=== PATIENT | female | born 1940 | race Caucasian/White ===

== ENCOUNTER 2018-01-31 13:05 | Inpatient (IN) | payer OTHER ==
[2018-01-31] MEDS ORDERED: ONDANSETRON 4 MG/2 ML VIAL ONE ×2 (13:27→17:15)
[2018-01-31 13:48] LABS: Protime INR 0.95
[2018-01-31 13:54] LABS: ALT/SGPT 15 U/L (12-78); AST/SGOT 16 U/L (15-37); Albumin 3.6 g/dL (3.4-5.0); Alkaline Phosphatase 116 U/L (45-117); BUN Blood Urea Nitrogen 40 mg/dL (7-18); Bicarbonate 28 mmol/L (21-32); Bilirubin Direct < 0.1 mg/dL (0-0.2); Bilirubin Total 0.3 mg/dL (0.2-1.0); Glucose Level 176 mg/dL (74-106); Lipase 101 U/L (73-393); Magnesium 2.7 mg/dL (1.8-2.4); NT PRO-BNP 206 pg/mL (<450); Sodium Level 141 mmol/L (136-145)
--- NOTE | 2018-01-31 14:13 | RAD REPORT ---
EXAM DESCRIPTION: CT - Head Brain Wo Cont - 01/31/2018 1:38 pm CLINICAL HISTORY: Dizziness, weakness, nausea and vomiting, history of CVA COMPARISON: None. TECHNIQUE: Axial 5 mm thick images of the head were obtained without IV contrast. All CT scans are performed using dose optimization technique as appropriate and may include automated exposure control or mA/KV adjustment according to patient size. FINDINGS: No intracranial hemorrhage, mass, edema or shift of mid-line structures. No acute cortical based infarction is identifiable. No cortical edema or sulcal effacement. Patient has a large area o f encephalomalacia involving the right parietal lobe with extension into the white matter of the righ t frontal lobe. No abnormal extra-axial fluid collections. Ventricles are in proportion to volume los s. Patient has an underlying moderate atrophy and chronic ischemic change. Physiologic and arterial c alcifications are present. Mastoid air cells are clear. Mucosal thickening and fluid are present in the left side of the sphenoi d sinus. Paranasal sinuses are otherwise clear. No acute bony findings. IMPRESSION: No hemorrhage, mass or acute cortical based infarction. Patient has baseline moderate atrophy and chronic ischemic change with a moderately large area of enc ephalomalacia from prior CVA involving the right parietal lobe and the right frontal lobe white matte r.
[2018-01-31] MEDS ORDERED: ENALAPRILAT 1.25 MG/ML VIAL IV ONE (14:31)
[2018-01-31 14:35] LABS: Absolute Lymphocytes (CBC) 2.2 K/uL (0.7-4.9); Absolute Monocytes 0.4 K/uL (0.1-1.3); Absolute Neutrophil 4.3 K/uL (1.8-8.0); Basophils % 0.7 % (0-1.3); Hematocrit 31.7 % (36.0-45.0); Lymphocytes % 31.2 % (15.3-44.8); MCH 30.5 pg (27.0-35.0); MCV 94.6 fL (80-100); MPV 8.9 fL (7.6-11.3); Monocytes % 5.3 % (3.3-12.3); RBC Red Blood Cell Count 3.35 M/uL (3.86-4.86)
--- NOTE | 2018-01-31 14:37 | RAD REPORT ---
EXAM DESCRIPTION: RAD - Chest Single View - 01/31/2018 2:30 pm CLINICAL HISTORY: Chest pain COMPARISON: December 2013 TECHNIQUE: AP portable chest image was obtained 1410 hours . FINDINGS: No peripheral mass or consolidation. No acute failure or volume overload finding. Interstitial markings are prominent but similar to the prior study. No acute interstitial process see n. Trachea is midline. Heart and vasculature are normal. No measurable pleural effusion and no pneumo thorax. No gross bony abnormality seen. No acute aortic findings suspected. IMPRESSION: Chronic interstitial lung disease similar to 2014. No acute findings seen.
[2018-01-31] MEDS ORDERED: CEFTRIAXONE/SWI 1gm 1 GM/10 ML SYR ONE (14:51)
--- NOTE | 2018-01-31 14:56 | RAD REPORT ---
EXAM DESCRIPTION: CT - Stone Protocol - 01/31/2018 2:44 pm CLINICAL HISTORY: Abdominal pain, nausea, history of UTI COMPARISON: CT study February 2009 TECHNIQUE: Axial 5 mm thick images were obtained without oral or IV contrast. The [id number] span s the entirety of the system including uppermost abdomen and lung bases. All CT scans are performed using dose optimization technique as appropriate and may include automated exposure control or mA/KV adjustment according to patient size. FINDINGS: No hydronephrosis present. No nonobstructing calculi of either kidney. Phleboliths and vas cular calcifications are present. There is a faint less than 1 millimeter calcific density in the dis papito right ureter. No bladder calculus. No suspicious renal masses. Isodense masses and pyelonephritis are not excluded on a stone protocol CT scan. No bladder wall thickening or bladder wall edema seen. Uterus is absent. Calcifications are present at the vaginal cuff. Ovaries are absent or atrophic. No adnexal mass. Imaged portions of the liver, spleen and pancreas show no suspicious findings on non-contrast imaging . Gallbladder is absent. No biliary tree dilatation. No significant adrenal finding. No acute bowel findings seen. Moderate stool volume present in the colon. Sigmoid diverticulosis is p resent without diverticulitis. No hernia, mass or bulky lymphadenopathy noted. No free air, free fluid or inflammatory stranding. So ft tissue attenuation subcutaneous fatty tissues right periumbilical region probably related to medic ation injection. Disc and bone degenerative changes are present. No acute or destructive bone process. IMPRESSION: The patient appears to have a less than 1 millimeter size stone in the distal right uret er near the UVJ. There is no hydronephrosis. Isodense masses and pyelonephritis are not excluded on stone protocol technique. No urinary bladder wall thickening or edema. Sigmoid diverticulosis without diverticulitis. No acute GI process.
[2018-01-31] MEDS ORDERED: HYDRALAZINE HCL 20 MG/ML VIAL ONE ×2 (16:17→17:15)
--- NOTE | 2018-01-31 17:23 | RAD REPORT ---
EXAM DESCRIPTION: MRI - Brain Wo Cont - 01/31/2018 5:02 pm CLINICAL HISTORY: Transient alteration of awareness. Drowsiness COMPARISON: Head Brain Wo Cont dated 01/31/2018; Chest Single View dated 01/31/2018 TECHNIQUE: Multi-sequence, multiplanar MR imaging of the brain was performed without contrast. FINDINGS: No intracranial hemorrhage, hydrocephalus or extra-axial fluid collections. Moderate brain atrophy. Significant encephalomalacia is seen involving the right temporoparietal region compatible with remote infarct. No edema or shift of midline structures. No findings to suspect brain mass. DWI is negative for acute CVA. Midline structures are normally formed. Mastoid air cells and paranasal sinuses are clear. IMPRESSION: Negative for acute CVA or other acute intracranial abnormality. Evidence of remote CVA right temporoparietal region.
--- NOTE | 2018-01-31 17:36 | ER ---
Nurse's Notes [facility] Name: Mariposa Palacios Age: 78 yrs Sex: Female : 1940 Arrival Date: 01/31/2018 Time: 13:10 Bed 2 Private MD: Diagnosis: Urinary tract infection, site not specified;Essential (primary) hypertension;Dehydration Presentation: 01/31 13:11 Presenting complaint: EMS states: nausea, vomiting, dizziness since 1 am, last episode iw of vomiting 20 minutes ago, pt c/o mild abd discomfort, daughter reported pt currently has UTI, not started on abx yet, had UA done on Sunday, also has been out of BP medication for 3-4 days due to recall of valsartan. Transition of care: patient was not received from another setting of care. Onset of symptoms was January 31, 2018. Risk Assessment: Do you want to hurt yourself or someone else? Patient reports no desire to harm self or others. Initial Sepsis Screen: Does the patient meet any 2 criteria? No. Patient's initial sepsis screen is negative. Does the patient have a suspected source of infection? No. Patient's initial sepsis screen is negative. Care prior to arrival: Glucose check: 163. 13:11 Method Of Arrival: EMS: [facility] iw 13:11 Acuity: DOMINIQUE 3 iw Historical: - Allergies: 13:18 Benadryl; iw 13:18 injectable dye; iw 13:18 Phenergan; iw - Home Meds: 15:02 acai blackman extract 500 mg Oral cap [Active]; albuterol sulfate 0.63 mg/3 mL Inhl nebu iw [Active]; allopurinol 100 mg Oral tab 1 tab 3 times per day [Active]; amlodipine 5 mg tab 1 tab once daily [Active]; Calcarb 600 With Vitamin D 600 mg(1,500mg) -200 unit Oral tab [Active]; Diovan 40 mg Oral tab once daily [Active]; docusate sodium 100 mg Oral cap 1 cap 2 times per day [Active]; Folgard 2,000-800-0.32 unit-mcg-mg Oral tab [Active]; Lasix 40 mg oral tab once daily [Active]; garlic 1,000 mg oral cap daily [Active]; latanoprost 0.005 % ophthalmic drop 1 drop once daily [Active]; Lopid 600 mg Oral tab 1 tab 2 times per day [Active]; magnesium oxide 250 mg Oral tab daily [Active]; gabapentin 300 mg Oral cap twice a day [Active]; Norvasc 5 mg oral tab once daily [Active]; Plavix 75 mg Oral tab once daily [Active]; Vesicare 10 mg oral tab once daily [Active]; Zetia 10 mg Oral tab 1 tab once daily [Active]; Zoloft 100 mg Oral tab 1 tab once daily [Active]; Novolog 100 unit/mL Sub-Q soln 26 units am, 20 units pm [Active]; - PMHx: 13:18 Diabetes - IDDM; kidney disease; CVA; iw - PSHx: 13:18 left arm; left shoulder; iw - Immunization history:: Adult Immunizations up to date. - Ebola Screening: : Patient negative for fever greater than or equal to 101.5 degrees Fahrenheit, and additional compatible Ebola Virus Disease symptoms Patient denies exposure to infectious person Patient denies travel to an Ebola-affected area in the 21 days before illness onset No symptoms or risks identified at this time. - Social history:: Smoking status: Patient/guardian denies using tobacco. Screenin:06 Abuse screen: Denies threats or abuse. Denies injuries from another. Nutritional iw screening: No deficits noted. Tuberculosis screening: No symptoms or risk factors identified. Fall Risk IV access (20 points). Assessment: 13:40 General: Appears uncomfortable, Behavior is calm, cooperative. Pain: Complains of pain iw in abdomen. Neuro: Level of Consciousness is awake, alert, obeys commands, Oriented to person, place, time, situation, Moves all extremities. Neuro: Reports dizziness, Denies numbness. Cardiovascular: Patient's skin is warm and dry. Respiratory: Respiratory effort is even, unlabored, Respiratory pattern is regular. GI: Abdomen is round non-distended, obese, Bowel sounds present X 4 quads. Reports nausea, vomiting. Derm: Skin is pink, warm \\T\\ dry. normal. Musculoskeletal: Range of motion: limited in left shoulder and left elbow. 14:17 Reassessment: pt c/o nausea, and diffuse abd pain described as bloating, daughter at iw bedside, warm blanket given. 14:54 Reassessment: Patient appears in no apparent distress at this time. pt returned from iw CT. pt states that she may needs some anxiety medication before having MRI. 16:38 Reassessment: Pt currently at MRI. aa5 17:06 Reassessment: Pt back from MRI. aa5 17:07 Reassessment: Patient is alert, oriented x 3, equal unlabored respirations, skin aa5 warm/dry/pink. Patient denies pain at this time. Pt c/o nausea and reports dizziness is unchanged, PARTS SALES ADVISOR was notified. . 17:50 Reassessment: Patient is alert, oriented x 3, equal unlabored respirations, skin aa5 warm/dry/pink. Pt c/o abd pain, rates pain 7/10 on a pain scale. . 18:25 Reassessment: Patient is alert, oriented x 3, equal unlabored respirations, skin aa5 warm/dry/pink. 18:40 Reassessment: Pt was taken to vehicle via wheelchair for d/c home, pt c/o increased aa5 nausea and dizziness before getting into the car. Pt states "I don't think I can go home like this, I need to stay in the hospital". Asked pt if she wanted to speak to PARTS SALES ADVISOR about her complaints and she stated yes. Pt was taken back to ER Room 2 via wheelchair. Pt currently sitting in wheelchair awaiting to speak to PARTS SALES ADVISOR, pt notified of wait time . 19:00 Reassessment: RECD REPORT FROM LACEY STILES. 78YO WF P/W DIZZINESS AND NAUSEA/VOMITING. PT bp WAS D/C PREVIOUSLY AND DECLINED DISCHARGE AFTER EXITING FACILITY. NOW WAITING FOR PROVIDER RE-EVAL. 19:00 Reassessment: Report given to GO Mckeon. aa5 19:10 Reassessment: PROVIDER AT B/S FOR PT RE-EVAL. bp 20:10 Reassessment: PT NOW TO BE ADMITTED, ADMIT IN PROCESS. bp 21:27 Reassessment: PT AND FAMILY NOW OBJECTING TO OBS STATUS. PROVIDER AT B/S. bp 22:20 Reassessment: PT HAMZAH WITH PCT. bp Vital Signs: 13:16 BP 233 / 85; Pulse 67; Resp 16; Temp 98.6; Pulse Ox 97% on R/A; Weight 90.72 kg; Height iw 5 ft. 5 in. (165.10 cm); Pain 7/10; 14:16 BP 185 / 72; Pulse 62; Resp 16; Pulse Ox 97% on R/A; iw 15:12 BP 188 / 81; Pulse 64; Resp 16; Pulse Ox 96% on R/A; iw 15:25 BP 184 / 77; Pulse 62; Resp 16; Pulse Ox 99% on R/A; mt 16:33 BP 166 / 78; Pulse 60; Resp 16 S; Pulse Ox 99% on R/A; iw 17:07 BP 172 / 70; Pulse 64; Resp 14 S; Pulse Ox 98% on R/A; Pain 0/10; aa5 17:35 BP 153 / 68; Pulse 71; Resp 18 S; Pulse Ox 99% on R/A; aa5 18:00 BP 154 / 70; Pulse 70; Resp 16 S; Pulse Ox 97% on R/A; aa5 20:00 BP 148 / 65; Pulse 70; Resp 14; Pulse Ox 98% ; bp 21:00 BP 165 / 71; Pulse 73; Resp 16; Pulse Ox 97% ; bp 13:16 Body Mass Index 33.28 (90.72 kg, 165.10 cm) iw ED Course: 13:10 Patient arrived in ED. iw 13:14 Hiram Huitron PA is PHCP. jr8 13:14 Ronnie Aaron MD is Attending Physician. jr8 13:15 Inserted saline lock: 22 gauge in right forearm, using aseptic technique. Blood mt collected. 13:16 Triage completed. iw 13:16 Malinda Arreguin, RN is Primary Nurse. iw 13:32 EKG done, by biomass plant technician. reviewed by Hiram ELLISON. at1 13:36 CT completed. Patient tolerated procedure well. Patient moved to CT. Patient moved back mw3 from CT. 13:38 CT Head Brain wo Cont In Process Unspecified. EDMS 14:06 Patient has correct armband on for positive identification. Placed in gown. Bed in low iw position. 14:28 X-ray completed. Portable x-ray completed in exam room. Patient tolerated procedure jb2 well. 14:[address] vr 14:30 XRAY Chest (1 view) In Process Unspecified. EDMS 14:43 CT completed. Patient tolerated procedure well. Patient moved back from CT. vm2 14:44 CT Stone Protocol In Process Unspecified. EDMS 15:58 PHCP role handed off by Hiram Huitron PA kav 15:58 Bethanie Shook FNP is PHCP. kav 16:53 Patient moved to MRI via stretcher. em2 17:01 MRI - Brain Wo Cont In Process Unspecified. EDMS 17:10 MRI completed. Patient tolerated well. Patient moved back from MRI. em2 17:34 Renzo Gautam MD is Referral Physician. kav 18:25 IV discontinued, intact, bleeding controlled, No redness/swelling at site. Pressure aa5 dressing applied. 19:00 Arm band placed on. bp 19:06 No provider procedures requiring assistance completed. bp 20:04 Arcelia Escobar MD is Hospitalizing Provider. kav 20:09 Inserted saline lock: 22 gauge in right antecubital area, using aseptic technique. bp 22:08 Patient admitted, IV remains in place. fc Administered Medications: 13:32 Drug: Zofran 4 mg Route: IVP; Site: right forearm; iw 16:32 Follow up: Response: No adverse reaction iw 14:32 Drug: Enalaprilat 1.25 mg Route: IV; Rate: calculated rate; Site: right forearm; iw 19:11 Follow up: IV Status: Completed infusion bp 15:11 Drug: Rocephin 1 grams {Note: given over 3 minutes.} Route: IV; Rate: calculated rate; iw Site: right forearm; 19:11 Follow up: IV Status: Completed infusion bp 16:25 Not Given (change dose): hydrALAZINE 10 mg IV at bolus once kav 16:25 Drug: hydrALAZINE 5 mg Route: IV; Rate: bolus; Site: right forearm; iw 19:11 Follow up: IV Status: Completed infusion bp 17:19 Drug: hydrALAZINE 5 mg Route: IV; Rate: calculated rate; Site: right forearm; aa5 19:10 Follow up: IV Status: Completed infusion bp 17:19 Drug: Zofran 4 mg Route: IVP; Site: right forearm; aa5 17:25 Follow up: Response: No adverse reaction aa5 17:50 Drug: morphine 2 mg Route: IVP; Site: right forearm; aa5 18:00 Follow up: Response: No adverse reaction; Pain is decreased aa5 19:24 CANCELLED (Inappropriate at this time): Phenergan 25 mg IM once bp Outcome: 17:35 Discharge ordered by MD. kav 18:25 Discharged to home via wheelchair, with daughter aa5 18:25 Condition: stable 18:25 Discharge instructions given to patient, family, Instructed on discharge instructions, follow up and referral plans. medication usage, Demonstrated understanding of instructions, follow-up care, medications, Prescriptions given X 4. 20:05 Decision to Hospitalize by Provider. kav 22:06 Admitted to Tele accompanied by tech, family with patient, via stretcher, room 426, with chart, Report called to GO Chinchilla 22:21 Patient left the ED. bp Signatures: Dispatcher [employer] EDMS Bethanie Shook, SPECIAL TECHNICAL OPERATIONS OFFICER SPECIAL TECHNICAL OPERATIONS OFFICER kaPasha Burroughs jb2 Yadira Guerra RN RN Malinda Arreguin RN RN Lacey Ng RN RN aa5 Jaylin Lopez Josh, PA PA jr8 Justin Soriano em2 Radha blandon, logistics solution manager EKG [facility] Jaylin Perera 2 Rossana Abernathy mt, Brian, RN RN Ellie Knapp mw3 Corrections: (The following items were deleted from the chart) 14:21 13:16 BP 233 / 85; Pulse 67bpm; Resp 16bpm; Pulse Ox 97% RA; iw iw
--- NOTE | 2018-01-31 17:36 | EDPHYS ---
Physician Documentation [facility] Name: Mariposa Palaciso Age: 78 yrs Sex: Female : 1940 Arrival Date: 01/31/2018 Time: 13:10 Bed 2 Private MD: ED Physician Ronnie Aaron HPI: 01/31 14:41 This 78 yrs old Female presents to ER via EMS with complaints of jr8 Nausea/Vomiting, Dizziness. 14:41 Onset: The symptoms/episode began/occurred acutely, this morning. Possible causes: jr8 unknown. Associated signs and symptoms: Pertinent positives: abdominal pain. Severity of symptoms: At their worst the symptoms were moderate in the emergency department the symptoms are unchanged. The patient has not experienced similar symptoms in the past. The patient has not recently seen a physician. Patient stated that she started to have dizziness this morning. [place] off balance and was falling to left. Stated that she started to vomit. Now has abdominal discomfort. Noted to have elevated BP. Patient stated that she has been out of her medication . Historical: - Allergies: 13:18 Benadryl; iw 13:18 injectable dye; iw 13:18 Phenergan; iw - Home Meds: 15:02 acai blackman extract 500 mg Oral cap [Active]; albuterol sulfate 0.63 mg/3 mL [facility] iw [Active]; allopurinol 100 mg Oral tab 1 tab 3 times per day [Active]; amlodipine 5 mg tab 1 tab once daily [Active]; Calcarb 600 With Vitamin D 600 mg(1,500mg) -200 unit Oral tab [Active]; Diovan 40 mg Oral tab once daily [Active]; docusate sodium 100 mg Oral cap 1 cap 2 times per day [Active]; Folgard 2,000-800-0.32 unit-mcg-mg Oral tab [Active]; Lasix 40 mg oral tab once daily [Active]; garlic 1,000 mg oral cap daily [Active]; latanoprost 0.005 % ophthalmic drop 1 drop once daily [Active]; Lopid 600 mg Oral tab 1 tab 2 times per day [Active]; magnesium oxide 250 mg Oral tab daily [Active]; gabapentin 300 mg Oral cap twice a day [Active]; Norvasc 5 mg oral tab once daily [Active]; Plavix 75 mg Oral tab once daily [Active]; Vesicare 10 mg oral tab once daily [Active]; Zetia 10 mg Oral tab 1 tab once daily [Active]; Zoloft 100 mg Oral tab 1 tab once daily [Active]; Novolog 100 unit/mL Sub-Q soln 26 units am, 20 units pm [Active]; - PMHx: 13:18 Diabetes - IDDM; kidney disease; CVA; iw - PSHx: 13:18 left arm; left shoulder; iw - Immunization history:: Adult Immunizations up to date. - Ebola Screening: : Patient negative for fever greater than or equal to 101.5 degrees Fahrenheit, and additional compatible Ebola Virus Disease symptoms Patient denies exposure to infectious person Patient denies travel to an Ebola-affected area in the 21 days before illness onset No symptoms or risks identified at this time. - Social history:: Smoking status: Patient/guardian denies using tobacco. ROS: 14:41 Eyes: Negative for injury, pain, redness, and discharge, ENT: Negative for injury, jr8 pain, and discharge, Neck: Negative for injury, pain, and swelling, Cardiovascular: Negative for chest pain, palpitations, and edema, Respiratory: Negative for shortness of breath, cough, wheezing, and pleuritic chest pain, Back: Negative for injury and pain, MS/Extremity: Negative for injury and deformity, Skin: Negative for injury, rash, and discoloration. 14:41 Abdomen/GI: Positive for abdominal pain, nausea and vomiting, Negative for diarrhea, abdominal cramps, abdominal distension, anorexia, dysphagia, hematemesis, black/tarry stool, rectal pain, rectal bleeding, bowel incontinence, flatulence. 14:41 Neuro: Positive for dizziness, gait disturbance, Negative for altered mental status, headache, hearing loss, loss of consciousness, numbness, seizure activity, speech changes, syncope, near syncope, tingling, tinnitus, tremor, visual changes, weakness. Exam: 14:41 Eyes: Pupils equal round and reactive to light, extra-ocular motions intact. Lids and jr8 lashes normal. Conjunctiva and sclera are non-icteric and not injected. Cornea within normal limits. Periorbital areas with no swelling, redness, or edema. ENT: Nares patent. No nasal discharge, no septal abnormalities noted. Tympanic membranes are normal and external auditory canals are clear. Oropharynx with no redness, swelling, or masses, exudates, or evidence of obstruction, uvula midline. Mucous membranes moist. Neck: Trachea midline, no thyromegaly or masses palpated, and no cervical lymphadenopathy. Supple, full range of motion without nuchal rigidity, or vertebral point tenderness. No Meningismus. Cardiovascular: Regular rate and rhythm with a normal S1 and S2. No gallops, murmurs, or rubs. Normal PMI, no JVD. No pulse deficits. Respiratory: Lungs have equal breath sounds bilaterally, clear to auscultation and percussion. No rales, rhonchi or wheezes noted. No increased work of breathing, no retractions or nasal flaring. Abdomen/GI: Soft, mild LUQ abdominal tenderness with palpation, with normal bowel sounds. No distension or tympany. No guarding or rebound. No evidence of tenderness throughout. Back: No spinal tenderness. No costovertebral tenderness. Full range of motion. Skin: Warm, dry with normal turgor. Normal color with no rashes, no lesions, and no evidence of cellulitis. MS/ Extremity: Pulses equal, no cyanosis. Neurovascular intact. Full, normal range of motion. Neuro: Awake and alert, GCS 15, oriented to person, place, time, and situation. Cranial nerves II-XII grossly intact. Motor strength 5/5 in all extremities. Sensory grossly intact. Cerebellar exam normal. Normal gait. Vital Signs: 13:16 BP 233 / 85; Pulse 67; Resp 16; Temp 98.6; Pulse Ox 97% on R/A; Weight 90.72 kg; Height iw 5 ft. 5 in. (165.10 cm); Pain 7/10; 14:16 BP 185 / 72; Pulse 62; Resp 16; Pulse Ox 97% on R/A; iw 15:12 BP 188 / 81; Pulse 64; Resp 16; Pulse Ox 96% on R/A; iw 15:25 BP 184 / 77; Pulse 62; Resp 16; Pulse Ox 99% on R/A; mt 16:33 BP 166 / 78; Pulse 60; Resp 16 S; Pulse Ox 99% on R/A; iw 17:07 BP 172 / 70; Pulse 64; Resp 14 S; Pulse Ox 98% on R/A; Pain 0/10; aa5 17:35 BP 153 / 68; Pulse 71; Resp 18 S; Pulse Ox 99% on R/A; aa5 18:00 BP 154 / 70; Pulse 70; Resp 16 S; Pulse Ox 97% on R/A; aa5 20:00 BP 148 / 65; Pulse 70; Resp 14; Pulse Ox 98% ; bp 21:00 BP 165 / 71; Pulse 73; Resp 16; Pulse Ox 97% ; bp 13:16 Body Mass Index 33.28 (90.72 kg, 165.10 cm) iw MDM: 13:14 Patient medically screened. [facility] 17:33 Data reviewed: vital signs, nurses notes, lab test result(s), radiologic studies, CT kav scan, MRI. 19:06 Physician consultation: Romulo Gutierrez MD was called at 19:07, was contacted at 19:07, ka regarding admission, patient's condition, outpatient follow-up. 19:27 Physician consultation: Long Alonzo MD was called at 19:27, was contacted at 19:27, ka regarding patient's condition. 19:45 Physician consultation: Arcelia Escobar MD was called at 19:46, was contacted at 19:46, ka regarding admission, patient's condition, and will see patient in ED. 19:45 ED course: Patient is discharged to go home but refuses to leave because she is kav "...nauseated". Explained all results to patient and her family and advised that Dr. Araiza/Hospitalist would come and assess the patient.. 01/31 13:21 Order name: Basic Metabolic Panel; Complete Time: 14:08 01/31 13:21 Order name: CBC with Diff; Complete Time: 15:04 01/31 13:21 Order name: LFT's; Complete Time: 14:08 01/31 13:21 Order name: Magnesium; Complete Time: 14:08 01/31 13:21 Order name: NT PRO-BNP; Complete Time: 14:08 01/31 13:21 Order name: PT-INR; Complete Time: 13:52 01/31 13:21 Order name: Troponin (emerg Dept Use Only); Complete Time: 13:52 01/31 13:21 Order name: XRAY Chest (1 view); Complete Time: 14:38 01/31 13:21 Order name: CT Head Brain wo Cont; Complete Time: 14:22 01/31 13:21 Order name: Lipase; Complete Time: 14:08 01/31 14:24 Order name: MRI - Brain Wo Cont; Complete Time: 17:26 01/31 14:24 Order name: CT Stone Protocol; Complete Time: 15:04 01/31 13:21 Order name: EKG; Complete Time: 13:21 01/31 13:21 Order name: Cardiac monitoring; Complete Time: 13:34 01/31 13:21 Order name: EKG - Nurse/Tech; Complete Time: 13:34 01/31 13:21 Order name: IV Saline Lock; Complete Time: 13:23 01/31 13:21 Order name: Labs collected and sent; Complete Time: 13:23 01/31 13:21 Order name: O2 Per Protocol; Complete Time: 13:23 01/31 13:21 Order name: O2 Sat Monitoring; Complete Time: 13: Administered Medications: 13:32 Drug: Zofran 4 mg Route: IVP; Site: right forearm; iw 16:32 Follow up: Response: No adverse reaction iw 14:32 Drug: Enalaprilat 1.25 mg Route: IV; Rate: calculated rate; Site: right forearm; iw 19:11 Follow up: IV Status: Completed infusion bp 15:11 Drug: Rocephin 1 grams {Note: given over 3 minutes.} Route: IV; Rate: calculated rate; iw Site: right forearm; 19:11 Follow up: IV Status: Completed infusion bp 16:25 Not Given (change dose): hydrALAZINE 10 mg IV at bolus once kav 16:25 Drug: hydrALAZINE 5 mg Route: IV; Rate: bolus; Site: right forearm; iw 19:11 Follow up: IV Status: Completed infusion bp 17:19 Drug: hydrALAZINE 5 mg Route: IV; Rate: calculated rate; Site: right forearm; aa5 19:10 Follow up: IV Status: Completed infusion bp 17:19 Drug: Zofran 4 mg Route: IVP; Site: right forearm; aa5 17:25 Follow up: Response: No adverse reaction aa5 17:50 Drug: morphine 2 mg Route: IVP; Site: right forearm; aa5 18:00 Follow up: Response: No adverse reaction; Pain is decreased aa5 19:24 CANCELLED (Inappropriate at this time): Phenergan 25 mg IM once bp Disposition: 01/31/18 20:05 Hospitalization ordered by Arcelia Escobar for Observation. Preliminary diagnosis are Urinary tract infection, site not specified, Essential (primary) hypertension, Dehydration. - Bed requested for Telemetry/MedSurg (observation). - Status is Observation. bp - Condition is Fair. - Problem is new. - Symptoms have improved. UTI on Admission? Yes - Notes: f/u with neurology in 2-3 days for DX: Dizziness f/u with sales supervisor iin 2-3 days for DX: Dizziness Addendum: 02/11/2018 07:23 Co-signature as Attending Physician, Ronnie Aaron MD I agree with the assessment and k dr plan of care. Signatures: Dispatcher [employer] EDMS Patricia Heard RN RN kl Rittger, Kevin, MD MD [facility] Bethanie Shook, COVERED BUTTON MAKER COVERED BUTTON MAKER Malinda Mcguire RN RN Lacey Ng RN RN aa5 Hiram Huitron PA PA jr8 Mike Rodriguez RN RN bp Corrections: (The following items were deleted from the chart) 01/31 15:30 13:21 Urine Dipstick-Ancillary ordered. jr8 iw 18:17 17:35 01/31/2018 17:35 Discharged to Home. Impression: Dizziness and giddiness; kav Essential (primary) hypertension. Condition is Stable. Forms are Medication Reconciliation Form, Thank You Letter, Antibiotic Education, Prescription Opioid Use. Follow up: Private Physician; When: 1 - 2 days; Reason: Recheck today's complaints, Continuance of care, Re-evaluation by your physician. Follow up: Renzo Gautam; When: 2 - 3 days; Reason: Recheck today's complaints, Continuance of care, Re-evaluation by your physician. Problem is new. Symptoms have improved. kav 19:24 19:16 Phenergan 25 mg IM once ordered. bp bp 20:03 18:17 01/31/2018 17:35 Discharged to Home. Impression: Dizziness and giddiness; kav Essential (primary) hypertension; Urinary tract infection, site not specified. Condition is Stable. Discharge Instructions: Dizziness, Hypertension, How to Take Your Blood Pressure, [id number]-Hmbn. Prescriptions for losartan 50 mg Oral tablet - take 1 tablet by ORAL route once daily; 30 tablet. and Forms are Medication Reconciliation Form, Thank You Letter. Follow up: Private Physician; When: 1 - 2 days; Reason: Recheck today's complaints, Continuance of care, Re-evaluation by your physician. Follow up: Renzo Gautam; When: 2 - 3 days; Reason: Recheck today's complaints, Continuance of care, Re-evaluation by your physician. Problem is new. Symptoms have improved. [facility] 20:58 20:05 Hospitalization Ordered by Arcelia Escobar MD for Observation. Preliminary kl diagnosis is Urinary tract infection, site not specified; Essential (primary) hypertension; Dehydration. Bed requested for Telemetry/MedSurg (observation). Status is Observation. Condition is Fair. Problem is new. Symptoms have improved. UTI on Admission? Yes. [facility] 22:21 20:58 01/31/2018 20:05 Hospitalization Ordered by Arcelia Escobar MD for Observation. bp Preliminary diagnosis is Urinary tract infection, site not specified; Essential (primary) hypertension; Dehydration. Bed requested for Telemetry/MedSurg (observation). Status is Observation. Condition is Fair. Problem is new. Symptoms have improved. UTI on Admission? Yes. kl
[2018-01-31] MEDS ORDERED: MORPHINE 4 MG/ML SYR ONE (17:54)
--- NOTE | 2018-01-31 19:05 | EKG ---
Test Date: 2018-01-31 Test Time: 13:27:07 Pricer: BENITA MEASUREMENT RESULTS: Intervals: Rate: 63 MA: 186 QRSD: 114 QT: 464 QTc: 474 [place]: P: 17 MA: 186 QRS: -30 T: 66 INTERPRETIVE STATEMENTS: Normal sinus rhythm Left axis deviation Abnormal ECG Compared to ECG 05/12/2012 20:01:07 Left-axis deviation now present Sinus bradycardia no longer present Electronically Signed On 01-31-18 19:04:43 CDT by Kanu Box
[2018-01-31] MEDS ORDERED: PROMETHAZINE 25 MG/ML VIAL ONE (19:21)
[2018-01-31] MEDS: INSULIN -REGULAR HUMAN 50 UNIT/0.5 ML ML SQ SCH (22:42)
[2018-01-31] MEDS ORDERED: ACETAMINOPHEN 500 MG TAB PO PRN (22:42)
[2018-01-31 23:10] VITALS: BMI 31.5
[2018-01-31] MEDS: ONDANSETRON 4 MG/2 ML VIAL IV PRN (23:37)
[2018-02-01] MEDS ORDERED: PIPER/TAZO/NS 2.25gm 2.25 GM/50 ML BAG ONE ×2 (00:53→05:08)
[2018-02-01] MEDS ORDERED: NA CHLORIDE 0.9% 500 ML ONE (00:59)
[2018-02-01 05:14] LABS: Absolute Lymphocytes (CBC) 2.6 K/uL (0.7-4.9); Absolute Monocytes 0.4 K/uL (0.1-1.3); Basophils % 0.5 % (0-1.3); Eosinophils % 1.2 % (0-4.4); Hematocrit 29.7 % (36.0-45.0); Lymphocytes % 31.9 % (15.3-44.8); MCH 30.8 pg (27.0-35.0); MCV 95.2 fL (80-100); MPV 8.7 fL (7.6-11.3); Monocytes % 5.2 % (3.3-12.3); RBC Red Blood Cell Count 3.12 M/uL (3.86-4.86)
[2018-02-01] MEDS: PIPER/TAZO/NS 2.25gm 2.25 GM/50 ML BAG IV SCH ×3 (06:00→12:00)
[2018-02-01] MEDS ORDERED: NA CHLORIDE 0.9% 250 ML IV PRN (07:30)
[2018-02-01] MEDS: INSULIN -REGULAR HUMAN 50 UNIT/0.5 ML ML SQ SCH ×4 (07:30→21:00)
[2018-02-01] MEDS ORDERED: TRAMADOL HCL 50 MG TAB PO PRN (07:50)
[2018-02-01] MEDS ORDERED: HYDROCODONE/APAP 7.5/325 MG TAB PO PRN (07:50)
[2018-02-01] MEDS ORDERED: LATANOPROST OP SCH (08:00)
--- NOTE | 2018-02-01 09:18 | P.HP ---
Certification for Inpatient Patient admitted to: Inpatient With expected LOS: >2 Midnights Practitioner: I am a practitioner with admitting privileges, knowledge of patient current condition, hospital course, and medical plan of care. Services: Services provided to patient in accordance with Admission requirements found in Title 42 Section 412.3 of the Code of Federal Regulations Patient History Date of Service: 01/31/18 Reason for admission: UTI History of Present Illness: Ms Palacios is a 78 years old woman with history of CKD, DM II, HTN, CVA, recrurrent UTI episodes, who this morning started with dizziness associated with diffuse abdominal pain, nausea and vomiting. She denied fever or chills. The patient was diagnosed with UTI a couple of days ago, but since her PCP was not available, she never got antibiotics started. At my encounter the patient was still dizzy, and symptomatic for nausea. Lab work shows normal WBC, she is afebrile. The patient was severely hypertensive at arrival, 233/85, after been treated with Hydralazyne and Vasotec, her SBP drop to 150's. CT head and MRI brain report no acute abnormalities. CT abd/pelvis remarkable for a 1mm non- obstructive stone at UVJ. Allergies iodine Allergy (Severe, Verified 01/31/18 22:48) resp arrest promethazine HCl [From Phenergan] Allergy (Mild, Verified 01/31/18 22:48) Rash codeine [Codeine] Adverse Reaction (Mild, Verified 01/31/18 22:48) vomitting diphenhydramine HCl [From Benadryl] Adverse Reaction (Mild, Verified 01/31/18 22 :48) anxiety metformin HCl [From Glucophage] Adverse Reaction (Mild, Verified 01/31/18 22:48) vomitting injectable dye Allergy (Uncoded 01/31/18 22:48) Unknown Home medications list reviewed: Yes Home Medications: Gabapentin [Neurontin] 300 mg PO BID 05/12/12 Acai Reese Extract [Acai] 1,000 mg PO DAILY 05/13/12 Calcium Carbonate/Vitamin D3 [[place] 500-Vit D3 600 Caplet] 1 each PO DAILY 11/17 Allopurinol 1 tab PO DAILY 01/31/18 Amlodipine Besylate [Norvasc] 1 tab PO SEECOM 01/31/18 Cefdinir [Cefdinir*] 1 cap PO BID 01/31/18 Clopidogrel Bisulfate [Plavix] 1 tab PO DAILY 01/31/18 Cranberry Fruit Extract [Ellura] 1 tab PO DAILY 01/31/18 Ezetimibe 1 tab PO DAILY 01/31/18 Furosemide 1 tab PO DAILY 01/31/18 Gemfibrozil 1 tab PO BID 01/31/18 Insulin Aspart Protam & Aspart [Novolog Mix 70-30 Vial] 20 units PO DAILY AT SUPPER 01/31/18 Insulin Aspart Protam & Aspart [Novolog Mix 70-30 Vial] 26 units SQ BREAKFAST Latanoprost/Pf [Latanoprost 0.005% Eye Drop] 1 gtts OP SEECOM 01/31/18 Magnesium Oxide [Magnesium] 1 tab PO DAILY 01/31/18 Sertraline [Zoloft*] 1 tab PO BEDTIME 01/31/18 Solifenacin Succinate [Vesicare] 1 tab PO DAILY 01/31/18 Valsartan 1 tab PO DAILY 01/31/18 Vit D3/Folic Acid/B2/B6/B12 [Folgard Tablet] 1 tab PO DAILY 01/31/18 - Past Medical/Surgical History Has patient received pneumonia vaccine in the past: Yes Diabetic: Yes -: DM-IDDM -: HTN -: CVA -: Diabetic Neuropathy -: Diabetic Retinopathy -: Hysterectomy -: Marian - Family History Father -: Heart disease, Diabetes Mother -: Heart disease, Hypertension, Diabetes - Social History Smoking Status: Never smoker Alcohol use: No CD- Drugs: No Caffeine use: Yes Place of Residence: Home Review of Systems 10-point ROS is otherwise unremarkable Physical Examination - Vital Signs Temperature: 97.1 F Blood Pressure: 95/47 Pulse: 78 Respirations: 18 Pulse Ox (%): 97 - Physical Exam General: Alert, Mild distress (due to abdominal pain and nausea) HEENT: Atraumatic, PERRLA, Mucous membr. moist/pink, EOMI, Sclerae nonicteric Neck: Supple, 2+ carotid pulse no bruit, No LAD, Without JVD or thyroid abnormality Respiratory: Clear to auscultation bilaterally, Normal air movement Cardiovascular: Regular rate/rhythm, Normal S1 S2 Gastrointestinal: Normal bowel sounds, Tenderness (diffuse tenderness to palpation) Musculoskeletal: No tenderness Integumentary: No rashes Neurological: Normal speech, Normal strength at 5/5 x4 extr, Normal tone, Normal affect Lymphatics: No axilla or inguinal lymphadenopathy - Studies Laboratory Data (last 24 hrs) 01/31/18 13:15: PT 11.2, INR 0.95 01/31/18 13:15: WBC 7.1, Hgb 10.2 L, Hct 31.7 L, Plt Count 312 01/31/18 13:15: Sodium 141, Potassium 4.0, BUN 40 H, Creatinine 1.50 H, Glucose 176 H, Magnesium 2.7 H, Total Bilirubin 0.3, AST 16, ALT 15, Alkaline Phosphatase 116, Lipase 101 Assessment and Plan - Problems (Diagnosis) (1) Diabetes mellitus Current Visit: Yes Status: Acute Qualifiers: Diabetes mellitus type: type 2 Diabetes mellitus termite control technician insulin use: with termite control technician use Diabetes mellitus complication status: with unspecified complications Qualified Code(s): E11.8 - Type 2 diabetes mellitus with unspecified complications; Z79.4 - terminal carman (current) use of insulin (2) CKD (chronic kidney disease) Current Visit: Yes Status: Acute Qualifiers: Chronic kidney disease stage: stage 2 (mild) Qualified Code(s): N18.2 - Chronic kidney disease, stage 2 (mild) (3) UTI (urinary tract infection) Current Visit: No Status: Acute Qualifiers: Urinary tract infection type: acute cystitis Hematuria presence: without hematuria Qualified Code(s): N30.00 - Acute cystitis without hematuria (4) Hypertensive urgency Current Visit: Yes Status: Acute - Plan The patient will be admitted to the hospital due to symptomatic UTI and hypertensive urgency. Will order Zosyn IV to cover previous organism found in the most recent urine culture report. Antibiotic treatment needs to be narrowed according current urine culture results. BP at this point is better controlled, will resume her home medication as soon is verified. - Advance Directives Does patient have a Living Will: Yes Does patient have a Durable POA for Healthcare: Yes - Code Status/Comfort Care Code Status Assessed: Yes Code Status: Full Code
[2018-02-01 09:19] LABS: Potassium 4.4 mmol/L (3.5-5.1)
[2018-02-01] MEDS: NA CHLORIDE 0.9% 1,000 ML IV SCH ×2 (09:44→18:00)
[2018-02-01] MEDS: ENOXAPARIN 30 MG/0.3 ML SQ SCH (09:53)
[2018-02-01] MEDS: ONDANSETRON 4 MG/2 ML VIAL IV PRN (09:53)
--- NOTE | 2018-02-01 09:55 | P.PN ---
Subjective Date of Service: 02/01/18 Primary Care Provider: Dr. Mcclellan Chief Complaint: UTI Subjective: Other (Patient feeling slightly better still with some nausea. Dizziness is still noted.) Physical Examination - Vital Signs Temperature: 97.1 F Blood Pressure: 95/47 Pulse: 78 Respirations: 18 Pulse Ox (%): 97 - Physical Exam General: Alert, In no apparent distress, Oriented x3, Cooperative HEENT: Atraumatic, Other (Dry mucous membranes) Neck: Supple Respiratory: Clear to auscultation bilaterally, Normal air movement Cardiovascular: Normal pulses, Regular rate/rhythm Gastrointestinal: Normal bowel sounds, Soft and benign, Non-distended, No masses , No rebound, No guarding, Tenderness (Minimal pain to the epigastric region) Musculoskeletal: No erythema, No tenderness, No warmth Integumentary: No erythema, No warmth, No cyanosis Neurological: Normal speech, Normal strength at 5/5 x4 extr, Normal tone, Normal affect - Studies Laboratory Data (last 24 hrs) 01/31/18 13:15: PT 11.2, INR 0.95 01/31/18 13:15: WBC 7.1, Hgb 10.2 L, Hct 31.7 L, Plt Count 312 01/31/18 13:15: Sodium 141, Potassium 4.0, BUN 40 H, Creatinine 1.50 H, Glucose 176 H, Magnesium 2.7 H, Total Bilirubin 0.3, AST 16, ALT 15, Alkaline Phosphatase 116, Lipase 101 Medications List Reviewed: Yes Assessment & Plan - Problems (Diagnosis) (1) Nausea and vomiting Current Visit: Yes Status: Acute Plan: Will provide medication for nausea. Likely from UTI. Will monitor closely. Patient appears dehydrated. Will start IV fluids. Qualifiers: Vomiting type: unspecified Vomiting Intractability: unspecified Qualified Code(s): R11.2 - Nausea with vomiting, unspecified (2) Dehydration Current Visit: Yes Status: Acute Plan: Will start IV fluids. Will treat UTI. Await urine and blood cultures. Will obtain pro calcitonin and lactic acid. Will hold her blood pressure medication at this time. Nephrology consulted to address acute on chronic renal disease. (3) Hypertension Current Visit: Yes Status: Chronic Plan: Blood pressure is low at this time. Will provide IV fluids. Bolus will be provided then maintenance. If her blood pressure elevates then may need to her restart her medication. Will check echocardiogram. Qualifiers: Hypertension type: essential hypertension Qualified Code(s): I10 - Essential (primary) hypertension (4) Neuropathy, diabetic Current Visit: Yes Status: Chronic Plan: Will restart her home medication. Qualifiers: Diabetes mellitus type: type 2 Diabetes mellitus complication detail: diabetic polyneuropathy Qualified Code(s): E11.42 - Type 2 diabetes mellitus with diabetic polyneuropathy (5) CKD (chronic kidney disease) Current Visit: Yes Status: Acute Plan: Acute on chronic renal disease likely from dehydration and UTI. Will continue with IV fluids. Nephrology consulted to further evaluate. Will check renal ultrasound Qualifiers: Chronic kidney disease stage: stage 3 (moderate) Qualified Code(s): N18.3 - Chronic kidney disease, stage 3 (moderate) (6) Diabetes mellitus Current Visit: Yes Status: Chronic Plan: Will check A1c. Will provide sliding scale. Qualifiers: Diabetes mellitus type: type 2 Diabetes mellitus snf insulin use: with technician terminal and repeater use Diabetes mellitus complication status: with other specified complication Qualified Code(s): E11.69 - Type 2 diabetes mellitus with other specified complication; Z79.4 - manager intermediate (current) use of insulin (7) Anemia Current Visit: No Status: Chronic Plan: Likely of chronic renal disease. Will monitor closely. Qualifiers: Anemia type: due to chronic kidney disease Chronic kidney disease stage: stage 3 (moderate) Qualified Code(s): N18.3 - Chronic kidney disease, stage 3 (moderate); D63.1 - Anemia in chronic kidney disease (8) UTI (urinary tract infection) Current Visit: No Status: Acute Plan: Patient with UTI. No hydronephrosis noted. CT scan shows less than 1 mm distal right ureter stone near UVJ. No obstruction noted. Will monitor closely. Await urine and blood culture results. Patient on IV antibiotic therapy. Continue IV fluids. Qualifiers: Urinary tract infection type: acute cystitis Hematuria presence: without hematuria Qualified Code(s): N30.00 - Acute cystitis without hematuria (9) Sepsis Current Visit: Yes Status: Suspected Plan: Will check pro calcitonin and lactic acid. Blood pressure slightly decreased today. Likely from dehydration and UTI. Will continue IV fluids. Continue IV antibiotic therapy. Await urine and blood culture results. (10) History of CVA (cerebrovascular accident) Current Visit: Yes Status: Chronic Plan: Continue with her medication. (11) GERD (gastroesophageal reflux disease) Current Visit: Yes Status: Suspected Plan: Will provide PPI. Qualifiers: Esophagitis presence: esophagitis presence not specified Qualified Code(s) : K21.9 - Gastro-esophageal reflux disease without esophagitis (12) Dizziness Current Visit: Yes Status: Acute Plan: Likely from low blood pressure. Will continue to hold blood pressure medication. Will monitor closely. Will provide medication. Continue as above. Discharge Plan: Home Plan to discharge in: 48 Hours Time Spent Managing Pts Care (In Minutes): 55
[2018-02-01 10:01] LABS: Urine Appearance CLOUDY; Urine Bilirubin NEGATIVE (NEG); Urine Blood NEGATIVE (NEG); Urine Color YELLOW; Urine Glucose NEGATIVE (NEG); Urine Protein TRACE (NEG); Urine Specific Gravity 1.015 (1.005-1.030); Urine Urobilinogen 0.2 mg/dL (0.2-1.0)
[2018-02-01 10:03] LABS: Urine Microscopic Reflex ORDER UMIC
[2018-02-01 10:17] LABS: Urine Bacteria <20 /HPF (<20); Urine Culture Reflex Order REFLEXED; Urine RBC <5 /HPF (NONE SEEN)
[2018-02-01] MEDS: EZETIMIBE 10 MG TAB PO SCH (10:58)
[2018-02-01] MEDS: CLOPIDOGREL 75 MG TABLET PO SCH (11:00)
[2018-02-01] MEDS: GABAPENTIN 300 MG CAP PO SCH ×2 (11:00→22:09)
[2018-02-01] MEDS: CRANBERRY FRUIT EXTRACT 200 MG CAP PO SCH (11:01)
[2018-02-01] MEDS: FOLBIC 1 TAB PO SCH (11:01)
--- NOTE | 2018-02-01 12:41 | RAD REPORT ---
EXAM DESCRIPTION: US - Renal Ultrasound-Complete - 02/01/2018 12:30 pm CLINICAL HISTORY: UTI, Acute on chronic renal disease, Pos. stone COMPARISON: RP EXAM COMPLETE dated 08/13/2013; Stone Protocol dated 01/31/2018 FINDINGS: Both kidneys are normal in size, shape and echotexture. Mild cortical thinning is noted. The right kidney measures 10.4 x 5.3 x 4.6 cm. No hydronephrosis, focal mass or perinephric fluid. The left kidney measures 8.6 x 5.1 x 4.5 cm. No hydronephrosis, focal mass or perinephric fluid. The urinary bladder is incompletely distended without gross abnormality seen. IMPRESSION: Unremarkable renal sonogram.
--- NOTE | 2018-02-01 14:31 | ECHO ---
HEIGHT: 5 ft 9 in WEIGHT: 213 lb 7 oz DATE OF STUDY: 02/01/[address]: Alen Ghotra DO 2-DIMENSIONAL: YES M.MODE: YES DOPPLER: YES COLOR FLOW: YES TDS: PORTABLE: DEFINITY: BUBBLE STUDY: DIAGNOSIS: HYPERTENSION, CHRONIC RENAL DISEASE CARDIAC HISTORY: CATHERIZATION: NO SURGERY: NO PROSTHETIC VALVE: NO PACEMAKER: NO MEASUREMENTS (cm) DIASTOLIC (NORMALS) SYSTOLIC (NORMALS) IVSd 1.5 (0.6-1.2) LA Diam 3.2 (1.9-4.0) LVEF 59% LVIDd 3.4 (3.5-5.7) LVIDs 2.3 (2.0-3.5) %FS 30% LVPWd 1.4 (0.6-1.2) Ao Diam 2.9 (2.0-3.7) 2 DIMENSIONAL ASSESSMENT: RIGHT ATRIUM: NORMAL LEFT ATRIUM: NORMAL RIGHT VENTRICLE: NORMAL LEFT VENTRICLE: NORMAL TRICUSPID VALVE: NORMAL MITRAL VALVE: NORMAL PULMONIC VALVE: NORMAL AORTIC VALVE: NORMAL PERICARDIAL EFFUSION: NONE AORTIC ROOT: NORMAL LEFT VENTRICULAR WALL MOTION: NORMAL DOPPLER/COLOR FLOW: IMPAIRED LEFT VENTRICULAR RELAXATION. MILD MITRAL REGURGITATION AND TRICUSPID REGURGITATION. NORMAL RIGHT VENTRICULAR SYSTOLIC PRESSURE. COMMENTS: NORMAL TWO DIMENSIONAL ECHOCARDIOGRAM. IMPAIRED LEFT VENTRICULAR RELAXATION. . MILD MITRAL REGURGITATION AND TRICUSPID REGURGITATION. TECHNOLOGIST: ROSSI LOCKE
[2018-02-01] MEDS: CEFTRIAXONE/SWI 1gm 1 GM/10 ML SYR IV SCH (15:59)
[2018-02-01] MEDS: SOLIFENACIN SUCCIN 5 MG TAB PO SCH (16:00)
[2018-02-01] MEDS: ALLOPURINOL 300 MG TAB PO SCH (16:00)
[2018-02-01] MEDS: GEMFIBROZIL 600 MG TAB PO SCH ×2 (16:01→22:09)
--- NOTE | 2018-02-01 19:59 | P.CNS ---
Date of Consult: 02/01/18 Reason for Consult: ANURAG/ CKD Requesting Physician: Alen Ghotra Primary Care Provider: Dr. Mcclellan Chief Complaint: UTI History of Present Illness: Ms Palacios is a 78 years old woman with history of CKD, DM II, HTN, CVA, recrurrent UTI episodes, who this morning started with dizziness associated with diffuse abdominal pain, nausea and vomiting. She denied fever or chills. The patient was diagnosed with UTI a couple of days ago, but since her PCP was not available, she never got antibiotics started. At my encounter the patient was still dizzy, and symptomatic for nausea. Lab work shows normal WBC, she is afebrile. The patient was severely hypertensive at arrival, 233/85, after been treated with Hydralazyne and Vasotec, her SBP drop to 150's. CT head and MRI brain report no acute abnormalities. CT abd/pelvis remarkable for a 1mm non- obstructive stone at UVJ. 14:41 This 78 yrs old Female presents to ER via EMS with complaints of jr8 Nausea/Vomiting, Dizziness. 14:41 Onset: The symptoms/episode began/occurred acutely, this morning. Possible causes: jr8 unknown. Associated signs and symptoms: Pertinent positives: abdominal pain. Severity of symptoms: At their worst the symptoms were moderate in the emergency department the symptoms are unchanged. The patient has not experienced similar symptoms in the past. The patient has not recently seen a physician. Patient stated that she started to have dizziness this morning. [place] off balance and was falling to left. Stated that she started to vomit. Now has abdominal discomfort. Noted to have elevated BP. Patient stated that she has been out of her medication . Allergies iodine Allergy (Severe, Verified 01/31/18 22:48) resp arrest promethazine HCl [From Phenergan] Allergy (Mild, Verified 01/31/18 22:48) Rash codeine [Codeine] Adverse Reaction (Mild, Verified 01/31/18 22:48) vomitting diphenhydramine HCl [From Benadryl] Adverse Reaction (Mild, Verified 01/31/18 22 :48) anxiety metformin HCl [From Glucophage] Adverse Reaction (Mild, Verified 01/31/18 22:48) vomitting injectable dye Allergy (Uncoded 01/31/18 22:48) Unknown Home medications list reviewed: Yes Home Medications: Gabapentin [Neurontin] 300 mg PO BID 05/12/12 Acai Reese Extract [Acai] 1,000 mg PO DAILY 05/13/12 Calcium Carbonate/Vitamin D3 [[place] 500-Vit D3 600 Caplet] 1 each PO DAILY 11/17 Allopurinol 1 tab PO DAILY 01/31/18 Amlodipine Besylate [Norvasc] 1 tab PO SEECOM 01/31/18 Cefdinir [Cefdinir*] 1 cap PO BID 01/31/18 Clopidogrel Bisulfate [Plavix] 1 tab PO DAILY 01/31/18 Cranberry Fruit Extract [Ellura] 1 tab PO DAILY 01/31/18 Ezetimibe 1 tab PO DAILY 01/31/18 Furosemide 1 tab PO DAILY 01/31/18 Gemfibrozil 1 tab PO BID 01/31/18 Insulin Aspart Protam & Aspart [Novolog Mix 70-30 Vial] 20 units PO DAILY AT SUPPER 01/31/18 Insulin Aspart Protam & Aspart [Novolog Mix 70-30 Vial] 26 units SQ BREAKFAST Latanoprost/Pf [Latanoprost 0.005% Eye Drop] 1 gtts OP SEECOM 01/31/18 Magnesium Oxide [Magnesium] 1 tab PO DAILY 01/31/18 Sertraline [Zoloft*] 1 tab PO BEDTIME 01/31/18 Solifenacin Succinate [Vesicare] 1 tab PO DAILY 01/31/18 Valsartan 1 tab PO DAILY 01/31/18 Vit D3/Folic Acid/B2/B6/B12 [Folgard Tablet] 1 tab PO DAILY 01/31/18 - Past Medical/Surgical History Diabetic: Yes -: DM-IDDM -: HTN -: CVA -: Diabetic Neuropathy -: Diabetic Retinopathy -: Hysterectomy -: Marian - Family History Father Medical History: Heart disease, Diabetes Mother Medical History: Heart disease, Hypertension, Diabetes - Social History Smoking Status: Never smoker Alcohol use: No CD- Drugs: No Caffeine use: Yes Place of Residence: Home Review of Systems 10-point ROS is otherwise unremarkable General: Weakness, Malaise Gastrointestinal: Nausea Neurological: Weakness Physical Examination Temp Pulse Resp BP Pulse Ox 97.6 F 57 16 129/62 96 02/01/18 16:00 02/01/18 16:00 02/01/18 16:00 02/01/18 16:00 02/01/18 16:00 General: Oriented x3, Cooperative HEENT: Atraumatic Neck: Supple, JVD not distended Respiratory: Clear to auscultation bilaterally, Normal air movement Cardiovascular: No edema, Regular rate/rhythm, No rubs Gastrointestinal: Soft and benign, Non-distended, Tenderness Musculoskeletal: No clubbing, No contractures, No warmth Integumentary: No rashes, No cyanosis Neurological: Normal speech Hgb 9.6 Blood work reviewed in the chart. Imagings Data: Reason for Exam: UTI, Acute on chronic renal disease, Pos. stone Report Status: Signed EXAM DESCRIPTION: US - Renal Ultrasound-Complete - 02/01/2018 12:30 pm CLINICAL HISTORY: UTI, Acute on chronic renal disease, Pos. stone COMPARISON: RP EXAM COMPLETE dated 08/13/2013; Stone Protocol dated 01/31/2018 FINDINGS: Both kidneys are normal in size, shape and echotexture. Mild cortical thinning is noted. The right kidney measures 10.4 x 5.3 x 4.6 cm. No hydronephrosis, focal mass or perinephric fluid. The left kidney measures 8.6 x 5.1 x 4.5 cm. No hydronephrosis, focal mass or perinephric fluid. The urinary bladder is incompletely distended without gross abnormality seen. IMPRESSION: Unremarkable renal sonogram. Conclusions/Impression: A/ ANURAG in the setting of hypotension/ hypovolemia suspicious for ATN. CKD III. HTN with CKD. Diastolic CHF, chronic. DM II with neuropathy and nephropathy. Anemia in chronic illness. Gout, controlled. P/ Continue current POC and Medications. Change IVF 1/2NS. No NSAIDs. ADA diet. Titrate insulin as needed. Consider PT. AM labs. Daily weight. Thank you kindly for the consultation.
[2018-02-01] MEDS: SERTRALINE HCL 100 MG TAB PO SCH (22:09)
[2018-02-01] MEDS: NACHLORIDE 0.45% 1,000 ML IV SCH (22:10)
[2018-02-02 05:33] LABS: Absolute Lymphocytes (CBC) 2.4 K/uL (0.7-4.9); Absolute Monocytes 0.4 K/uL (0.1-1.3); Absolute Neutrophil 2.4 K/uL (1.8-8.0); Basophils % 0.7 % (0-1.3); Eosinophils % 5.1 % (0-4.4); Hematocrit 27.3 % (36.0-45.0); Lymphocytes % 42.9 % (15.3-44.8); MCH 31.2 pg (27.0-35.0); MCV 96.5 fL (80-100); MPV 8.6 fL (7.6-11.3); RBC Red Blood Cell Count 2.83 M/uL (3.86-4.86)
[2018-02-02 05:50] LABS: Magnesium 2.6 mg/dL (1.8-2.4); Phosphorus 3.7 mg/dL (2.5-4.9); Potassium 4.6 mmol/L (3.5-5.1); Uric Acid 3.6 mg/dL (2.6-6.0)
[2018-02-02] MEDS: NACHLORIDE 0.45% 1,000 ML IV SCH ×3 (06:00→20:46)
[2018-02-02] MEDS: PANTOPRAZOLE 40MG TABLET PO SCH (06:38)
[2018-02-02] MEDS: INSULIN -REGULAR HUMAN 50 UNIT/0.5 ML ML SQ SCH ×4 (07:30→20:44)
[2018-02-02] MEDS: CEFTRIAXONE/SWI 1gm 1 GM/10 ML SYR IV SCH (09:34)
[2018-02-02] MEDS: SOLIFENACIN SUCCIN 5 MG TAB PO SCH (09:34)
[2018-02-02] MEDS: ENOXAPARIN 30 MG/0.3 ML SQ SCH (09:34)
[2018-02-02] MEDS: CLOPIDOGREL 75 MG TABLET PO SCH (09:35)
[2018-02-02] MEDS: GEMFIBROZIL 600 MG TAB PO SCH ×2 (09:35→20:45)
[2018-02-02] MEDS: EZETIMIBE 10 MG TAB PO SCH (09:35)
[2018-02-02] MEDS: FOLBIC 1 TAB PO SCH (09:35)
[2018-02-02] MEDS: ALLOPURINOL 300 MG TAB PO SCH (09:35)
[2018-02-02] MEDS: CRANBERRY FRUIT EXTRACT 200 MG CAP PO SCH (09:35)
[2018-02-02] MEDS: GABAPENTIN 300 MG CAP PO SCH ×2 (09:35→20:45)
--- NOTE | 2018-02-02 11:13 | P.PN ---
Subjective Date of Service: 02/02/18 Primary Care Provider: Dr. Mcclellan Chief Complaint: UTI Subjective: Improving (Patient improving. Better strength today.) Physical Examination - Vital Signs Temperature: 97.4 F Blood Pressure: 140/65 Pulse: 62 Respirations: 18 Pulse Ox (%): 94 - Physical Exam General: Alert, In no apparent distress, Oriented x3, Cooperative HEENT: Atraumatic Neck: Supple Respiratory: Clear to auscultation bilaterally, Normal air movement Cardiovascular: Normal pulses, Regular rate/rhythm Gastrointestinal: Normal bowel sounds, Soft and benign, Non-distended Musculoskeletal: No erythema, No tenderness, No warmth Integumentary: No tenderness/swelling, No erythema, No warmth, No cyanosis Neurological: Normal speech, Normal strength at 5/5 x4 extr, Normal tone - Studies Medications List Reviewed: Yes Assessment & Plan - Problems (Diagnosis) (1) Nausea and vomiting Current Visit: Yes Status: Acute Plan: This appears resolved. Likely from UTI. Will continue with IV fluid hydration. Renal function improved. Case discussed with nephrology. Anticipate discharge likely within the next day. Qualifiers: Vomiting type: unspecified Vomiting Intractability: unspecified Qualified Code(s): R11.2 - Nausea with vomiting, unspecified (2) Dehydration Current Visit: Yes Status: Acute Plan: Continue with IV fluids. Patient with UTI. Urine culture done 01/29 showed Klebsiella and E coli. This was done as an outpatient. Repeat urine culture pending. IV antibiotic therapy adjusted. Await final results. Anticipate discharge tomorrow. (3) Hypertension Current Visit: Yes Status: Chronic Plan: Blood pressures improved. Will continue monitor closely. Continue IV fluids. If blood pressure remains elevated may need to restart medication. Case discussed at length with nephrology. Will discontinue valsartan due to recall. May need to restart Norvasc. Qualifiers: Hypertension type: essential hypertension Qualified Code(s): I10 - Essential (primary) hypertension (4) Neuropathy, diabetic Current Visit: Yes Status: Chronic Plan: Will continue with her medication. Continue with physical therapy. Qualifiers: Diabetes mellitus type: type 2 Diabetes mellitus complication detail: diabetic polyneuropathy Qualified Code(s): E11.42 - Type 2 diabetes mellitus with diabetic polyneuropathy (5) CKD (chronic kidney disease) Current Visit: Yes Status: Acute Plan: Acute on chronic renal disease likely from dehydration and UTI. Overall improved. Will continue with IV fluids. Case discussed with nephrology. Nephrology agrees with current plan. Qualifiers: Chronic kidney disease stage: stage 3 (moderate) Qualified Code(s): N18.3 - Chronic kidney disease, stage 3 (moderate) (6) Diabetes mellitus Current Visit: Yes Status: Chronic Plan: A1c 6.4. Will continue sliding scale. Qualifiers: Diabetes mellitus type: type 2 Diabetes mellitus superintendent container terminal insulin use: with usp use Diabetes mellitus complication status: with other specified complication Qualified Code(s): E11.69 - Type 2 diabetes mellitus with other specified complication; Z79.4 - superintendent terminal (current) use of insulin (7) Anemia Current Visit: No Status: Chronic Plan: Likely of chronic renal disease. Will monitor closely. Will check iron and B12 studies. Slightly decreased from yesterday. Will recheck H&H later. Qualifiers: Anemia type: due to chronic kidney disease Chronic kidney disease stage: stage 3 (moderate) Qualified Code(s): N18.3 - Chronic kidney disease, stage 3 (moderate); D63.1 - Anemia in chronic kidney disease (8) UTI (urinary tract infection) Current Visit: No Status: Acute Plan: Culture done 01/29/2018 showed Klebsiella and E coli. IV antibiotics adjusted to this culture. Repeat culture pending. Anticipate discharge likely tomorrow. Qualifiers: Urinary tract infection type: acute cystitis Hematuria presence: without hematuria Qualified Code(s): N30.00 - Acute cystitis without hematuria (9) Sepsis Current Visit: Yes Status: Suspected Plan: Pro calcitonin and lactic acid normal. Doubt sepsis. Noted UTI. Continue as above. (10) History of CVA (cerebrovascular accident) Current Visit: Yes Status: Chronic Plan: Continue with her medication. (11) GERD (gastroesophageal reflux disease) Current Visit: Yes Status: Suspected Plan: Will continue with PPI Qualifiers: Esophagitis presence: esophagitis presence not specified Qualified Code(s) : K21.9 - Gastro-esophageal reflux disease without esophagitis (12) Dizziness Current Visit: Yes Status: Acute Plan: Likely from low blood pressure. Continue with above plan of care. Discharge Plan: Home Plan to discharge in: 24 Hours Time Spent Managing Pts Care (In Minutes): 55
[2018-02-02 11:26] VITALS: O2SAT 94
[2018-02-02 12:30] LABS: Hematocrit 28.3 % (36.0-45.0)
[2018-02-02 13:05] LABS: Ferritin 35.6 ng/mL (8-388)
[2018-02-02 17:49] LABS: Urine Appearance CLEAR; Urine Bilirubin NEGATIVE (NEG); Urine Blood NEGATIVE (NEG); Urine Color YELLOW; Urine Glucose NEGATIVE (NEG); Urine Protein NEGATIVE (NEG); Urine Specific Gravity 1.015 (1.005-1.030); Urine Urobilinogen 0.2 mg/dL (0.2-1.0); Urine pH 5.5 (5.0-7.0)
[2018-02-02 18:34] LABS: Urine Bacteria <20 /HPF (<20); Urine RBC <5 /HPF (NONE SEEN)
[2018-02-02 18:35] LABS: Urine Culture Reflex Order NOT NEEDED
[2018-02-02] MEDS: ONDANSETRON 4 MG/2 ML VIAL IV PRN (18:43)
[2018-02-02] MEDS: SERTRALINE HCL 100 MG TAB PO SCH (20:45)
[2018-02-03 05:15] LABS: Absolute Lymphocytes (CBC) 2.5 K/uL (0.7-4.9); Absolute Monocytes 0.4 K/uL (0.1-1.3); Absolute Neutrophil 2.9 K/uL (1.8-8.0); Basophils % 0.9 % (0-1.3); Eosinophils % 4.2 % (0-4.4); Hematocrit 28.2 % (36.0-45.0); Lymphocytes % 40.1 % (15.3-44.8); MCH 31.3 pg (27.0-35.0); MCV 96.3 fL (80-100); MPV 8.6 fL (7.6-11.3); Monocytes % 7.2 % (3.3-12.3); RBC Red Blood Cell Count 2.93 M/uL (3.86-4.86)
[2018-02-03] MEDS: PANTOPRAZOLE 40MG TABLET PO SCH (05:39)
[2018-02-03 05:43] LABS: Magnesium 2.4 mg/dL (1.8-2.4); Potassium 4.3 mmol/L (3.5-5.1)
[2018-02-03] MEDS: INSULIN -REGULAR HUMAN 50 UNIT/0.5 ML ML SQ SCH ×2 (07:30→11:30)
[2018-02-03] MEDS: FOLBIC 1 TAB PO SCH (09:06)
[2018-02-03] MEDS: GABAPENTIN 300 MG CAP PO SCH (09:06)
[2018-02-03] MEDS: CLOPIDOGREL 75 MG TABLET PO SCH (09:06)
[2018-02-03] MEDS: EZETIMIBE 10 MG TAB PO SCH (09:06)
[2018-02-03] MEDS: CRANBERRY FRUIT EXTRACT 200 MG CAP PO SCH (09:06)
[2018-02-03] MEDS: GEMFIBROZIL 600 MG TAB PO SCH (09:06)
[2018-02-03] MEDS: SOLIFENACIN SUCCIN 5 MG TAB PO SCH (09:06)
[2018-02-03] MEDS: ALLOPURINOL 300 MG TAB PO SCH (09:06)
[2018-02-03] MEDS: CEFTRIAXONE/SWI 1gm 1 GM/10 ML SYR IV SCH (09:07)
[2018-02-03] MEDS: ENOXAPARIN 30 MG/0.3 ML SQ SCH (09:07)
--- NOTE | 2018-02-03 11:20 | P.DS ---
Admission Date: 02/02/18 Discharge Date: 02/03/18 Primary Care Provider: Dr. Mcclellan Disposition: ROUTINE DISCHARGE Discharge Condition: GOOD Reason for Admission: UTI Consultations: Nephrology-Dr. Dumont Procedures: MRI brain: IMPRESSION: Negative for acute CVA or other acute intracranial abnormality. Evidence of remote CVA right temporoparietal region CT abdomen: FINDINGS: No hydronephrosis present. No nonobstructing calculi of either kidney. Phleboliths and vascular calcifications are present. There is a faint less than 1 millimeter calcific density in the distal right ureter. No bladder calculus. No suspicious renal masses. Isodense masses and pyelonephritis are not excluded on a stone protocol CT scan. No bladder wall thickening or bladder wall edema seen. Uterus is absent. Calcifications are present at the vaginal cuff. Ovaries are absent or atrophic. No adnexal mass. Imaged portions of the liver, spleen and pancreas show no suspicious findings on non-contrast imaging. Gallbladder is absent. No biliary tree dilatation. No significant adrenal finding. No acute bowel findings seen. Moderate stool volume present in the colon. Sigmoid diverticulosis is present without diverticulitis. No hernia, mass or bulky lymphadenopathy noted. No free air, free fluid or inflammatory stranding. Soft tissue attenuation subcutaneous fatty tissues right periumbilical region probably related to medication injection. Disc and bone degenerative changes are present. No acute or destructive bone process. IMPRESSION: The patient appears to have a less than 1 millimeter size stone in the distal right ureter near the UVJ. There is no hydronephrosis. Isodense masses and pyelonephritis are not excluded on stone protocol technique. No urinary bladder wall thickening or edema. Sigmoid diverticulosis without diverticulitis. No acute GI process. Renal ultrasound: Unremarkable. No obstruction noted. No hydronephrosis noted. Echocardiogram: Ejection fraction 59%. LEFT VENTRICULAR WALL MOTION: NORMAL DOPPLER/COLOR FLOW: IMPAIRED LEFT VENTRICULAR RELAXATION. MILD MITRAL REGURGITATION AND TRICUSPID REGURGITATION. NORMAL RIGHT VENTRICULAR SYSTOLIC PRESSURE. COMMENTS: NORMAL TWO DIMENSIONAL ECHOCARDIOGRAM. IMPAIRED LEFT VENTRICULAR RELAXATION. . MILD MITRAL REGURGITATION AND TRICUSPID REGURGITATION - Problems (1) Nausea and vomiting Current Visit: Yes Status: Acute Qualifiers: Vomiting type: unspecified Vomiting Intractability: unspecified Qualified Code(s): R11.2 - Nausea with vomiting, unspecified (2) Dehydration Current Visit: Yes Status: Acute (3) Hypertension Current Visit: Yes Status: Chronic Qualifiers: Hypertension type: essential hypertension Qualified Code(s): I10 - Essential (primary) hypertension (4) Neuropathy, diabetic Current Visit: Yes Status: Chronic Qualifiers: Diabetes mellitus type: type 2 Diabetes mellitus complication detail: diabetic polyneuropathy Qualified Code(s): E11.42 - Type 2 diabetes mellitus with diabetic polyneuropathy (5) CKD (chronic kidney disease) Current Visit: Yes Status: Acute Qualifiers: Chronic kidney disease stage: stage 3 (moderate) Qualified Code(s): N18.3 - Chronic kidney disease, stage 3 (moderate) (6) Diabetes mellitus Current Visit: Yes Status: Chronic Qualifiers: Diabetes mellitus type: type 2 Diabetes mellitus longwall foreman insulin use: with longwall foreman use Diabetes mellitus complication status: with other specified complication Qualified Code(s): E11.69 - Type 2 diabetes mellitus with other specified complication; 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 (7) Anemia Current Visit: No Status: Chronic Qualifiers: Anemia type: due to chronic kidney disease Chronic kidney disease stage: stage 3 (moderate) Qualified Code(s): N18.3 - Chronic kidney disease, stage 3 (moderate); D63.1 - Anemia in chronic kidney disease (8) UTI (urinary tract infection) Current Visit: No Status: Acute Qualifiers: Urinary tract infection type: acute cystitis Hematuria presence: without hematuria Qualified Code(s): N30.00 - Acute cystitis without hematuria (9) Sepsis Current Visit: Yes Status: Suspected Qualifiers: Sepsis type: Escherichia coli Qualified Code(s): A41.51 - Sepsis due to Escherichia coli [E. coli] (10) History of CVA (cerebrovascular accident) Current Visit: Yes Status: Chronic (11) GERD (gastroesophageal reflux disease) Current Visit: Yes Status: Suspected Qualifiers: Esophagitis presence: esophagitis presence not specified Qualified Code(s) : K21.9 - Gastro-esophageal reflux disease without esophagitis (12) Dizziness Current Visit: Yes Status: Acute (13) Nephrolithiasis Current Visit: Yes Status: Acute (14) Depression Current Visit: Yes Status: Chronic Qualifiers: Depression Type: unspecified Qualified Code(s): F32.9 - Major depressive disorder, single episode, unspecified (15) Hyperlipidemia Current Visit: Yes Status: Chronic Qualifiers: Hyperlipidemia type: unspecified Qualified Code(s): E78.5 - Hyperlipidemia , unspecified (16) Urinary incontinence Current Visit: Yes Status: Chronic Qualifiers: Urinary Incontinence type: unspecified incontinence Qualified Code(s): R32 - Unspecified urinary incontinence Brief History of Present Illness: A 78-year-old female presented emergency room with multiple symptoms including dizziness, nausea and vomiting and lower abdominal pain. Patient had been seen by [facility] as an outpatient. Urine culture was positive for E coli and Klebsiella. She had not been started on medication. Patient presented with elevated blood pressure then and low blood pressure. She was found to have acute on chronic renal failure. Patient admitted for further evaluation. Sepsis was likely. Hospital Course: During the course of her stay patient found to have UTI with sepsis. Noted symptoms of nausea vomiting and dizziness were noted. Patient had MRI which showed no acute abnormality to the brain. CT scan revealed less than 1 mm size stone in the distal right ureter near the UVJ. No hydronephrosis or obstruction was noted. Patient with complicated recurrent UTI with noted stone, nonobstructing. Patient also has a history urinary continence on medication. During the course of her stay and nephrology was consulted due to acute on chronic renal failure. Her condition improved. Urine culture done 01/29/2018 was positive for E coli and Klebsiella. Repeat culture after initiation of antibiotic showed no bacteria. At discharge she will continue with Ceftin 250 mg once daily for 7 days. Recommendation to recheck urine culture after that time to monitor resolution. Renal function has improved. Recommendation to recheck lab-BMP in 1 week to monitor her progress. Recommendation for the patient follow up with nephrology as an outpatient to further monitor. Patient will continue with her medication VESIcare daily. Patient presented with acute on chronic renal failure. This has improved. At discharge creatinine 1.5 with a GFR 33. Patient seen and evaluated by nephrology. At discharge she will follow up with nephrology in 1 week. Recommendation to recheck lab-BMP in 1 week to monitor resolution. Patient has a history of hypertension. Medications were held due to her acute on chronic renal failure and initial hypotension. At discharge valsartan will be discontinued. Make patient may continue with Norvasc 5 mg daily. Recommendation is to maintain blood pressures less 150/80. Further adjustment can be done by her PCP or nephrology. Patient has diabetes. Hemoglobin A1c 6.4. Patient will continue with her insulin therapy-insulin 70/30 20 units subcu in the morning and 26 units subcu at bedtime. Recommendation is to maintain blood sugars less 140 fasting and less than 200 after meals. Further adjustment can be done by her PCP. Patient has CAD with history of CVA. Patient may continue with Plavix 75 mg daily. Patient has hyperlipidemia. She will continue with Zetia 10 mg daily and Lopid 600 mg 1 pill twice daily. Patient has diabetic neuropathy. She will continue with Neurontin 300 mg 1 pill twice daily. Patient has GERD. She will continue with Protonix 40 mg 1 pill once daily. Patient has depression. She will continue with Zoloft 100 mg 1 pill once daily. Patient has anemia of chronic disease. This remained stable. Recommendation to recheck lab-CBC in 1 month to monitor her progress. Patient will continue with home health and physical therapy at discharge. Vital Signs/Physical Exam: Temp Pulse Resp BP Pulse Ox 96.8 F 53 12 135/57 L 94 02/03/18 08:00 02/03/18 08:00 02/03/18 08:00 02/03/18 08:00 02/03/18 08:00 General: Alert, In no apparent distress, Oriented x3, Cooperative HEENT: Atraumatic Neck: Supple Respiratory: Clear to auscultation bilaterally, Normal air movement Cardiovascular: Normal pulses, Regular rate/rhythm Gastrointestinal: Normal bowel sounds, Soft and benign, Non-distended, No masses , No rebound, No guarding Musculoskeletal: No erythema, No tenderness, No warmth Integumentary: No tenderness/swelling, No erythema, No warmth, No cyanosis Neurological: Normal speech, Normal strength at 5/5 x4 extr, Normal tone, Normal affect Laboratory Data at Discharge: WBC 6.2 K/uL (4.3-10.9) 02/03/18 04:40 Hgb 9.2 g/dL (12.0-15.0) L 02/03/18 04:40 Hct 28.2 % (36.0-45.0) L 02/03/18 04:40 Plt Count 224 K/uL (152-406) 02/03/18 04:40 PT 11.2 SECONDS (9.5-12.5) 01/31/18 13:15 INR 0.95 01/31/18 13:15 Sodium 140 mmol/L (136-145) 02/03/18 04:40 Potassium 4.3 mmol/L (3.5-5.1) 02/03/18 04:40 BUN 36 mg/dL (7-18) H 02/03/18 04:40 Creatinine 1.50 mg/dL (0.55-1.3) H 02/03/18 04:40 Glucose 138 mg/dL (74-106) H 02/03/18 04:40 Uric Acid 3.6 mg/dL (2.6-6.0) 02/02/18 04:51 Phosphorus 3.7 mg/dL (2.5-4.9) 02/02/18 04:51 Magnesium 2.4 mg/dL (1.8-2.4) 02/03/18 04:40 Total Bilirubin 0.3 mg/dL (0.2-1.0) 01/31/18 13:15 AST 16 U/L (15-37) 01/31/18 13:15 ALT 15 U/L (12-78) 01/31/18 13:15 Alkaline Phosphatase 116 U/L (45-117) 01/31/18 13:15 Lipase 101 U/L (73-393) 01/31/18 13:15 Home Medications: Gabapentin [Neurontin] 300 mg PO BID 05/12/12 Acai Reese Extract [Acai] 1,000 mg PO DAILY 05/13/12 Calcium Carbonate/Vitamin D3 [[place] 500-Vit D3 600 Caplet] 1 each PO DAILY 11/17 Allopurinol 1 tab PO DAILY 01/31/18 Amlodipine Besylate [Norvasc] 1 tab PO SEECOM 01/31/18 Clopidogrel Bisulfate [Plavix] 1 tab PO DAILY 01/31/18 Cranberry Fruit Extract [Ellura] 1 tab PO DAILY 01/31/18 Ezetimibe 1 tab PO DAILY 01/31/18 Gemfibrozil 1 tab PO BID 01/31/18 Insulin Aspart Protam & Aspart [Novolog Mix 70-30 Vial] 20 units PO DAILY AT SUPPER 01/31/18 Insulin Aspart Protam & Aspart [Novolog Mix 70-30 Vial] 26 units SQ BREAKFAST Latanoprost/Pf [Latanoprost 0.005% Eye Drop] 1 gtts OP SEECOM 01/31/18 Magnesium Oxide [Magnesium] 1 tab PO DAILY 01/31/18 Sertraline [Zoloft*] 1 tab PO BEDTIME 01/31/18 Solifenacin Succinate [Vesicare] 1 tab PO DAILY 01/31/18 Vit D3/Folic Acid/B2/B6/B12 [Folgard Tablet] 1 tab PO DAILY 01/31/18 Cefuroxime [Ceftin] 250 mg PO DAILY #7 tab 02/03/18 Ondansetron HCl [Zofran] 4 mg PO TID PRN #15 tablet 02/03/18 New Medications: Cefuroxime [Ceftin] 250 mg PO DAILY #7 tab Ondansetron HCl [Zofran] 4 mg PO TID PRN #15 tablet PRN Reason: Nausea / Vomiting Patient Discharge Instructions: 1. Patient will need to follow up with her PCP in 1 week to follow up this hospitalization. 2. Patient presented with complicated recurrent UTI with sepsis. MRI which showed no acute abnormality to the brain. CT scan revealed less than 1 mm size stone in the distal right ureter near the UVJ. No hydronephrosis or obstruction was noted. Patient also presented with acute on chronic renal failure. Nephrology was consulted. Patient was treated with IV antibiotic therapy. Repeat urine culture after initiation of antibiotics showed no bacteria. She slowly improved. Urine culture done 01/29/2018 was positive for E coli and Klebsiella. At discharge she will continue with Ceftin 250 mg once daily for 7 days. Recommendation to recheck urine culture after that time to monitor resolution. UTI prevention will need to be enforced. Recommendation to recheck lab-BMP in 1 week to monitor her progress. Recommendation for the patient follow up with nephrology as an outpatient to further monitor. 3. Patient presented with acute on chronic renal failure. This has improved. At discharge creatinine 1.5 with a GFR 33. Patient seen and evaluated by nephrology. At discharge she will follow up with nephrology in 1 week. Recommendation to recheck lab-BMP in 1 week to monitor resolution. 4. Patient has a history of hypertension. Medications were held due to her acute on chronic renal failure and initial hypotension. At discharge valsartan will be discontinued. Patient may continue with Norvasc 5 mg daily. Recommendation is to maintain blood pressures less 150/80. Further adjustment can be done by her PCP or nephrology. 5. Patient has diabetes. Hemoglobin A1c 6.4. Patient will continue with insulin 70/30 20 units in the morning and 26 units at bedtime. Recommendation is to maintain blood sugars less 140 fasting and less than 200 after meals. Further adjustment can be done by her PCP. 6. Patient has CAD with history of CVA. Patient may continue with Plavix 75 mg daily. 7. Patient has hyperlipidemia. She will continue with Zetia 10 mg daily and Lopid 600 mg 1 pill twice daily. 8. Patient has diabetic neuropathy. She will continue with Neurontin 300 mg 1 pill twice daily. 9. Patient has GERD. She will continue with Protonix 40 mg 1 pill once daily. 10. Patient has depression. She will continue with Zoloft 100 mg 1 pill once daily. 11. Patient has anemia of chronic disease. This remained stable. Recommendation to recheck lab-CBC in 1 month to monitor her progress. 12. Patient will continue with home health and physical therapy at this discharge Diet: Renal Activity: Fall precautions Time spent managing pt's care (in minutes): 55
[2018-02-03] MEDS: NACHLORIDE 0.45% 1,000 ML IV SCH (11:57)
[2018-02-03 15:17] VITALS: BP 134/64; TEMP 97.2
== END 2018-02-03 14:18 | disposition home health service (06) | DRG 690 ==
LOC: ER 13:05 → ERHOLD 20:07 → 4TH 21:14 → OBSVTOIN 02-02 14:09
PROVIDERS: ADMIT Internal Medicine; ATTEND Family Medicine
DX: N30.00 Acute cystitis without hematuria (principal); N17.9 Acute kidney failure, unspecified; N20.1 Calculus of ureter; I13.0 Hypertensive heart and chronic kidney disease with heart failure and stage 1 through stage 4 chronic kidney disease, or unspecified chronic kidney disease; I50.32 Chronic diastolic (congestive) heart failure; R11.2 Nausea with vomiting, unspecified; E86.0 Dehydration; E11.22 Type 2 diabetes mellitus with diabetic chronic kidney disease; I12.9 Hypertensive chronic kidney disease with stage 1 through stage 4 chronic kidney disease, or unspecified chronic kidney disease; N18.3 Chronic kidney disease, stage 3 (moderate); E11.42 Type 2 diabetes mellitus with diabetic polyneuropathy; D63.1 Anemia in chronic kidney disease; K21.9 Gastro-esophageal reflux disease without esophagitis; R42 Dizziness and giddiness; E11.21 Type 2 diabetes mellitus with diabetic nephropathy; M10.9 Gout, unspecified; F32.9 Major depressive disorder, single episode, unspecified; B96.20 Unspecified Escherichia coli [E. coli] as the cause of diseases classified elsewhere; B96.1 Klebsiella pneumoniae [K. pneumoniae] as the cause of diseases classified elsewhere; E78.5 Hyperlipidemia, unspecified; R32 Unspecified urinary incontinence; Z79.4 Long term (current) use of insulin; Z88.5 Allergy status to narcotic agent; Z88.8 Allergy status to other drugs, medicaments and biological substances; Z91.041 Radiographic dye allergy status; Z79.02 Long term (current) use of antithrombotics/antiplatelets; Z86.73 Personal history of transient ischemic attack (TIA), and cerebral infarction without residual deficits
CPT/HCPCS: 36415; 70450; 70551; 71045; 74176; 76377; 76770; 80048; 80076; 81001; 81003; 81015; 82570; 82607; 82728; 82962; 83036; 83540; 83605; 83690; 83735; 83880; 84100; 84145; 84300; 84466; 84484; 84550; 85014; 85018; 85025; 85610; 87086; 87088; 93005; 93306; 96365; 96366; 96367; 96375; 97163; 99285; G0378; J0360; J0696; J1650; J2405; J2543; J2550; J7030

== ENCOUNTER 2018-03-29 18:12 | Observation (INO) | payer OTHER ==
[2018-03-29] MEDS ORDERED: PHENAZOPYRIDINE 100MG TAB PO ONE (19:18)
[2018-03-29] MEDS ORDERED: NA CHLORIDE 0.9% 0 ML ONE (19:18)
[2018-03-29 19:22] LABS: Urine Bacteria LOADED /HPF (<20); Urine Culture Reflex Order REFLEXED; Urine RBC <5 /HPF (NONE SEEN)
[2018-03-29 19:59] LABS: Albumin 3.5 g/dL (3.4-5.0); Bilirubin Direct 0.1 mg/dL (0-0.2); Bilirubin Total 0.3 mg/dL (0.2-1.0); Potassium 4.6 mmol/L (3.5-5.1); Protein, Total 7.7 g/dL (6.4-8.2)
[2018-03-29] MEDS ORDERED: GABAPENTIN 300 MG CAP ONE (20:03)
[2018-03-29 20:12] LABS: Absolute Monocytes 0.4 K/uL (0.1-1.3); Absolute Neutrophil 4.1 K/uL (1.8-8.0); Basophils % 0.5 % (0-1.3); Eosinophils % 2.6 % (0-4.4); Hematocrit 32.3 % (36.0-45.0); Lymphocytes % 30.5 % (15.3-44.8); MCH 30.5 pg (27.0-35.0); MCV 93.4 fL (80-100); MPV 8.9 fL (7.6-11.3); Monocytes % 5.3 % (3.3-12.3); RBC Red Blood Cell Count 3.46 M/uL (3.86-4.86)
--- NOTE | 2018-03-29 20:58 | ER ---
Nurse's Notes [facility] Name: Mariposa Palacios Age: 78 yrs Sex: Female : 1940 Arrival Date: 03/29/2018 Time: 18:15 Bed 24 Private MD: Kolton Mcclellan Atiq Diagnosis: Urinary tract infection, site not specified;Weakness-General Presentation: 03/29 18:26 Presenting complaint: Patient states: Dysuria and urinary frequency for the past 2 aj1 days. Denies fever. Denies N/V/D. Transition of care: patient was not received from another setting of care. Onset of symptoms was March 27, 2018. Risk Assessment: Do you want to hurt yourself or someone else? Patient reports no desire to harm self or others. Initial Sepsis Screen: Does the patient meet any 2 criteria? No. Patient's initial sepsis screen is negative. Does the patient have a suspected source of infection? Yes: Dysuria/Frequency/Urgency/UTI. Care prior to arrival: None. 18:26 Method Of Arrival: Wheelchair aj1 18:26 Acuity: DOMINIQUE 3 aj1 Triage Assessment: 18:30 General: Appears in no apparent distress. comfortable, Behavior is calm, cooperative, aj1 appropriate for age. Pain: Complains of pain in back Pain currently is 6 out of 10 on a pain scale. Neuro: Level of Consciousness is awake, alert, obeys commands. Cardiovascular: Patient's skin is warm and dry. Respiratory: Airway is patent Respiratory effort is even, unlabored, Respiratory pattern is regular, symmetrical. Historical: - Allergies: 18:30 Benadryl; aj1 18:30 injectable dye; aj1 18:30 Phenergan; aj1 - Home Meds: 18:30 acai blackman extract 500 mg Oral cap [Active]; albuterol sulfate 0.63 mg/3 mL Inhl nebu aj1 [Active]; allopurinol 100 mg Oral tab 1 tab 3 times per day [Active]; amlodipine 5 mg tab 1 tab once daily [Active]; Calcarb 600 With Vitamin D 600 mg(1,500mg) -200 unit Oral tab [Active]; Diovan 40 mg Oral tab once daily [Active]; docusate sodium 100 mg Oral cap 1 cap 2 times per day [Active]; Folgard 2,000-800-0.32 unit-mcg-mg Oral tab [Active]; gabapentin 300 mg Oral cap twice a day [Active]; garlic 1,000 mg Oral cap daily [Active]; Lasix 40 mg Oral tab once daily [Active]; latanoprost 0.005 % ophthalmic drop 1 drop once daily [Active]; Lopid 600 mg Oral tab 1 tab 2 times per day [Active]; magnesium oxide 250 mg Oral tab daily [Active]; Norvasc 5 mg Oral tab once daily [Active]; Novolog 100 unit/mL Sub-Q soln 26 units am, 20 units pm [Active]; Plavix 75 mg Oral tab once daily [Active]; Vesicare 10 mg Oral tab once daily [Active]; Zetia 10 mg Oral tab 1 tab once daily [Active]; Zoloft 100 mg Oral tab 1 tab once daily [Active]; - PMHx: 18:30 CVA; Diabetes - IDDM; kidney disease; aj1 - Immunization history:: Flu vaccine is not up to date. - Social history:: Smoking status: Patient/guardian denies using tobacco. - Ebola Screening: : Patient denies travel to an Ebola-affected area in the 21 days before illness onset. Screenin:18 Abuse screen: Denies threats or abuse. Denies injuries from another. Nutritional kr2 screening: No deficits noted. Tuberculosis screening: No symptoms or risk factors identified. Fall Risk Gait- Normal/Bed Rest/Wheelchair (0 pts). Assessment: 19:00 General: Appears in no apparent distress. comfortable, well groomed, well developed, kr2 Behavior is calm, cooperative, appropriate for age. Pain: Complains of pain in pelvis Pain currently is 4 out of 10 on a pain scale. Quality of pain is described as burning, Is continuous, Aggravated by bladder filling, urinating. Neuro: Level of Consciousness is awake, alert, obeys commands, Oriented to person, place, time, situation. Cardiovascular: Patient's skin is warm and dry. Respiratory: Airway is patent Respiratory effort is even, unlabored, Respiratory pattern is regular, symmetrical. : Urine is cloudy, foul smelling odor. : Reports burning with urination, incontinence, urinary frequency. EENT: Oral mucosa is moist. Derm: Skin is intact, is thin, with poor turgor Skin is pink, warm \T\ dry. 20:09 Reassessment: Patient appears in no apparent distress at this time. Patient and/or kr2 family updated on plan of care and expected duration. Pain level reassessed. Patient is alert, oriented x 3, equal unlabored respirations, skin warm/dry/pink. Patient states she did not have her neurontin today and is started to experience pain in her legs. Wally notified, orders received to give neurontin, see MAR. 21:36 Reassessment: Patient appears in no apparent distress at this time. Patient and/or kr2 family updated on plan of care and expected duration. Pain level reassessed. Patient is alert, oriented x 3, equal unlabored respirations, skin warm/dry/pink. 22:54 Reassessment: Patient appears in no apparent distress at this time. Patient and/or kr2 family updated on plan of care and expected duration. Pain level reassessed. Patient is alert, oriented x 3, equal unlabored respirations, skin warm/dry/pink. Vital Signs: 18:30 BP 158 / 87; Pulse 67; Resp 18; Temp 97.4(TE); Pulse Ox 98% on R/A; Weight 97.52 kg aj1 (R); Height 5 ft. 9 in. (175.26 cm) (R); Pain 6/10; 18:35 BP 194 / 81 RA (auto/reg); Pulse 65; Resp 20; Pulse Ox 99% on R/A; Pain 7/10; jp3 20:10 BP 188 / 63; Pulse 62; Resp 17; Pulse Ox 100% ; kr2 21:36 BP 179 / 66; Pulse 65; Resp 17; Pulse Ox 100% ; kr2 23:00 BP 166 / 70; Pulse 66; Resp 17; Pulse Ox 99% on R/A; kr2 18:30 Body Mass Index 31.75 (97.52 kg, 175.26 cm) aj1 ED Course: 18:15 Patient arrived in ED. sb2 18:15 Kolton Mcclellan MD is Private Physician. sb2 18:28 Triage completed. aj1 18:30 Arm band placed on Patient placed in an exam room. aj1 18:32 Ab Reyes PA is PHCP. cp 18:32 Maximiliano Banuelos MD is Attending Physician. cp 18:40 Warm blanket given. Pillow given. jp3 18:42 Bed in low position. Call light in reach. Side rails up X 1. Side rails up X2. Pulse ox jp3 on. NIBP on. 18:44 Kezia Giles, RN is Primary Nurse. kr2 19:00 Straight cath inserted, using sterile technique, 15 fr Returned cloudy urine. Patient kr2 tolerated well. 19:20 Initial lab(s) drawn, by me, sent to lab. First set of blood cultures drawn via jp3 22-gauge IV in Right A/C. Inserted saline lock: 22 gauge in right antecubital area, using aseptic technique. Blood collected. 19:40 Second set of blood cultures drawn via 21-gauge butterfly needle from Left A/C. jp3 19:46 Blood Culture Sent. jp3 19:46 LFT's Sent. jp3 19:46 Blood Culture Adult (2) Sent. jp3 19:46 Procalcitonin Sent. jp3 19:46 Lactate Sent. jp3 19:46 BMP Sent. jp3 19:46 CBC with Diff Sent. jp3 19:46 Urine Culture Sent. jp3 19:47 Urine Dipstick--Ancillary (enter results) Sent. jp3 20:57 Arcelia Escobar MD is Hospitalizing Provider. cp 22:54 No provider procedures requiring assistance completed. Patient admitted, IV remains in kr2 place. Administered Medications: 19:20 Drug: Pyridium 200 mg Route: PO; kr2 20:47 Follow up: Response: No adverse reaction kr2 19:47 Drug: NS 0.9% 500 ml Route: IV; Rate: bolus; Site: right forearm; kr2 22:00 Follow up: Response: No adverse reaction; IV Status: Completed infusion kr2 20:08 Drug: Neurontin 300 mg Route: PO; kr2 20:49 Follow up: Response: No adverse reaction kr2 21:03 Drug: Rocephin - (cefTRIAXone) 1 grams Route: IVPB; Infused Over: 30 mins; Site: right kr2 antecubital; 22:00 Follow up: Response: No adverse reaction; IV Status: Completed infusion kr2 21:05 Drug: hydrALAZINE 5 mg Route: IV; Rate: calculated rate; Site: right antecubital; kr2 21:15 Follow up: Response: No adverse reaction; IV Status: Completed infusion kr2 Outcome: 20:57 Decision to Hospitalize by Provider. cp 22:54 Admitted to Med/surg accompanied by tech, via stretcher, room 212, with chart, Report kr2 called to Valeria 22:54 Condition: stable 22:54 Instructed on follow up and referral plans. Demonstrated understanding of instructions. 23:14 Patient left the ED. kr2 Signatures: Soraya Simmons RN RN aj1 Ab Reyes PA PA cp Reaves, Karey, RN RN kr2 Ruchi Arguello sb2 Ezra Clinton jp3 Corrections: (The following items were deleted from the chart) 23:14 23:13 Response: No adverse reaction; IV Status: Completed infusion kr2 kr2 23:19 23:18 BP 166 / 70; Pulse 66bpm; Resp 17bpm; Pulse Ox 99% RA; kr2 kr2
--- NOTE | 2018-03-29 20:58 | EDPHYS ---
Physician Documentation [facility] Name: Mariposa Palacios Age: 78 yrs Sex: Female : 1940 Arrival Date: 03/29/2018 Time: 18:15 Bed 24 Private MD: Kolton Mcclellan Atiq ED Physician Maximiliano Banuelos HPI: 03/29 18:55 This 78 yrs old Female presents to ER via Wheelchair with complaints of cp Urinary Problem. 18:55 The patient presents with urinary symptoms, dysuria, frequency. Onset: The cp symptoms/episode began/occurred 2 day(s) ago. 18:55 Associated signs and symptoms: Pertinent positives: general weakness, Pertinent cp negatives: fever, vaginal bleeding, vaginal discharge. Severity of symptoms: in the emergency department the symptoms are unchanged, despite home interventions. Historical: - Allergies: 18:30 Benadryl; aj1 18:30 injectable dye; aj1 18:30 Phenergan; aj1 - Home Meds: 18:30 acai blackman extract 500 mg Oral cap [Active]; albuterol sulfate 0.63 mg/3 mL Inhl nebu aj1 [Active]; allopurinol 100 mg Oral tab 1 tab 3 times per day [Active]; amlodipine 5 mg tab 1 tab once daily [Active]; Calcarb 600 With Vitamin D 600 mg(1,500mg) -200 unit Oral tab [Active]; Diovan 40 mg Oral tab once daily [Active]; docusate sodium 100 mg Oral cap 1 cap 2 times per day [Active]; Folgard 2,000-800-0.32 unit-mcg-mg Oral tab [Active]; gabapentin 300 mg Oral cap twice a day [Active]; garlic 1,000 mg Oral cap daily [Active]; Lasix 40 mg Oral tab once daily [Active]; latanoprost 0.005 % ophthalmic drop 1 drop once daily [Active]; Lopid 600 mg Oral tab 1 tab 2 times per day [Active]; magnesium oxide 250 mg Oral tab daily [Active]; Norvasc 5 mg Oral tab once daily [Active]; Novolog 100 unit/mL Sub-Q soln 26 units am, 20 units pm [Active]; Plavix 75 mg Oral tab once daily [Active]; Vesicare 10 mg Oral tab once daily [Active]; Zetia 10 mg Oral tab 1 tab once daily [Active]; Zoloft 100 mg Oral tab 1 tab once daily [Active]; - PMHx: 18:30 CVA; Diabetes - IDDM; kidney disease; aj1 - Immunization history:: Flu vaccine is not up to date. - Social history:: Smoking status: Patient/guardian denies using tobacco. - Ebola Screening: : Patient denies travel to an Ebola-affected area in the 21 days before illness onset. ROS: 19:00 Constitutional: Negative for body aches, chills, fever, poor PO intake. cp 19:00 Eyes: Negative for injury, pain, redness, and discharge. cp 19:00 ENT: Negative for drainage from ear(s), ear pain, sore throat, difficulty swallowing, difficulty handling secretions. 19:00 Cardiovascular: Negative for chest pain, edema, palpitations. 19:00 Respiratory: Negative for cough, shortness of breath, wheezing. 19:00 Abdomen/GI: Negative for abdominal pain, nausea, vomiting, and diarrhea, constipation, black/tarry stool, rectal bleeding. 19:00 Back: Positive for pain at rest, of the low back. 19:00 : Positive for urinary symptoms, Negative for vaginal bleeding, vaginal discharge. 19:00 Skin: Negative for cellulitis, rash. 19:00 Neuro: Positive for general weakness, Negative for altered mental status, headache, syncope, near syncope. 19:00 All other systems are negative. Exam: 19:10 Constitutional: The patient appears in no acute distress, alert, awake, cp non-diaphoretic, non-toxic, well developed, well nourished. 19:10 Head/Face: Normocephalic, atraumatic. cp 19:10 Eyes: Periorbital structures: appear normal, Pupils: equal, round, and reactive to light and accomodation, Extraocular movements: intact throughout, Conjunctiva: normal, no exudate, no injection, Sclera: no appreciated abnormality, Lids and lashes: appear normal, bilaterally. 19:10 ENT: External ear(s): are unremarkable, Ear canal(s): are normal, clear, TM's: bulging, is not appreciated, bilaterally, dullness, bilaterally, erythema, is not appreciated, bilaterally, Nose: is normal, Mouth: Lips: moist, Oral mucosa: pink and intact, moist, Posterior pharynx: is normal, airway is patent, no erythema, no exudate, Voice: is normal. 19:10 Neck: ROM/movement: is normal, is supple, without pain, no range of motions limitations, no meningismus, no nuchal rigidity. 19:10 Chest/axilla: Inspection: normal, Palpation: is normal, no crepitus, no tenderness. 19:10 Cardiovascular: Rate: normal, Rhythm: regular, Edema: is not appreciated. 19:10 Respiratory: the patient does not display signs of respiratory distress, Respirations: normal, no use of accessory muscles, no retractions, no splinting, no tachypnea, labored breathing, is not present, Breath sounds: are clear throughout, no decreased breath sounds, no stridor, no wheezing. 19:10 Abdomen/GI: Inspection: abdomen appears normal, Bowel sounds: active, all quadrants, Palpation: soft, in all quadrants, nontender, in all quadrants. 19:10 Back: pain, that is mild, of the low back, ROM is normal. 19:10 Skin: cellulitis, is not appreciated, no rash present. 19:10 Neuro: Orientation: to person, place \T\ time. Mentation: lucid, able to follow commands, Cerebellar function: is grossly normal, Motor: moves all fours, general weakness w/o focal deficits, Sensation: no obvious gross deficits. Vital Signs: 18:30 BP 158 / 87; Pulse 67; Resp 18; Temp 97.4(TE); Pulse Ox 98% on R/A; Weight 97.[address] [facility] (R); Height 5 ft. 9 in. (175.26 cm) (R); Pain 6/10; 18:35 BP 194 / 81 RA (auto/reg); Pulse 65; Resp 20; Pulse Ox 99% on R/A; Pain 7/10; jp3 20:10 BP 188 / 63; Pulse 62; Resp 17; Pulse Ox 100% ; kr2 21:36 BP 179 / 66; Pulse 65; Resp 17; Pulse Ox 100% ; kr2 23:00 BP 166 / 70; Pulse 66; Resp 17; Pulse Ox 99% on R/A; kr2 18:30 Body Mass Index 31.75 (97.52 kg, 175.[address] cm) [facility] MDM: 18:32 Patient medically screened. 20:56 Data reviewed: vital signs, nurses notes, lab test result(s). 03/29 18:52 Order name: Urine Microscopic Only; Complete Time: 20:26 03/29 20:26 Interpretation: Normal except: UWBC >50; UBACT LOADED. 03/29 19:08 Order name: CBC with Diff; Complete Time: 20:26 03/29 20:26 Interpretation: Normal except: RBC 3.46; HGB 10.5; HCT 32.3; RDW 15.3. 03/29 19:08 Order name: BMP; Complete Time: 20:26 03/29 20:27 Interpretation: Normal except: CL 109; GLUC 109; BUN 44; CRE 1.50; GFR 33. 03/29 19:08 Order name: Lactate; Complete Time: 20:26 03/29 19:08 Order name: Procalcitonin; Complete Time: 20:26 03/29 19:08 Order name: Blood Culture Adult (2) 03/29 19:08 Order name: LFT's; Complete Time: 20:26 03/29 19:09 Order name: Blood Culture [facility] 03/29 19:23 Order name: Urine Dipstick--Ancillary (enter results) [facility] 03/29 19:24 Order name: Urine Culture [facility] 03/29 18:52 Order name: Cath; Complete Time: 19:10 03/29 18:52 Order name: Urine Dipstick-Ancillary (obtain specimen); Complete Time: 19:10 cp Administered Medications: 19:20 Drug: Pyridium 200 mg Route: PO; kr2 20:47 Follow up: Response: No adverse reaction kr2 19:47 Drug: NS 0.9% 500 ml Route: IV; Rate: bolus; Site: right forearm; kr2 22:00 Follow up: Response: No adverse reaction; IV Status: Completed infusion kr2 20:08 Drug: Neurontin 300 mg Route: PO; kr2 20:49 Follow up: Response: No adverse reaction kr2 21:03 Drug: Rocephin - (cefTRIAXone) 1 grams Route: IVPB; Infused Over: 30 mins; Site: right kr2 antecubital; 22:00 Follow up: Response: No adverse reaction; IV Status: Completed infusion kr2 21:05 Drug: hydrALAZINE 5 mg Route: IV; Rate: calculated rate; Site: right antecubital; kr2 21:15 Follow up: Response: No adverse reaction; IV Status: Completed infusion kr2 Disposition: 03/29/18 20:57 Hospitalization ordered by Arcelia Escobar for Observation. Preliminary diagnosis are Urinary tract infection, site not specified, Weakness - General. - Bed requested for Telemetry/MedSurg (observation). - Status is Observation. kr2 - Condition is Stable. - Problem is new. - Symptoms are unchanged. UTI on Admission? Yes Addendum: 04/01/2018 18:01 Co-signature as Attending Physician, Maximiliano Banuelos MD. g s Signatures: Dispatcher [employer] EDSoraya Worley RN RN Patricia Slater RN RN kl Page, Corey, PA PA cp Starr, Gregory, MD MD gs Reaves, Karey, RN RN kr2 Corrections: (The following items were deleted from the chart) 03/29 22:34 20:57 Hospitalization Ordered by Arcelia Escobar MD for Observation. Preliminary kl diagnosis is Urinary tract infection, site not specified; Weakness - General. Bed requested for Telemetry/MedSurg (observation). Status is Observation. Condition is Stable. Problem is new. Symptoms are unchanged. UTI on Admission? Yes. cp 23:14 22:34 03/29/2018 20:57 Hospitalization Ordered by Arcelia Escobar MD for Observation. kr2 Preliminary diagnosis is Urinary tract infection, site not specified; Weakness - General. Bed requested for Telemetry/MedSurg (observation). Status is Observation. Condition is Stable. Problem is new. Symptoms are unchanged. UTI on Admission? Yes. kl
[2018-03-29 21:01] LABS: Urine Blood TRACE (NEG); Urine Glucose NEGATIVE (NEG); Urine Protein TRACE (NEG); Urine pH 6.5 (5.0-7.0)
[2018-03-29] MEDS ORDERED: CEFTRIAXONE/SWI 1gm 1 GM/10 ML SYR ONE (21:01)
[2018-03-29] MEDS ORDERED: HYDRALAZINE HCL 20 MG/ML VIAL ONE (21:01)
[2018-03-29] MEDS ORDERED: ACETAMINOPHEN 500 MG TAB PO PRN (22:17)
[2018-03-29] MEDS ORDERED: ONDANSETRON 4 MG/2 ML VIAL IV PRN (22:17)
--- NOTE | 2018-03-29 22:35 | P.HP ---
Certification for Inpatient Patient admitted to: Observation With expected LOS: <2 Midnights Practitioner: I am a practitioner with admitting privileges, knowledge of patient current condition, hospital course, and medical plan of care. Services: Services provided to patient in accordance with Admission requirements found in Title 42 Section 412.3 of the Code of Federal Regulations Patient History Date of Service: 03/29/18 Reason for admission: UTI History of Present Illness: Ms Palacios is a 78-year-old woman with history of IDDM, CVA, hypertension, recurrent UTI episode, who came to ER complaining of progressive weakness since 2 days ago. She also has had painful urination and increasing frequency. She denied any fever or chills. No abdominal pain, nausea, vomiting or diarrhea reported. Laboratory work remarkable for normal WBC count, UA abnormal consistent with UTI. My encounter, the patient was in no distress, however she was very lethargic. Allergies iodine Allergy (Severe, Verified 01/31/18 22:48) resp arrest promethazine HCl [From Phenergan] Allergy (Mild, Verified 01/31/18 22:48) Rash codeine [Codeine] Adverse Reaction (Mild, Verified 01/31/18 22:48) vomitting diphenhydramine HCl [From Benadryl] Adverse Reaction (Mild, Verified 01/31/18 22 :48) anxiety metformin HCl [From Glucophage] Adverse Reaction (Mild, Verified 01/31/18 22:48) vomitting injectable dye Allergy (Uncoded 01/31/18 22:48) Unknown Home medications list reviewed: Yes Home Medications: Gabapentin [Neurontin] 300 mg PO BID 05/12/12 Acai Reese Extract [Acai] 1,000 mg PO DAILY 05/13/12 Calcium Carbonate/Vitamin D3 [Os-Amador 500-Vit D3 600 Caplet] 1 each PO DAILY 11/17 Allopurinol 1 tab PO DAILY 01/31/18 Amlodipine Besylate [Norvasc] 1 tab PO SEECOM 01/31/18 Clopidogrel Bisulfate [Plavix] 1 tab PO DAILY 01/31/18 Cranberry Fruit Extract [Ellura] 1 tab PO DAILY 01/31/18 Ezetimibe 1 tab PO DAILY 01/31/18 Gemfibrozil 1 tab PO BID 01/31/18 Insulin Aspart Protam & Aspart [Novolog Mix 70-30 Vial] 20 units PO DAILY AT SUPPER 01/31/18 Insulin Aspart Protam & Aspart [Novolog Mix 70-30 Vial] 26 units SQ BREAKFAST Latanoprost/Pf [Latanoprost 0.005% Eye Drop] 1 gtts OP SEECOM 01/31/18 Magnesium Oxide [Magnesium] 1 tab PO DAILY 01/31/18 Sertraline [Zoloft*] 1 tab PO BEDTIME 01/31/18 Solifenacin Succinate [Vesicare] 1 tab PO DAILY 01/31/18 Vit D3/Folic Acid/B2/B6/B12 [Folgard Tablet] 1 tab PO DAILY 01/31/18 Cefuroxime [Ceftin] 250 mg PO DAILY #7 tab 02/03/18 Ondansetron HCl [Zofran] 4 mg PO TID PRN #15 tablet 02/03/18 - Past Medical/Surgical History Diabetic: Yes -: DM-IDDM -: HTN -: CVA -: Diabetic Neuropathy -: Diabetic Retinopathy -: Hysterectomy -: Marian - Family History Father -: Heart disease, Diabetes Mother -: Heart disease, Hypertension, Diabetes - Social History Alcohol use: No CD- Drugs: No Caffeine use: Yes Place of Residence: Home Review of Systems 10-point ROS is otherwise unremarkable Physical Examination - Physical Exam General: Alert, In no apparent distress HEENT: Atraumatic, PERRLA, Mucous membr. moist/pink, EOMI, Sclerae nonicteric Neck: Supple, 2+ carotid pulse no bruit, No LAD, Without JVD or thyroid abnormality Respiratory: Clear to auscultation bilaterally, Normal air movement Cardiovascular: Normal S1 S2, No gallops Gastrointestinal: Normal bowel sounds, No tenderness Musculoskeletal: No tenderness Integumentary: No rashes Neurological: Normal speech, Normal tone, Sensation intact, Normal affect Lymphatics: No axilla or inguinal lymphadenopathy - Studies Laboratory Data (last 24 hrs) 03/29/18 19:20: Sodium 142, Potassium 4.6, BUN 44 H, Creatinine 1.50 H, Glucose 109 H, Total Bilirubin 0.3, AST 17, ALT 15, Alkaline Phosphatase 100 03/29/18 19:20: WBC 6.6, Hgb 10.5 L, Hct 32.3 L, Plt Count 312 Assessment and Plan - Problems (Diagnosis) (1) CKD (chronic kidney disease) Onset Date: 02/05/18 Current Visit: No Status: Acute Qualifiers: Chronic kidney disease stage: stage 3 (moderate) (2) UTI (urinary tract infection) Onset Date: 02/05/18 Current Visit: No Status: Acute Qualifiers: Urinary tract infection type: acute cystitis Hematuria presence: without hematuria Qualified Code(s): N30.00 - Acute cystitis without hematuria (3) Diabetes mellitus Onset Date: 02/05/18 Current Visit: No Status: Chronic Qualifiers: Diabetes mellitus type: type 2 Diabetes mellitus 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 Will start empiric antibiotic treatment, IV fluids, consult PT or evaluation recommendation. - Advance Directives Does patient have a Living Will: Yes Does patient have a Durable POA for Healthcare: Yes - Code Status/Comfort Care Code Status Assessed: Yes Code Status: Full Code
[2018-03-29] MEDS: NA CHLORIDE 0.9% 1,000 ML IV SCH (23:31)
[2018-03-30 01:08] VITALS: BMI 31.7
[2018-03-30] MEDS: AMLODIPINE 5 MG TAB PO SCH ×2 (01:12→09:31)
[2018-03-30] MEDS: NA CHLORIDE 0.9% 1,000 ML IV SCH ×3 (04:32→21:20)
[2018-03-30 06:24] LABS: Magnesium 2.5 mg/dL (1.8-2.4); Potassium 4.5 mmol/L (3.5-5.1)
[2018-03-30] MEDS: INSULIN -REGULAR HUMAN 50 UNIT/0.5 ML ML SQ SCH ×4 (07:30→21:00)
[2018-03-30] MEDS ORDERED: CEFTRIAXONE 1 GM/NS 50 ML 1 GM/50 ML BAG IV SCH (09:00)
[2018-03-30] MEDS: CEFTRIAXONE/SWI 1gm 1 GM/10 ML SYR IV SCH (09:31)
[2018-03-30] MEDS ORDERED: LATANOPROST OP SCH (11:15)
--- NOTE | 2018-03-30 11:16 | P.PN ---
Subjective Date of Service: 03/30/18 Chief Complaint: UTI Patient admitted with a possible UTI still has frequency dysuria has a history of recurrent UTI last time was in January denies any fever or chills Review of Systems Unremarkable Physical Examination - Vital Signs Temperature: 97.8 F Blood Pressure: 183/80 Pulse: 72 Respirations: 18 Pulse Ox (%): 94 - Physical Exam General: Alert, Oriented x3 Neck: Supple Respiratory: Clear to auscultation bilaterally Cardiovascular: Normal S1 S2 Gastrointestinal: Normal bowel sounds, Soft and benign - Studies Laboratory Data (last 24 hrs) 03/29/18 19:20: Sodium 142, Potassium 4.6, BUN 44 H, Creatinine 1.50 H, Glucose 109 H, Total Bilirubin 0.3, AST 17, ALT 15, Alkaline Phosphatase 100 03/29/18 19:20: WBC 6.6, Hgb 10.5 L, Hct 32.3 L, Plt Count 312 Assessment & Plan - Problems (Diagnosis) (1) UTI (urinary tract infection) Current Visit: Yes Status: Acute Plan: Patient is 69 years of age admitted with frequency dysuria possible UTI urinalysis is positive blood pressure elevated continue with fluids and antibiotics awaiting cultures 3+ gram-negative rods Qualifiers: Urinary tract infection type: acute cystitis
[2018-03-30] MEDS ORDERED: HUMALOG MIX 75/25 100 UNITS/ML SQ SCH (17:00)
[2018-03-30] MEDS: TRAMADOL HCL 50 MG TAB PO PRN (17:29)
[2018-03-30] MEDS ORDERED: DOCUSATE NA 100 MG CAP PO SCH (21:00)
[2018-03-30] MEDS ORDERED: SERTRALINE HCL 100 MG TAB PO SCH (21:00)
[2018-03-30] MEDS: GEMFIBROZIL 600 MG TAB PO SCH (21:21)
[2018-03-30] MEDS: GABAPENTIN 300 MG CAP PO SCH (21:22)
[2018-03-30 21:37] VITALS: O2SAT 97
[2018-03-31] MEDS: TRAMADOL HCL 50 MG TAB PO PRN (04:54)
[2018-03-31] MEDS: INSULIN -REGULAR HUMAN 50 UNIT/0.5 ML ML SQ SCH ×2 (07:30→11:30)
[2018-03-31] MEDS: HUMALOG MIX 75/25 100 UNITS/ML SQ SCH ×2 (08:00)
[2018-03-31] MEDS: AMLODIPINE 5 MG TAB PO SCH (08:51)
[2018-03-31] MEDS: GABAPENTIN 300 MG CAP PO SCH (08:51)
[2018-03-31] MEDS: CEFTRIAXONE/SWI 1gm 1 GM/10 ML SYR IV SCH (08:51)
[2018-03-31] MEDS: GEMFIBROZIL 600 MG TAB PO SCH (08:51)
[2018-03-31] MEDS ORDERED: EZETIMIBE 10 MG TAB PO SCH (09:00)
[2018-03-31] MEDS ORDERED: CLOPIDOGREL 75 MG TABLET PO SCH (09:00)
[2018-03-31] MEDS ORDERED: LOSARTAN POTASSIUM 50 MG TABLET PO SCH (09:00)
[2018-03-31] MEDS ORDERED: SOLIFENACIN SUCCIN 5 MG TAB PO SCH (09:00)
[2018-03-31] MEDS ORDERED: ALLOPURINOL 300 MG TAB PO SCH (09:00)
[2018-03-31] MEDS ORDERED: SOLIFENACIN SUCCINATE PO SCH (09:00)
--- NOTE | 2018-03-31 10:36 | P.DS ---
Admission Date: 03/29/18 Discharge Date: 03/31/18 Disposition: ROUTINE DISCHARGE Discharge Condition: FAIR Reason for Admission: UTI - Problems (1) UTI (urinary tract infection) Current Visit: Yes Status: Acute Qualifiers: Urinary tract infection type: acute cystitis Hematuria presence: without hematuria Qualified Code(s): N30.00 - Acute cystitis without hematuria Brief History of Present Illness: Patient is 78 years of age admitted with symptoms of urinary tract infection Hospital Course: E coli isolated that was pansensitive patient would discharge home on Cipro history of recurrent urinary tract infections At the time of discharge patient alert oriented responsive cooperative new complaints physical exam was normal no abdominal tenderness vital signs stable Vital Signs/Physical Exam: Temp Pulse Resp BP Pulse Ox 97.3 F 69 18 163/69 H 98 03/31/18 04:00 03/31/18 08:51 03/31/18 04:00 03/31/18 08:51 03/31/18 04:00 Laboratory Data at Discharge: WBC 6.6 K/uL (4.3-10.9) 03/29/18 19:20 Hgb 10.5 g/dL (12.0-15.0) L 03/29/18 19:20 Hct 32.3 % (36.0-45.0) L 03/29/18 19:20 Plt Count 312 K/uL (152-406) 03/29/18 19:20 Sodium 142 mmol/L (136-145) 03/30/18 05:38 Potassium 4.5 mmol/L (3.5-5.1) 03/30/18 05:38 BUN 40 mg/dL (7-18) H 03/30/18 05:38 Creatinine 1.30 mg/dL (0.55-1.3) 03/30/18 05:38 Glucose 121 mg/dL (74-106) H 03/30/18 05:38 Magnesium 2.5 mg/dL (1.8-2.4) H 03/30/18 05:38 Total Bilirubin 0.3 mg/dL (0.2-1.0) 03/29/18 19:20 AST 17 U/L (15-37) 03/29/18 19:20 ALT 15 U/L (12-78) 03/29/18 19:20 Alkaline Phosphatase 100 U/L (45-117) 03/29/18 19:20 Home Medications: Gabapentin [Neurontin] 300 mg PO BID 05/12/12 Acai Reese Extract [Acai] 500 mg PO DAILY 05/13/12 Calcium Carbonate/Vitamin D3 [Os-Amador 500-Vit D3 600 Caplet] 1 each PO DAILY 11/17 Allopurinol 1 tab PO DAILY 01/31/18 Amlodipine Besylate [Norvasc] 1 tab PO BEDTIME 01/31/18 Clopidogrel Bisulfate [Plavix] 1 tab PO DAILY 01/31/18 Cranberry Fruit Extract [Ellura] 1 tab PO DAILY 01/31/18 Gemfibrozil 1 tab PO BID 01/31/18 Insulin Aspart Protam & Aspart [Novolog Mix 70-30 Vial] 20 units PO DAILY AT SUPPER 01/31/18 Insulin Aspart Protam & Aspart [Novolog Mix 70-30 Vial] 26 units SQ BREAKFAST Latanoprost/Pf [Latanoprost 0.005% Eye Drop] 1 gtts OP SEECOM 01/31/18 Magnesium Oxide [Magnesium] 1 tab PO DAILY 01/31/18 Sertraline [Zoloft*] 1 tab PO BEDTIME 01/31/18 Solifenacin Succinate [Vesicare] 1 tab PO DAILY 01/31/18 Ondansetron HCl [Zofran] 4 mg PO TID PRN #15 tablet 02/03/18 Docusate [Colace Cap*] 1 cap PO BEDTIME 03/30/18 Ezetimibe [Zetia*] 1 tab PO DAILY 03/30/18 Furosemide [Lasix] 1 tab PO DAILY 03/30/18 Garlic 1 tab PO DAILY 03/30/18 Losartan Potassium 1 tab PO DAILY 03/30/18 Vit D3/Folic Acid/B2/B6/B12 [Folgard Tablet] 1 tab PO DAILY 03/30/18 Ciprofloxacin HCl [Cipro 250 MG Tablet*] 250 mg PO BID #14 tab 03/31/18 New Medications: Ciprofloxacin HCl [Cipro 250 MG Tablet*] 250 mg PO BID #14 tab Diet: Regular Activity: Ad isiah
[2018-03-31 10:37] VITALS: BP 183/80; TEMP 97.8
== END 2018-03-31 14:32 | disposition home health service (06) ==
LOC: ER 18:12 → ERHOLD 21:04 → 2ND 22:46
PROVIDERS: ADMIT Internal Medicine; ATTEND Internal Medicine
DX: N30.00 Acute cystitis without hematuria (principal); B96.20 Unspecified Escherichia coli [E. coli] as the cause of diseases classified elsewhere; E11.22 Type 2 diabetes mellitus with diabetic chronic kidney disease; I13.10 Hypertensive heart and chronic kidney disease without heart failure, with stage 1 through stage 4 chronic kidney disease, or unspecified chronic kidney disease; N18.3 Chronic kidney disease, stage 3 (moderate); Z79.4 Long term (current) use of insulin; E11.40 Type 2 diabetes mellitus with diabetic neuropathy, unspecified; E11.319 Type 2 diabetes mellitus with unspecified diabetic retinopathy without macular edema; Z88.6 Allergy status to analgesic agent; Z91.041 Radiographic dye allergy status; Z91.09 Other allergy status, other than to drugs and biological substances; Z88.8 Allergy status to other drugs, medicaments and biological substances; Z86.73 Personal history of transient ischemic attack (TIA), and cerebral infarction without residual deficits
CPT/HCPCS: 36415; 51702; 80048 ×2; 80076; 82962 ×6; 83605; 83735; 84145; 85025; 87040 ×2; 87077; 87086; 87088; 87186; 96361; 96365; 96375; 97163; 99285; G0378 ×2; J0360; J0696 ×3; J7030 ×4; 81003; 81015

== ENCOUNTER 2018-06-09 15:33 | Emergency (ER) | payer OTHER ==
[2018-06-09 16:51] LABS: Urine Bacteria NONE SEEN /HPF (<20); Urine RBC NONE SEEN /HPF (NONE SEEN)
[2018-06-09 16:52] LABS: Urine Amorphous Sediment 1+ /HPF (NONE SEEN); Urine Culture Reflex Order NOT NEEDED
[2018-06-09 17:09] LABS: Absolute Monocytes 0.3 K/uL (0.1-1.3); Absolute Neutrophil 3.9 K/uL (1.8-8.0); Basophils % 0.7 % (0-1.3); Eosinophils % 1.5 % (0-4.4); Hematocrit 34.5 % (36.0-45.0); Lymphocytes % 31.7 % (15.3-44.8); MCH 30.7 pg (27.0-35.0); MCV 92.2 fL (80-100); MPV 8.7 fL (7.6-11.3); Monocytes % 5.2 % (3.3-12.3); RBC Red Blood Cell Count 3.74 M/uL (3.86-4.86)
[2018-06-09 17:11] LABS: ALT/SGPT 19 U/L (12-78); AST/SGOT 13 U/L (15-37); Albumin 3.6 g/dL (3.4-5.0); Alkaline Phosphatase 110 U/L (45-117); BUN Blood Urea Nitrogen 50 mg/dL (7-18); Bicarbonate 27 mmol/L (21-32); Bilirubin Direct 0.1 mg/dL (0-0.2); Bilirubin Total 0.3 mg/dL (0.2-1.0); Glucose Level 240 mg/dL (74-106); Potassium 4.2 mmol/L (3.5-5.1); Protein, Total 8.1 g/dL (6.4-8.2); Sodium Level 138 mmol/L (136-145); Troponin (Emerg Dept Use Only) < 0.02 ng/mL (0.0-0.045)
--- NOTE | 2018-06-09 17:53 | ER ---
Nurse's Notes [facility] Name: Mariposa Palacios Age: 78 yrs Sex: Female : 1940 Arrival Date: 06/09/2018 Time: 15:34 Bed 15 Private MD: Kolton Mcclellan Atiq Diagnosis: Weakness Presentation: 06/09 15:44 Presenting complaint: Patient states: I think I have another UTI, I am having burning la1 with urination, weakness in my whole body and fatigue. Transition of care: patient was not received from another setting of care. Onset of symptoms was June 09, 2018. Risk Assessment: Do you want to hurt yourself or someone else? Patient reports no desire to harm self or others. Initial Sepsis Screen: Does the patient meet any 2 criteria? No. Patient's initial sepsis screen is negative. Does the patient have a suspected source of infection? No. Patient's initial sepsis screen is negative. Care prior to arrival: None. 15:44 Method Of Arrival: Wheelchair la1 15:44 Acuity: DOMINIQUE 3 la1 Historical: - Allergies: 15:44 Benadryl; la1 15:44 injectable dye; la1 15:44 Phenergan; la1 15:57 metformin; rb1 - Home Meds: 15:57 acai blackman extract 500 mg Oral cap [Active]; albuterol sulfate 0.63 mg/3 mL Inhl nebu rb1 [Active]; allopurinol 100 mg Oral tab 1 tab 3 times per day [Active]; amlodipine 5 mg tab 1 tab once daily [Active]; Calcarb 600 With Vitamin D 600 mg(1,500mg) -200 unit Oral tab [Active]; Diovan 40 mg Oral tab once daily [Active]; docusate sodium 100 mg Oral cap 1 cap 2 times per day [Active]; Folgard 2,000-800-0.32 unit-mcg-mg Oral tab [Active]; gabapentin 300 mg Oral cap twice a day [Active]; garlic 1,000 mg Oral cap daily [Active]; Lasix 40 mg Oral tab once daily [Active]; latanoprost 0.005 % ophthalmic drop 1 drop once daily [Active]; Lopid 600 mg Oral tab 1 tab 2 times per day [Active]; magnesium oxide 250 mg Oral tab daily [Active]; Norvasc 5 mg Oral tab once daily [Active]; Novolog 100 unit/mL Sub-Q soln 26 units am, 20 units pm [Active]; Plavix 75 mg Oral tab once daily [Active]; Vesicare 10 mg Oral tab once daily [Active]; Zetia 10 mg Oral tab 1 tab once daily [Active]; Zoloft 100 mg Oral tab 1 tab once daily [Active]; - PMHx: 15:44 CVA; kidney disease; Diabetes - IDDM; la1 - PSHx: 15:57 None; rb1 - Immunization history:: Adult Immunizations up to date. - Social history:: Smoking status: Patient/guardian denies using tobacco. - Ebola Screening: : No symptoms or risks identified at this time. Screenin:57 Abuse screen: Denies threats or abuse. Nutritional screening: No deficits noted. rb1 Tuberculosis screening: No symptoms or risk factors identified. Fall Risk No fall in past 12 months (0 pts). Secondary diagnosis (15 points) weakness on the left side.. IV access (20 points). Ambulatory Aid- Crutches/Cane/Walker (15 pts). Gait- Impaired (20 pts.). Mental Status- Oriented to own ability (0 pts). Total Jiménez Fall Scale indicates High Risk Score (45 or more points). Fall prevention measures have been instituted. Side Rails Up X 2 Placed Close to Nursing Station 1:1 Attendant Assigned Frequent Obs/Assessments Occuring Family Present and informed to notify staff if the need to leave the bedside As available patient and family educated on Fall Prevention Program and Strategies. Assessment: 15:57 General: Appears in no apparent distress. comfortable, Behavior is calm, cooperative. rb1 Pain: Complains of pain in back Pain currently is 5 out of 10 on a pain scale. Neuro: Level of Consciousness is awake, alert, obeys commands, Oriented to person, place, time, situation. Cardiovascular: Capillary refill < 3 seconds is brisk in bilateral fingers. Respiratory: Airway is patent Respiratory effort is even, unlabored, Respiratory pattern is regular, symmetrical. GI: Reports nausea. : Reports burning with urination. Derm: Skin is pink, warm \T\ dry. Musculoskeletal: Reports weakness in left arm and left leg. 16:50 Reassessment: Patient appears in no apparent distress at this time. No changes from rb1 previously documented assessment. 17:50 Reassessment: Patient appears in no apparent distress at this time. Patient and/or rb1 family updated on plan of care and expected duration. Pain level reassessed. Patient is alert, oriented x 3, equal unlabored respirations, skin warm/dry/pink. Pt. is crying and upset, she is worried about her insurance and the changes that they have made. Pt. daughter at bedside. 18:25 Reassessment: Assisted pt. on the bedpan. Urine output 175 ml. rb1 Vital Signs: 15:47 BP 161 / 76; Pulse 67; Resp 16; Temp 97.5(TE); Pulse Ox 98% on R/A; Weight 102.06 kg; la1 16:47 BP 174 / 61; Pulse 56; Resp 18; Pulse Ox 100% on R/A; rb1 17:30 BP 124 / 105; Pulse 59; Resp 19; Pulse Ox 99% on R/A; rb1 18:30 BP 152 / 69; Pulse 61; Resp 18; Pulse Ox 100% on R/A; rb1 ED Course: 15:34 Patient arrived in ED. sb2 15:35 Kolton Mcclellan MD is Private Physician. sb2 15:45 Triage completed. la1 15:45 Arm band placed on left wrist. la1 15:49 Efren Giron PA is PHCP. jmm 15:49 Ab Jaeger MD is Attending Physician. [facility] 15:52 PHCP role handed off by Efren Giron PA kb 15:52 Julia Joseph FNP-C is PHCP. kb 15:57 Patient has correct armband on for positive identification. Bed in low position. Call rb1 light in reach. Side rails up X 1. Pulse ox on. NIBP on. 16:15 Straight cath inserted, using sterile technique, 15 Fr Returned clear yellow urine. dh3 Patient tolerated well. 200mL. 16:31 Initial lab(s) drawn, by md, sent to lab. First set of blood cultures drawn by md. 3 Inserted saline lock: 20 gauge in left antecubital area, using aseptic technique. Blood collected. 16:47 Yu Currie, RN is Primary Nurse. [facility] 16:51 Second set of blood cultures drawn by md, by venipuncture 23G to right forearm. 3 17:53 Kolton Mcclellan MD is Referral Physician. kb 19:05 No provider procedures requiring assistance completed. rb1 19:05 IV discontinued, intact, bleeding controlled, No redness/swelling at site. Pressure rb1 dressing applied. Administered Medications: 18:07 Drug: DiFLUcan 100 mg Route: PO; rb1 18:35 Follow up: Response: No adverse reaction rb1 Outcome: 17:53 Discharge ordered by MD. kb 19:05 Patient left the ED. rb1 19:05 Discharged to home via wheelchair, with family. rb1 19:05 Condition: stable 19:05 Discharge instructions given to patient, Instructed on discharge instructions, follow up and referral plans. Demonstrated understanding of instructions, follow-up care, Prescriptions given X none Signatures: Julia Joseph, LABOR RELATIONS MANAGER-C LABOR RELATIONS MANAGER-Ckb Efren Giron PA PA jmm Attema, Lee RN RN la1 Yu Currie RN RN rb1 Syeda Gomez dh3 Ruchi Arguello 2
--- NOTE | 2018-06-09 17:53 | EDPHYS ---
Physician Documentation [facility] Name: Mairposa Palacios Age: 78 yrs Sex: Female : 1940 Arrival Date: 06/09/2018 Time: 15:34 Bed 15 Private MD: Kolton Mcclellan Atiq ED Physician Ab Jaeger HPI: 06/09 16:08 This 78 yrs old Female presents to ER via Wheelchair with complaints of kb Urinary Problem. 16:08 The patient presents with urinary symptoms, dysuria. Onset: The symptoms/episode kb began/occurred 4 day(s) ago. Modifying factors: The symptoms are alleviated by nothing, the symptoms are aggravated by urinating. Associated signs and symptoms: Pertinent positives: dysuria, Pertinent negatives: constipation, cramping, diarrhea, dyspareunia, fever, hematuria, nausea, urinary frequency, vaginal bleeding, vaginal discharge, vomiting. Severity of symptoms: At their worst the symptoms were moderate, in the emergency department the symptoms are unchanged. The patient has experienced similar episodes in the past, a few times. The patient has not recently seen a physician. Pt reports dysuria, fatigue, malaise, weakness and trouble getting her thoughts together. Reports these are the same symptoms she has had in the past when she had UTIs. Historical: - Allergies: 15:44 Benadryl; la1 15:44 injectable dye; la1 15:44 Phenergan; la1 15:57 metformin; rb1 - Home Meds: 15:57 acai blackman extract 500 mg Oral cap [Active]; albuterol sulfate 0.63 mg/3 mL Inhl nebu rb1 [Active]; allopurinol 100 mg Oral tab 1 tab 3 times per day [Active]; amlodipine 5 mg tab 1 tab once daily [Active]; Calcarb 600 With Vitamin D 600 mg(1,500mg) -200 unit Oral tab [Active]; Diovan 40 mg Oral tab once daily [Active]; docusate sodium 100 mg Oral cap 1 cap 2 times per day [Active]; Folgard 2,000-800-0.32 unit-mcg-mg Oral tab [Active]; gabapentin 300 mg Oral cap twice a day [Active]; garlic 1,000 mg Oral cap daily [Active]; Lasix 40 mg Oral tab once daily [Active]; latanoprost 0.005 % ophthalmic drop 1 drop once daily [Active]; Lopid 600 mg Oral tab 1 tab 2 times per day [Active]; magnesium oxide 250 mg Oral tab daily [Active]; Norvasc 5 mg Oral tab once daily [Active]; Novolog 100 unit/mL Sub-Q soln 26 units am, 20 units pm [Active]; Plavix 75 mg Oral tab once daily [Active]; Vesicare 10 mg Oral tab once daily [Active]; Zetia 10 mg Oral tab 1 tab once daily [Active]; Zoloft 100 mg Oral tab 1 tab once daily [Active]; - PMHx: 15:44 CVA; kidney disease; Diabetes - IDDM; la1 - PSHx: 15:57 None; rb1 - Immunization history:: Adult Immunizations up to date. - Social history:: Smoking status: Patient/guardian denies using tobacco. - Ebola Screening: : No symptoms or risks identified at this time. ROS: 16:06 ENT: Negative for injury, pain, and discharge, Neck: Negative for injury, pain, and kb swelling, Cardiovascular: Negative for chest pain, palpitations, and edema, Respiratory: Negative for shortness of breath, cough, wheezing, and pleuritic chest pain, Abdomen/GI: Negative for abdominal pain, nausea, vomiting, diarrhea, and constipation, Back: Negative for injury and pain, MS/Extremity: Negative for injury and deformity, Skin: Negative for injury, rash, and discoloration. 16:06 Constitutional: Positive for fatigue, malaise, Negative for body aches, chills, fever, poor PO intake, weight loss. 16:06 : Positive for urinary symptoms, burning with urination. 16:06 Neuro: Positive for weakness. Exam: 16:06 Constitutional: This is a well developed, well nourished patient who is awake, alert, kb and in no acute distress. Head/Face: Normocephalic, atraumatic. ENT: Nares patent. No nasal discharge, no septal abnormalities noted. Tympanic membranes are normal and external auditory canals are clear. Oropharynx with no redness, swelling, or masses, exudates, or evidence of obstruction, uvula midline. Mucous membranes moist. Neck: Trachea midline, no thyromegaly or masses palpated, and no cervical lymphadenopathy. Supple, full range of motion without nuchal rigidity, or vertebral point tenderness. No Meningismus. Chest/axilla: Normal chest wall appearance and motion. Nontender with no deformity. No lesions are appreciated. Cardiovascular: Regular rate and rhythm with a normal S1 and S2. No gallops, murmurs, or rubs. Normal PMI, no JVD. No pulse deficits. Respiratory: Lungs have equal breath sounds bilaterally, clear to auscultation and percussion. No rales, rhonchi or wheezes noted. No increased work of breathing, no retractions or nasal flaring. Abdomen/GI: Soft, non-tender, with normal bowel sounds. No distension or tympany. No guarding or rebound. No evidence of tenderness throughout. Back: No spinal tenderness. No costovertebral tenderness. Full range of motion. Skin: Warm, dry with normal turgor. Normal color with no rashes, no lesions, and no evidence of cellulitis. MS/ Extremity: Pulses equal, no cyanosis. Neurovascular intact. Full, normal range of motion. Neuro: Awake and alert, GCS 15, oriented to person, place, time, and situation. Cranial nerves II-XII grossly intact. Motor strength 5/5 in all extremities. Sensory grossly intact. Cerebellar exam normal. Normal gait. Vital Signs: 15:47 BP 161 / 76; Pulse 67; Resp 16; Temp 97.5(TE); Pulse Ox 98% on R/A; Weight 102.06 kg; la1 16:47 BP 174 / 61; Pulse 56; Resp 18; Pulse Ox 100% on R/A; rb1 17:30 BP 124 / 105; Pulse 59; Resp 19; Pulse Ox 99% on R/A; rb1 18:30 BP 152 / 69; Pulse 61; Resp 18; Pulse Ox 100% on R/A; rb1 MDM: 15:50 Patient medically screened. nisha 16:08 Data reviewed: vital signs, nurses notes. Data interpreted: Pulse oximetry: on room air kb is 98 %. Interpretation: normal. 17:46 Counseling: I had a detailed discussion with the patient and/or guardian regarding: the kb historical points, exam findings, and any diagnostic results supporting the discharge/admit diagnosis, lab results, the need for outpatient follow up, a family practitioner, to return to the emergency department if symptoms worsen or persist or if there are any questions or concerns that arise at home. 17:48 ED course: Daughter states she believes pt's symptoms are exacerbated by stress. Pt's kb insurance changed and pt is no longer getting the home health that she is used to. Pt states "it's so frustrating because I can't see good enough to do my pill boxes or anything." Recommended calling our case management social worker tomorrow for assistance, but daughter reports they have talked to everyone and there is nothing that can be done about it. . 06/09 15:56 Order name: Basic Metabolic Panel; Complete Time: 17:21 kb 06/09 15:56 Order name: Blood Culture Adult (2) kb 06/09 15:56 Order name: CBC with Diff; Complete Time: 17:22 kb 06/09 15:56 Order name: Lactate; Complete Time: 17:21 kb 06/09 15:56 Order name: LFT's; Complete Time: 17:21 kb 06/09 15:56 Order name: Procalcitonin; Complete Time: 17:53 kb 06/09 15:56 Order name: Troponin (emerg Dept Use Only); Complete Time: 17:21 kb 06/09 15:56 Order name: Urine Microscopic Only; Complete Time: 16:56 kb 06/09 15:56 Order name: IV Saline Lock - Large Bore; Complete Time: 16:42 kb 06/09 15:56 Order name: Labs collected and sent; Complete Time: 16:42 kb 06/09 15:56 Order name: O2 Per Protocol; Complete Time: 16:42 kb 06/09 15:56 Order name: Urine Culture kb 06/09 16:26 Order name: Urine Dipstick--Ancillary (enter results) bd 06/09 15:56 Order name: O2 Sat Monitoring; Complete Time: 16:42 kb 06/09 15:56 Order name: Urine Dipstick-Ancillary (obtain specimen); Complete Time: 16:16 kb Administered Medications: 18:07 Drug: DiFLUcan 100 mg Route: PO; rb1 18:35 Follow up: Response: No adverse reaction rb1 Disposition: 06/10 07:35 Co-signature as Attending Physician, Ab Jaeger MD I agree with the assessment and nisha plan of care. Disposition: 06/09/18 17:53 Discharged to Home. Impression: Weakness. - Condition is Stable. - Discharge Instructions: Weakness, [id number]. - Medication Reconciliation Form, Thank You Letter, Antibiotic Education, Prescription Opioid Use form. - Follow up: Emergency Department; When: As needed; Reason: Worsening of condition. Follow up: Kolton Mcclellan; When: 2 - 3 days; Reason: Recheck today's complaints, Continuance of care, Re-evaluation by your physician. Signatures: Dispatcher [employer] EDME Julia Joseph, JEEVAN-C BASTING CLEANER-Ab Pinto MD MD cha Attema, Lee, RN RN la1 Yu Currie, RN RN rb1 Corrections: (The following items were deleted from the chart) 06/09 19:05 17:53 06/09/2018 17:53 Discharged to Home. Impression: Weakness. Condition is Stable. rb1 Discharge Instructions: Weakness, [id number]. Forms are Medication Reconciliation Form, Thank You Letter, Antibiotic Education, Prescription Opioid Use. Follow up: Emergency Department; When: As needed; Reason: Worsening of condition. Follow up: Kolton Mcclellan; When: 2 - 3 days; Reason: Recheck today's complaints, Continuance of care, Re-evaluation by your physician. kb
[2018-06-09] MEDS ORDERED: FLUCONAZOLE 100 MG TAB ONE (18:11)
[2018-06-09 19:34] LABS: Urine Blood NEGATIVE (NEG); Urine Glucose NEGATIVE (NEG); Urine Protein TRACE (NEG); Urine Specific Gravity 1.015 (1.005-1.030)
[2018-06-09 19:51] VITALS: TEMP 97.5
[2018-06-09 19:54] VITALS: BP 124/105; O2SAT 99
== END 2018-06-09 19:05 | disposition home or self-care (01) ==
LOC: ER 15:33
DX: R53.1 Weakness (principal); E11.9 Type 2 diabetes mellitus without complications; N28.9 Disorder of kidney and ureter, unspecified; Z79.4 Long term (current) use of insulin; Z79.899 Other long term (current) drug therapy; Z86.73 Personal history of transient ischemic attack (TIA), and cerebral infarction without residual deficits
CPT/HCPCS: 36415; 51702; 80048; 80076; 81003; 81015; 83605; 84145; 84484; 85025; 87040; 87086; 87088; 99284

== ENCOUNTER 2018-11-03 10:13 | Observation (INO) | payer OTHER ==
[2018-11-03] MEDS ORDERED: ONDANSETRON 4 MG/2 ML VIAL ONE (10:49)
[2018-11-03] MEDS ORDERED: NA CHLORIDE 0.9% 250 ML ONE (10:49)
[2018-11-03] MEDS ORDERED: FAMOTIDINE 20 MG/2 ML VIAL IV ONE (10:50)
--- NOTE | 2018-11-03 11:00 | RAD REPORT ---
EXAM DESCRIPTION: RAD - Chest Single View - 11/03/2018 10:53 am CLINICAL HISTORY: general weakness Chest pain. COMPARISON: Chest Single View dated 01/31/2018; CHEST SINGLE VIEW dated 12/15/2013; CHEST SINGLE VIEW d ated 12/14/2013; CHEST PA AND LAT 2 VIEW dated 08/13/2013 FINDINGS: Portable technique limits examination quality. The lungs are grossly clear. The heart is normal in size. No displaced fractures. IMPRESSION: No acute intrathoracic process suspected.
[2018-11-03 11:08] LABS: Absolute Lymphocytes (CBC) 1.5 K/uL (0.7-4.9); Absolute Monocytes 0.4 K/uL (0.1-1.3); Eosinophils % 1.9 % (0-4.4); Hematocrit 34.4 % (36.0-45.0); Lymphocytes % 24.4 % (15.3-44.8); MPV 8.5 fL (7.6-11.3); RBC Red Blood Cell Count 3.69 M/uL (3.86-4.86)
[2018-11-03 11:11] LABS: Protime INR 1.08
[2018-11-03 11:25] LABS: Urine Bacteria >50 /HPF (<20); Urine RBC 20-50 /HPF (NONE SEEN)
[2018-11-03 11:26] LABS: Urine Culture Reflex Order NOT NEEDED
[2018-11-03 11:27] LABS: ALT/SGPT 14 U/L (12-78); AST/SGOT 14 U/L (15-37); Alkaline Phosphatase 108 U/L (45-117); BUN Blood Urea Nitrogen 39 mg/dL (7-18); Bicarbonate 28 mmol/L (21-32); Bilirubin Direct 0.1 mg/dL (0-0.2); Bilirubin Total 0.3 mg/dL (0.2-1.0); Glucose Level 143 mg/dL (74-106); Potassium 4.1 mmol/L (3.5-5.1); Sodium Level 141 mmol/L (136-145)
[2018-11-03 11:28] LABS: Albumin 3.6 g/dL (3.4-5.0); Lipase 66 U/L (73-393); Troponin (Emerg Dept Use Only) < 0.02 ng/mL (0.0-0.045)
[2018-11-03 11:36] LABS: Urine Blood TRACE (NEG); Urine Glucose NEGATIVE (NEG); Urine Protein 1+ (NEG); Urine Specific Gravity 1.015 (1.005-1.030)
[2018-11-03] MEDS ORDERED: CEFTRIAXONE/SWI 1gm 1 GM/10 ML SYR ONE (11:36)
--- NOTE | 2018-11-03 12:42 | ER ---
Nurse's Notes [facility] Name: Mariposa Palacios Age: 78 yrs Sex: Female : 1940 Arrival Date: 11/03/2018 Time: 10:15 Bed 15 Private MD: Diagnosis: Urinary tract infection, site not specified;Weakness-general Presentation: 11/03 10:17 Presenting complaint: EMS states: Patient reports burning with urination and aj generalized weakness since last night. Patient reports being DX with ecoli in urine 2 weeks ago. Transition of care: patient was not received from another setting of care. Onset of symptoms was November 02, 2018. Risk Assessment: Do you want to hurt yourself or someone else? Patient reports no desire to harm self or others. Initial Sepsis Screen: Does the patient meet any 2 criteria? No. Patient's initial sepsis screen is negative. Does the patient have a suspected source of infection? Yes: Dysuria/Frequency/Urgency/UTI. 10:17 Method Of Arrival: EMS: [facility] 10:17 Acuity: DOMINIQUE 3 aj 10:35 Care prior to arrival: Glucose check: 131. aj Triage Assessment: 10:25 General: Appears in no apparent distress. comfortable, Behavior is calm, cooperative. aj Pain: Complains of pain in buttocks and pelvis. Neuro: Level of Consciousness is awake, alert, obeys commands, Oriented to person, place, time, situation. Respiratory: Airway is patent Respiratory effort is even, unlabored, Respiratory pattern is regular, symmetrical. : Reports burning with urination, urgency. Derm: Skin is intact, is healthy with good turgor, Skin is pink, warm \T\ dry. normal. Historical: - Allergies: 10:25 Benadryl; aj 10:25 injectable dye; aj 10:25 metformin; aj 10:25 Phenergan; aj - Home Meds: 10:25 acai blackman extract 500 mg Oral cap [Active]; albuterol sulfate 0.63 mg/3 mL Inhl nebu aj [Active]; allopurinol 100 mg Oral tab 1 tab 3 times per day [Active]; amlodipine 5 mg tab 1 tab once daily [Active]; Calcarb 600 With Vitamin D 600 mg(1,500mg) -200 unit Oral tab [Active]; Diovan 40 mg Oral tab once daily [Active]; docusate sodium 100 mg Oral cap 1 cap 2 times per day [Active]; Folgard 2,000-800-0.32 unit-mcg-mg Oral tab [Active]; gabapentin 300 mg Oral cap twice a day [Active]; garlic 1,000 mg Oral cap daily [Active]; Lasix 40 mg Oral tab once daily [Active]; latanoprost 0.005 % ophthalmic drop 1 drop once daily [Active]; Lopid 600 mg Oral tab 1 tab 2 times per day [Active]; magnesium oxide 250 mg Oral tab daily [Active]; Norvasc 5 mg Oral tab once daily [Active]; Novolog 100 unit/mL Sub-Q soln 26 units am, 20 units pm [Active]; Vesicare 10 mg Oral tab once daily [Active]; Plavix 75 mg Oral tab once daily [Active]; Zetia 10 mg Oral tab 1 tab once daily [Active]; Zoloft 100 mg Oral tab 1 tab once daily [Active]; - PMHx: 10:25 CVA; Diabetes - IDDM; kidney disease; CHF; aj - PSHx: 10:25 Cholecystectomy; aj - Immunization history:: Adult Immunizations up to date. - Social history:: Smoking status: Patient/guardian denies using tobacco. - Ebola Screening: : Patient negative for fever greater than or equal to 101.5 degrees Fahrenheit, and additional compatible Ebola Virus Disease symptoms Patient denies exposure to infectious person Patient denies travel to an Ebola-affected area in the 21 days before illness onset No symptoms or risks identified at this time. Screenin:58 Abuse screen: Denies threats or abuse. Denies injuries from another. Nutritional aj screening: No deficits noted. Tuberculosis screening: No symptoms or risk factors identified. Fall Risk None identified. Assessment: 10:58 Reassessment: No changes from previously documented assessment. aj 15:11 Reassessment: Patient appears in no apparent distress at this time. No changes from aj previously documented assessment. Patient and/or family updated on plan of care and expected duration. Pain level reassessed. Patient is alert, oriented x 3, equal unlabored respirations, skin warm/dry/pink. Patient states feeling better. Vital Signs: 10:25 BP 184 / 66; Pulse 60; Resp 20; Temp 98.7; Pulse Ox 99% ; Weight 90.72 kg; Height 5 ft. aj 7 in. (170.18 cm); 12:52 BP 174 / 64; Pulse 59; Resp 17; Pulse Ox 99% on R/A; aj 15:11 BP 171 / 69; Pulse 59; Resp 19; Pulse Ox 99% on R/A; aj 10:25 Body Mass Index 31.32 (90.72 kg, 170.18 cm) aj ED Course: 10:15 Patient arrived in ED. aj 10:15 Mark Dove MD is Attending Physician. rn 10:17 Ab Reyes PA is PHCP. cp 10:19 Triage completed. aj 10:25 Arm band placed on right wrist. Patient placed in an exam room, on a stretcher, on aj pulse oximetry. 10:30 Radha Colin, GO is Primary Nurse. aj 10:53 Chest Single View XRAY In Process Unspecified. EDMS 10:58 Patient has correct armband on for positive identification. Placed in gown. Bed in low aj position. Side rails up X 1. Adult w/ patient. Pulse ox on. NIBP on. 10:58 Inserted saline lock: 20 gauge in right antecubital area, using aseptic technique. aj Blood collected. 11:14 Straight cath inserted, using sterile technique, 16 Fr. Specimen obtained. Returned aj cloudy urine. Patient tolerated well. 12:40 Yadiel Lopez MD is Hospitalizing Provider. cp 15:11 No provider procedures requiring assistance completed. Patient admitted, IV remains in aj place. Administered Medications: 10:45 Drug: Zofran 4 mg Route: IVP; Site: right antecubital; aj 12:51 Follow up: Response: Nausea is decreased aj 10:45 Drug: Pepcid 20 mg Route: IVP; Site: right antecubital; aj 12:51 Follow up: Response: No adverse reaction aj 10:45 Drug: NS 0.9% 250 ml Route: IV; Rate: bolus; Site: right antecubital; aj 15:14 Follow up: Response: No adverse reaction; IV Status: Completed infusion; IV Intake: aj 250ml 11:28 Drug: Rocephin - (cefTRIAXone) 1 grams Route: IVPB; Infused Over: 30 mins; Site: right aj antecubital; 15:14 Follow up: Response: No adverse reaction; IV Status: Completed infusion; IV Intake: 10mlaj 12:47 CANCELLED (Physician Discretion): TORadol - Ketorolac 15 mg IVP once cp 12:51 CANCELLED (dose changed): Tylenol 1000 mg PO once 12:51 Drug: Tylenol 650 mg Route: PO; aj 15:14 Follow up: Response: Pain is decreased aj Intake: 15:14 IV: 10ml; Total: 10ml. aj 15:14 IV: 250ml; Total: 260ml. aj Outcome: 12:41 Decision to Hospitalize by Provider. cp 15:11 Admitted to Med/surg accompanied by tech, room 430, with chart, Report called to joe Hollingsworth 15:11 Condition: good 15:11 Instructed on the need for admit. 15:15 Patient left the ED. aj Signatures: Dispatcher [employer] Radha Jackson, RN RN Mark Wen MD MD rn Ab Reyes, PA PA cp Corrections: (The following items were deleted from the chart) 10:35 10:17 Care prior to arrival: None. aj aj
--- NOTE | 2018-11-03 12:42 | EDPHYS ---
Physician Documentation [facility] Name: Mariposa Palacios Age: 78 yrs Sex: Female : 1940 Arrival Date: 11/03/2018 Time: 10:15 Bed 15 Private MD: ED Physician Mark Dove HPI: 11/03 10:29 This 78 yrs old Female presents to ER via EMS with complaints of Pain With cp Urination. 10:30 The patient presents with urinary symptoms, dysuria, frequency, urgency. cp 10:30 Onset: The symptoms/episode began/occurred 2 day(s) ago. Associated signs and symptoms: cp Pertinent positives: lower abdominal pain, Pertinent negatives: constipation, diarrhea, fever, hematuria, vomiting. Severity of symptoms: in the emergency department the symptoms are unchanged, despite home interventions. Patient reports recently being treated for UTI with Augmentin 2 weeks ago. Historical: - Allergies: 10:25 Benadryl; aj 10:25 injectable dye; aj 10:25 metformin; aj 10:25 Phenergan; aj - Home Meds: 10:25 acai blackman extract 500 mg Oral cap [Active]; albuterol sulfate 0.63 mg/3 mL Inhl nebu aj [Active]; allopurinol 100 mg Oral tab 1 tab 3 times per day [Active]; amlodipine 5 mg tab 1 tab once daily [Active]; Calcarb 600 With Vitamin D 600 mg(1,500mg) -200 unit Oral tab [Active]; Diovan 40 mg Oral tab once daily [Active]; docusate sodium 100 mg Oral cap 1 cap 2 times per day [Active]; Folgard 2,000-800-0.32 unit-mcg-mg Oral tab [Active]; gabapentin 300 mg Oral cap twice a day [Active]; garlic 1,000 mg Oral cap daily [Active]; Lasix 40 mg Oral tab once daily [Active]; latanoprost 0.005 % ophthalmic drop 1 drop once daily [Active]; Lopid 600 mg Oral tab 1 tab 2 times per day [Active]; magnesium oxide 250 mg Oral tab daily [Active]; Norvasc 5 mg Oral tab once daily [Active]; Novolog 100 unit/mL Sub-Q soln 26 units am, 20 units pm [Active]; Vesicare 10 mg Oral tab once daily [Active]; Plavix 75 mg Oral tab once daily [Active]; Zetia 10 mg Oral tab 1 tab once daily [Active]; Zoloft 100 mg Oral tab 1 tab once daily [Active]; - PMHx: 10:25 CVA; Diabetes - IDDM; kidney disease; CHF; aj - PSHx: 10:25 Cholecystectomy; aj - Immunization history:: Adult Immunizations up to date. - Social history:: Smoking status: Patient/guardian denies using tobacco. - Ebola Screening: : Patient negative for fever greater than or equal to 101.5 degrees Fahrenheit, and additional compatible Ebola Virus Disease symptoms Patient denies exposure to infectious person Patient denies travel to an Ebola-affected area in the 21 days before illness onset No symptoms or risks identified at this time. ROS: 10:29 Eyes: Negative for injury, pain, redness, and discharge. cp 10:29 Constitutional: Negative for body aches, fever, poor PO intake. 10:29 Cardiovascular: Negative for chest pain, edema. 10:29 Respiratory: Negative for cough, shortness of breath, wheezing. 10:29 Abdomen/GI: Positive for abdominal pain, nausea, of the right lower quadrant and left lower quadrant, Negative for vomiting, diarrhea, constipation, black/tarry stool, rectal bleeding. 10:29 Back: Positive for pain at rest, pain with movement. 10:29 : Positive for urinary symptoms. 10:29 Skin: Negative for rash. 10:29 Neuro: Positive for general weakness, Negative for altered mental status, dizziness. 10:29 All other systems are negative. Exam: 10:31 Head/Face: Normocephalic, atraumatic. cp 10:31 Constitutional: The patient appears in no acute distress, alert, awake, non-diaphoretic, non-toxic, well developed, well nourished, uncomfortable. 10:31 Eyes: Periorbital structures: appear normal, Conjunctiva: normal, Sclera: no appreciated abnormality, Lids and lashes: appear normal, bilaterally. 10:31 ENT: External ear(s): are unremarkable, Ear canal(s): are normal, clear, TM's: bulging, is not appreciated, bilaterally, dullness, bilaterally, erythema, is not appreciated, bilaterally, Nose: is normal, Mouth: Lips: dry, Oral mucosa: pink and intact, Posterior pharynx: Airway: no evidence of obstruction, patent, Tonsils: are normal in appearance, swelling, is not appreciated, erythema, is not appreciated, exudate, is not appreciated. 10:31 Neck: ROM/movement: is normal, is supple, without pain, no range of motions limitations, no meningismus, no nuchal rigidity. 10:31 Chest/axilla: Inspection: normal, Palpation: is normal, no crepitus, no tenderness. 10:31 Cardiovascular: Rate: normal, Rhythm: regular, Edema: is not appreciated, JVD: is not appreciated. 10:31 Respiratory: the patient does not display signs of respiratory distress, Respirations: normal, no use of accessory muscles, no retractions, no splinting, no tachypnea, labored breathing, is not present, Breath sounds: decreased breath sounds, that are mild, throughout. 10:31 Abdomen/GI: Inspection: abdomen appears normal, Bowel sounds: active, all quadrants, Palpation: soft, in all quadrants, moderate abdominal tenderness, in the right lower quadrant and left lower quadrant, voluntary guarding, is elicited in the right lower quadrant and left lower quadrant. 10:31 Back: pain, that is moderate, of the low back area. 10:31 Neuro: Orientation: to person, place \T\ time. Mentation: is normal, Motor: moves all fours, general weakness w/o focal deficits. Vital Signs: 10:25 BP 184 / 66; Pulse 60; Resp 20; Temp 98.7; Pulse Ox 99% ; Weight 90.72 kg; Height 5 ft. aj 7 in. (170.18 cm); 12:52 BP 174 / 64; Pulse 59; Resp 17; Pulse Ox 99% on R/A; aj 15:11 BP 171 / 69; Pulse 59; Resp 19; Pulse Ox 99% on R/A; aj 10:25 Body Mass Index 31.32 (90.72 kg, 170.18 cm) aj MDM: 10:15 Patient medically screened. rn 10:45 Differential diagnosis: urinary tract infection, sepsis, pneumonia, pyelonephritis. cp 11:50 Data reviewed: vital signs, nurses notes, lab test result(s), EKG, radiologic studies, cp plain films. 11:50 Test interpretation: by ED physician or midlevel provider: ECG. Response to treatment: cp the patient's symptoms have mildly improved after treatment. 12:45 Physician consultation: Yadiel Lopez MD was called at 12:40, was contacted at 12:40, cp regarding admission, to the medical/surgical unit. patient's condition. 11/03 10:27 Order name: Urine Culture 11/03 10:27 Order name: Basic Metabolic Panel; Complete Time: 11:42 11/03 11:43 Interpretation: Normal except: GLUC 143; BUN 39; CRE 1.43; GFR 35. 11/03 10:27 Order name: Blood Culture Adult (2) 11/03 10:27 Order name: CBC with Diff; Complete Time: 11:13 cp 11/03 11:13 Interpretation: Normal except: RBC 3.69; HGB 11.1; HCT 34.4. 11/03 10:27 Order name: Lactate; Complete Time: 11:42 11/03 11:43 Interpretation: LAC 1.1; Reviewed. 11/03 10:27 Order name: LFT's; Complete Time: 11:42 cp 11/03 10:27 Order name: Lipase; Complete Time: 11:42 cp 11/03 10:27 Order name: Procalcitonin; Complete Time: 11:42 11/03 11:45 Interpretation: Reviewed. 11/03 10:27 Order name: Protime (+inr); Complete Time: 11:23 11/03 11:23 Interpretation: Reviewed. 11/03 10:27 Order name: Troponin (emerg Dept Use Only); Complete Time: 11:42 11/03 10:27 Order name: Urine Microscopic Only; Complete Time: 11:42 11/03 11:43 Interpretation: Normal except: UWBC >50; URBC 20-50; UBACT >50; SQEPI 5-10. 11/03 10:27 Order name: Chest Single View XRAY; Complete Time: 11:01 cp 11/03 11:07 Interpretation: Report review. 11/03 11:15 Order name: Urine Dipstick--Ancillary (enter results); Complete Time: 11:42 eb 11/03 11:44 Interpretation: Normal except: UBLD TRACE; UPROT 1+; U NIT POSITIVE; UESTR 3+. 11/03 10:27 Order name: Cath; Complete Time: 11:13 cp 11/03 10:27 Order name: IV Saline Lock - Large Bore; Complete Time: 10:59 cp 11/03 10:27 Order name: Labs collected and sent; Complete Time: 10:59 cp 11/03 10:27 Order name: O2 Per Protocol; Complete Time: 10:59 cp 11/03 10:27 Order name: O2 Sat Monitoring; Complete Time: 10:59 cp 11/03 10:27 Order name: Urine Dipstick-Ancillary (obtain specimen); Complete Time: 11:00 cp Administered Medications: 10:45 Drug: Zofran 4 mg Route: IVP; Site: right antecubital; aj 12:51 Follow up: Response: Nausea is decreased aj 10:45 Drug: Pepcid 20 mg Route: IVP; Site: right antecubital; aj 12:51 Follow up: Response: No adverse reaction aj 10:45 Drug: NS 0.9% 250 ml Route: IV; Rate: bolus; Site: right antecubital; aj 15:14 Follow up: Response: No adverse reaction; IV Status: Completed infusion; IV Intake: aj 250ml 11:28 Drug: Rocephin - (cefTRIAXone) 1 grams Route: IVPB; Infused Over: 30 mins; Site: right aj antecubital; 15:14 Follow up: Response: No adverse reaction; IV Status: Completed infusion; IV Intake: 10mlaj 12:47 CANCELLED (Physician Discretion): TORadol - Ketorolac 15 mg IVP once cp 12:51 CANCELLED (dose changed): Tylenol 1000 mg PO once aj 12:51 Drug: Tylenol 650 mg Route: PO; aj 15:14 Follow up: Response: Pain is decreased aj Disposition: 15:57 Co-signature as Attending Physician, Mark Dove MD. rn Disposition: 11/03/18 12:41 Hospitalization ordered by Yadiel Lopez for Observation. Preliminary diagnosis are Urinary tract infection, site not specified, Weakness - general. - Bed requested for Telemetry/MedSurg (observation). - Status is Observation. aj - Condition is Stable. - Problem is new. - Symptoms have improved. UTI on Admission? Yes Signatures: Dispatcher [employer] Dawn You RN RN dw Myers, Amanda, RN RN aj Nieto, Roman, MD MD rn Page, Corey, PA PA cp Eunice Schmidt Corrections: (The following items were deleted from the chart) 10:34 10:27 Accucheck ordered. cp aj 12:47 12:37 TORadol - Ketorolac 15 mg IVP once ordered. cp cp 12:51 12:48 Tylenol 1000 mg PO once ordered. cp aj 14:11 12:41 Hospitalization Ordered by Yadiel Lopez MD for Inpatient Admission. Preliminary dw diagnosis is Urinary tract infection, site not specified; Weakness - general. Bed requested for Telemetry/MedSurg (Inpatient). Status is Inpatient Admission. Condition is Stable. Problem is new. Symptoms have improved. UTI on Admission? Yes. cp 14:11 14:11 11/03/2018 12:41 Hospitalization Ordered by Yadiel Lopez MD for Inpatient dw Admission. Preliminary diagnosis is Urinary tract infection, site not specified; Weakness - general. Bed requested for Telemetry/MedSurg (Inpatient). Status is Inpatient Admission. Condition is Stable. Problem is new. Symptoms have improved. UTI on Admission? Yes. 14:26 14:11 11/03/2018 12:41 Hospitalization Ordered by Yadiel Lopez MD for Inpatient cp Admission. Preliminary diagnosis is Urinary tract infection, site not specified; Weakness - general. Bed requested for Telemetry/MedSurg (Inpatient). Status is Inpatient Admission. Condition is Stable. Problem is new. Symptoms have improved. UTI on Admission? Yes. dw 14:28 14:26 11/03/2018 12:41 Hospitalization Ordered by Yadiel Lopez MD for Observation. eb Preliminary diagnosis is Urinary tract infection, site not specified; Weakness - general. Bed requested for Telemetry/MedSurg (observation). Status is Observation. Condition is Stable. Problem is new. Symptoms have improved. UTI on Admission? Yes. cp 14:45 14:28 11/03/2018 12:41 Hospitalization Ordered by Yadiel Lopez MD for Observation. aj Preliminary diagnosis is Urinary tract infection, site not specified; Weakness - general. Bed requested for Telemetry/MedSurg (observation). Status is Observation. Condition is Stable. Problem is new. Symptoms have improved. UTI on Admission? Yes. eb 15:15 14:45 11/03/2018 12:41 Hospitalization Ordered by Yadiel Lopez MD for Observation. aj Preliminary diagnosis is Urinary tract infection, site not specified; Weakness - general. Bed requested for Telemetry/MedSurg (observation). Status is Observation. Condition is Stable. Problem is new. Symptoms have improved. UTI on Admission? Yes. aj
[2018-11-03] MEDS ORDERED: ACETAMINOPHEN 325 MG TABLET ONE (13:00)
--- NOTE | 2018-11-03 14:38 | P.HP ---
Patient History Date of Service: 11/03/18 Reason for admission: Dysuria History of Present Illness: This is a 78-year-old female with past medical history of CKD stage 3, a stroke , insulin-dependent diabetes mellitus type 2, congestive heart failure admitted for increased urinary urgency and frequency along with dysuria and left lower back pain. Per patient, she has had recurrent UTIs. She recently did see her primary care physician and was prescribed Augmentin. She states that she has a 10 day course and felt better. A few days after she started experiencing lower back pain, increasing frequency and urgency along with to see urea. She also complained of right lower back pain. She denies any fevers, chills, chest pain , headaches, dizziness, vision changes, diarrhea or constipation, abdominal pain. She lives alone and overnight did not feel well therefore called the ambulance. In the ER, patient was hemodynamically stable with blood pressure of 184/66, heart rate of 60, respirations of 20, afebrile and BMI of 31. Her blood work was unremarkable except for creatinine of 1.43. Her urine analysis was remarkable for blood, nitrite, 3+ leuk esterase and loaded with bacteria. Her chest x-ray was normal. She received Rocephin along with IV fluids in the ER. At the time of my exam, she was alert oriented x3, in no acute distress and hemodynamically stable. She was admitted for UTI as patient is high risk for possible multidrug resistant due to her recurrent UTIs along with generalized weakness. Allergies iodine Allergy (Severe, Verified 01/31/18 22:48) resp arrest promethazine HCl [From Phenergan] Allergy (Mild, Verified 01/31/18 22:48) Rash codeine [Codeine] Adverse Reaction (Mild, Verified 01/31/18 22:48) vomitting diphenhydramine HCl [From Benadryl] Adverse Reaction (Mild, Verified 01/31/18 22 :48) anxiety metformin HCl [From Glucophage] Adverse Reaction (Mild, Verified 01/31/18 22:48) vomitting injectable dye Allergy (Uncoded 01/31/18 22:48) Unknown Home Medications: Gabapentin [Neurontin] 300 mg PO BID 05/12/12 Acai Reese Extract [Acai] 500 mg PO DAILY 05/13/12 Calcium Carbonate/Vitamin D3 [[place] 500-Vit D3 600 Caplet] 1 each PO DAILY 11/17 Allopurinol 1 tab PO DAILY 01/31/18 Amlodipine Besylate [Norvasc] 1 tab PO BEDTIME 01/31/18 Clopidogrel Bisulfate [Plavix] 1 tab PO DAILY 01/31/18 Cranberry Fruit Extract [Ellura] 1 tab PO DAILY 01/31/18 Gemfibrozil 1 tab PO BID 01/31/18 Insulin Aspart Protam & Aspart [Novolog Mix 70-30 Vial] 20 units PO DAILY AT SUPPER 01/31/18 Insulin Aspart Protam & Aspart [Novolog Mix 70-30 Vial] 26 units SQ BREAKFAST Latanoprost/Pf [Latanoprost 0.005% Eye Drop] 1 gtts OP SEECOM 01/31/18 Magnesium Oxide [Magnesium] 1 tab PO DAILY 01/31/18 Sertraline [Zoloft*] 1 tab PO BEDTIME 01/31/18 Solifenacin Succinate [Vesicare] 1 tab PO DAILY 01/31/18 Ondansetron HCl [Zofran] 4 mg PO TID PRN #15 tablet 02/03/18 Docusate [Colace Cap*] 1 cap PO BEDTIME 03/30/18 Ezetimibe [Zetia*] 1 tab PO DAILY 03/30/18 Furosemide [Lasix] 1 tab PO DAILY 03/30/18 Garlic 1 tab PO DAILY 03/30/18 Losartan Potassium 1 tab PO DAILY 03/30/18 Vit D3/Folic Acid/B2/B6/B12 [Folgard Tablet] 1 tab PO DAILY 03/30/18 Ciprofloxacin HCl [Cipro 250 MG Tablet*] 250 mg PO BID #14 tab 03/31/18 - Past Medical/Surgical History Diabetic: Yes -: DM-IDDM -: HTN -: CVA -: Diabetic Neuropathy -: Diabetic Retinopathy -: Hysterectomy -: Marian - Family History Father -: Heart disease, Diabetes Mother -: Heart disease, Hypertension, Diabetes - Social History Alcohol use: No CD- Drugs: No Caffeine use: Yes Review of Systems 10-point ROS is otherwise unremarkable Physical Examination - Physical Exam General: Alert, In no apparent distress, Oriented x3, Other (Elderly, ill appearing female) HEENT: Atraumatic, PERRLA, Mucous membr. moist/pink, EOMI, Sclerae nonicteric Neck: Supple, 2+ carotid pulse no bruit, No LAD, Without JVD or thyroid abnormality Respiratory: Clear to auscultation bilaterally, Normal air movement Cardiovascular: Regular rate/rhythm, Normal S1 S2 Gastrointestinal: Normal bowel sounds, No tenderness Musculoskeletal: No tenderness Integumentary: No rashes Neurological: Normal speech, Normal affect, Abnormal strength (Left-sided weakness compared to the right. This is at baseline) Lymphatics: No axilla or inguinal lymphadenopathy - Studies Laboratory Data (last 24 hrs) 11/03/18 10:45: PT 12.7 H, INR 1.08 11/03/18 10:45: WBC 6.0, Hgb 11.1 L, Hct 34.4 L, Plt Count 289 11/03/18 10:45: Sodium 141, Potassium 4.1, BUN 39 H, Creatinine 1.43 H, Glucose 143 H, Total Bilirubin 0.3, AST 14 L, ALT 14, Alkaline Phosphatase 108, Lipase 66 L Assessment and Plan - Problems (Diagnosis) (1) UTI (urinary tract infection) Onset Date: 04/01/18 Current Visit: No Status: Acute Plan: - Start IV antibiotics with Rocephin - Urine cultures pending, will follow up and adjust antibiotics as needed. Qualifiers: Urinary tract infection type: acute cystitis Hematuria presence: with hematuria Qualified Code(s): N30.01 - Acute cystitis with hematuria (2) General weakness Current Visit: Yes Status: Acute Plan: - Consult physical therapy for recommendations. - Patient may benefit from a nursing facility versus rehab as patient does live alone and has been having worsening generalized weakness along with a history of stroke and left-sided residual weakness. (3) Hypertension Onset Date: 04/01/18 Current Visit: No Status: Chronic Plan: - Elevated in the ER, likely because she has not taken her medications this morning. - Resume home medications, continue to monitor and adjust as needed. Qualifiers: Hypertension type: essential hypertension Qualified Code(s): I10 - Essential (primary) hypertension (4) Diabetes mellitus Onset Date: 02/05/18 Current Visit: No Status: Chronic Plan: - Accu-Cheks and mild sliding scale insulin - Monitor and adjust as needed Qualifiers: Diabetes mellitus type: type 2 Diabetes mellitus superintendent marine oil terminal insulin use: with superintendent marine oil terminal use Diabetes mellitus complication status: with hyperglycemia Qualified Code(s): E11.65 - Type 2 diabetes mellitus with hyperglycemia; Z79.4 - medical terminologist (current) use of insulin (5) CKD (chronic kidney disease) Onset Date: 02/05/18 Current Visit: No Status: Acute Plan: - Creatinine at baseline - Continue to monitor - Avoid nephrotoxic medications Qualifiers: Chronic kidney disease stage: stage 3 (moderate) (6) History of CVA (cerebrovascular accident) Current Visit: No Status: Chronic Plan: - stable, at baseline - continue home medications (7) Hyperlipidemia Current Visit: No Status: Chronic Plan: - continue medications, stable Qualifiers: Hyperlipidemia type: unspecified - Plan DVT prophylaxis: None, and encouraged ambulation GI prophylaxis: None Diet: Heart healthy/diabetic Disposition: Admit to floor with tele for observation. Continue IV antibiotics , pending urine cultures. Social work and physical therapy consults pending. - Advance Directives Does patient have a Living Will: Yes Does patient have a Durable POA for Healthcare: Yes Time Spent Managing Pts Care (In Minutes): 55
[2018-11-03] MEDS ORDERED: ONDANSETRON 4 MG/2 ML VIAL IV PRN (14:51)
[2018-11-03 15:40] VITALS: BMI 33.2
[2018-11-03] MEDS: INSULIN -REGULAR HUMAN 50 UNIT/0.5 ML ML SQ SCH ×2 (16:30→20:11)
[2018-11-03] MEDS: TRAMADOL HCL 50 MG TAB PO PRN (17:00)
[2018-11-03] MEDS: HUMALOG MIX 75/25 100 UNITS/ML SQ SCH (17:00)
[2018-11-03] MEDS: CEFTRIAXONE/SWI 1gm 1 GM/10 ML SYR IV SCH (20:10)
[2018-11-03] MEDS: GABAPENTIN 100 MG CAP PO SCH (20:11)
[2018-11-03] MEDS: SERTRALINE HCL 100 MG TAB PO SCH (20:11)
[2018-11-03] MEDS: AMLODIPINE 5 MG TAB PO SCH (20:11)
[2018-11-04 04:42] LABS: Absolute Lymphocytes (CBC) 2.6 K/uL (0.7-4.9); Absolute Monocytes 0.5 K/uL (0.1-1.3); Absolute Neutrophil 3.4 K/uL (1.8-8.0); Basophils % 0.4 % (0-1.3); Eosinophils % 2.6 % (0-4.4); Hematocrit 32.2 % (36.0-45.0); MPV 8.6 fL (7.6-11.3); RBC Red Blood Cell Count 3.46 M/uL (3.86-4.86)
[2018-11-04 04:55] LABS: Magnesium 2.4 mg/dL (1.8-2.4); Phosphorus 3.7 mg/dL (2.5-4.9)
[2018-11-04] MEDS: INSULIN -REGULAR HUMAN 50 UNIT/0.5 ML ML SQ SCH ×4 (07:30→21:00)
[2018-11-04] MEDS: HUMALOG MIX 75/25 100 UNITS/ML SQ SCH ×2 (08:00→16:59)
[2018-11-04] MEDS: EZETIMIBE 10 MG TAB PO SCH (08:29)
[2018-11-04] MEDS: TRAMADOL HCL 50 MG TAB PO PRN ×2 (08:29→21:35)
[2018-11-04] MEDS: FUROSEMIDE 40 MG TABLET PO SCH (08:29)
[2018-11-04] MEDS: CEFTRIAXONE/SWI 1gm 1 GM/10 ML SYR IV SCH ×2 (08:29→21:36)
[2018-11-04] MEDS: SOLIFENACIN SUCCIN 5 MG TAB PO SCH (08:29)
[2018-11-04] MEDS: ALLOPURINOL 300 MG TAB PO SCH (08:30)
[2018-11-04] MEDS: CLOPIDOGREL 75 MG TABLET PO SCH (08:30)
[2018-11-04] MEDS: CALCIUM CARB 500MG/VIT D 200 IU TAB PO SCH (08:30)
--- NOTE | 2018-11-04 16:18 | P.PN ---
Subjective Date of Service: 11/04/18 Chief Complaint: Dysuria Subjective: Improving Patient seen and examined at bedside. No family at bedside. Chart reviewed and case discussed with nursing staff. Patient admitted for generalized weakness and UTI Reports improvement this am. States she is feeling a lot better Tolerating PO, working well with PT. Review of Systems 10-point ROS is otherwise unremarkable Physical Examination - Vital Signs Temperature: 97.7 F Blood Pressure: 126/55 Pulse: 64 Respirations: 18 Pulse Ox (%): 98 - Physical Exam General: Alert, In no apparent distress, Oriented x3 HEENT: Atraumatic, PERRLA, EOMI Neck: Supple, JVD not distended Respiratory: Clear to auscultation bilaterally, Normal air movement Cardiovascular: Regular rate/rhythm, Normal S1 S2 Gastrointestinal: Normal bowel sounds, No tenderness Musculoskeletal: No tenderness Integumentary: No rashes Neurological: Normal speech, Normal tone, Normal affect Lymphatics: No axilla or inguinal lymphadenopathy Assessment And Plan - Current Problems (Diagnosis) (1) UTI (urinary tract infection) Onset Date: 04/01/18 Current Visit: No Status: Acute Plan: - Continue IV antibiotics with Rocephin - Urine cultures pending, will follow up and adjust antibiotics as needed. Qualifiers: Urinary tract infection type: acute cystitis Hematuria presence: with hematuria Qualified Code(s): N30.01 - Acute cystitis with hematuria (2) General weakness Current Visit: Yes Status: Acute Plan: - Consult physical therapy for recommendations. - Patient may benefit from a nursing facility versus rehab as patient does live alone and has been having worsening generalized weakness along with a history of stroke and left-sided residual weakness. It seems patient may not be approved for rehab due to insurance (per ). Our next option would be a SNF. SW on board. (3) Hypertension Onset Date: 04/01/18 Current Visit: No Status: Chronic Plan: - Stable - Continue home medications, continue to monitor and adjust as needed. Qualifiers: Hypertension type: essential hypertension Qualified Code(s): I10 - Essential (primary) hypertension (4) Diabetes mellitus Onset Date: 02/05/18 Current Visit: No Status: Chronic Plan: - Accu-Cheks and mild sliding scale insulin - Monitor and adjust as needed Qualifiers: Diabetes mellitus type: type 2 Diabetes mellitus educational advisor insulin use: with educational advisor use Diabetes mellitus complication status: with hyperglycemia Qualified Code(s): E11.65 - Type 2 diabetes mellitus with hyperglycemia; Z79.4 - FDC (current) use of insulin (5) CKD (chronic kidney disease) Onset Date: 02/05/18 Current Visit: No Status: Acute Plan: - Creatinine at baseline though increased from yesterday. - Continue to monitor - Avoid nephrotoxic medications Qualifiers: Chronic kidney disease stage: stage 3 (moderate) (6) History of CVA (cerebrovascular accident) Current Visit: No Status: Chronic Plan: - stable, at baseline mild residual weakness - continue home medications (7) Hyperlipidemia Current Visit: No Status: Chronic Plan: - continue medications, stable Qualifiers: Hyperlipidemia type: unspecified - Plan DVT prophylaxis: None, and encouraged ambulation GI prophylaxis: None Diet: Heart healthy/diabetic Disposition: Continue IV antibiotics, pending urine cultures. Pending placement , SW on board.
[2018-11-04] MEDS: PHENOL 1.4% ORAL SPRAY 180ML MM PRN ×2 (17:00→21:44)
[2018-11-04] MEDS: AMLODIPINE 5 MG TAB PO SCH (21:35)
[2018-11-04] MEDS: GABAPENTIN 100 MG CAP PO SCH (21:35)
[2018-11-04] MEDS: SERTRALINE HCL 100 MG TAB PO SCH (21:35)
[2018-11-05] MEDS: TRAMADOL HCL 50 MG TAB PO PRN ×3 (04:02→20:25)
[2018-11-05] MEDS: PHENOL 1.4% ORAL SPRAY 180ML MM PRN (04:03)
[2018-11-05 04:54] LABS: Absolute Lymphocytes (CBC) 3.1 K/uL (0.7-4.9); Absolute Monocytes 0.6 K/uL (0.1-1.3); Basophils % 0.6 % (0-1.3); Eosinophils % 3.4 % (0-4.4); Hematocrit 32.7 % (36.0-45.0); Lymphocytes % 44.1 % (15.3-44.8); MPV 8.5 fL (7.6-11.3); Monocytes % 8.3 % (3.3-12.3); RBC Red Blood Cell Count 3.52 M/uL (3.86-4.86)
[2018-11-05 05:06] LABS: Potassium 3.7 mmol/L (3.5-5.1)
[2018-11-05] MEDS ORDERED: POTASSIUM CL SA 10 MEQ TAB PO ONE (05:18)
[2018-11-05] MEDS: INSULIN -REGULAR HUMAN 50 UNIT/0.5 ML ML SQ SCH ×4 (07:30→20:30)
[2018-11-05] MEDS: HUMALOG MIX 75/25 100 UNITS/ML SQ SCH ×2 (08:00→16:21)
[2018-11-05] MEDS: CLOPIDOGREL 75 MG TABLET PO SCH (08:21)
[2018-11-05] MEDS: CEFTRIAXONE/SWI 1gm 1 GM/10 ML SYR IV SCH ×2 (08:21→20:24)
[2018-11-05] MEDS: CALCIUM CARB 500MG/VIT D 200 IU TAB PO SCH (08:21)
[2018-11-05] MEDS: EZETIMIBE 10 MG TAB PO SCH (08:21)
[2018-11-05] MEDS: ALLOPURINOL 300 MG TAB PO SCH (08:21)
[2018-11-05] MEDS: SOLIFENACIN SUCCIN 5 MG TAB PO SCH (08:21)
[2018-11-05] MEDS: FUROSEMIDE 40 MG TABLET PO SCH (08:22)
[2018-11-05] MEDS ORDERED: POLYETHYL GLY 3350 17 GM/DOSE PO PRN (10:24)
[2018-11-05] MEDS: DOCUSATE NA 100 MG CAP PO SCH ×2 (11:14→20:25)
[2018-11-05] MEDS: AMLODIPINE 5 MG TAB PO SCH (20:25)
[2018-11-05] MEDS: GABAPENTIN 100 MG CAP PO SCH (20:25)
[2018-11-05] MEDS: SERTRALINE HCL 100 MG TAB PO SCH (20:25)
--- NOTE | 2018-11-05 22:41 | PN ---
Date of Progress Note: 11/05/2018 Subjective: The patient seen and examined. Chart reviewed and case discussed with RN. The patient states she feels better. No acute events overnight. The patient works well with PT. Medications: List reviewed. Code Status: Full. Physical Examination: Vital Signs: Temperature 97.8, heart rate 65, blood pressure 137/63, respirations 16, O2 of 98% on r oom air. General: Awake, alert, oriented x3. Elderly female, not in any acute distress, obese. CV: S1, S2. Regular rate and rhythm. Peripheral pulses present. Respiratory: Moving air well bilaterally. No wheezing or stridor. Gastrointestinal: Abdomen is soft, nontender, nondistended. Positive bowel sounds. No guarding or rigidity. Extremities: No clubbing, cyanosis. Minimal edema. Neuro: Nonfocal. Laboratory Data: WBC 7, H and H 10.6 and 32.7, platelets 289. Sodium 141, potassium 3.7, chloride 1 03, CO2 29, BUN 44, creatinine 1.92, glucose 86, calcium 8.9. Urine culture growing out E coli sensi tive to Rocephin. Blood cultures, no growth to date. Assessment And Plan: A 78-year-old female with: 1.Acute cystitis with hematuria secondary to Escherichia coli. We will continue Rocephin, improving . 2.Generalized weakness. We will continue physical therapy. 3.Essential hypertension, stable. We will continue home medications. 4.Diabetes mellitus type 2 with nursing home use of insulin with hyperglycemia. We will continue slidi ng scale insulin. Monitor Accu-Cheks. 5.Chronic kidney disease stage 3. Creatinine at baseline, however, trending up from yesterday. We will continue to monitor and avoid NSAIDs. 6.History of cerebrovascular accident with left-sided weakness, stable. We will continue Plavix. 7.Obesity, BMI of 33. 8.Mixed hyperlipidemia. We will continue statin. 9.Deep venous thrombosis prophylaxis with sequential compression devices and ambulation. Plan: The patient is pending inpatient rehab placement or possibly SNF. We will follow up with Case Management. /GHADA Voice ID: [id number] Report ID: [id number]
[2018-11-06 04:24] LABS: Absolute Lymphocytes (CBC) 3.1 K/uL (0.7-4.9); Absolute Monocytes 0.7 K/uL (0.1-1.3); Absolute Neutrophil 3.2 K/uL (1.8-8.0); Basophils % 0.6 % (0-1.3); Eosinophils % 3.6 % (0-4.4); Hematocrit 31.8 % (36.0-45.0); Lymphocytes % 42.7 % (15.3-44.8); MPV 8.4 fL (7.6-11.3); Monocytes % 9.1 % (3.3-12.3); RBC Red Blood Cell Count 3.41 M/uL (3.86-4.86)
[2018-11-06 04:36] LABS: Potassium 4.1 mmol/L (3.5-5.1)
[2018-11-06] MEDS: INSULIN -REGULAR HUMAN 50 UNIT/0.5 ML ML SQ SCH ×4 (07:25→21:00)
[2018-11-06] MEDS: HUMALOG MIX 75/25 100 UNITS/ML SQ SCH ×2 (07:53→16:50)
[2018-11-06] MEDS: CLOPIDOGREL 75 MG TABLET PO SCH (07:54)
[2018-11-06] MEDS: FUROSEMIDE 40 MG TABLET PO SCH (07:54)
[2018-11-06] MEDS: SOLIFENACIN SUCCIN 5 MG TAB PO SCH (07:55)
[2018-11-06] MEDS: EZETIMIBE 10 MG TAB PO SCH (07:55)
[2018-11-06] MEDS: TRAMADOL HCL 50 MG TAB PO PRN ×2 (07:55→21:04)
[2018-11-06] MEDS: CALCIUM CARB 500MG/VIT D 200 IU TAB PO SCH (07:56)
[2018-11-06] MEDS: DOCUSATE NA 100 MG CAP PO SCH ×2 (07:56→21:05)
[2018-11-06] MEDS: ALLOPURINOL 300 MG TAB PO SCH (07:56)
[2018-11-06] MEDS: CEFTRIAXONE/SWI 1gm 1 GM/10 ML SYR IV SCH (07:56)
[2018-11-06] MEDS ORDERED: BISACODYL 10 MG RECTAL SUPP PR ONE (14:24)
--- NOTE | 2018-11-06 17:38 | PN ---
Date of Progress Note: 11/06/2018 Subjective: The patient is seen and examined. Chart reviewed and case discussed with RN. The patient states she is feeling better, has been working with PT, but still pretty weak. Medications: List reviewed. Physical Examination: Vital Signs: Temperature 97.2, heart rate 70, blood pressure 131/65, respirations 19, and O2 of 97% on room air. General: Awake, alert, oriented x3, not any acute distress, elderly female, obese. CV: S1, S2. Regular rate and rhythm. Peripheral pulses present. Respiratory: Moving air well bilaterally. No wheezing or stridor. Gastrointestinal: Abdomen is soft, nontender, nondistended. Positive bowel sounds. Extremities: No clubbing, cyanosis, or edema. Neurologic: Left sided weakness Laboratory Data: Sodium 140, potassium 4.1, chloride 105, CO2 28, BUN 52, creatinine 1.74, glucose 123, calcium 8.9. WBC 7.2, H and H 10.2, 31.8, platelets 276. Urine cultures growing out Escherichia coli sensitive to cefuroxime. Blood cultures are negative. Assessment: A 78-year-old female with. 1. Acute cystitis with hematuria secondary to Escherichia coli. Continue with oral antibiotics. 2. Generalized weakness. Continue PT. The patient will need shelter facility placement, has been denied by inpatient rehab. 3. Essential hypertension stable. Continue medications. 4. Diabetes mellitus type 2 with long-term use of insulin with hyperglycemia, stable on sliding scale insulin, monitor Accu-Cheks. 5. Chronic kidney disease stage 3. Creatinine is around baseline. We will continue to monitor. Avoid NSAIDs and nephrotoxins. 6. History of cerebrovascular accident with left-sided weakness, stable. Continue Plavix. 7. Obesity, BMI 33. 8. Mixed hyperlipidemia, on statin. 9. Deep venous thrombosis prophylaxis with SCDs. Plan: The patient is not a safe discharge for home due to her history of CVA and weakness. Has been referred over to shelter facility. We will discharge once accepted. /GHADA Voice ID: [id number] Report ID: [id number] MARTY
[2018-11-06] MEDS: AMLODIPINE 5 MG TAB PO SCH (21:05)
[2018-11-06] MEDS: GABAPENTIN 100 MG CAP PO SCH (21:05)
[2018-11-06] MEDS: SERTRALINE HCL 100 MG TAB PO SCH (21:05)
[2018-11-07] MEDS: INSULIN -REGULAR HUMAN 50 UNIT/0.5 ML ML SQ SCH ×4 (07:30→21:00)
[2018-11-07] MEDS: HUMALOG MIX 75/25 100 UNITS/ML SQ SCH ×2 (08:00→16:59)
[2018-11-07] MEDS ORDERED: FLEET ENEMA ADULT PR ONE (08:22)
[2018-11-07] MEDS: CALCIUM CARB 500MG/VIT D 200 IU TAB PO SCH (08:31)
[2018-11-07] MEDS: SOLIFENACIN SUCCIN 5 MG TAB PO SCH (08:31)
[2018-11-07] MEDS: ALLOPURINOL 300 MG TAB PO SCH (08:31)
[2018-11-07] MEDS: FUROSEMIDE 40 MG TABLET PO SCH (08:31)
[2018-11-07] MEDS: DOCUSATE NA 100 MG CAP PO SCH ×3 (08:31→22:01)
[2018-11-07] MEDS: EZETIMIBE 10 MG TAB PO SCH (08:31)
[2018-11-07] MEDS: CEFUROXIME 250 MG TAB PO SCH (08:32)
[2018-11-07] MEDS: CLOPIDOGREL 75 MG TABLET PO SCH (08:32)
[2018-11-07] MEDS: AMLODIPINE 5 MG TAB PO SCH (22:01)
[2018-11-07] MEDS: GABAPENTIN 100 MG CAP PO SCH (22:01)
[2018-11-07] MEDS: SERTRALINE HCL 100 MG TAB PO SCH (22:02)
--- NOTE | 2018-11-08 07:29 | DS ---
Date of Discharge: 11/07/2018 Admitting Diagnoses: 1.Acute cystitis with hematuria secondary to Escherichia coli. 2.Generalized weakness. 3.Essential hypertension. 4.Diabetes mellitus type 2 with long-term use of insulin. 5.Chronic kidney disease stage 3. 6.History of cerebrovascular accident. 7.Mixed hyperlipidemia. Discharge Diagnoses: 1.Acute cystitis with hematuria secondary to Escherichia coli treated with Rocephin. 2.Generalized weakness improving with physical therapy. 3.Essential hypertension, stable. 4.Diabetes mellitus type 2 with long-term use of insulin with hyperglycemia, stable. 5.Chronic kidney disease stage 3. Creatinine at baseline. 6.History of cerebrovascular accident with left-sided weakness, stable. 7.Obesity, BMI 33. 8.Mixed hyperlipidemia, on statin. Hospital Course: The patient is a 78-year-old female with past medical history of chronic disease ki dney disease stage 3, history of stroke, diabetes insulin dependent, congestive heart failure, comes in with urinary urgency and frequency. The patient was found to have UTI. The patient had failed ou tpatient course with 10-day course of Augmentin. The patient did not appear to be septic. Her cultu re results showed E coli from the urine. Blood cultures were negative. The patient had significant disuse myopathy and generalized weakness. She does have left-sided weakness from her CVA, was not a safe discharge home. Therefore, was referred to inpatient rehab. The patient unfortunately was not accepted and then therefore was referred to intermediate facility. The patient was accepted by [facility] and was discharged. The patient did well over the course of the hospital stay. She wo rked well with PT, however, requiring physical therapy to be continued. The patient was then dischar [facility] to [facility] after being accepted in a stable condition. Activity: Fall precautions. Diet: Diabetic, renal diet. Followup: Follow up with primary care physician in 2 to 3 days. Return to ER for worsening conditio n. Medications: As per medication reconciliation list. Physical Examination: General: Awake, alert, oriented, no acute distress. Elderly female, obese. CV: S1, S2. No murmurs. Respiratory: Moving air well bilaterally. Abdomen: Soft, nontender, nondistended. Positive bowel sounds. Extremities: No clubbing, cyanosis, or edema. Neuro: Left-sided weakness. SA/MODL Voice ID: [id number] Report ID: [id number]
[2018-11-08] MEDS: INSULIN -REGULAR HUMAN 50 UNIT/0.5 ML ML SQ SCH ×2 (07:30→12:06)
[2018-11-08] MEDS: HUMALOG MIX 75/25 100 UNITS/ML SQ SCH (08:00)
[2018-11-08] MEDS: EZETIMIBE 10 MG TAB PO SCH (09:58)
[2018-11-08] MEDS: SOLIFENACIN SUCCIN 5 MG TAB PO SCH (09:59)
[2018-11-08] MEDS: DOCUSATE NA 100 MG CAP PO SCH (09:59)
[2018-11-08] MEDS: FUROSEMIDE 40 MG TABLET PO SCH (09:59)
[2018-11-08] MEDS: ALLOPURINOL 300 MG TAB PO SCH (10:00)
[2018-11-08] MEDS: CALCIUM CARB 500MG/VIT D 200 IU TAB PO SCH (10:00)
[2018-11-08] MEDS: CLOPIDOGREL 75 MG TABLET PO SCH (10:00)
[2018-11-08] MEDS: CEFUROXIME 250 MG TAB PO SCH (10:00)
[2018-11-08 11:34] VITALS: O2SAT 98
[2018-11-08 12:52] VITALS: BP 147/67; TEMP 98.4
--- NOTE | 2018-11-08 22:11 | PN ---
Date of Progress Note: 11/08/2018 Subjective: The patient is seen and examined. Chart is reviewed and the case is discussed with RN. The patient was scheduled to be discharged yesterday, however, paperwork had not been completed by t he family members. The patient denies any acute events overnight. No complaints. Medications: List reviewed. Physical Examination: Vital Signs: Temperature 97.4, heart rate 62, blood pressure 156/65, respirations 16, O2 98% on wilberto m air. General: Awake, alert, oriented x3, not in any acute distress. Elderly female, obese. CV: S1, S2. Regular rate and rhythm. Peripheral pulses present. Respiratory: Moving air well bilaterally. No wheezing or stridor Gastrointestinal: Abdomen is soft , nontender, nondistended. Positive bowel sounds. Extremities: No clubbing, cyanosis, or edema. Neurologic: Nonfocal. Laboratory Data: Glucose level ranging between 83 and 100. Urine culture growing out Escherichia coli. Assessment And Plan: A 78-year-old female with: 1.Acute cystitis with hematuria secondary to Escherichia coli. Treatment completed with Rocephin. 2.Generalized weakness, improved with physical therapy. 3.Essential hypertension, stable. 4.Diabetes mellitus type 2 with long-term use of insulin with hyperglycemia, stable. 5.Chronic kidney disease, stage 3. Creatinine at baseline, stable. 6.History of cerebrovascular accident with left-sided weakness, stable. 7.Obesity, body mass index of 33. 8.Mixed hyperlipidemia. Continue statin. Plan: Discharge to assisted facility. ISRA Voice ID: [id number] Report ID: [id number]
== END 2018-11-08 14:40 ==
LOC: ER 10:13 → ERHOLD 13:03 → 4TH 14:54
PROVIDERS: ADMIT Family Medicine; ATTEND Family Medicine
DX: N30.01 Acute cystitis with hematuria (principal); B96.20 Unspecified Escherichia coli [E. coli] as the cause of diseases classified elsewhere; I12.9 Hypertensive chronic kidney disease with stage 1 through stage 4 chronic kidney disease, or unspecified chronic kidney disease; E11.22 Type 2 diabetes mellitus with diabetic chronic kidney disease; N18.3 Chronic kidney disease, stage 3 (moderate); E11.65 Type 2 diabetes mellitus with hyperglycemia; Z79.4 Long term (current) use of insulin; I69.354 Hemiplegia and hemiparesis following cerebral infarction affecting left non-dominant side; E78.2 Mixed hyperlipidemia; E66.9 Obesity, unspecified; Z68.33 Body mass index [BMI] 33.0-33.9, adult
CPT/HCPCS: 96365; 87040 ×2; 87088; 85025 ×4; 87086; 80048 ×4; 36415 ×2; 83735; 84100; 85610; 82962 ×20; 80076; 83605; 87077; 87186; 84484; 83690; 84145; 71045; 97110; 97116 ×7; 97163; 97530 ×8; 94760 ×10; 51702; 96375; 99285; 96366; J0696 ×7; J2405; G0378 ×2; 81003; 81015

== ENCOUNTER 2019-06-13 09:19 | Emergency (ER) | payer OTHER ==
[2019-06-13] MEDS ORDERED: NA CHLORIDE 0.9% 500 ML ONE (09:45)
[2019-06-13 10:06] LABS: Absolute Lymphocytes (CBC) 2.1 K/uL (0.7-4.9); Hematocrit 32.3 % (36.0-45.0); MPV 8.5 fL (7.6-11.3); RBC Red Blood Cell Count 3.44 M/uL (3.86-4.86)
[2019-06-13 10:18] LABS: ALT/SGPT 18 U/L (12-78); AST/SGOT 15 U/L (15-37); Albumin 3.6 g/dL (3.4-5.0); Alkaline Phosphatase 102 U/L (45-117); BUN Blood Urea Nitrogen 46 mg/dL (7-18); Bicarbonate 33 mmol/L (21-32); Bilirubin Direct < 0.1 mg/dL (0-0.2); Bilirubin Total 0.3 mg/dL (0.2-1.0); Glucose Level 186 mg/dL (74-106); Lipase 77 U/L (73-393); Potassium 4.3 mmol/L (3.5-5.1); Protein, Total 7.8 g/dL (6.4-8.2); Sodium Level 139 mmol/L (136-145)
[2019-06-13 11:00] LABS: Urine Blood NEGATIVE (NEG); Urine Glucose NEGATIVE (NEG); Urine Protein NEGATIVE (NEG); Urine Specific Gravity 1.015 (1.005-1.030)
--- NOTE | 2019-06-13 11:01 | RAD REPORT ---
EXAM DESCRIPTION: CT - Abdomen Pelvis Wo Contrast - 06/13/2019 10:48 am CLINICAL HISTORY: ABD PAIN COMPARISON: Stone Protocol dated 01/31/2018 . TECHNIQUE: Axial [address] imaging of the abdomen and pelvis was performed without IV contrast. No IV contrast was given because of allergy, abnormal renal function, patient refusal or physician re quest. No oral contrast administered. All CT scans are performed using dose optimization technique as appropriate and may include automated exposure control or mA/KV adjustment according to patient size. FINDINGS: No suspicious findings in the lung bases. The liver, spleen and pancreas show no suspicious findings on non-contrast imaging. Gallbladder is ab sent. No biliary tree dilatation. No hydronephrosis. No obstructing or nonobstructing calculi seen. There are calcifications in the mid abdomen and pelvis that are phleboliths or non calculi. Trace amount of stranding is present laura cent to each kidney similar to the prior study. No new renal parenchymal process seen. No significant adrenal finding. Isodense renal masses and pyelonephritis cannot be excluded in the absence of IV co ntrast. No stone in the bladder lumen. No asymmetric wall thickening or bladder wall mass identified. Bladder is only partially filled. Bladder quintana have a slightly shaggy appearance is nonspecific. Cystitis c annot be excluded. Uterus is absent. Ovaries are absent or atrophic. No adnexal abnormality. No stomach or small bowel abnormality. Appendix is normal. Moderate diverticulosis in the sigmoid col on. There is moderate large stool volume filling but not dilating the colon. No active colon process seen. No free air, free fluid or inflammatory stranding. No hernia, mass or bulky lymphadenopathy. Minimal soft tissue stranding in the subcutaneous fatty tissues superior and right lateral to the umbilicus are probably changes related to medication injection. No suspicious bony findings. IMPRESSION: Quintana of the partially filled urinary bladder have a slightly shaggy appearance that is nonspecific but can be an indication of cystitis. This can be correlated with UA findings. No hydronephrosis or obstructing uropathy. No acute renal parenchymal process seen. Isodense masses a nd pyelonephritis are not excluded on noncontrast imaging. No acute GI process. No other new or acute finding seen.
--- NOTE | 2019-06-13 12:27 | ER ---
Nurse's Notes [facility] Name: Mariposa Palacios Age: 79 yrs Sex: Female : 1940 Arrival Date: 06/13/2019 Time: 09:23 Bed 13 Private MD: Kolton Mcclellan Atiq Diagnosis: Acute cystitis;Weakness Presentation: 06/13 09:31 Presenting complaint: Patient states: i just finished Amox/Clav antibiotics on the 3rd tw2 for a UTI and i am still having symptoms, burning with urination, odor and urgency. Transition of care: patient was not received from another setting of care. Onset of symptoms was June 13, 2019. Risk Assessment: Do you want to hurt yourself or someone else? Patient reports no desire to harm self or others. Initial Sepsis Screen: Does the patient meet any 2 criteria? No. Patient's initial sepsis screen is negative. Does the patient have a suspected source of infection? No. Patient's initial sepsis screen is negative. Care prior to arrival: None. 09:31 Method Of Arrival: Wheelchair tw2 09:31 Acuity: DOMINIQUE 3 tw2 Triage Assessment: 09:33 General: Appears in no apparent distress. Behavior is calm, cooperative, appropriate tw2 for age. Pain: Complains of pain in burning with urination. Historical: - Allergies: 09:38 Benadryl; tw2 09:38 injectable dye; tw2 09:38 metformin; tw2 09:38 Phenergan; tw2 09:38 Codeine; tw2 - Home Meds: 09:38 acai blackman extract 500 mg Oral cap [Active]; albuterol sulfate 0.63 mg/3 mL Inhl nebu tw2 [Active]; allopurinol 100 mg Oral tab 1 tab 3 times per day [Active]; amlodipine 5 mg tab 1 tab once daily [Active]; Calcarb 600 With Vitamin D 600 mg(1,500mg) -200 unit Oral tab [Active]; Diovan 40 mg Oral tab once daily [Active]; docusate sodium 100 mg Oral cap 1 cap 2 times per day [Active]; Folgard 2,000-800-0.32 unit-mcg-mg Oral tab [Active]; gabapentin 300 mg Oral cap twice a day [Active]; garlic 1,000 mg Oral cap daily [Active]; Lasix 40 mg Oral tab once daily [Active]; latanoprost 0.005 % ophthalmic drop 1 drop once daily [Active]; Lopid 600 mg Oral tab 1 tab 2 times per day [Active]; magnesium oxide 250 mg Oral tab daily [Active]; Norvasc 5 mg Oral tab once daily [Active]; Novolog 100 unit/mL Sub-Q soln 26 units am, 20 units pm [Active]; Plavix 75 mg Oral tab once daily [Active]; Vesicare 10 mg oral tab [Active]; Zetia 10 mg Oral tab 1 tab once daily [Active]; Zoloft 100 mg Oral tab 1 tab once daily [Active]; - PMHx: 09:38 CHF; CVA; Diabetes - IDDM; kidney disease; tw2 - PSHx: 09:38 Cholecystectomy; tw2 - Immunization history:: Adult Immunizations. - Social history:: Smoking status: . - Ebola Screening: : Patient denies travel to an Ebola-affected area in the 21 days before illness onset. Screenin:58 Abuse screen: Denies threats or abuse. Nutritional screening: No deficits noted. tw2 Tuberculosis screening: No symptoms or risk factors identified. Fall Risk Secondary diagnosis (15 points) impaired mobility. Assessment: 09:57 General: Appears in no apparent distress. Behavior is calm, cooperative, appropriate tw2 for age. Neuro: Level of Consciousness is awake, alert, obeys commands, Oriented to person, place, time, situation. Cardiovascular: Heart tones S1 S2 Patient's skin is warm and dry. Respiratory: Airway is patent Respiratory effort is even, unlabored, Respiratory pattern is regular, symmetrical, Breath sounds are clear bilaterally. GI: No signs and/or symptoms were reported involving the gastrointestinal system. Abdomen is flat, Bowel sounds present X 4 quads. : Reports burning with urination, urinary frequency. EENT: No signs and/or symptoms were reported regarding the EENT system. Derm: No signs and/or symptoms reported regarding the dermatologic system. Musculoskeletal: Range of motion: intact in all extremities. 11:12 Reassessment: Patient appears in no apparent distress at this time. No changes from tw2 previously documented assessment. Patient and/or family updated on plan of care and expected duration. Pain level reassessed. Patient is alert, oriented x 3, equal unlabored respirations, skin warm/dry/pink. 12:21 Reassessment: Patient appears in no apparent distress at this time. No changes from tw2 previously documented assessment. Patient and/or family updated on plan of care and expected duration. Pain level reassessed. Patient is alert, oriented x 3, equal unlabored respirations, skin warm/dry/pink. Vital Signs: 09:32 BP 143 / 70; Pulse 62; Resp 17; Temp 97.3(TE); Pulse Ox 98% on R/A; Weight 99.79 kg tw2 (R); Height 5 ft. 9 in. (175.26 cm) (R); Pain 6/10; 10:37 BP 150 / 65; Pulse 52; Resp 17; Pulse Ox 98% on R/A; tw2 11:11 BP 149 / 57; Pulse 77; Resp 17; Pulse Ox 95% on R/A; tw2 12:22 BP 167 / 57; Pulse 54; Resp 17; Pulse Ox 99% on R/A; tw2 12:57 BP 167 / 54; Pulse 56; Resp 17; Pulse Ox 99% on R/A; tw2 09:32 Body Mass Index 32.49 (99.79 kg, 175.26 cm) tw2 ED Course: 09:23 Patient arrived in ED. mr 09:23 Kolton Mcclellan MD is Private Physician. mr 09:26 Bed in low position. Call light in reach. Side rails up X2. Adult w/ patient. tw2 09:31 Ashli Hanson, GO is Primary Nurse. tw2 09:32 Michael Turpin FNP-C is [facility]. la1 09:32 Ronnie Aaron MD is Attending Physician. la1 09:32 Triage completed. tw2 09:32 Arm band placed on. tw2 09:38 Inserted saline lock: 22 gauge in right antecubital area, using aseptic technique. tw2 Blood collected. 09:50 Straight cath inserted, using sterile technique, 18 Fr. Specimen obtained. Returned tw2 approx 100 ml, Elisabeth Knight served as cloth cutting inspector at this time.. 10:49 CT Abd/Pelvis - Without Contrast In Process Unspecified. EDMS 12:58 No provider procedures requiring assistance completed. IV discontinued, intact, tw2 bleeding controlled, No redness/swelling at site. Pressure dressing applied. Administered Medications: 09:38 Drug: NS 0.9% 500 ml Route: IV; Rate: bolus; Site: right antecubital; tw2 10:45 Follow up: IV Intake: 500ml tw2 11:00 Follow up: Response: No adverse reaction; IV Status: Completed infusion; IV Intake: tw2 500ml 11:00 Follow up: Response: No adverse reaction; IV Status: Completed infusion; IV Intake: tw2 500ml Intake: 11:00 IV: 500ml; Total: 500ml. tw2 11:00 IV: 500ml; Total: 1000ml. tw2 Outcome: 12:26 Discharge ordered by . la1 12:58 Discharged to home via wheelchair, with family. tw2 12:58 Condition: stable 12:58 Discharge instructions given to patient, family, Instructed on discharge instructions, follow up and referral plans. medication usage, Demonstrated understanding of instructions, follow-up care, medications, Prescriptions given X 2. 12:58 Patient left the ED. tw2 Signatures: Dispatcher [employer] Karina Diallo Lee, GM MOBILE-C GM MOBILE-Natividad1 Ashli Hanson, RN RN tw2
--- NOTE | 2019-06-13 12:27 | EDPHYS ---
Physician Documentation [facility] Name: Mariposa Palacios Age: 79 yrs Sex: Female : 1940 Arrival Date: 06/13/2019 Time: 09:23 Bed 13 Private MD: Kolton Mcclellan Atiq ED Physician Ronnie Aaron HPI: 06/13 09:53 This 79 yrs old Female presents to ER via Wheelchair with complaints of la1 Urinary Problem. 09:53 The patient presents with urinary symptoms, dysuria, frequency, urgency. Onset: The la1 symptoms/episode began/occurred 2 week(s) ago. Modifying factors: The symptoms are alleviated by nothing, the symptoms are aggravated by urinating. Associated signs and symptoms: Pertinent positives: dysuria. Severity of symptoms: At their worst the symptoms were moderate. The patient has experienced similar episodes in the past, several times. Pt called her PCP who placed pt on augmentin empirically, is still having symptoms. Pt with history of CVA, lives alone. States she is feeling weaker than normal. Historical: - Allergies: 09:38 Benadryl; tw2 09:38 injectable dye; tw2 09:38 metformin; tw2 09:38 Phenergan; tw2 09:38 Codeine; tw2 - Home Meds: 09:38 acai blackman extract 500 mg Oral cap [Active]; albuterol sulfate 0.63 mg/3 mL Inhl nebu tw2 [Active]; allopurinol 100 mg Oral tab 1 tab 3 times per day [Active]; amlodipine 5 mg tab 1 tab once daily [Active]; Calcarb 600 With Vitamin D 600 mg(1,500mg) -200 unit Oral tab [Active]; Diovan 40 mg Oral tab once daily [Active]; docusate sodium 100 mg Oral cap 1 cap 2 times per day [Active]; Folgard 2,000-800-0.32 unit-mcg-mg Oral tab [Active]; gabapentin 300 mg Oral cap twice a day [Active]; garlic 1,000 mg Oral cap daily [Active]; Lasix 40 mg Oral tab once daily [Active]; latanoprost 0.005 % ophthalmic drop 1 drop once daily [Active]; Lopid 600 mg Oral tab 1 tab 2 times per day [Active]; magnesium oxide 250 mg Oral tab daily [Active]; Norvasc 5 mg Oral tab once daily [Active]; Novolog 100 unit/mL Sub-Q soln 26 units am, 20 units pm [Active]; Plavix 75 mg Oral tab once daily [Active]; Vesicare 10 mg oral tab [Active]; Zetia 10 mg Oral tab 1 tab once daily [Active]; Zoloft 100 mg Oral tab 1 tab once daily [Active]; - PMHx: 09:38 CHF; CVA; Diabetes - IDDM; kidney disease; tw2 - PSHx: 09:38 Cholecystectomy; tw2 - Immunization history:: Adult Immunizations. - Social history:: Smoking status: . - Ebola Screening: : Patient denies travel to an Ebola-affected area in the 21 days before illness onset. ROS: 09:55 Constitutional: Negative for fever, chills, and weight loss, Eyes: Negative for injury, la1 pain, redness, and discharge, ENT: Negative for injury, pain, and discharge, Neck: Negative for injury, pain, and swelling, Cardiovascular: Negative for chest pain, palpitations, and edema, Respiratory: Negative for shortness of breath, cough, wheezing, and pleuritic chest pain, Abdomen/GI: Negative nausea, vomiting, diarrhea, and constipation, Back: Negative for injury and pain, MS/Extremity: Negative for injury and deformity, Neuro: Negative for headache, weakness, numbness, tingling, and seizure. Exam: 09:56 Constitutional: This is a well developed, well nourished patient who is awake, alert, la1 and in no acute distress. Eyes: Pupils equal round and reactive to light, extra-ocular motions intact.Periorbital areas with no swelling, redness, or edema. ENT: Mucous membranes dry Neck: Supple, full range of motion without nuchal rigidity, or vertebral point tenderness. No Meningismus. Chest/axilla: Normal chest wall appearance and motion. Nontender with no deformity. No lesions are appreciated. Cardiovascular: Regular rate and rhythm with a normal S1 and S2. No gallops, murmurs, or rubs. Normal PMI, no JVD. No pulse deficits. Respiratory: Lungs have equal breath sounds bilaterally, clear to auscultation. No rales, rhonchi or wheezes noted. No increased work of breathing, no retractions or nasal flaring. Abdomen/GI: Soft with mild generalized abd tenderness, with normal bowel sounds. No distension or tympany. No guarding or rebound. No evidence of tenderness throughout. Vital Signs: 09:32 BP 143 / 70; Pulse 62; Resp 17; Temp 97.3(TE); Pulse Ox 98% on R/A; Weight 99.79 kg tw2 (R); Height 5 ft. 9 in. (175.26 cm) (R); Pain 6/10; 10:37 BP 150 / 65; Pulse 52; Resp 17; Pulse Ox 98% on R/A; tw2 11:11 BP 149 / 57; Pulse 77; Resp 17; Pulse Ox 95% on R/A; tw2 12:22 BP 167 / 57; Pulse 54; Resp 17; Pulse Ox 99% on R/A; tw2 12:57 BP 167 / 54; Pulse 56; Resp 17; Pulse Ox 99% on R/A; tw2 09:32 Body Mass Index 32.49 (99.79 kg, 175.26 cm) tw2 MDM: 09:32 Patient medically screened. la1 12:20 Data reviewed: vital signs, nurses notes, lab test result(s), radiologic studies, I la1 have discussed the patient's presentation/case with the attending Emergency Department Physician; and as a result, I will discharge patient. Data interpreted: Pulse oximetry: on room air is 95 %. Interpretation: normal. Counseling: I had a detailed discussion with the patient and/or guardian regarding: the historical points, exam findings, and any diagnostic results supporting the discharge/admit diagnosis, lab results, radiology results, the need for outpatient follow up. Special discussion: I discussed with the patient/guardian in detail that at this point there is no indication for admission to the hospital. It is understood, however, that if the symptoms persist or worsen the patient needs to return immediately for re-evaluation. ED course: Had extensive discussion regarding patients steady increase in generalized weakness since , discussed that there are not any indications for admission at this time and to return to ED. 12:24 ED course: Pt has wheelchair and electric scooter at home and has family staying with la1 her as well. 06/13 09:42 Order name: Basic Metabolic Panel; Complete Time: 10:28 la1 06/13 09:42 Order name: CBC with Diff; Complete Time: 10:28 la06/13 09:42 Order name: Hepatic Function; Complete Time: 10:28 la06/13 09:42 Order name: Lipase; Complete Time: 10:28 la06/13 10:07 Order name: Urine Dipstick--Ancillary (enter results); Complete Time: 11:14 06/13 10:28 Order name: CT Abd/Pelvis - Without Contrast; Complete Time: 11:14 la06/13 09:42 Order name: IV Saline Lock; Complete Time: 09:55 la06/13 09:42 Order name: Labs collected and sent; Complete Time: :55 la06/13 09:42 Order name: Urine Dipstick-Ancillary (obtain specimen); Complete Time: :55 la06/13 09:42 Order name: Straight Cath; Complete Time: :55 la Administered Medications: 09:38 Drug: NS 0.9% 500 ml Route: IV; Rate: bolus; Site: right antecubital; tw2 10:45 Follow up: IV Intake: 500ml tw2 11:00 Follow up: Response: No adverse reaction; IV Status: Completed infusion; IV Intake: tw2 500ml 11:00 Follow up: Response: No adverse reaction; IV Status: Completed infusion; IV Intake: tw2 500ml Disposition: 16:47 Co-signature as Attending Physician, Ronnie Aaron MD I agree with the assessment and kdr plan of care. Disposition: 06/13/19 12:26 Discharged to Home. Impression: Acute cystitis, Weakness. - Condition is Stable. - Discharge Instructions: Urinary Tract Infection, Adult, Weakness. - Prescriptions for Cipro 500 mg Oral Tablet - take 1 tablet by ORAL route every 12 hours for 7 days; 14 tablet. Pyridium 200 mg Oral Tablet - take 1 tablet by ORAL route every 8 hours for 3 days; 9 tablet. - Medication Reconciliation Form, Thank You Letter, Antibiotic Education form. - Follow up: Private Physician; When: 2 - 3 days; Reason: Recheck today's complaints, Re-evaluation by your physician. Follow up: Emergency Department; Reason: Fever > 102 F, Worsening of condition. - Problem is new. - Symptoms are resolved. Signatures: Dispatcher [employer] Ronnie Zamora MD MD [facility] Michael Turpin, HORSE TREKKING GUIDE-C HORSE TREKKING GUIDE-Cla1 Ashli Hanson, RN RN tw2 Corrections: (The following items were deleted from the chart) 12:58 12:26 06/13/2019 12:26 Discharged to Home. Impression: Acute cystitis; Weakness. tw2 Condition is Stable. Forms are Medication Reconciliation Form, Thank You Letter, Antibiotic Education, Prescription Opioid Use. Follow up: Private Physician; When: 2 - 3 days; Reason: Recheck today's complaints, Re-evaluation by your physician. Follow up: Emergency Department; Reason: Fever > 102 F, Worsening of condition. Problem is new. Symptoms are resolved. la1
[2019-06-13 15:37] VITALS: BP 111/63
[2019-06-13 15:44] VITALS: TEMP 98.8
[2019-06-13 15:46] VITALS: O2SAT 99
== END 2019-06-13 12:58 | disposition home or self-care (01) ==
LOC: ER 09:19
DX: N30.00 Acute cystitis without hematuria (principal); R53.1 Weakness; E11.9 Type 2 diabetes mellitus without complications; I50.9 Heart failure, unspecified; Z79.01 Long term (current) use of anticoagulants; Z79.4 Long term (current) use of insulin; Z88.5 Allergy status to narcotic agent; Z88.8 Allergy status to other drugs, medicaments and biological substances; Z86.73 Personal history of transient ischemic attack (TIA), and cerebral infarction without residual deficits
CPT/HCPCS: 85025; 80048; 36415; 80076; 81003; 83690; 74176; 51702; 96360; 99284; J7040

== ENCOUNTER 2019-11-16 08:52 | Emergency (ER) | payer OTHER ==
[2019-11-16 09:31] LABS: Urine Blood TRACE (NEG); Urine Glucose NEGATIVE (NEG); Urine Protein NEGATIVE (NEG); Urine pH 5.5 (5.0-7.0)
[2019-11-16] MEDS ORDERED: ONDANSETRON 4 MG/2 ML VIAL ONE (09:36)
[2019-11-16] MEDS ORDERED: MORPHINE 2 MG/ML SYR ONE ×2 (09:36→11:06)
[2019-11-16] MEDS ORDERED: NA CHLORIDE 0.9% 1,000 ML ONE (09:37)
[2019-11-16 10:32] LABS: Absolute Lymphocytes (CBC) 1.4 K/uL (0.7-4.9); Basophils % 0.8 % (0-1.3); Hematocrit 33.6 % (36.0-45.0); Lymphocytes % 15.5 % (15.3-44.8); MPV 8.6 fL (7.6-11.3); RBC Red Blood Cell Count 3.61 M/uL (3.86-4.86)
--- NOTE | 2019-11-16 10:49 | RAD REPORT ---
EXAM DESCRIPTION: CT - Spine Lumbar Wo Con - 11/16/2019 10:04 am CLINICAL HISTORY: Radiculopathy.Fall, radiculopathy. LOWER BACK PAIN COMPARISON: Hip Left 2 View dated 11/16/2019; Pelvis dated 11/16/2019 TECHNIQUE: Axial noncontrast CT imaging of the lumbar spine was performed with coronal and sagittal re-formatted images. All CT scans are performed using dose optimization technique as appropriate and may include automated exposure control or mA/KV adjustment according to patient size. FINDINGS: The bones are osteopenic. No acute lumbar spine fracture seen. No aggressive marrow patter n or malalignment. Paraspinal tissues are normal in thickness. No paraspinal abscess or hematoma seen. Moderate lumbosacral degenerative changes present. IMPRESSION: No acute abnormality is detected. Consider MRI follow-up for assessment of disc disease if clinically desired.
[2019-11-16 10:53] LABS: Albumin 3.5 g/dL (3.4-5.0); Bilirubin Total 0.5 mg/dL (0.2-1.0); Potassium 4.3 mmol/L (3.5-5.1); Protein, Total 8.6 g/dL (6.4-8.2)
--- NOTE | 2019-11-16 11:14 | RAD REPORT ---
EXAM DESCRIPTION: RAD - Pelvis - 11/16/2019 10:11 am CLINICAL HISTORY: ABD PAIN Fall, pain COMPARISON: PELVIS dated 12/14/2013; Hip Left 2 View dated 11/16/2019; Spine Lumbar Wo Con dated 020 FINDINGS: The bones are mildly demineralized. Moderate degenerative changes are present both hips. N o acute fracture or dislocation is seen.
--- NOTE | 2019-11-16 11:15 | RAD REPORT ---
EXAM DESCRIPTION: RAD - Hip Left 2 View - 11/16/2019 10:11 am CLINICAL HISTORY: PAIN Fall, trauma, pain COMPARISON: Hip Left 2 View dated 12/14/2013; Pelvis dated 11/16/2019 FINDINGS: Osteopenia is seen with mild arthritic changes affecting the left hip. No acute fracture, dislocation or AVN is seen.
[2019-11-16] MEDS ORDERED: CEFTRIAXONE/SWI 1gm 1 GM/10 ML SYR ONE (11:20)
--- NOTE | 2019-11-16 11:35 | EDPHYS ---
Physician Documentation [facility] Name: Mariposa Palacios Age: 79 yrs Sex: Female : 1940 Arrival Date: 11/16/2019 Time: 08:54 Bed 8 Private MD: SOM Physician Ab Jaeger HPI: 11/15 09:03 This 79 yrs old Female presents to ER via Unassigned with complaints of fall nisha , lbp and lrft hip . 09:03 The patient or guardian reports decreased range of motion, pain. that occurred at home, nisha sustained from a fall, from a seated position, The patient is able to ambulate with assistance. The patient is able to bear partial body weight. The complaints affect the lumbar area, left low back and right low back. Onset: The symptoms/episode began/occurred 2 day(s) ago. Modifying factors: The symptoms are alleviated by remaining still, the symptoms are aggravated by any movement, extension. The patient presents with decreased range of motion, an injury, pain, that is acute. The complaints affect the left hip, left gluteal fold, left inner thigh and left upper thigh. Context: The problem was sustained at home, resulted from the patient falling. Modifying factors: The symptoms are alleviated by remaining still, the symptoms are aggravated by movement. Historical: - Allergies: 09:05 Benadryl; jl7 09:05 Codeine; jl7 09:05 injectable dye; jl7 09:05 metformin; jl7 09:05 Phenergan; jl7 - PMHx: 09:05 CHF; CVA; Diabetes - IDDM; kidney disease; jl7 - PSHx: 09:05 Cholecystectomy; jl7 - Immunization history:: Adult Immunizations unknown. - Family history:: not pertinent. - Social history:: Smoking status: Patient denies any tobacco usage or history of. ROS: 09:03 Constitutional: Negative for fever, chills, and weight loss, Eyes: Negative for injury, nisha pain, redness, and discharge, ENT: Negative for injury, pain, and discharge, Neck: Negative for injury, pain, and swelling, Cardiovascular: Negative for chest pain, palpitations, and edema, Respiratory: Negative for shortness of breath, cough, wheezing, and pleuritic chest pain, Abdomen/GI: Negative for abdominal pain, nausea, vomiting, diarrhea, and constipation, : Negative for injury, bleeding, discharge, and swelling, Skin: Negative for injury, rash, and discoloration, Neuro: Negative for headache, weakness, numbness, tingling, and seizure, Psych: Negative for depression, anxiety, suicide ideation, homicidal ideation, and hallucinations, Allergy/Immunology: Negative for hives, rash, and allergies, Endocrine: Negative for neck swelling, polydipsia, polyuria, polyphagia, and marked weight changes, Hematologic/Lymphatic: Negative for swollen nodes, abnormal bleeding, and unusual bruising. 09:03 Back: Positive for decreased range of motion, pain at rest, of the lumbar area, left low back and right low back. 09:03 MS/extremity: Positive for decreased range of motion, pain, tenderness, of the left inguinal area, left iliac crest and left hip. Exam: 09:03 Constitutional: This is a well developed, well nourished patient who is awake, alert, nisha and in no acute distress. Head/Face: Normocephalic, atraumatic. Eyes: Pupils equal round and reactive to light, extra-ocular motions intact. Lids and lashes normal. Conjunctiva and sclera are non-icteric and not injected. Cornea within normal limits. Periorbital areas with no swelling, redness, or edema. ENT: Nares patent. No nasal discharge, no septal abnormalities noted. Tympanic membranes are normal and external auditory canals are clear. Oropharynx with no redness, swelling, or masses, exudates, or evidence of obstruction, uvula midline. Mucous membranes moist. Neck: Trachea midline, no thyromegaly or masses palpated, and no cervical lymphadenopathy. Supple, full range of motion without nuchal rigidity, or vertebral point tenderness. No Meningismus. Chest/axilla: Normal chest wall appearance and motion. Nontender with no deformity. No lesions are appreciated. Cardiovascular: Regular rate and rhythm with a normal S1 and S2. No gallops, murmurs, or rubs. Normal PMI, no JVD. No pulse deficits. Respiratory: Lungs have equal breath sounds bilaterally, clear to auscultation and percussion. No rales, rhonchi or wheezes noted. No increased work of breathing, no retractions or nasal flaring. Abdomen/GI: Soft, non-tender, with normal bowel sounds. No distension or tympany. No guarding or rebound. No evidence of tenderness throughout. Back: No spinal tenderness. No costovertebral tenderness. Full range of motion. Skin: Warm, dry with normal turgor. Normal color with no rashes, no lesions, and no evidence of cellulitis. Neuro: Awake and alert, GCS 15, oriented to person, place, time, and situation. Cranial nerves II-XII grossly intact. Motor strength 5/5 in all extremities. Sensory grossly intact. Cerebellar exam normal. Normal gait. Psych: Awake, alert, with orientation to person, place and time. Behavior, mood, and affect are within normal limits. 09:03 Musculoskeletal/extremity: ROM: full active range of motion, full passive range of motion, Circulation is intact in all extremities. Sensation intact. Compartment Syndrome exam of affected extremity: is normal. Weight bearing: can bear weight with assistance only, DVT Exam: no swelling, negative Homans' sign noted on exam, no appreciated bluish discoloration, no erythema, no increased warmth, pain, tenderness. Vital Signs: 09:02 BP 149 / 76; Pulse 77; Resp 16; Temp 98.3; Pulse Ox 96% ; Pain 5/10; jl7 10:49 BP 160 / 63; Pulse 72; Resp 16; Pulse Ox 98% ; Pain 8/10; jl7 12:15 BP 143 / 62; Pulse 70; Resp 16 S; Pulse Ox 97% on R/A; jl7 MDM: 08:58 Patient medically screened. nisha 09:11 Differential diagnosis: hip fracture, femoral neck fracture, femoral shaft fracture, nisha strain, chronic back pain, Fracture Obesity. Data reviewed: vital signs, nurses notes, lab test result(s), EKG, radiologic studies, CT scan, plain films. Data interpreted: athletic monitor: not applicable for this patient encounter. Pulse oximetry: on room air is 96 %. Test interpretation: by ED physician or midlevel provider: plain radiologic studies. Counseling: I had a detailed discussion with the patient and/or guardian regarding: the historical points, exam findings, and any diagnostic results supporting the discharge/admit diagnosis, lab results, radiology results. Medication response: Zofran partially relieved the patient's nausea. 11:31 Response to treatment: the patient's symptoms have mildly improved after treatment. ED nisha course: PT LIVES ALONE, CANT CARE FOR HERSELF. WILL SEND WITH GRANDSON AND DAUGHTER TO COORDINATE. 11/15 09:02 Order name: CBC with Diff; Complete Time: 10:57 [facility] 11/15 09:02 Order name: Comprehensive Metabolic Panel; Complete Time: 10:57 [facility] 11/15 09:02 Order name: Urine Culture [facility] 11/15 09:02 Order name: CT Lumbar Spine Wo Con; Complete Time: 10:57 [facility] 11/15 09:02 Order name: Pelvis XRAY; Complete Time: 11:22 [facility] 11/15 09:25 Order name: Urine Dipstick--Ancillary (enter results); Complete Time: 10:57 11/15 09:02 Order name: Urine Dipstick-Ancillary (obtain specimen); Complete Time: 09:39 [facility] 11/15 09:02 Order name: Hip Left 2 View XRAY; Complete Time: 11:22 [facility] Administered Medications: 10:25 Drug: Zofran (Ondansetron) 4 mg Route: IVP; Site: right forearm; jl7 11:18 Follow up: Response: No adverse reaction; Nausea is decreased jl7 10:27 Drug: NS 0.9% 500 ml Route: IV; Rate: bolus; Site: right forearm; jl7 10:48 Follow up: Response: No adverse reaction; IV Status: Completed infusion; IV Intake: jl7 500ml 10:27 Drug: morphine 2 mg Route: IVP; Site: right forearm; jl7 10:47 Drug: NS 0.9% 1000 ml Route: IV; Rate: 125 ml/hr; Site: right forearm; jl7 11:01 Drug: morphine 2 mg Route: IVP; Site: right forearm; jl7 11:18 Follow up: Response: No adverse reaction; Pain is decreased jl7 11:18 Drug: Rocephin 1 grams Route: IV; Rate: per protocol; Site: right forearm; jl7 12:20 Drug: Valium 5 mg Route: PO; jl7 13:28 Follow up: Response: No adverse reaction jl7 Disposition: 11/16/19 11:34 Discharged to Home. Impression: Fall due to bumping against object, Low back pain, Unspecified kidney failure, Urinary tract infection, site not specified. - Condition is Stable. - Discharge Instructions: Back Pain, Adult, Dysuria, Musculoskeletal Pain, Urinary Tract Infection, Adult, Urinary Tract Infection, Adult, [id number], Back Pain, Adult, [id number]. - Prescriptions for Valium 2 mg Oral Tablet - take 1 tablet by ORAL route every 8 hours As needed; 20 tablet. Tramadol 50 mg Oral Tablet - take 1 tablet by ORAL route every 8 hours as needed; 24 tablet. Cipro 250 mg Oral Tablet - take 1 tablet by ORAL route every 12 hours; 14 tablet. - Medication Reconciliation Form, Thank You Letter, Antibiotic Education, Prescription Opioid Use form. - Follow up: Private Physician; When: 2 - 3 days; Reason: Recheck today's complaints, Continuance of care, Re-evaluation by your physician. Follow up: Shar Thorne MD; When: 2 - 3 days; Reason: Recheck today's complaints, Re-evaluation by your physician. - Problem is new. - Symptoms have improved. Signatures: Dispatcher [employer] EDIA Ab Jaeger MD MD cha Leal, Jahala RN RN jl7 Corrections: (The following items were deleted from the chart) 13:28 11:34 11/16/2019 11:34 Discharged to Home. Impression: Fall due to bumping against jl7 object; Low back pain; Unspecified kidney failure; Urinary tract infection, site not specified. Condition is Stable. Forms are Medication Reconciliation Form, Thank You Letter, Antibiotic Education, Prescription Opioid Use. Follow up: Private Physician; When: 2 - 3 days; Reason: Recheck today's complaints, Continuance of care, Re-evaluation by your physician. Follow up: Dr. Shar Thorne; When: 2 - 3 days; Reason: Recheck today's complaints, Re-evaluation by your physician. Problem is new. Symptoms have improved. nisha
--- NOTE | 2019-11-16 11:35 | ER ---
Nurse's Notes [facility] Name: Mariposa Palacios Age: 79 yrs Sex: Female : 1940 Arrival Date: 11/16/2019 Time: 08:54 Bed 8 Private MD: Diagnosis: Fall due to bumping against object;Low back pain;Unspecified kidney failure;Urinary tract infection, site not specified Presentation: 11/15 09:02 Chief complaint: EMS states: Pt was transferring from her chair to the bed and fell, jl7 c/o left hip pain and pain to the sacral region. Also reports possible UTI. Coronavirus screen: Proceed with normal triage. Patient denies a cough. Patient denies shortness of breath or difficulty breathing. Patient denies measured and/or subjective temperature greater than 100.4F prior to today's visit. Patient denies travel on a cruise ship or to a country the [facility] currently lists as an affected area. Patient denies contact with known and/or suspected case of COVID-19. Ebola Screen: No symptoms or risks identified at this time. Initial Sepsis Screen: Does the patient meet any 2 criteria? No. Patient's initial sepsis screen is negative. Does the patient have a suspected source of infection? No. Patient's initial sepsis screen is negative. Risk Assessment: Do you want to hurt yourself or someone else? Patient reports no desire to harm self or others. Onset of symptoms was November 13, 2019. Care prior to arrival: None. 09:02 Method Of Arrival: EMS: [facility] jl7 09:02 Acuity: DOMINIQUE 3 jl7 Historical: - Allergies: 09:05 Benadryl; jl7 09:05 Codeine; jl7 09:05 injectable dye; jl7 09:05 metformin; jl7 09:05 Phenergan; jl7 - PMHx: 09:05 CHF; CVA; Diabetes - IDDM; kidney disease; jl7 - PSHx: 09:05 Cholecystectomy; jl7 - Immunization history:: Adult Immunizations unknown. - Family history:: not pertinent. - Social history:: Smoking status: Patient denies any tobacco usage or history of. Screenin:00 Abuse screen: Denies threats or abuse. Denies injuries from another. Nutritional jl7 screening: No deficits noted. Tuberculosis screening: No symptoms or risk factors identified. Fall Risk IV access (20 points). Total Jiménez Fall Scale indicates No Risk (0-24 pts). Assessment: 08:55 General: Appears in no apparent distress. uncomfortable, Behavior is calm, cooperative, jl7 appropriate for age. Pain: Complains of pain in sacrum and left hip Pain does not radiate. Pain currently is 8 out of 10 on a pain scale. Pain began 2-3 days ago. Neuro: Level of Consciousness is awake, alert, obeys commands, Oriented to person, place, time, situation. Cardiovascular: Respiratory: Airway is patent Respiratory effort is even, unlabored, Respiratory pattern is regular, symmetrical. GI: : Reports burning with urination. Derm: Skin is pink, warm \T\ dry. skin tear noted to left elbow, old bandage removed, dried blood noted to area, pt reports putting the bandage on when she fell on . 12:15 Reassessment: Spoke to Leslie Holman, pt's daughter and POA, about results and jl7 discharge plans and the reason the doctor cannot admit the patient, Leslie verbalized understanding. Vital Signs: 09:02 BP 149 / 76; Pulse 77; Resp 16; Temp 98.3; Pulse Ox 96% ; Pain 5/10; jl7 10:49 BP 160 / 63; Pulse 72; Resp 16; Pulse Ox 98% ; Pain 8/10; jl7 12:15 BP 143 / 62; Pulse 70; Resp 16 S; Pulse Ox 97% on R/A; jl7 ED Course: 08:54 Patient arrived in ED. [facility] 08:58 Ab Jaeger MD is Attending Physician. [facility] 09:02 Aydee Sun, GO is Primary Nurse. jl7 09:05 Triage completed. jl7 09:05 Arm band placed on right wrist. jl7 09:10 Patient has correct armband on for positive identification. Placed in gown. Bed in low jl7 position. Call light in reach. Side rails up X2. Pulse ox on. NIBP on. Warm blanket given. 09:23 Straight cath inserted, using sterile technique, 16 Fr. Returned clear yellow urine. 5 Patient tolerated well. 09:24 Urine collected: straight cath specimen, clear. [facility] 09:45 Inserted saline lock: 20 gauge in right forearm, using aseptic technique. jl7 09:45 Initial lab(s) drawn, by me, sent to lab. jl7 10:05 CT Lumbar Spine Wo Con In Process Unspecified. EDMS 10:13 Pelvis XRAY In Process Unspecified. EDMS 10:13 Hip Left 2 View XRAY In Process Unspecified. EDMS 11:33 Shar Thorne MD is Referral Physician. [facility] 13:27 No provider procedures requiring assistance completed. IV discontinued, intact, jl7 bleeding controlled, No redness/swelling at site. Pressure dressing applied. Administered Medications: 10:25 Drug: Zofran (Ondansetron) 4 mg Route: IVP; Site: right forearm; jl7 11:18 Follow up: Response: No adverse reaction; Nausea is decreased jl7 10:27 Drug: NS 0.9% 500 ml Route: IV; Rate: bolus; Site: right forearm; jl7 10:48 Follow up: Response: No adverse reaction; IV Status: Completed infusion; IV Intake: jl7 500ml 10:27 Drug: morphine 2 mg Route: IVP; Site: right forearm; jl7 10:47 Drug: NS 0.9% 1000 ml Route: IV; Rate: 125 ml/hr; Site: right forearm; jl7 11:01 Drug: morphine 2 mg Route: IVP; Site: right forearm; jl7 11:18 Follow up: Response: No adverse reaction; Pain is decreased jl7 11:18 Drug: Rocephin 1 grams Route: IV; Rate: per protocol; Site: right forearm; jl7 12:20 Drug: Valium 5 mg Route: PO; jl7 13:28 Follow up: Response: No adverse reaction jl7 Intake: 10:48 IV: 500ml; Total: 500ml. jl7 Outcome: 11:34 Discharge ordered by . nisha 13:27 Discharged to home via ambulance. jl7 13:27 Condition: stable 13:27 Discharge instructions given to patient, family, Instructed on discharge instructions, follow up and referral plans. medication usage, Demonstrated understanding of instructions, follow-up care, medications, Prescriptions given X 3. 13:28 Patient left the ED. jl7 Addendum: 11/18/2019 16:04 Addendum: Culture Results: Positive urine culture. Bacteria is resistant to, has i w intermediate sensitivity, or is not tested against prescribed antibiotics. Report given to NATI for further evaluation and then to psychiatric orderly for follow up with patient. Phone call Prescription called-in to pharmacy of choice. called in Bactrim DS 1 tab PO BID #[id number], no refills, called in to Medicine [facility]. Signatures: Dispatcher [employer] Ab Johnson MD MD cha Williams, Irene, RN RN Antonia Candelaria [facility] Aydee Sun RN RN jl7
[2019-11-16] MEDS ORDERED: DIAZEPAM 5 MG TABLET ONE (11:53)
[2019-11-16 13:43] VITALS: TEMP 98.3
[2019-11-16 13:45] VITALS: BP 143/62; O2SAT 97
== END 2019-11-16 13:28 | disposition home or self-care (01) ==
LOC: ER 08:52
DX: M54.5 Low back pain (principal); N39.0 Urinary tract infection, site not specified; N19 Unspecified kidney failure; W07.XXXA Fall from chair, initial encounter; Y93.89 Activity, other specified; Y92.9 Unspecified place or not applicable; Z88.6 Allergy status to analgesic agent; Z88.8 Allergy status to other drugs, medicaments and biological substances
CPT/HCPCS: 87088; 85025; 87086; 36415; 87077; 87186; 81003; 80053; 72131; 72170; 73502; 51702; 96375; 96374; 99284; J2270 ×2; J0696; J7030; J2405

== ENCOUNTER 2020-09-04 17:10 | Emergency (ER) | payer OTHER ==
--- OUTSIDE RECORDS SUMMARY | 2020-09-04 17:13 | XMS REPORT | Continuity of Care Document ---
:1940 Author Organization [facility] t Address [address] [place] [address] Dr. Hammer [address] [place] [id number] Care Team Providers Name Role Phone Unavailable Unavailable Unavailable Problems This patient has no known problems. Allergies, Adverse Reactions, Alerts This patient has no known allergies or adverse reactions. Medications This patient has no known medications. Procedures This patient has no known procedures. Results This patient has no known results.
[2020-09-04] MEDS ORDERED: ACETAMINOPHEN 500 MG TAB ONE (17:48)
--- NOTE | 2020-09-04 18:19 | RAD REPORT ---
EXAM DESCRIPTION: CT - [id number] - 09/04/2020 5:46 pm CLINICAL HISTORY: Trauma, head and neck injury. fall COMPARISON: No comparisons TECHNIQUE: Axial 5 mm thick images of the head were obtained. Axial 2 mm thick images of the cervical spine were obtained with sagittal and coronal reconstruction images generated and reviewed. All CT scans are performed using dose optimization technique as appropriate and may include automated exposure control or mA/KV adjustment according to patient size. FINDINGS: CT HEAD WITHOUT CONTRAST: No acute hemorrhage, hydrocephalus or extra-axial collection is identified.Moderate brain atrophy is seen.Gliosis is seen in the right parietal region presumably related to old CVA. No midline shift. Moderate polypoid thickening of the right maxillary antrum and sphenoid sinuses noted.The calvarium i s intact. CT CERVICAL SPINE WITHOUT CONTRAST: No fracture or subluxation.Lower cervical spondylosis is present.No prevertebral soft tissues swellin g is identified. IMPRESSION: No acute intracranial or cervical spine findings. Moderate lower cervical degenerative change.
--- NOTE | 2020-09-04 18:21 | RAD REPORT ---
EXAM DESCRIPTION: RAD - Clavicle Left - 09/04/2020 6:11 pm CLINICAL HISTORY: PAIN COMPARISON: No comparisons FINDINGS: Overriding fracture of the left clavicle shaft mid aspect is seen with mild bony fragmenta tion. The bones are quite demineralized.
--- NOTE | 2020-09-04 18:22 | RAD REPORT ---
EXAM DESCRIPTION: RAD - Humerus Left - 09/04/2020 6:11 pm CLINICAL HISTORY: PAIN COMPARISON: No comparisons FINDINGS: The bones are quite demineralized. Significant bony remodeling of the proximal left humeru s is noted which is suspected to be probably chronic. No definitive acute humerus fracture.
--- NOTE | 2020-09-04 18:56 | ER ---
Nurse's Notes [facility] Name: Mariposa Palacios Age: 80 yrs Sex: Female : 1940 Arrival Date: 09/04/2020 Time: 17:13 Bed 4 Private MD: Diagnosis: Displaced fracture of shaft of left clavicle;Fall on same level from slipping, tripping and stumbling Presentation: 09/04 17:14 Chief complaint: EMS states: Left shoulder pain after she missed her chair and landed hb onto left side approx [address] [employer]RAT[employer]INE[employer]. Coronavirus screen: At this time, the client does not indicate any symptoms associated with coronavirus-19. Ebola Screen: No symptoms or risks identified at this time. Initial Sepsis Screen: Does the patient meet any 2 criteria? No. Patient's initial sepsis screen is negative. Does the patient have a suspected source of infection? No. Patient's initial sepsis screen is negative. Risk Assessment: Do you want to hurt yourself or someone else? Patient reports no desire to harm self or others. Onset of symptoms was September 04, 2020. 17:14 Method Of Arrival: EMS: [facility] hb 17:14 Acuity: DOMINIQUE 4 hb Triage Assessment: 17:19 General: Appears in no apparent distress. Behavior is calm, cooperative. Pain: Pain hb currently is 8 out of 10 on a pain scale. EENT: No signs and/or symptoms were reported regarding the EENT system. Neuro: Level of Consciousness is awake, alert, obeys commands, Oriented to person, place, time, situation. Cardiovascular: Capillary refill < 3 seconds Patient's skin is warm and dry. Respiratory: Airway is patent Respiratory effort is even, unlabored, Respiratory pattern is regular, symmetrical. GI: No signs and/or symptoms were reported involving the gastrointestinal system. : No signs and/or symptoms were reported regarding the genitourinary system. Derm: Skin is pink, warm \T\ dry. Musculoskeletal: Reports left shoulder pain. Historical: - Allergies: 17:19 Benadryl; hb 17:19 Codeine; hb 17:19 injectable dye; hb 17:19 metformin; hb 17:19 Phenergan; hb - Home Meds: 17:19 acai blackman extract 500 mg Oral cap [Active]; albuterol sulfate 0.63 mg/3 mL Inhl nebu hb [Active]; allopurinol 100 mg Oral tab 1 tab 3 times per day [Active]; amlodipine 5 mg tab 1 tab once daily [Active]; Calcarb 600 With Vitamin D 600 mg(1,500mg) -200 unit Oral tab [Active]; Diovan 40 mg Oral tab once daily [Active]; docusate sodium 100 mg Oral cap 1 cap 2 times per day [Active]; Folgard 2,000-800-0.32 unit-mcg-mg Oral tab [Active]; gabapentin 300 mg Oral cap twice a day [Active]; garlic 1,000 mg Oral cap daily [Active]; Lasix 40 mg Oral tab once daily [Active]; latanoprost 0.005 % ophthalmic drop 1 drop once daily [Active]; Lopid 600 mg Oral tab 1 tab 2 times per day [Active]; magnesium oxide 250 mg Oral tab daily [Active]; Norvasc 5 mg Oral tab once daily [Active]; Novolog 100 unit/mL Sub-Q soln 26 units am, 20 units pm [Active]; Plavix 75 mg Oral tab once daily [Active]; Vesicare 10 mg Oral tab [Active]; Zetia 10 mg Oral tab 1 tab once daily [Active]; Zoloft 100 mg Oral tab 1 tab once daily [Active]; - PMHx: 17:19 CVA; CHF; Diabetes - IDDM; kidney disease; hb - PSHx: 17:19 Cholecystectomy; hb - Immunization history:: Adult Immunizations up to date. - Social history:: Smoking status: Patient denies any tobacco usage or history of. Screenin:20 Abuse screen: Denies threats or abuse. Denies injuries from another. Nutritional hb screening: No deficits noted. Tuberculosis screening: No symptoms or risk factors identified. Fall Risk Total Jiménez Fall Scale indicates Low Risk Score (25-44 pts). Fall prevention measures have been instituted. Side Rails Up X 2 Frequent Obs/Assesments occuring As available Patient and Family Educated on Fall Prevention Program and strategies. Assessment: 17:20 General: see triage assessment . hb 18:12 Reassessment: Patient appears in no apparent distress at this time. Patient and/or hb family updated on plan of care and expected duration. Pain level reassessed. Patient is alert, oriented x 3, equal unlabored respirations, skin warm/dry/pink. 18:51 Reassessment: Point of Contact: Daughter Ca [phone]. ss Vital Signs: 17:14 BP 183 / 68; Pulse 83; Resp 16; Temp 97.7; Pulse Ox 100% on R/A; Pain 8/10; hb 18:12 BP 153 / 54; Pulse 71; Resp 16; Pulse Ox 99% on R/A; hb ED Course: 17:13 Patient arrived in ED. hb 17:14 Ab Reyes PA is PHCP. cp 17:14 Ab Jaeger MD is Attending Physician. cp 17:17 Triage completed. hb 17:19 Arm band placed on. hb 17:20 Patient has correct armband on for positive identification. Call light in reach. Side hb rails up X 1. 17:21 Shaina Aponte, GO is Primary Nurse. hb 17:45 CT Head C Spine In Process Unspecified. EDMS 18:02 Daughter Ca Arias called to leave her number [phone]// She would like to be eb notified and called with reports of her imaging/ provider notified/ transferred her to registration to get the access number to be able to obtain private information on her mother. 18:11 XRAY Clavicle LEFT In Process Unspecified. EDMS 18:12 XRAY Humerus LEFT In Process Unspecified. EDMS 18:54 Shar Thorne MD is Referral Physician. cp 19:13 Patient did not have IV access during this emergency room visit. Sling applied to left ss arm. 19:41 No provider procedures requiring assistance completed. mg2 Administered Medications: 17:33 Drug: Tylenol 1000 mg Route: PO; hb 18:18 Follow up: Response: No adverse reaction ph 18:45 Drug: UltRAM 50 mg Route: PO; hb 19:41 Follow up: Response: No adverse reaction mg2 Outcome: 18:55 Discharge ordered by . cp 19:13 Condition: good ss 19:13 Discharge instructions given to patient, Instructed on discharge instructions, follow up and referral plans. medication usage, Demonstrated understanding of instructions, follow-up care, medications, Prescriptions given X 1. 19:41 Discharged to home via wheelchair. mg2 19:42 Patient left the ED. mg2 Signatures: Dispatcher [employer] EDSC Eveline Garsia RN RN ss Shonna Schroeder RN RN ph Amy, TERRA Berger cp, Heather, RN RN hb Eunice Schmidt Michele RN RN mg2 Corrections: (The following items were deleted from the chart) 17:22 17:14 Acuity: DOMINIQUE 3 hb hb
--- NOTE | 2020-09-04 18:56 | EDPHYS ---
Physician Documentation [facility] Name: Mariposa Palacios Age: 80 yrs Sex: Female : 1940 Arrival Date: 09/04/2020 Time: 17:13 Bed 4 Private MD: ED Physician Ab Jaeger HPI: 09/04 17:20 This 80 yrs old Female presents to ER via EMS with complaints of Shoulder cp Pain. 17:20 The patient or guardian complains of pain, that is acute. left shoulder and left cp clavicle. Context: resulted from a fall, onto left shoulder while attempting to sit in chair. Onset: The symptoms/episode began/occurred just prior to arrival. Historical: - Allergies: 17:19 Benadryl; hb 17:19 Codeine; hb 17:19 injectable dye; hb 17:19 metformin; hb 17:19 Phenergan; hb - Home Meds: 17:19 acai blackman extract 500 mg Oral cap [Active]; albuterol sulfate 0.63 mg/3 mL Inhl nebu hb [Active]; allopurinol 100 mg Oral tab 1 tab 3 times per day [Active]; amlodipine 5 mg tab 1 tab once daily [Active]; Calcarb 600 With Vitamin D 600 mg(1,500mg) -200 unit Oral tab [Active]; Diovan 40 mg Oral tab once daily [Active]; docusate sodium 100 mg Oral cap 1 cap 2 times per day [Active]; Folgard 2,000-800-0.32 unit-mcg-mg Oral tab [Active]; gabapentin 300 mg Oral cap twice a day [Active]; garlic 1,000 mg Oral cap daily [Active]; Lasix 40 mg Oral tab once daily [Active]; latanoprost 0.005 % ophthalmic drop 1 drop once daily [Active]; Lopid 600 mg Oral tab 1 tab 2 times per day [Active]; magnesium oxide 250 mg Oral tab daily [Active]; Norvasc 5 mg Oral tab once daily [Active]; Novolog 100 unit/mL Sub-Q soln 26 units am, 20 units pm [Active]; Plavix 75 mg Oral tab once daily [Active]; Vesicare 10 mg Oral tab [Active]; Zetia 10 mg Oral tab 1 tab once daily [Active]; Zoloft 100 mg Oral tab 1 tab once daily [Active]; - PMHx: 17:19 CVA; CHF; Diabetes - IDDM; kidney disease; hb - PSHx: 17:19 Cholecystectomy; hb - Immunization history:: Adult Immunizations up to date. - Social history:: Smoking status: Patient denies any tobacco usage or history of. ROS: 17:30 Constitutional: Negative for body aches, chills, fever, poor PO intake. cp 17:30 Eyes: Negative for injury, pain, redness, and discharge. cp 17:30 Neck: Negative for pain with movement, pain at rest, stiffness. 17:30 Cardiovascular: Negative for chest pain, palpitations. 17:30 Respiratory: Negative for cough, shortness of breath, wheezing. 17:30 Abdomen/GI: Negative for abdominal pain, nausea, vomiting, and diarrhea. 17:30 Back: Negative for pain at rest, pain with movement. 17:30 MS/extremity: Positive for pain, tenderness, of the left clavicle and left shoulder. 17:30 Neuro: Negative for altered mental status, headache, loss of consciousness, syncope, weakness. 17:30 All other systems are negative. Exam: 17:35 Constitutional: The patient appears in no acute distress, alert, awake, cp non-diaphoretic, non-toxic, well developed, well nourished, uncomfortable. 17:35 Head/Face: Normocephalic, atraumatic. cp 17:35 Neck: C-spine: vertebral tenderness, is not appreciated, crepitus, is not appreciated, ROM/movement: is normal, is supple, without pain, no range of motions limitations. 17:35 Chest/axilla: Inspection: normal, Palpation: is normal, no crepitus, no tenderness. 17:35 Cardiovascular: Rate: normal, Pulses: Pulses are 2+ in right radial artery and left radial artery. 17:35 Respiratory: the patient does not display signs of respiratory distress, Respirations: normal, no use of accessory muscles, no retractions, labored breathing, is not present, Breath sounds: are clear throughout, no decreased breath sounds, no stridor, no wheezing. 17:35 Abdomen/GI: Inspection: abdomen appears normal, Palpation: abdomen is soft and non-tender, in all quadrants. 17:35 Back: pain, is absent, ROM is normal, vertebral tenderness, is not appreciated. 17:35 Musculoskeletal/extremity: Extremities: grossly normal except: noted in the left clavicle and left shoulder: decreased ROM, pain, tenderness, ROM: limited passive range of motion due to pain, in the left shoulder, Sensation intact. 17:35 Neuro: Orientation: to person, place \T\ time. Mentation: is normal, Sensation: is normal. Vital Signs: 17:14 BP 183 / 68; Pulse 83; Resp 16; Temp 97.7; Pulse Ox 100% on R/A; Pain 8/10; hb 18:12 BP 153 / 54; Pulse 71; Resp 16; Pulse Ox 99% on R/A; hb Procedures: 19:30 Splinting: Splint applied to left clavicle and left shoulder using sling, applied by cp nurse. Examined by me, post splint application: neurovascular intact, Patient tolerated well. MDM: 17:15 Patient medically screened. cp 18:00 Differential diagnosis: Anterior dislocation with fracture, Anterior dislocation cp without fracture, Posterior dislocation with fracture, Posterior dislocation without fracture. 18:54 Data reviewed: vital signs, nurses notes, radiologic studies, plain films, and as a cp result, I will discharge patient. 18:54 Test interpretation: by ED physician or midlevel provider: xrays of left clavicle show cp mid shaft fracture. Counseling: I had a detailed discussion with the patient and/or guardian regarding: the historical points, exam findings, and any diagnostic results supporting the discharge/admit diagnosis, radiology results, the need for outpatient follow up, a orthopedic surgeon, to return to the emergency department if symptoms worsen or persist or if there are any questions or concerns that arise at home. Response to treatment: the patient's symptoms have markedly improved after treatment, and as a result, I will discharge patient. 09/04 17:16 Order name: XRAY Clavicle LEFT cp 09/04 17:16 Order name: XRAY Humerus LEFT cp 09/04 17:16 Order name: CT Head C Spine cp 09/04 18:26 Order name: Sling; Complete Time: 18:45 cp 09/04 18:46 Order name: Wound dressing: left hand; Complete Time: 19:02 cp Administered Medications: 17:33 Drug: Tylenol 1000 mg Route: PO; hb 18:18 Follow up: Response: No adverse reaction ph 18:45 Drug: UltRAM 50 mg Route: PO; hb 19:41 Follow up: Response: No adverse reaction mg2 Disposition: 09/04/20 18:55 Discharged to Home. Impression: Displaced fracture of shaft of left clavicle, Fall on same level from slipping, tripping and stumbling. - Condition is Stable. - Discharge Instructions: Clavicle Fracture, Fall Prevention in the Home. - Prescriptions for Tramadol 50 mg Oral Tablet - take 1 tablet by ORAL route every 8 hours as needed; 20 tablet. - Medication Reconciliation Form, Thank You Letter, Antibiotic Education, Prescription Opioid Use form. - Follow up: Shar Thorne MD; When: 2 - 3 days; Reason: Recheck today's complaints. - Problem is new. - Symptoms have improved. Addendum: 09/06/2020 06:14 Co-signature as Attending Physician, Ab Jaeger MD I agree with the assessment and c chase plan of care. Signatures: Dispatcher [employer] [facility] Ab Jeager MD MD cha Page, Corey, PA PA cp Shaina Aponte, GO RN Alexandru Douglas RN RN [facility] Shonna Schroeder RN ph Corrections: (The following items were deleted from the chart) 09/04 18:50 18:39 Hand Left 3 View+RAD.RAD.BRZ ordered. [facility] 19:42 18:55 09/04/2020 18:55 Discharged to Home. Impression: Displaced fracture of shaft of mg2 left clavicle; Fall on same level from slipping, tripping and stumbling. Condition is Stable. Forms are Medication Reconciliation Form, Thank You Letter, Antibiotic Education, Prescription Opioid Use. Follow up: Dr. Shar Thorne; When: 2 - 3 days; Reason: Recheck today's complaints. Problem is new. Symptoms have improved. cp
[2020-09-04] MEDS ORDERED: TRAMADOL HCL 50 MG TAB ONE (18:58)
[2020-09-04 20:57] VITALS: TEMP 97.7
[2020-09-04 20:59] VITALS: BP 153/54; O2SAT 99
== END 2020-09-04 19:42 | disposition home or self-care (01) ==
LOC: ER 17:10
DX: S42.022A Displaced fracture of shaft of left clavicle, initial encounter for closed fracture (principal); W01.0XXA Fall on same level from slipping, tripping and stumbling without subsequent striking against object, initial encounter; Y93.89 Activity, other specified; Y92.9 Unspecified place or not applicable; Z79.4 Long term (current) use of insulin; Z88.5 Allergy status to narcotic agent; Z88.8 Allergy status to other drugs, medicaments and biological substances; Z91.048 Other nonmedicinal substance allergy status; E11.22 Type 2 diabetes mellitus with diabetic chronic kidney disease; N18.9 Chronic kidney disease, unspecified; I50.9 Heart failure, unspecified
CPT/HCPCS: 70450; 72125; 99284

== ENCOUNTER 2022-03-26 20:05 | Emergency (ER) | payer OTHER ==
--- OUTSIDE RECORDS SUMMARY | 2022-03-26 20:07 | XMS REPORT | Continuity of Care Document ---
:1940 Author Organization [facility] t Address [address] [place] [address] Dr. Hammer [address] [place] [id number] Care Team Providers Name Role Phone [phone] Attending Clinician Unavailable [id number] Admitting Clinician Unavailable Problems This patient has no known problems. Allergies, Adverse Reactions, Alerts This patient has no known allergies or adverse reactions. Medications This patient has no known medications. Procedures This patient has no known procedures. Encounters Start End Encounter Admission Attending Care Care Encounter Source Date/Time Date/Time Type Type Clinicians Facility Department ID 2021-08-04 Outpatient 3 [id number] [place] [id number] [facility] 09:58:11 0609 2021-08-04 Outpatient 3 [id number] [facility] REF [id number] [facility] 09:54:11 0529 2021-08-04 Outpatient 3 [id number] [facility] REF [id number] [facility] 09:53:43 [id number] Results This patient has no known results.
[2022-03-26 21:16] LABS: Blood O2 Saturation 93.6 % (92-98.5)
[2022-03-26] MEDS ORDERED: ASPIRIN EC 81 MG TAB PO ONE (21:21)
[2022-03-26] MEDS ORDERED: METHYLPREDNISOLONE 125 MG INJ ONE (21:21)
[2022-03-26] MEDS ORDERED: NA CHLORIDE 0.9% 250 ML ONE (21:22)
[2022-03-26 21:25] LABS: Absolute Lymphocytes (CBC) 2.3 K/uL (0.7-4.9); Hematocrit 34.5 % (36.0-45.0); Lymphocytes % 36.4 % (15.3-44.8); MCV 86.4 fL (80-100); MPV 7.1 fL (7.6-11.3); RBC Red Blood Cell Count 3.99 M/uL (3.86-4.86)
[2022-03-26 21:31] LABS: Protime INR 1.01
[2022-03-26] MEDS ORDERED: FAMOTIDINE 20 MG/2 ML VIAL IV ONE (21:35)
--- NOTE | 2022-03-26 21:40 | RAD REPORT ---
EXAM DESCRIPTION: RAD - Chest Single View - 03/26/2022 9:19 pm CLINICAL HISTORY: COUGH, recent positive COVID test COMPARISON: Portable October 2018 TECHNIQUE: AP portable chest image was obtained 03/26/2022 9:19 pm . FINDINGS: No peripheral mass consolidation. Interstitial pattern is prominent not substantially diff erent baseline. Baseline pattern could mask viral infiltrate or edema. No significant failure or volu me overload. Heart and vasculature are normal. No measurable pleural effusion and no pneumothorax. No acute bony abnormality seen. No acute aortic findings suspected. IMPRESSION: No acute cardiopulmonary process. Interstitial pattern could mask viral infiltrate or edema.
[2022-03-26 21:44] LABS: ALT/SGPT 31 U/L (12-78); AST/SGOT 19 U/L (15-37); Albumin 3.4 g/dL (3.4-5.0); Alkaline Phosphatase 103 U/L (45-117); BUN Blood Urea Nitrogen 19 mg/dL (7-18); Bicarbonate 28 mmol/L (21-32); Bilirubin Direct 0.1 mg/dL (0-0.2); Bilirubin Total 0.3 mg/dL (0.2-1.0); Glomerular Filtration Rate 43 ml/min (=/>90); Glucose Level 218 mg/dL (74-106); NT PRO-BNP 354 pg/mL (<450); Potassium 3.9 mmol/L (3.5-5.1); Protein, Total 7.7 g/dL (6.4-8.2); Sodium Level 138 mmol/L (136-145); Troponin High Sensitivity 10.4 pg/mL (<58.9)
[2022-03-26] MEDS ORDERED: BUDESONIDE 0.5 MG/2 ML NEB ONE (21:53)
[2022-03-26] MEDS ORDERED: BUDESONIDE 0.25 MG/2 ML NEB ONE (21:55)
[2022-03-26 22:01] LABS: C-Reactive Protein < 2.90 mg/L (<3.00)
--- NOTE | 2022-03-26 22:42 | ER ---
Nurse's Notes [facility] Name: Mariposa Palacios Age: 82 yrs Sex: Female : 1940 Arrival Date: 03/26/2022 Time: 20:11 Bed 2 Private MD: Diagnosis: Dyspnea;Coronavirus infection, unspecified;SARS-associated coronavirus as the cause of diseases classified elsewhere;Type 1 diabetes mellitus with hyperglycemia Presentation: 03/26 20:12 Chief complaint: EMS states: Toned out for difficulty breathing, pt states she tested ll3 positive for covid on the and has been experiencing difficulty breathing for "a while" but yesterday and today it got worse. Coronavirus screen: Vaccine status: Patient reports being unvaccinated. difficulty breathing. Ebola Screen: No symptoms or risks identified at this time. Initial Sepsis Screen: Does the patient meet any 2 criteria? RR > 20 per min. No. Patient's initial sepsis screen is negative. Does the patient have a suspected source of infection? No. Patient's initial sepsis screen is negative. Risk Assessment: Do you want to hurt yourself or someone else? Patient reports no desire to harm self or others. Onset of symptoms was March 17, 2022. Care prior to arrival: None. 20:12 Method Of Arrival: EMS: [facility] ll3 20:12 Acuity: DOMINIQUE 3 ll3 Triage Assessment: 20:19 General: Appears uncomfortable, Behavior is calm, cooperative. Pain: Complains of pain ll3 in Neck, Shoulder Pain currently is 5 out of 10 on a pain scale. Neuro: Level of Consciousness is awake, alert, obeys commands, Oriented to person, place, time, situation. Cardiovascular: Patient's skin is warm and dry. Rhythm is sinus rhythm. Respiratory: Respiratory effort is even, unlabored, Respiratory pattern is tachypnea. : Parent/caregiver report the patient having Daughter states she thinks she has a UTI. Derm: Skin is pink, warm \\T\\ dry. Historical: - Allergies: 20:15 Benadryl; ll3 20:15 Codeine; ll3 20:15 injectable dye; ll3 20:15 metformin; ll3 20:15 Phenergan; ll3 - Home Meds: 20:15 acai blackman extract 500 mg Oral cap [Active]; allopurinol 300 mg oral tab [Active]; ll3 amlodipine 10 mg oral tab [Active]; Calcarb 600 With Vitamin D 600 mg(1,500mg) -200 unit Oral tab [Active]; docusate sodium 100 mg Oral cap 1 cap 2 times per day [Active]; Zetia 10 mg Oral tab 1 tab once daily [Active]; Lasix 40 mg Oral tab once daily [Active]; gabapentin 100 mg oral tab [Active]; garlic 1,000 mg Oral cap daily [Active]; latanoprost 0.005 % ophthalmic drop 1 drop once daily [Active]; losartan 50 mg oral tab 1 tab once daily [Active]; - PMHx: 20:15 CHF; CVA; Diabetes - IDDM; kidney disease; ll3 - Immunization history:: Client reports having NOT received the Covid vaccine. - Social history:: Smoking status: Patient denies any tobacco usage or history of. Screenin:50 Abuse screen: Denies threats or abuse. Denies injuries from another. Nutritional ll3 screening: No deficits noted. Tuberculosis screening: No symptoms or risk factors identified. Fall Risk No fall in past 12 months (0 pts). No secondary diagnosis (0 pts). IV access (20 points). Ambulatory Aid- None/Bed Rest/Nurse Assist (0 pts). Gait- Weak (10 pts.). Mental Status- Oriented to own ability (0 pts). Total Jiménez Fall Scale indicates Low Risk Score (25-44 pts). Fall prevention measures have been instituted. Side Rails Up X 2 Family Present and informed to notify staff if they need to leave bedside As available Patient and Family Educated on Fall Prevention Program and strategies. Assessment: 20:22 General: See triage assessment. ll3 Vital Signs: 20:12 BP 150 / 75; Pulse 73; Resp 22; Temp 98.2(O); Pulse Ox 100% on R/A; Weight 97.52 kg; ll3 Height 5 ft. 9 in. (175.26 cm); Pain 5/10; 20:12 Body Mass Index 31.75 (97.52 kg, 175.26 cm) ll3 ED Course: 20:11 Patient arrived in ED. ll3 20:15 Triage completed. ll3 20:19 Arm band placed on Patient placed in an exam room, on a stretcher, on pulse oximetry. ll3 20:27 Ab Jaeger MD is Attending Physician. nisha 20:43 Marck Patel, GO is Primary Nurse. ke1 21:15 Inserted saline lock: 20 gauge in right antecubital area, using aseptic technique. oe Blood collected. 21:21 XRAY Chest (1 view) In Process Unspecified. EDMS 22:42 All [place] MD is Referral Physician. nisha 23:50 Patient has correct armband on for positive identification. Placed in gown. Bed in low ll3 position. Call light in reach. Side rails up X 1. Client placed on continuous cardiac and pulse oximetry monitoring. NIBP monitoring applied. 23:50 No provider procedures requiring assistance completed. IV discontinued, intact, ll3 bleeding controlled, No redness/swelling at site. Pressure dressing applied. Administered Medications: 21:24 Drug: NS 0.9% 250 ml Route: IV; Rate: bolus; Site: right antecubital; ll3 21:37 Follow up: Response: No adverse reaction; IV Status: Completed infusion; IV Intake: ll3 250ml 21:24 Drug: SOLU-Medrol (methylPrednisoLONE) 125 mg Route: IVP; Site: right antecubital; ll3 21:50 Follow up: Response: No adverse reaction ll3 21:24 Drug: Aspirin 81 mg Route: PO; ll3 21:50 Follow up: Response: No adverse reaction ll3 21:36 Drug: Pepcid (famotidine) 40 mg Route: IVP; Site: right antecubital; ll3 23:49 Follow up: Response: No adverse reaction ll3 21:53 Not Given (Duplicate Order): Budesonide Inhaler 180 mcg/actuation 2 inhalations ll3 Inhalation once 22:14 Drug: budesonide 0.5 mg Route: Nebulizer; ll3 23:49 Follow up: Response: No adverse reaction; Marked relief of symptoms ll3 22:45 Drug: Zithromax (azithromycin) 500 mg Route: PO; ll3 23:49 Follow up: Response: No adverse reaction ll3 23:12 CANCELLED (Duplicate Order): predniSONE 40 mg PO once nisha 23:37 Drug: predniSONE 40 mg Route: PO; ll3 23:49 Follow up: Response: No adverse reaction ll3 Medication: 23:50 VIS not applicable for this client. ll3 Intake: 21:37 IV: 250ml; Total: 250ml. ll3 Outcome: 22:41 Discharge ordered by . nisha 23:50 Discharged to home via wheelchair, with family. ll3 23:50 Condition: stable 23:50 Discharge instructions given to patient, learning and development analyst, Instructed on discharge instructions, follow up and referral plans. medication usage, Demonstrated understanding of instructions, follow-up care, medications, Prescriptions given X 5 23:51 Patient left the ED. ll3 Signatures: Dispatcher [employer] EDME Ab Jaeger MD MD cha Espinosa, Orlando oe Loubet, Lynsea, RN RN ll3 Marck Patel RN RN ke1
--- NOTE | 2022-03-26 22:42 | EDPHYS ---
Physician Documentation [facility] Name: Mariposa Palacios Age: 82 yrs Sex: Female : 1940 Arrival Date: 03/26/2022 Time: 20:11 Bed 2 Private MD: ED Physician Ab Jaeger HPI: 03/26 21:04 This 82 yrs old Female presents to ER via EMS with complaints of sob. nisha Historical: - Allergies: 20:15 Benadryl; ll3 20:15 Codeine; ll3 20:15 injectable dye; ll3 20:15 metformin; ll3 20:15 Phenergan; ll3 - Home Meds: 20:15 acai blackman extract 500 mg Oral cap [Active]; allopurinol 300 mg oral tab [Active]; ll3 amlodipine 10 mg oral tab [Active]; Calcarb 600 With Vitamin D 600 mg(1,500mg) -200 unit Oral tab [Active]; docusate sodium 100 mg Oral cap 1 cap 2 times per day [Active]; Zetia 10 mg Oral tab 1 tab once daily [Active]; Lasix 40 mg Oral tab once daily [Active]; gabapentin 100 mg oral tab [Active]; garlic 1,000 mg Oral cap daily [Active]; latanoprost 0.005 % ophthalmic drop 1 drop once daily [Active]; losartan 50 mg oral tab 1 tab once daily [Active]; - PMHx: 20:15 CHF; CVA; Diabetes - IDDM; kidney disease; ll3 - Immunization history:: Client reports having NOT received the Covid vaccine. - Social history:: Smoking status: Patient denies any tobacco usage or history of. ROS: 21:11 Constitutional: Negative for fever, chills, and weight loss, Eyes: Negative for injury, nisha pain, redness, and discharge, ENT: Negative for injury, pain, and discharge, Neck: Negative for injury, pain, and swelling, Cardiovascular: Negative for chest pain, palpitations, and edema, Abdomen/GI: Negative for abdominal pain, nausea, vomiting, diarrhea, and constipation, Back: Negative for injury and pain, : Negative for injury, bleeding, discharge, and swelling, MS/Extremity: Negative for injury and deformity, Skin: Negative for injury, rash, and discoloration, Neuro: Negative for headache, weakness, numbness, tingling, and seizure, Psych: Negative for depression, anxiety, suicide ideation, homicidal ideation, and hallucinations. 21:11 Respiratory: Positive for cough, shortness of breath, on exertion. Exam: 21:11 Constitutional: This is a well developed, well nourished patient who is awake, alert, nisha and in no acute distress. Head/Face: Normocephalic, atraumatic. Eyes: Pupils equal round and reactive to light, extra-ocular motions intact. Lids and lashes normal. Conjunctiva and sclera are non-icteric and not injected. Cornea within normal limits. Periorbital areas with no swelling, redness, or edema. ENT: Nares patent. No nasal discharge, no septal abnormalities noted. Tympanic membranes are normal and external auditory canals are clear. Oropharynx with no redness, swelling, or masses, exudates, or evidence of obstruction, uvula midline. Mucous membranes moist. Neck: Trachea midline, no thyromegaly or masses palpated, and no cervical lymphadenopathy. Supple, full range of motion without nuchal rigidity, or vertebral point tenderness. No Meningismus. Chest/axilla: Normal chest wall appearance and motion. Nontender with no deformity. No lesions are appreciated. Cardiovascular: Regular rate and rhythm with a normal S1 and S2. No gallops, murmurs, or rubs. Normal PMI, no JVD. No pulse deficits. Respiratory: Lungs have equal breath sounds bilaterally, clear to auscultation and percussion. No rales, rhonchi or wheezes noted. No increased work of breathing, no retractions or nasal flaring. Abdomen/GI: Soft, non-tender, with normal bowel sounds. No distension or tympany. No guarding or rebound. No evidence of tenderness throughout. Back: No spinal tenderness. No costovertebral tenderness. Full range of motion. Female : Normal external genitalia. Skin: Warm, dry with normal turgor. Normal color with no rashes, no lesions, and no evidence of cellulitis. MS/ Extremity: Pulses equal, no cyanosis. Neurovascular intact. Full, normal range of motion. Neuro: Awake and alert, GCS 15, oriented to person, place, time, and situation. Cranial nerves II-XII grossly intact. Motor strength 5/5 in all extremities. Sensory grossly intact. Cerebellar exam normal. Normal gait. Psych: Awake, alert, with orientation to person, place and time. Behavior, mood, and affect are within normal limits. 21:11 ECG was reviewed by the Attending Physician. Vital Signs: 20:12 BP 150 / 75; Pulse 73; Resp 22; Temp 98.2(O); Pulse Ox 100% on R/A; Weight 97.52 kg; ll3 Height 5 ft. 9 in. (175.26 cm); Pain 5/10; 20:12 Body Mass Index 31.75 (97.52 kg, 175.26 cm) ll3 MDM: 20:27 Patient medically screened. nisha 21:11 Differential diagnosis: Anemia asthma, Bronchitis CHF exacerbation, Chronic Obstructive nisha Pulmonary Disease pneumonia, Pneumothorax pulmonary edema, Pulmonary Embolism reactive airway disease. Antibiotic administration: Not indicated. Differential Diagnosis. The patient's Wells Deep Vein Thrombosis Score was calculated as follows: Total Score: 0-2 Pts- Low Risk. The patient's pulmonary embolism risk score was calculated as follows: Total Score: 0-2 points. This patient was found to be at low risk for a pulmonary embolism by using the Well's assessment criteria. Immunization status: Pneumococcal vaccine: Influenza vaccine: Data reviewed: vital signs, nurses notes, lab test result(s), EKG, radiologic studies, plain films. Data interpreted: environmental monitoring technician: rate is 73 beats/min, rhythm is regular, Pulse oximetry: on room air is 100 %. Test interpretation: by ED physician or midlevel provider: ECG, plain radiologic studies. Counseling: I had a detailed discussion with the patient and/or guardian regarding: the historical points, exam findings, and any diagnostic results supporting the discharge/admit diagnosis, lab results, radiology results. 03/26 20:32 Order name: Basic Metabolic Panel; Complete Time: 22:40 [facility] 03/26 20:32 Order name: CBC with Diff; Complete Time: 22:40 [facility] 03/26 20:32 Order name: LFT's; Complete Time: 22:40 [facility] 03/26 20:32 Order name: Magnesium; Complete Time: 22:40 [facility] 03/26 20:32 Order name: NT PRO-BNP; Complete Time: 22:40 [facility] 03/26 20:32 Order name: PT-INR; Complete Time: 21:51 [facility] 03/26 20:32 Order name: Troponin HS; Complete Time: 22:40 [facility] 03/26 20:32 Order name: XRAY Chest (1 view); Complete Time: 21:51 [facility] 03/26 20:32 Order name: Sed Rate; Complete Time: 22:40 [facility] 03/26 20:32 Order name: CRP; Complete Time: 22:40 [facility] 03/26 20:32 Order name: ABG: ra; Complete Time: 21:51 [facility] 03/26 21:07 Order name: Blood Culture Adult (2) [facility] 03/26 20:32 Order name: EKG; Complete Time: 20:33 [facility] 03/26 20:32 Order name: Cardiac monitoring; Complete Time: 20:34 [facility] 03/26 20:32 Order name: EKG - Nurse/Tech; Complete Time: 20:33 [facility] 03/26 20:32 Order name: IV Saline Lock; Complete Time: 21:07 [facility] 03/26 20:32 Order name: Labs collected and sent; Complete Time: 21:07 [facility] 03/26 20:32 Order name: O2 Per Protocol; Complete Time: 20:33 [facility] 03/26 20:32 Order name: O2 Sat Monitoring; Complete Time: 20:33 [facility] EC:11 Rate is 68 beats/min. Rhythm is regular. QRS [place] is Normal. [place] interval is normal. QRS nisha interval is normal. QT interval is normal. No Q waves. T waves are Normal. No ST changes noted. Clinical impression: NSR w/ Non-specific ST/T Changes, LVH, and No evidence of ischemia. Interpreted by me. Reviewed by me. Administered Medications: 21:24 Drug: NS 0.9% 250 ml Route: IV; Rate: bolus; Site: right antecubital; ll3 21:37 Follow up: Response: No adverse reaction; IV Status: Completed infusion; IV Intake: ll3 250ml 21:24 Drug: SOLU-Medrol (methylPrednisoLONE) 125 mg Route: IVP; Site: right antecubital; ll3 21:50 Follow up: Response: No adverse reaction ll3 21:24 Drug: Aspirin 81 mg Route: PO; ll3 21:50 Follow up: Response: No adverse reaction ll3 21:36 Drug: Pepcid (famotidine) 40 mg Route: IVP; Site: right antecubital; ll3 23:49 Follow up: Response: No adverse reaction ll3 21:53 Not Given (Duplicate Order): Budesonide Inhaler 180 mcg/actuation 2 inhalations ll3 Inhalation once 22:14 Drug: budesonide 0.5 mg Route: Nebulizer; ll3 23:49 Follow up: Response: No adverse reaction; Marked relief of symptoms ll3 22:45 Drug: Zithromax (azithromycin) 500 mg Route: PO; ll3 23:49 Follow up: Response: No adverse reaction ll3 23:12 CANCELLED (Duplicate Order): predniSONE 40 mg PO once nisha 23:37 Drug: predniSONE 40 mg Route: PO; ll3 23:49 Follow up: Response: No adverse reaction ll3 Disposition Summary: 03/26/22 22:41 Discharge Ordered Location: Home [facility] Problem: new [facility] Symptoms: have improved nisha Condition: Stable nisha Diagnosis - Dyspnea nisha - Coronavirus infection, unspecified nisha - SARS-associated coronavirus as the cause of diseases classified elsewhere nisha - Type 1 diabetes mellitus with hyperglycemia nisha Followup: nisha - With: Private Physician - When: 2 - 3 days - Reason: Recheck today's complaints, Continuance of care, Re-evaluation by your physician Followup: [facility] - With: All Washington MD - When: 2 - 3 days - Reason: Recheck today's complaints, Re-evaluation by your physician Discharge Instructions: - Discharge Summary Sheet [facility] - Upper Respiratory Infection, Adult nisha - COVID-19 nisha - Viral Illness, Adult nisha - Aspirin and Your Heart [facility] - Diabetes Mellitus and Nutrition, Adult [facility] Forms: - Medication Reconciliation Form [facility] - Thank You Letter [facility] - Antibiotic Education [facility] - Prescription Opioid Use [facility] Prescriptions: - Pepcid 20 mg Oral Tablet - take 1 tablet by ORAL route every 12 hours for 30 days; 60 tablet; Refills: 0, [facility] Product Selection Permitted - Prednisone 20 mg Oral Tablet - take 2 tablets by ORAL route once daily for 6 days; 12 tablet; Refills: 0, [facility] Product Selection Permitted - Zithromax Z-Dhruv 250 mg Oral Tablet - take 1 tablet by ORAL route as directed for 5 days Day 1 - take two (2) tablets [facility] one time. Day 2, 3, 4 , 5 take one (1) tablet once daily.; 6 tablet; Refills: 0, Product Selection Permitted - budesonide 180 mcg/actuation Inhalation aerosol powdr breath activated - inhale 1 puff by INHALATION route 2 times per day; 1 Pump; Refills: 0, Product nisha Selection Permitted - Singulair 10 mg Oral Tablet - take 1 tablet by ORAL route At bedtime; 20 tablet; Refills: 0, Product nisha Selection Permitted Signatures: Dispatcher [employer] Ab Johnson MD MD cha Loubet, Lynsea RN RN ll3 Corrections: (The following items were deleted from the chart) 23:12 23:12 predniSONE 40 mg PO once ordered. nisha cameron
[2022-03-26] MEDS ORDERED: AZITHROMYCIN 250 MG TAB ONE (22:50)
[2022-03-26] MEDS ORDERED: predniSONE 20 MG TAB ONE (23:31)
[2022-03-28 08:53] VITALS: BP 150/75; TEMP 98.2; O2SAT 100
--- NOTE | 2022-03-29 06:40 | EKG ---
Test Date: 2022-03-26 Test Time: 20:32:08 Able Bodied Tankerman: ELI MEASUREMENT RESULTS: Intervals: Rate: 68 OH: 174 QRSD: 106 QT: 456 QTc: 484 [place]: P: 38 OH: 174 QRS: -25 T: 57 INTERPRETIVE STATEMENTS: Normal sinus rhythm Minimal voltage criteria for LVH, may be normal variant Borderline ECG Compared to ECG 01/31/2018 13:27:07 Left ventricular hypertrophy now present Left-axis deviation no longer present Electronically Signed On 03-29-22 06:32:28 CDT by Rangel Yates
== END 2022-03-26 23:51 | disposition home or self-care (01) ==
LOC: ER 20:05
DX: U07.1 COVID-19 (principal); E10.65 Type 1 diabetes mellitus with hyperglycemia; I50.9 Heart failure, unspecified
CPT/HCPCS: 93005; 87040 ×2; 85025; 80048; 36415; 83735; 85610; 80076; 85652; 84484; 83880; 86140; 71045; 94640; 82805; 96375; 96374; 99285; J7512; J7634; J7050; J2930

== ENCOUNTER 2022-06-18 13:48 | Emergency (ER) | payer OTHER ==
--- OUTSIDE RECORDS SUMMARY | 2022-06-18 13:50 | XMS REPORT | Continuity of Care Document ---
:1940 Author Organization [facility] t Address Formerly [facility] [place] Dr. Hammer [address] [place] [id number] Care Team Providers Name Role Phone [phone] Attending Clinician Unavailable [phone] Admitting Clinician Unavailable Problems This patient has no known problems. Allergies, Adverse Reactions, Alerts This patient has no known allergies or adverse reactions. Medications This patient has no known medications. Procedures This patient has no known procedures. Encounters Start End Encounter Admission Attending Care Care Encounter Source Date/Time Date/Time Type Type Clinicians Facility Department ID 2021-08-04 Outpatient [id number] [place] [id number] [facility] 09:58:11 [facility] 2021-08-04 Outpatient 3 [id number] [facility] REF [id number] [facility] 09:54:[id number] 2021-08-04 Outpatient 3 [id number] [facility] REF [id number] [facility] 09:53:43 [id number] Results This patient has no known results.
[2022-06-18 14:26] LABS: Absolute Lymphocytes (CBC) 1.6 K/uL (0.7-4.9); Hematocrit 31.3 % (36.0-45.0); Lymphocytes % 27.6 % (15.3-44.8); MCV 88.2 fL (80-100); MPV 7.8 fL (7.6-11.3); RBC Red Blood Cell Count 3.54 M/uL (3.86-4.86)
--- NOTE | 2022-06-18 14:36 | RAD REPORT ---
EXAM DESCRIPTION: RAD - Tib Fib Left - 06/18/2022 2:29 pm CLINICAL HISTORY: PAIN COMPARISON: None FINDINGS/IMPRESSION: No acute fracture. No malalignment. No significant focal degenerative changes.
[2022-06-18 14:46] LABS: Potassium 4.3 mmol/L (3.5-5.1)
[2022-06-18] MEDS ORDERED: TRAMADOL HCL 50 MG TAB ONE (15:41)
--- NOTE | 2022-06-18 15:47 | RAD REPORT ---
EXAM DESCRIPTION: CT - Head C Spine Cap Wo Guy - 06/18/2022 3:25 pm CLINICAL HISTORY: Trauma, head and neck injury. Chest, abdomen and pelvis pain. knee pain COMPARISON: None TECHNIQUE: CT head without contrast. CT cervical spine without contrast with coronal and sagittal reformatted images. CT chest, abdomen and pelvis with coronal and sagittal reformatted images of the spine. All CT scans are performed using dose optimization technique as appropriate and may include automated exposure control or mA/KV adjustment according to patient size. FINDINGS: CT HEAD WITHOUT CONTRAST: No intracranial hemorrhage, hydrocephalus or extra-axial fluid collection. No acute large vascular te rritory infarct. Remote right cerebral hemisphere infarct which is moderate in size. The paranasal sinuses and mastoids are clear. The calvarium is intact. CT CERVICAL SPINE WITHOUT CONTRAST: No fracture or subluxation. Multilevel cervical spondylosis with varying degrees neural foraminal na rrowing. The prevertebral soft tissues are normal in thickness. CT CHEST, ABDOMEN, PELVIS: Thorax: Chest Wall: 2 left breast masses, the largest measuring 7.3 cm. The smaller lesion measuring 2.6 cm. Lungs: No acute abnormality. Pleura: No effusions or pneumothorax. Suly/Mediastinum: No lymphadenopathy. Aorta/Pulmonary Arteries: Unremarkable Heart: Normal size. Abdomen/Pelvis: Liver: No acute abnormality or suspicious lesions. Biliary: No biliary ductal dilatation. Stomach: No significant focal abnormality. Duodenum: No significant focal abnormality. Pancreas: No significant abnormality. Spleen: No significant abnormality. Adrenal: No suspicious lesions. Kidney/ureter: No hydronephrosis. No renal calculi. Retroperitoneum: No retroperitoneal adenopathy. Vascular: No aneurysm. Atherosclerosis Bowel: Diverticulosis without diverticulitis.. Peritoneum: No ascites or free air. Bladder: Grossly unremarkable. Reproductive: Hysterectomy Bones: Multilevel degenerative changes are present in the spine. Remote posttraumatic deformity at th e left proximal humerus and glenoid. Other: n/a IMPRESSION: 1. No acute intracranial abnormality. 2. No fracture or traumatic malalignment of the cervical spine. 3. No evidence of significant acute trauma to the chest, abdomen, or pelvis. 4. Left breast masses concerning for breast cancer. If clinically indicated, the patient should have a diagnostic mammogram with ultrasound.
[2022-06-18] MEDS ORDERED: CYCLOBENZAPRINE 10 MG TAB ONE (17:48)
--- NOTE | 2022-06-18 18:05 | RAD REPORT ---
EXAM DESCRIPTION: RAD - Femur Left - 06/18/2022 5:47 pm CLINICAL HISTORY: PAIN COMPARISON: None FINDINGS/IMPRESSION: No acute fracture. No malalignment. Mild left acetabular degenerative changes. Patellofemoral compartment degenerative changes. Osteopenia.
--- NOTE | 2022-06-18 19:16 | ER ---
Nurse's Notes [facility] Name: Mariposa Palacios Age: 82 yrs Sex: Female : 1940 Arrival Date: 06/18/2022 Time: 13:51 Bed 12 Private MD: Diagnosis: Pain in left lower leg;Fall on same level, unspecified Presentation: 06/18 13:52 Chief complaint: EMS states: Left knee pain after mechanical fall from standing 2 days hb ago. Unable to bear weight. Coronavirus screen: At this time, the client does not indicate any symptoms associated with coronavirus-19. Ebola Screen: No symptoms or risks identified at this time. Initial Sepsis Screen: Does the patient meet any 2 criteria? No. Patient's initial sepsis screen is negative. Does the patient have a suspected source of infection? No. Patient's initial sepsis screen is negative. Risk Assessment: Do you want to hurt yourself or someone else? Patient reports no desire to harm self or others. Onset of symptoms was June 16, 2022. 13:52 Method Of Arrival: EMS: [facility] 13:52 Acuity: DOMINIQUE 4 hb 14:14 Acuity: DOMINIQUE 3 [id number] Triage Assessment: 13:53 General: Appears in no apparent distress. Behavior is calm, cooperative. Pain: Pain hb currently is 8 out of 10 on a pain scale. EENT: No signs and/or symptoms were reported regarding the EENT system. Neuro: Level of Consciousness is awake, alert, obeys commands, Oriented to person, place, time, situation. Cardiovascular: Patient's skin is warm and dry. Pulses are 3+ in left dorsalis pedis artery. Respiratory: Respiratory effort is even, unlabored, Respiratory pattern is regular, symmetrical. GI: No signs and/or symptoms were reported involving the gastrointestinal system. : No signs and/or symptoms were reported regarding the genitourinary system. Derm: Skin is pink, warm \T\ dry. Musculoskeletal: Reports severe left knee pain that radiates to left lower leg, unable to bear weight. Historical: - Allergies: 13:53 Benadryl; hb 13:53 Codeine; hb 13:53 injectable dye; hb 13:53 metformin; hb 13:53 Phenergan; hb - Home Meds: 13:53 acai blackman extract 500 mg Oral cap [Active]; albuterol sulfate 0.63 mg/3 mL Inhl nebu hb [Active]; allopurinol 300 mg Oral tab [Active]; amlodipine 10 mg tab [Active]; Calcarb 600 With Vitamin D 600 mg(1,500mg) -200 unit Oral tab [Active]; Diovan 40 mg Oral tab once daily [Active]; docusate sodium 100 mg Oral cap 1 cap 2 times per day [Active]; Folgard 2,000-800-0.32 unit-mcg-mg Oral tab [Active]; gabapentin 100 mg Oral tab [Active]; garlic 1,000 mg Oral cap daily [Active]; Lasix 40 mg Oral tab once daily [Active]; latanoprost 0.005 % ophthalmic drop 1 drop once daily [Active]; Lopid 600 mg Oral tab 1 tab 2 times per day [Active]; losartan 50 mg Oral tab 1 tab once daily [Active]; magnesium oxide 250 mg Oral tab daily [Active]; Norvasc 5 mg Oral tab once daily [Active]; Novolog 100 unit/mL Sub-Q soln 26 units am, 20 units pm [Active]; Plavix 75 mg Oral tab once daily [Active]; Vesicare 10 mg Oral tab [Active]; Zetia 10 mg Oral tab 1 tab once daily [Active]; Zoloft 100 mg Oral tab 1 tab once daily [Active]; - PMHx: 13:53 CHF; CVA; Diabetes - IDDM; kidney disease; hb - Immunization history:: Adult Immunizations up to date. - Social history:: Smoking status: Patient denies any tobacco usage or history of. Screenin:55 Abuse screen: Denies threats or abuse. Denies injuries from another. Nutritional hb screening: No deficits noted. Tuberculosis screening: No symptoms or risk factors identified. Fall Risk Total Jiménez Fall Scale indicates Low Risk Score (25-44 pts). Fall prevention measures have been instituted. Side Rails Up X 2 Frequent Obs/Assesments occuring Family Present and informed to notify staff if they need to leave bedside As available Patient and Family Educated on Fall Prevention Program and strategies. Assessment: 13:55 General: See triage assessment. hb 15:44 Reassessment: Patient appears in no apparent distress at this time. Patient and/or hb family updated on plan of care and expected duration. Pain level reassessed. Patient is alert, oriented x 3, equal unlabored respirations, skin warm/dry/pink. 17:38 Reassessment: Patient appears in no apparent distress at this time. Patient and/or hb family updated on plan of care and expected duration. Pain level reassessed. Patient is alert, oriented x 3, equal unlabored respirations, skin warm/dry/pink. 18:42 Reassessment: Patient appears in no apparent distress at this time. Patient and/or hb family updated on plan of care and expected duration. Pain level reassessed. Patient is alert, oriented x 3, equal unlabored respirations, skin warm/dry/pink. 19:34 Reassessment: Report called to Chantal STILES at [facility]. hb Vital Signs: 13:52 BP 108 / 85; Pulse 88; Resp 16; Temp 98.2; Pulse Ox 100% on R/A; Weight 81.65 kg; hb Height 5 ft. 7 in. (170.18 cm); Pain 8/10; 15:30 BP 128 / 82; Pulse 81; Resp 16; Pulse Ox 99% on R/A; hb 13:52 Body Mass Index 28.19 (81.65 kg, 170.18 cm) hb ED Course: 13:51 Patient arrived in ED. hb 13:52 Pola Hinds DO is Attending Physician. ms3 13:53 Triage completed. hb 13:53 Arm band placed on. EKG completed in triage. Results shown to MD. EKG completed in hb triage. Results shown to MD. 13:55 Patient has correct armband on for positive identification. hb 14:18 Inserted saline lock: 20 gauge in right antecubital area, using aseptic technique. hb Blood collected. 14:30 Tib Fib Left XRAY In Process Unspecified. EDMS 14:30 Shaina Aponte, RN is Primary Nurse. hb 15:27 Head C Spine Cap Wo Con In Process Unspecified. EDMS 17:49 Femur Left XRAY In Process Unspecified. EDMS 19:15 Kolton Mcclellan MD is Referral Physician. ms3 20:10 No provider procedures requiring assistance completed. IV discontinued, intact, hb bleeding controlled, No redness/swelling at site. Administered Medications: 15:44 Drug: traMADol 50 mg Route: PO; hb 16:48 Follow up: Response: No adverse reaction hb 17:49 Drug: Flexeril (cyclobenzaprine) 10 mg Route: PO; hb 18:32 Follow up: Response: No adverse reaction hb Medication: 13:55 VIS not applicable for this client. hb Outcome: 19:15 Discharge ordered by ms3 20:00 Discharged to Rehab Facility hb 20:00 Condition: stable 20:00 Discharge instructions given to patient, family, Instructed on discharge instructions, follow up and referral plans. medication usage, Demonstrated understanding of instructions, follow-up care, medications. 20:10 Patient left the ED. kl Signatures: Dispatcher [employer] EDMS Patricia Heard RN RN Shaina Bal RN RN Aydee Man RN RN [id number] Pola Hinds DO DO ms3 Corrections: (The following items were deleted from the chart) 22:54 21:03 No provider procedures requiring assistance completed. hb hb 22:54 21:03 IV discontinued, intact, bleeding controlled, No redness/swelling at site. hb hb
--- NOTE | 2022-06-18 19:16 | EDPHYS ---
Physician Documentation [facility] Name: Mariposa Palacios Age: 82 yrs Sex: Female : 1940 Arrival Date: 06/18/2022 Time: 13:51 Bed 12 Private MD: ED Physician Pola Hinds HPI: 06/18 14:02 This 82 yrs old Female presents to ER via EMS with complaints of Knee Pain. ms3 14:02 The patient presents with pain, that is acute. ms3 14:13 The complaints affect the left moreira. Context: The problem was sustained at home, ms3 resulted from the patient falling. Onset: The symptoms/episode began/occurred 2 day(s) ago. Modifying factors: The symptoms are alleviated by nothing. the symptoms are aggravated by weight bearing. Associated signs and symptoms: Pertinent negatives fever, rash, swelling. Severity of symptoms: At their worst the symptoms were severe, in the emergency department the symptoms are unchanged, a " 8" out of "10". Historical: - Allergies: 13:53 Benadryl; hb 13:53 Codeine; hb 13:53 injectable dye; hb 13:53 metformin; hb 13:53 Phenergan; hb - Home Meds: 13:53 acai blackman extract 500 mg Oral cap [Active]; albuterol sulfate 0.63 mg/3 mL Inhl nebu hb [Active]; allopurinol 300 mg Oral tab [Active]; amlodipine 10 mg tab [Active]; Calcarb 600 With Vitamin D 600 mg(1,500mg) -200 unit Oral tab [Active]; Diovan 40 mg Oral tab once daily [Active]; docusate sodium 100 mg Oral cap 1 cap 2 times per day [Active]; Folgard 2,000-800-0.32 unit-mcg-mg Oral tab [Active]; gabapentin 100 mg Oral tab [Active]; garlic 1,000 mg Oral cap daily [Active]; Lasix 40 mg Oral tab once daily [Active]; latanoprost 0.005 % ophthalmic drop 1 drop once daily [Active]; Lopid 600 mg Oral tab 1 tab 2 times per day [Active]; losartan 50 mg Oral tab 1 tab once daily [Active]; magnesium oxide 250 mg Oral tab daily [Active]; Norvasc 5 mg Oral tab once daily [Active]; Novolog 100 unit/mL Sub-Q soln 26 units am, 20 units pm [Active]; Plavix 75 mg Oral tab once daily [Active]; Vesicare 10 mg Oral tab [Active]; Zetia 10 mg Oral tab 1 tab once daily [Active]; Zoloft 100 mg Oral tab 1 tab once daily [Active]; - PMHx: 13:53 CHF; CVA; Diabetes - IDDM; kidney disease; hb - Immunization history:: Adult Immunizations up to date. - Social history:: Smoking status: Patient denies any tobacco usage or history of. ROS: 14:13 Constitutional: Negative for fever, and chills. Cardiovascular: Negative for chest ms3 pain, and palpitations. Respiratory: Negative for shortness of breath, cough, wheezing, and pleuritic chest pain, Abdomen/GI: Negative for abdominal pain, nausea, vomiting, diarrhea, and constipation. 14:13 Skin: Negative for injury, rash, and discoloration. 14:13 MS/extremity: Positive for pain, of the left moreira. 14:13 All other systems are negative. Exam: 14:13 Constitutional: This is a well developed, well nourished patient who is awake, alert, ms3 and in no acute distress. Head/Face: Normocephalic, atraumatic. Neck: Trachea midline, no cervical lymphadenopathy. Supple, full range of motion without nuchal rigidity, or vertebral point tenderness. No Meningismus. Chest/axilla: Normal chest wall appearance and motion. Nontender with no deformity. Cardiovascular: Regular rate and rhythm with a normal S1 and S2. No gallops, murmurs, or rubs. Normal PMI, no JVD. No pulse deficits. Respiratory: Lungs have equal breath sounds bilaterally, clear to auscultation and percussion. No rales, rhonchi or wheezes noted. No increased work of breathing, no retractions or nasal flaring. Abdomen/GI: Soft, non-tender, with normal bowel sounds. No distension or tympany. No guarding or rebound. No evidence of tenderness throughout. Skin: Warm, dry with normal turgor. Normal color with no rashes, no lesions, and no evidence of cellulitis. 14:13 Musculoskeletal/extremity: Extremities: noted in the left moreira: pain, tenderness. Vital Signs: 13:52 BP 108 / 85; Pulse 88; Resp 16; Temp 98.2; Pulse Ox 100% on R/A; Weight 81.65 kg; hb Height 5 ft. 7 in. (170.18 cm); Pain 8/10; 15:30 BP 128 / 82; Pulse 81; Resp 16; Pulse Ox 99% on R/A; hb 13:52 Body Mass Index 28.19 (81.65 kg, 170.18 cm) hb MDM: 14:01 Patient medically screened. ms3 14:13 Differential diagnosis: closed fracture, contusion, ICH. ms3 19:16 Data reviewed: vital signs, nurses notes, lab test result(s), radiologic studies, CT ms3 scan, plain films. Counseling: I had a detailed discussion with the patient and/or guardian regarding: the historical points, exam findings, and any diagnostic results supporting the discharge/admit diagnosis, lab results, radiology results, the need for outpatient follow up, to return to the emergency department if symptoms worsen or persist or if there are any questions or concerns that arise at home. ED course: Discussed case with patient's primary care physician, Dr. Mcclellan. Patient's daughter to call his office in the morning to initiate rehab. Patient's daughter states she has secured a bed at [facility] for the night. All questions were answered. Patient remains in stable condition in no apparent distress, nontoxic-appearing. Return precautions discussed include worsening symptoms, or any other concerns. Discussed CT findings of breast masses and patient and her daughter are aware and are not seeking treatment for them at this time.. 12 14:02 Order name: Basic Metabolic Panel; Complete Time: 14:55 ms3 06/18 14:02 Order name: CBC with Diff; Complete Time: 14:55 ms3 06/18 14:02 Order name: Tib Fib Left XRAY; Complete Time: 14:55 ms3 06/18 15:00 Order name: Head C Spine Cap Wo Con; Complete Time: 16:25 EDMS 06/18 14:02 Order name: Labs collected and sent; Complete Time: 14:31 ms3 06/18 16:52 Order name: Femur Left XRAY; Complete Time: 18:57 ms3 Administered Medications: 15:44 Drug: traMADol 50 mg Route: PO; hb 16:48 Follow up: Response: No adverse reaction hb 17:49 Drug: Flexeril (cyclobenzaprine) 10 mg Route: PO; hb 18:32 Follow up: Response: No adverse reaction hb Disposition Summary: 06/18/22 19:15 Discharge Ordered Location: Home ms3 Condition: Stable ms3 Diagnosis - Pain in left lower leg ms3 - Fall on same level, unspecified ms3 Followup: ms3 - With: Kolton Mcclellan MD - When: 2 - 3 days - Reason: Recheck today's complaints Discharge Instructions: - Discharge Summary Sheet ms3 - Musculoskeletal Pain ms3 Forms: - Medication Reconciliation Form ms3 - Thank You Letter ms3 - Antibiotic Education ms3 - Prescription Opioid Use ms3 Signatures: Dispatcher [employer] EDVA Shaina Aponte RN RN Pola Hinds DO DO ms3 Corrections: (The following items were deleted from the chart) 17:49 16:53 Hip Left 2 View+RAD.RAD.BRZ ordered. [facility] 06/19 12:29 06/18 19:16 ED course: Discussed case with patient's primary care physician, Dr. Mcclellan. ms3 Patient's daughter to call his office in the morning to initiate rehab. Patient's daughter states she has secured a bed at [facility] for the night. All questions were answered. Patient remains in stable condition in no apparent distress, nontoxic-appearing. Return precautions discussed include worsening symptoms, or any other concerns. ms3
[2022-06-18 20:41] VITALS: TEMP 98.2
[2022-06-18 20:42] VITALS: BP 128/82; O2SAT 99
== END 2022-06-18 20:10 | disposition home or self-care (01) ==
LOC: ER 13:48
DX: M79.662 Pain in left lower leg (principal); W18.30XA Fall on same level, unspecified, initial encounter; E11.9 Type 2 diabetes mellitus without complications; I50.9 Heart failure, unspecified; Z88.5 Allergy status to narcotic agent; Z88.8 Allergy status to other drugs, medicaments and biological substances; Z91.048 Other nonmedicinal substance allergy status
CPT/HCPCS: 36415; 70450; 71250; 72125; 80048; 85025; 99284

== ENCOUNTER 2022-08-02 16:00 | Emergency (ER) | payer OTHER ==
--- OUTSIDE RECORDS SUMMARY | 2022-08-02 16:03 | XMS REPORT | Continuity of Care Document ---
:1940 Author Organization [facility] t Address [facility] [place] [id number] Care Team Providers Name Role Phone [phone] Attending Clinician Unavailable [phone] Admitting Clinician Unavailable Problems This patient has no known problems. Allergies, Adverse Reactions, Alerts This patient has no known allergies or adverse reactions. Medications This patient has no known medications. Procedures This patient has no known procedures. Encounters Start End Encounter Admission Attending Care Care Encounter Source Date/Time Date/Time Type Type Clinicians Facility Department ID 2021-08-04 Outpatient 3 [id number] [id number] [facility] 09:58:[facility] 2021-08-04 Outpatient 3 [id number] [facility] REF [id number] [facility] 09:54:[id number] 2021-08-04 Outpatient 3 [id number] [facility] [place] [id number] [facility] 09:53:43 [facility] Results This patient has no known results.
[2022-08-02] MEDS ORDERED: ACETAMINOPHEN 500 MG TAB ONE (16:15)
--- NOTE | 2022-08-02 17:41 | RAD REPORT ---
EXAM DESCRIPTION: RAD - Shoulder Left 2 View - 08/02/2022 5:33 pm CLINICAL HISTORY: PAIN COMPARISON: Shoulder Left 2 View dated 11/24/2015; Chest Single View dated 03/26/2022 FINDINGS: Chronic deformity of the proximal left humerus is seen. Ununited remote appearing left cla vicular fracture seen. The bones are diffusely osteopenic. No acute finding evident.
--- NOTE | 2022-08-02 17:42 | RAD REPORT ---
EXAM DESCRIPTION: RAD - Knee Left 3 View - 08/02/2022 5:33 pm CLINICAL HISTORY: PAIN COMPARISON: Knee Left 3 view dated 12/14/2013 FINDINGS: Diffuse osteopenia is seen. Healed fracture noted proximal fibula. Tricompartmental arthri tic changes. No fracture or joint effusion.
--- NOTE | 2022-08-02 17:43 | RAD REPORT ---
EXAM DESCRIPTION: RAD - Hip Left 2 View - 08/02/2022 5:33 pm CLINICAL HISTORY: PAIN COMPARISON: Hip Left 2 View dated 11/16/2019; Hip Left 2 View dated 12/14/2013; Tib Fib Left dated 06/08 FINDINGS: No fracture, dislocation or AVN pattern observed. The bones are diffusely osteopenic.
--- NOTE | 2022-08-02 17:43 | RAD REPORT ---
EXAM DESCRIPTION: RAD - Pelvis - 08/02/2022 5:33 pm CLINICAL HISTORY: BLUNT TRAUMA COMPARISON: Pelvis dated 11/16/2019 FINDINGS: No fracture or dislocation seen. Mild arthritic changes are noted. Significant stool in th e colon.
--- NOTE | 2022-08-02 17:54 | EDPHYS ---
Physician Documentation [facility] Name: Mariposa Palacios Age: 82 yrs Sex: Female : 1940 Arrival Date: 08/02/2022 Time: 16:05 Bed 23 Private MD: ED Physician John Price HPI: 08/02 16:46 This 82 yrs old Female presents to ER via EMS with complaints of Fall Injury. rt 16:46 Patient presents to the ED with mechanical fall. Patient is bound to wheelchair, she rt was transferring from the wheelchair to commode when she fell hitting the right side of her body. She denies any injury to that area, but does state that she has pain to her left knee, radiating to the thigh as well as pain to the left shoulder which she states was broken previously. She denies other injury or other acute complaints. Symptoms are moderate in severity, aching nature, not otherwise radiating, no other aggravating or alleviating factors.. Historical: - Allergies: 16:08 Benadryl; ld1 16:08 Codeine; ld1 16:08 injectable dye; ld1 16:08 metformin; ld1 16:08 Phenergan; ld1 - PMHx: 16:08 CHF; CVA; kidney disease; Diabetes - IDDM; ld1 - Immunization history:: Adult Immunizations up to date, Client reports receiving the 2nd dose of the Covid vaccine. - Social history:: Smoking status: Patient denies any tobacco usage or history of. Patient/guardian denies using alcohol. - Family history:: not pertinent. ROS: 16:46 Constitutional: Negative for fever, chills, and weight loss, Eyes: Negative for injury, rt pain, redness, and discharge, Cardiovascular: Negative for chest pain, palpitations, and edema, Respiratory: Negative for shortness of breath, cough, wheezing, and pleuritic chest pain, Abdomen/GI: Negative for abdominal pain, nausea, vomiting, diarrhea, and constipation, Skin: Negative for injury, rash, and discoloration, Neuro: Negative for headache, weakness, numbness, tingling, and seizure, Psych: Negative for depression, anxiety, suicide ideation, homicidal ideation, and hallucinations. 16:46 MS/extremity: Positive for injury, pain. Exam: 16:46 Constitutional: This is a well developed, well nourished patient who is awake, alert, rt and in no acute distress. Head/Face: Normocephalic, atraumatic. Chest/axilla: Normal chest wall appearance and motion. Nontender with no deformity. No lesions are appreciated. Cardiovascular: Regular rate and rhythm with a normal S1 and S2. No gallops, murmurs, or rubs. Normal PMI, no JVD. No pulse deficits. Respiratory: Lungs have equal breath sounds bilaterally, clear to auscultation and percussion. No rales, rhonchi or wheezes noted. No increased work of breathing, no retractions or nasal flaring. Abdomen/GI: Soft, non-tender, with normal bowel sounds. No distension or tympany. No guarding or rebound. No evidence of tenderness throughout. Neuro: Awake and alert, GCS 15, oriented to person, place, time, and situation. Cranial nerves II-XII grossly intact. Motor strength 5/5 in all extremities. Sensory grossly intact. Cerebellar exam normal. Normal gait. Psych: Awake, alert, with orientation to person, place and time. Behavior, mood, and affect are within normal limits. 16:46 Musculoskeletal/extremity: Tenderness to the left knee, no deformities noted, tenderness to the left shoulder, no deformities noted, pulse, motor, sensation intact. Vital Signs: 16:06 BP 176 / 72; Pulse 75; Resp 16; Temp 97.9(O); Pulse Ox 100% on R/A; Weight 90 kg; ld1 Height 5 ft. 5 in. (165.10 cm); Pain 7/10; 17:45 BP 175 / 89; Pulse 64; Resp 18; Pulse Ox 99% on R/A; Pain 6/10; ld1 16:06 Body Mass Index 33.02 (90.00 kg, 165.10 cm) ld1 MDM: 16:07 Patient medically screened. rt 18:03 Differential diagnosis: Head injury, fracture, soft tissue injury, contusion. Data rt reviewed: vital signs, nurses notes, radiologic studies. Management of patient was discussed with the following: Discussed with case management, will arrange for patient to have a bed at [facility].. I considered the following discharge prescriptions or medication management in the emergency department Medications were administered in the Emergency Department. See MAR. Independent interpretation of the following test(s) in the Emergency Department X-Ray: My interpretation is No obvious acute fracture. ED course: Patient presents to the ED with repeated fall, she states that she is not stable enough to be at home. The fall was clearly mechanical, EKG is not needed. Do not suspect syncopal event. Patient was only on the ground for short period of time, does not require work-up for rhabdomyolysis. X-rays show no acute findings. At this time, I do not believe there is a safe route of discharge home, will send [facility].. 08/02 16:07 Order name: Knee Left 3 View XRAY; Complete Time: 17:46 rt 08/02 16:07 Order name: Pelvis XRAY; Complete Time: 17:46 rt 08/02 16:07 Order name: Hip Left 2 View XRAY; Complete Time: 17:46 rt 08/02 16:07 Order name: Shoulder Left (2 View) XRAY; Complete Time: 17:46 rt Administered Medications: 16:16 Drug: Tylenol 1000 mg Route: PO; ld1 Disposition Summary: 08/02/22 17:53 Discharge Ordered Location: Rehab Facility rt Problem: an ongoing problem rt Symptoms: are unchanged rt Condition: Stable rt Diagnosis - Repeated falls rt Followup: rt - With: Private Physician - When: 2 - 3 days - Reason: Discharge Instructions: - Discharge Summary Sheet rt - Fall Prevention in the Home, Adult rt Forms: - Medication Reconciliation Form rt - Thank You Letter rt - Antibiotic Education rt - Prescription Opioid Use rt Signatures: Dispatcher [employer] Bethany Angel RN RN ld1 John Price MD MD rt
--- NOTE | 2022-08-02 17:54 | ER ---
Nurse's Notes [facility] Name: Mariposa Palacios Age: 82 yrs Sex: Female : 1940 Arrival Date: 08/02/2022 Time: 16:05 Bed 23 Private MD: Diagnosis: Repeated falls Presentation: 08/02 16:06 Chief complaint: EMS states: toned out to pt home for fall. Pt was transferring from ld1 wheelchair to toilet and fell - denies LOC - did not hit head. C/O pain to left shoulder \T\ left knee. Coronavirus screen: At this time, the client does not indicate any symptoms associated with coronavirus-19. Ebola Screen: No symptoms or risks identified at this time. Initial Sepsis Screen: Does the patient meet any 2 criteria? No. Patient's initial sepsis screen is negative. Does the patient have a suspected source of infection? No. Patient's initial sepsis screen is negative. Risk Assessment: Do you want to hurt yourself or someone else? Patient reports no desire to harm self or others. Onset of symptoms was August 02, 2022 at 16:08. 16:06 Method Of Arrival: EMS: [facility] ld1 16:06 Acuity: DOMINIQUE 3 ld1 Triage Assessment: 16:08 General: Appears in no apparent distress. comfortable, Behavior is calm, cooperative, ld1 appropriate for age. Pain: Complains of pain in anterior aspect of left shoulder and left knee Pain does not radiate. Pain currently is 7 out of 10 on a pain scale. Quality of pain is described as throbbing, Pain began suddenly, Is continuous. EENT: No signs and/or symptoms were reported regarding the EENT system. Neuro: Level of Consciousness is awake, alert, obeys commands, Oriented to person, place, time, situation. Cardiovascular: Capillary refill < 3 seconds Patient's skin is warm and dry. Respiratory: Airway is patent Respiratory effort is even, unlabored. GI: Abdomen is flat, non-distended. : No signs and/or symptoms were reported regarding the genitourinary system. Derm: No signs and/or symptoms reported regarding the dermatologic system. Musculoskeletal: No signs and/or symptoms reported regarding the musculoskeletal system. Historical: - Allergies: 16:08 Benadryl; ld1 16:08 Codeine; ld1 16:08 injectable dye; ld1 16:08 metformin; ld1 16:08 Phenergan; ld1 - PMHx: 16:08 CHF; CVA; kidney disease; Diabetes - IDDM; ld1 - Immunization history:: Adult Immunizations up to date, Client reports receiving the 2nd dose of the Covid vaccine. - Social history:: Smoking status: Patient denies any tobacco usage or history of. Patient/guardian denies using alcohol. - Family history:: not pertinent. Screenin:09 [facility] ED Fall Risk Assessment (Adult) History of falling in the last 3 months, ld1 including since admission Yes- single mechanical fall (1 pt) Confusion or Disorientation No (0 pts) Intoxicated or Sedated No (0 pts) Impaired Gait Yes (1 pt) Mobility Assist Device Used Yes (1 pt) Altered Elimination No (0 pt) Score/Fall Risk Level 0 - 2 = Low Risk. Abuse screen: Denies threats or abuse. Denies injuries from another. Nutritional screening: No deficits noted. Tuberculosis screening: No symptoms or risk factors identified. Assessment: 16:09 Reassessment: See triage assessment. ld1 17:45 Reassessment: Patient appears in no apparent distress at this time. No changes from ld1 previously documented assessment. Patient and/or family updated on plan of care and expected duration. Pain level reassessed. Patient is alert, oriented x 3, equal unlabored respirations, skin warm/dry/pink. Vital Signs: 16:06 BP 176 / 72; Pulse 75; Resp 16; Temp 97.9(O); Pulse Ox 100% on R/A; Weight 90 kg; ld1 Height 5 ft. 5 in. (165.10 cm); Pain 7/10; 17:45 BP 175 / 89; Pulse 64; Resp 18; Pulse Ox 99% on R/A; Pain 6/10; ld1 16:06 Body Mass Index 33.02 (90.00 kg, 165.10 cm) ld1 ED Course: 16:05 Patient arrived in ED. ld1 16:05 John Price MD is Attending Physician. rt 16:08 Triage completed. ld1 16:08 Arm band placed on right wrist. ld1 16:09 Patient has correct armband on for positive identification. Placed in gown. Bed in low ld1 position. Call light in reach. Side rails up X2. quality assurance monitor chassis on. Pulse ox on. NIBP on. Door closed. Noise minimized. Warm blanket given. 16:09 No provider procedures requiring assistance completed. ld1 16:14 contacted [facility], will send a rep out to help with admit to rehab. bd 16:15 Bethany Shook, RN is Primary Nurse. ld1 17:30 Assisted with bedpan. Cleaned of incontinence. Linen changed. ld1 17:34 Knee Left 3 View XRAY In Process Unspecified. EDMS 17:34 Pelvis XRAY In Process Unspecified. EDMS 17:34 Hip Left 2 View XRAY In Process Unspecified. EDMS 17:35 Shoulder Left (2 View) XRAY In Process Unspecified. EDMS 18:36 Patient did not have IV access during this emergency room visit. jl7 Administered Medications: 16:16 Drug: Tylenol 1000 mg Route: PO; ld1 Medication: 16:09 VIS not applicable for this client. ld1 Output: 17:30 Urine: 450ml (Voided); Total: 450ml. ld1 Outcome: 17:53 Discharge ordered by . rt 18:36 Discharged to home via ambulance. jl7 18:36 Condition: stable 18:36 Discharge instructions given to patient, family, Instructed on discharge instructions, follow up and referral plans. Demonstrated understanding of instructions, follow-up care. 18:36 Patient left the ED. jl7 Signatures: Dispatcher [employer] EDMS Natalee Alas Aydee Sun RN RN jl7 Bethany Shook, RN RN ld1 John Price MD MD rt
[2022-08-02 19:07] VITALS: TEMP 97.9
[2022-08-02 19:08] VITALS: BP 175/89; O2SAT 99
== END 2022-08-02 18:36 | disposition home or self-care (01) ==
LOC: ER 16:00
DX: M25.512 Pain in left shoulder (principal); M25.562 Pain in left knee; R29.6 Repeated falls
CPT/HCPCS: 72170

== ENCOUNTER 2022-09-28 13:00 | Emergency (ER) | payer OTHER ==
--- OUTSIDE RECORDS SUMMARY | 2022-09-28 13:28 | XMS REPORT | Continuity of Care Document ---
:1940 Author Organization [facility] t Address [address] [place] [address] Care Team Providers Name Role Phone [phone] Attending Clinician Unavailable [phone] Admitting Clinician Unavailable Problems This patient has no known problems. Allergies, Adverse Reactions, Alerts This patient has no known allergies or adverse reactions. Medications This patient has no known medications. Procedures This patient has no known procedures. Encounters Start End Encounter Admission Attending Care Care Encounter Source Date/Time Date/Time Type Type Clinicians Facility Department ID 2021-08-04 Outpatient [id number] [place] [id number] [facility] 09:58:11 [facility] 2021-08-04 Outpatient 3 [id number] [facility] REF [id number] [facility] 09:54:11 [facility] 2021-08-04 Outpatient 3 [id number] [facility] REF [id number] [facility] 09:53:43 [facility] Results This patient has no known results.
[2022-09-28] MEDS ORDERED: ACETAMINOPHEN 500 MG TAB ONE (13:35)
[2022-09-28 13:39] LABS: Absolute Lymphocytes (CBC) 1.6 K/uL (0.7-4.9); Hematocrit 31.3 % (36.0-45.0); Lymphocytes % 22.2 % (15.3-44.8); MPV 7.4 fL (7.6-11.3)
[2022-09-28 13:57] LABS: Potassium 4.3 mEq/L (3.5-5.1)
[2022-09-28 14:03] LABS: Specific Gravity 1.014 (1.005-1.030); Urine Bacteria None Seen /HPF (<20); Urine Bilirubin NEGATIVE (Negative); Urine Blood Negative (Negative); Urine Clarity Clear (Clear); Urine Color Light-Yellow (Yellow); Urine Glucose NEGATIVE (Negative); Urine Mucus Slight /HPF (None Seen); Urine Protein TRACE (Negative); Urine RBC <5 /HPF (None Seen); Urine Urobilinogen Normal (Normal)
--- NOTE | 2022-09-28 14:36 | RAD REPORT ---
EXAM DESCRIPTION: CT - [id number] - 09/28/2022 2:17 pm CLINICAL HISTORY: Trauma, head and neck injury. PAIN COMPARISON: Head C Spine Mpr Wo Con dated 09/04/2020 TECHNIQUE: Axial 5 mm thick images of the head were obtained. Axial 2 mm thick images of the cervical spine were obtained with sagittal and coronal reconstruction images generated and reviewed. All CT scans are performed using dose optimization technique as appropriate and may include automated exposure control or mA/KV adjustment according to patient size. FINDINGS: CT HEAD WITHOUT CONTRAST: No acute hemorrhage, hydrocephalus or extra-axial collection is identified.No areas of brain edema or midline shift. Moderate-size remote right parietal region infarct. Cerebral atrophy. Mild thickening right maxillary sinus.The calvarium is intact. CT CERVICAL SPINE WITHOUT CONTRAST: No fracture or subluxation.No prevertebral soft tissues swelling is identified. Apical scarring. Mult ilevel degenerative changes are present in the spine. Anterolisthesis of C4 on C5 is likely related t o underlying degenerative changes. Varying degrees of neural foraminal narrowing noted. Fusion at C3- 4 may be developmental. IMPRESSION: No acute intracranial or cervical spine findings.
[2022-09-28] MEDS ORDERED: Ringers Lactate 1,000 ML IV ONE (14:48)
--- NOTE | 2022-09-28 14:56 | RAD REPORT ---
EXAM DESCRIPTION: RAD - Ribs Bilateral W/Chest - 09/28/2022 2:48 pm CLINICAL HISTORY: BLUNT CHEST TRAUMA COMPARISON: 03/26/2022 FINDINGS: Cardiomegaly. No acute process in the lungs. Mild diffuse prominence of the pulmonary inte rstitium is similar. Multiple mildly displaced left-sided rib fractures are identified. This includes the left sixth, seventh, and probably eighth ribs. No pneumothorax. IMPRESSION: Mildly displaced left sixth through eighth rib fractures. No pneumothorax. No acute proc ess in the lungs.
--- NOTE | 2022-09-28 15:02 | RAD REPORT ---
EXAM DESCRIPTION: RAD - Knee Left 2 View - 09/28/2022 2:50 pm CLINICAL HISTORY: PAIN COMPARISON: Knee Left 3 View dated 08/02/2022; Knee Left 3 view dated 12/14/2013 FINDINGS/IMPRESSION: No acute fracture. No malalignment. Moderate to severe medial compartment narro wing.
--- NOTE | 2022-09-28 15:02 | RAD REPORT ---
EXAM DESCRIPTION: RAD - Humerus Left - 09/28/2022 2:50 pm CLINICAL HISTORY: PAIN COMPARISON: Humerus Left dated 09/04/2020 FINDINGS/IMPRESSION: Deformity at the left proximal humerus appears chronic and healed. No acute fra ctures identified. Osteopenia.
[2022-09-28] MEDS ORDERED: MORPHINE 2 MG/ML SYR ONE (15:14)
--- NOTE | 2022-09-28 15:48 | EKG ---
Test Date: 2022-09-28 Test Time: 13:28:34 Jinriksha Driver: JOSE CRUZ MEASUREMENT RESULTS: Intervals: Rate: 60 MI: 172 QRSD: 94 QT: 434 QTc: 434 [place]: P: 15 MI: 172 QRS: -2 T: 54 INTERPRETIVE STATEMENTS: Normal sinus rhythm Compared to ECG 03/26/2022 20:32:08 Left ventricular hypertrophy no longer present Electronically Signed On 09-28-22 15:47:34 CDT by Perez Marcano
--- NOTE | 2022-09-28 18:13 | ER ---
Nurse's Notes [facility] Name: Mariposa Palacios Age: 82 yrs Sex: Female : 1940 Arrival Date: 09/28/2022 Time: 13:01 Bed 20 Private MD: Diagnosis: Multiple fractures of ribs;Fall on same level, unspecified Presentation: 09/28 13:11 Chief complaint: EMS states: patient fell yesterday getting onto the toilet and hurt kc6 her left ribs. stated she fell again this morning getting onto the toilet and hurt her left shoulder this time. denies LOC. BGL en route 244. Coronavirus screen: Vaccine status: Patient reports being unvaccinated. At this time, the client does not indicate any symptoms associated with coronavirus-19. Ebola Screen: No symptoms or risks identified at this time. Initial Sepsis Screen: Does the patient meet any 2 criteria? No. Patient's initial sepsis screen is negative. Does the patient have a suspected source of infection? No. Patient's initial sepsis screen is negative. Risk Assessment: Do you want to hurt yourself or someone else? Patient reports no desire to harm self or others. Onset of symptoms was September 28, 2022. 13:11 Method Of Arrival: EMS: [facility] kc6 13:11 Acuity: DOMINIQUE 3 kc6 Triage Assessment: 13:13 General: Appears in no apparent distress. comfortable, Behavior is calm, cooperative, kc6 appropriate for age. Pain: Complains of pain in left ribs, left shoulder Pain does not radiate. EENT: No signs and/or symptoms were reported regarding the EENT system. Neuro: [place] Agitation-Sedation Scale (RASS): 0 - Alert and Calm Level of Consciousness is awake, alert, obeys commands, Oriented to person, place, time, situation, Appropriate for age. Cardiovascular: Capillary refill < 3 seconds. Respiratory: Airway is patent Trachea midline Respiratory effort is even, unlabored, Respiratory pattern is regular, symmetrical. GI: No signs and/or symptoms were reported involving the gastrointestinal system. : No signs and/or symptoms were reported regarding the genitourinary system. Derm: Skin is pink, warm \T\ dry. skin tear to the right forearm. Musculoskeletal: No signs and/or symptoms reported regarding the musculoskeletal system. Circulation, motion, and sensation intact. Capillary refill < 3 seconds, Range of motion: intact in all extremities. Historical: - Allergies: 13:13 Benadryl; kc6 13:13 Codeine; kc6 13:13 injectable dye; kc6 13:13 metformin; kc6 13:13 Phenergan; kc6 - PMHx: 13:13 CHF; CVA; Diabetes - IDDM; kidney disease; kc6 - Immunization history:: Client reports having NOT received the Covid vaccine. Flu vaccine is not up to date. - Social history:: Smoking status: Patient denies any tobacco usage or history of. Screenin:11 [facility] ED Fall Risk Assessment (Adult) History of falling in the last 3 months, kc6 including since admission Yes- single mechanical fall (1 pt) Confusion or Disorientation No (0 pts) Intoxicated or Sedated No (0 pts) Impaired Gait No (0 pts) Mobility Assist Device Used No (0 pt) Altered Elimination No (0 pt) Score/Fall Risk Level 0 - 2 = Low Risk Oriented to surroundings, Maintained a safe environment, Educated pt \T\ family on fall prevention, incl call for assistance when getting out of bed, Assessed \T\ reinforced patient's understanding of fall precautions, Hourly rounding (assess needs \T\ fall precautionary measures) done. Abuse screen: Denies threats or abuse. Denies injuries from another. Nutritional screening: No deficits noted. Tuberculosis screening: No symptoms or risk factors identified. Assessment: 13:11 Reassessment: please see triage assessment. kc6 14:11 Reassessment: Patient appears in no apparent distress at this time. No changes from kc6 previously documented assessment. Patient and/or family updated on plan of care and expected duration. Pain level reassessed. Patient is alert, oriented x 3, equal unlabored respirations, skin warm/dry/pink. 15:11 Reassessment: Patient appears in no apparent distress at this time. No changes from kc6 previously documented assessment. Patient and/or family updated on plan of care and expected duration. Pain level reassessed. Patient is alert, oriented x 3, equal unlabored respirations, skin warm/dry/pink. 16:11 Reassessment: Patient appears in no apparent distress at this time. No changes from kc6 previously documented assessment. Patient and/or family updated on plan of care and expected duration. Pain level reassessed. Patient is alert, oriented x 3, equal unlabored respirations, skin warm/dry/pink. 17:09 Reassessment: Patient appears in no apparent distress at this time. No changes from 6 previously documented assessment. Patient and/or family updated on plan of care and expected duration. Pain level reassessed. Patient is alert, oriented x 3, equal unlabored respirations, skin warm/dry/pink. 17:45 Reassessment: Wilmer from rehab at bedside. kc6 18:43 Reassessment: Faxed clinicals to Michaelle at [facility] who states that ss patient has been accepted. DaughterCa is relieved that it has been arranged that patient will go to prison upon discharge. Awaiting Return phone call from Michaelle. 18:45 Reassessment: Patient appears in no apparent distress at this time. No changes from 6 previously documented assessment. Patient and/or family updated on plan of care and expected duration. Pain level reassessed. Patient is alert, oriented x 3, equal unlabored respirations, skin warm/dry/pink. Vital Signs: 13:11 BP 155 / 56; Pulse 61; Resp 18 S; Temp 97.7(O); Pulse Ox 100% on R/A; Weight 90.72 kg kc6 (R); Height 5 ft. 9 in. (R); 14:49 BP 157 / 65; Pulse 65; Resp 19 S; Pulse Ox 99% on R/A; kc6 15:23 BP 163 / 60; Pulse 61; Resp 17 S; Pulse Ox 100% on R/A; kc6 16:27 BP 162 / 77; Pulse 67; Resp 16 S; Pulse Ox 99% on R/A; kc6 17:09 BP 131 / 67; Pulse 65; Resp 18 S; Pulse Ox 99% on R/A; kc6 18:55 BP 158 / 75; Pulse 63; Resp 17 S; Pulse Ox 99% on R/A; kc6 13:11 Body Mass Index 29.53 (90.72 kg, 175.26 cm) 6 ED Course: 13:01 Patient arrived in ED. kc6 13:02 Gordon Ramos MD is Attending Physician. jr11 13:11 Dinah Camacho RN is Primary Nurse. kc6 13:13 Triage completed. kc6 13:13 Arm band placed on. kc6 13:15 Patient has correct armband on for positive identification. Bed in low position. Call kc6 light in reach. Side rails up X2. 13:29 Inserted saline lock: 20 gauge in right antecubital area, using aseptic technique. kc6 Blood collected. 14:19 CT Head C Spine In Process Unspecified. EDMS 14:50 Ribs Bilateral W/Chest XRAY In Process Unspecified. EDMS 14:50 Humerus Left XRAY In Process Unspecified. EDMS 14:50 Knee Left 2 View XRAY In Process Unspecified. EDMS 19:14 No provider procedures requiring assistance completed. IV discontinued, intact, kc6 bleeding controlled, No redness/swelling at site. Pressure dressing applied. Administered Medications: 13:34 Drug: Acetaminophen PO 1000 mg Route: PO; kc6 14:49 Follow up: Response: No adverse reaction; Pain is decreased kc6 14:47 Drug: Lactated Ringers Solution IV 500 ml Route: IV; Rate: 500 ml/hr; Site: right kc6 antecubital; 18:56 Follow up: Response: No adverse reaction; IV Status: Completed infusion; IV Intake: kc6 500ml 15:07 CANCELLED (Duplicate Order): Ketorolac IVP 10 mg 10 mg IVP once jr11 15:13 Drug: morphine IVP or IV 2 mg Route: IVP; Infused Over: 4 mins; Site: right antecubital;kc6 16:13 Follow up: Response: No adverse reaction; Pain is decreased; RASS: Alert and Calm (0) kc6 Medication: 19:15 VIS not applicable for this client. kc6 Intake: 18:56 IV: 500ml; Total: 500ml. kc6 Outcome: 18:12 Discharge ordered by . yang 19:14 Discharged to prison. Transfer form completed. by EMS kc6 19:14 Condition: stable 19:14 Discharge instructions given to patient, family, Instructed on discharge instructions, follow up and referral plans. the need for transfer, medication usage, Demonstrated understanding of instructions, follow-up care, medications, Prescriptions given X 1. 19:15 Patient left the ED. kc6 Signatures: Dispatcher [employer] EDMS Eveline Garsia RN RN ss Rosillo, Jose, MD MD jr11 Dinah Camacho RN RN kc6
--- NOTE | 2022-09-28 18:13 | EDPHYS ---
Physician Documentation [facility] Name: Mariposa Palacios Age: 82 yrs Sex: Female : 1940 Arrival Date: 09/28/2022 Time: 13:01 Bed 20 Private MD: ED Physician Gordon Ramos HPI: 09/28 13:15 Patient is an 82-year-old female that 2 days ago had a fall onto her left shoulder jr11 while getting into the toilet, states that she had generalized weakness. Patient again, fell this morning, hitting her left ribs. Patient is on Plavix as a blood thinner, complaining of pain to the left ribs mostly posterior left, moderate to severe worse with breathing. Patient other than that denies any headache denies any neck pain patient states she has chronic left knee pain but it is made worse after the fall. No nausea no vomiting no significant abdominal pain.Pt with known UTI, on 4 days on abx . Historical: - Allergies: 13:13 Benadryl; kc6 13:13 Codeine; kc6 13:13 injectable dye; kc6 13:13 metformin; kc6 13:13 Phenergan; kc6 - PMHx: 13:13 CHF; CVA; Diabetes - IDDM; kidney disease; kc6 - Immunization history:: Client reports having NOT received the Covid vaccine. Flu vaccine is not up to date. - Social history:: Smoking status: Patient denies any tobacco usage or history of. ROS: 13:15 All other systems are negative. jr11 Exam: 13:15 Constitutional: This is a well developed, well nourished patient who is awake, alert, jr11 and in no acute distress. Head/Face: Normocephalic, atraumatic. Eyes: Extra-ocular motions intact. Lids and lashes normal. Conjunctiva and sclera are non-icteric and not injected. Cornea within normal limits. Periorbital areas with no swelling, redness, or edema. ENT: Nares patent. No nasal discharge, no septal abnormalities noted. Oropharynx with no redness, swelling, or masses, exudates, or evidence of obstruction, uvula midline. Mucous membranes moist. Chest/axilla: TTP L lateral chest wall Cardiovascular: Regular rate and rhythm with a normal S1 and S2. No gallops, murmurs, or rubs. Normal PMI, no JVD. No pulse deficits. Skin: quarter size skin tear to R mid forearm MS/ Extremity: Pulses equal, no cyanosis. Neurovascular intact. Full, normal range of motion except painful ROM L shoulder L knee, N/V intact distally Vital Signs: 13:11 BP 155 / 56; Pulse 61; Resp 18 S; Temp 97.7(O); Pulse Ox 100% on R/A; Weight 90.72 kg kc6 (R); Height 5 ft. 9 in. (R); 14:49 BP 157 / 65; Pulse 65; Resp 19 S; Pulse Ox 99% on R/A; kc6 15:23 BP 163 / 60; Pulse 61; Resp 17 S; Pulse Ox 100% on R/A; kc6 16:27 BP 162 / 77; Pulse 67; Resp 16 S; Pulse Ox 99% on R/A; kc6 17:09 BP 131 / 67; Pulse 65; Resp 18 S; Pulse Ox 99% on R/A; kc6 18:55 BP 158 / 75; Pulse 63; Resp 17 S; Pulse Ox 99% on R/A; kc6 13:11 Body Mass Index 29.53 (90.72 kg, 175.26 cm) kc6 MDM: 13:10 Patient medically screened. jr11 13:15 Differential diagnosis: abrasion, closed head injury, fracture, sprain, strain. Data jr11 reviewed: vital signs, nurses notes. ED course: ,Patient is an 82-year-old female that fell again today, recent diagnosis of UTI, this can be causing the generalized weakness, for her we will get a CT rule out intracranial bleed given that she is on Plavix and for her areas of pain to include the ribs arm and knee, will image, fracture versus strain versus contusion.. 13:50 ED course: EKG interpreted by me shows normal sinus rhythm, left axis deviation, normal jr11 intervals, no acute ST changes. Rhythm strip interpretation by me shows normal sinus rhythm rate of 60.. 18:11 ED course: Attempted to place patient in rehab however she has an advantage plan and jr11 cannot go out of the emergency department, daughter comfortable watching her until she gets authorized, she has home health, for rehab, they will add the occupational health piece of it and will follow-up with the daughter. ER warnings given all results explained. 18:32 ED course: X-ray to my read shows left-sided rib fracture, per daughter, she is going jr11 to go to assisted living straight from the emergency department and comfortable with plan of care.. 09/28 13:13 Order name: Basic Metabolic Panel; Complete Time: 14:05 [facility] 09/28 13:13 Order name: CBC with Diff; Complete Time: 14:05 [facility] 09/28 13:13 Order name: UAM; Complete Time: 14:05 09/28 13:13 Order name: CT Head C Spine; Complete Time: 14:46 09/28 13:13 Order name: Ribs Bilateral W/Chest XRAY; Complete Time: 15:05 [facility] 09/28 13:13 Order name: Humerus Left XRAY; Complete Time: 15:05 09/28 13:13 Order name: Knee Left 2 View XRAY; Complete Time: 15:05 [facility] 09/28 17:49 Order name: INCENTIVE SPIROMETRY 09/28 13:13 Order name: EKG; Complete Time: 13:13 [facility] 09/28 15:14 Order name: Physical Therapy Consult; Complete Time: 15:57 EDMS 09/28 13:13 Order name: Labs collected and sent; Complete Time: 13:29 Administered Medications: 13:34 Drug: Acetaminophen PO 1000 mg Route: PO; kc6 14:49 Follow up: Response: No adverse reaction; Pain is decreased kc6 14:47 Drug: Lactated Ringers Solution IV 500 ml Route: IV; Rate: 500 ml/hr; Site: right kc6 antecubital; 18:56 Follow up: Response: No adverse reaction; IV Status: Completed infusion; IV Intake: kc6 500ml 15:07 CANCELLED (Duplicate Order): Ketorolac IVP 10 mg 10 mg IVP once jr11 15:13 Drug: morphine IVP or IV 2 mg Route: IVP; Infused Over: 4 mins; Site: right antecubital;kc6 16:13 Follow up: Response: No adverse reaction; Pain is decreased; RASS: Alert and Calm (0) kc6 Disposition Summary: 09/28/22 18:12 Discharge Ordered Location: Home [facility] Condition: Fair jr11 Diagnosis - Multiple fractures of ribs jr11 - Fall on same level, unspecified jr11 Discharge Instructions: - Discharge Summary Sheet jr11 - Rib Fracture jr11 Forms: - Medication Reconciliation Form jr11 - Thank You Letter jr11 - Antibiotic Education jr11 - Prescription Opioid Use jr11 Signatures: Dispatcher [employer] EDGordon Barr MD MD jr11 Dinah Camacho RN RN kc6 Corrections: (The following items were deleted from the chart) 15:07 15:06 Ketorolac IVP 10 mg 10 mg IVP once ordered. jr11 jr11
[2022-09-28 19:40] VITALS: TEMP 97.7
[2022-09-28 19:43] VITALS: O2SAT 99
[2022-09-28 19:46] VITALS: BP 158/75
== END 2022-09-28 19:15 | disposition home or self-care (01) ==
LOC: ER 13:00
DX: S22.42XA Multiple fractures of ribs, left side, initial encounter for closed fracture (principal); W18.11XA Fall from or off toilet without subsequent striking against object, initial encounter; Y93.9 Activity, unspecified; Y92.012 Bathroom of single-family (private) house as the place of occurrence of the external cause; E11.9 Type 2 diabetes mellitus without complications; I50.9 Heart failure, unspecified; N28.9 Disorder of kidney and ureter, unspecified; Z86.73 Personal history of transient ischemic attack (TIA), and cerebral infarction without residual deficits
CPT/HCPCS: 93005; 85025; 81001; 80048; 36415; 70450; 72125; 71111; 73060; 73560; J2270; J7120

== ENCOUNTER → 2023-07-07 | Emergency (ER) | payer OTHER ==
[~2023-07-07] MED LIST: FENTANYL CITR 100 MCG/2 ML ONE; HYDROCODONE/APAP 10/325 TAB ONE; NA CHLORIDE 0.9% 1,000 ML ONE
--- OUTSIDE RECORDS SUMMARY | 2023-07-07 15:19 | XMS REPORT | Continuity of Care Document ---
Author Name Unknown Address [address] [place] [address]. [address] [place] [address] [facility] Address [address] [facility]. [address] [place] [address] Care Team Providers Care Community Living Instructor Name Role Phone [phone] Attending Clinician Unavailable Jamal Gomes Anavella Attending Cli nician Unavailable [phone] Admitting Clinician Unavailable Roberto Gomes Anav Admitting Clinician U navailable Payers Payer Name Policy Type Policy Number Effective Date Expirati on Date Source [facility] [id number] Encounters Start Date/Time End Date/Time Encounter Type Admission Type Attending Clinicians Care Facility Care Department Encounter ID Source 2022-10-26 09:38:52 Outpatient 3 [id number] [facility] KRISTOFER [id number] [facility] 2022-10-18 08:34:08 Outpatient 3 [id number] [facility] REF [id number] [facility] 2021-08-04 09:58:11 Outpatient 3 [id number] [place] [id number] [facility] 2021-08-04 09:54:11 Outpatient 3 [id number] [facility] REF [id number] [facility] 2021-08-04 09:53:43 Outpatient 3 [id number] [facility] REF [id number] [facility] 2022-10-27 13:03:00 2022-11-18 13:30:00 Inpatient 3 Jamal Serna [facility] CVA [id number] [facility]
--- NOTE | 2023-07-07 17:22 | RAD REPORT ---
EXAM DESCRIPTION: RAD - Foot Right 3 View - 07/07/2023 5:11 pm CLINICAL HISTORY: Right foot pain FINDINGS: No fracture or dislocation is seen Moderate posterior calcaneal spur. Osteoporosis
[2023-07-07 18:44] LABS: Absolute Lymphocytes (CBC) 3.4 K/uL (0.7-4.9); Hematocrit 32.2 % (36.0-45.0); Lymphocytes % 38.8 % (15.3-44.8); MCV 93.3 fL (80-100); MPV 7.8 fL (7.6-11.3); Platelets 279 thou/uL (152-406); RBC Red Blood Cell Count 3.45 M/uL (3.86-4.86)
[2023-07-07 18:58] LABS: Potassium 4.4 mEq/L (3.5-5.1)
[2023-07-07 19:50] LABS: Specific Gravity 1.015 (1.005-1.030); Urine Bacteria <20 /HPF (<20); Urine Bilirubin NEGATIVE (Negative); Urine Blood Negative (Negative); Urine Clarity Turbid (Clear); Urine Color Light-Yellow (Yellow); Urine Glucose NEGATIVE (Negative); Urine Mucus Slight /HPF (None Seen); Urine Protein NEGATIVE (Negative); Urine RBC <5 /HPF (None Seen); Urine Urobilinogen Normal (Normal); Urine pH 5.5 (5.0-7.0)
--- NOTE | 2023-07-07 20:30 | EDPHYS ---
Physician Documentation [facility] Name: Mariposa Palacios Age: 83 yrs Sex: Female : 1940 Arrival Date: 07/07/2023 Time: 15:17 Bed 7 Private MD: ED Physician Mark Dove HPI: 07/07 16:00 This 83 yrs old Female presents to ER via Wheelchair with complaints of Foot Pain. [facility] 16:00 The patient presents with pain, that is chronic. [facility] 16:00 The complaints affect the right foot. [facility] 16:00 83-year-old female with a PMH of CHF, CVA, diabetes, and kidney disease presents to the [facility] ER for multiple complaints. Reports that she has a history of both gout and diabetic neuropathy and has had intense right foot pain since last night. She reports that she is taken Tylenol and gabapentin with no relief. Denies any injury but states that she has decreased sensation in her foot at times so she may have injured it and not realized it. She also reports UTI symptoms for the past 3 days with mild brain fog. History of frequent UTIs.. Historical: - Allergies: 16:02 Benadryl; bp 16:02 Codeine; bp 16:02 injectable dye; bp 16:02 metformin; bp 16:02 Phenergan; bp - PMHx: 16:02 CHF; CVA; Diabetes - IDDM; kidney disease; Gout; NEUROPATHY; bp - Immunization history:: Adult Immunizations up to date. - Social history:: Smoking status: Patient denies any tobacco usage or history of. ROS: 16:00 MS/extremity: Positive for pain, [facility] 16:00 Constitutional: Negative for fever, chills, and weight loss, Eyes: Negative for injury, [facility] pain, redness, and discharge, Neck: Negative for injury, pain, and swelling, Cardiovascular: Negative for chest pain, palpitations, and edema, Respiratory: Negative for shortness of breath, cough, wheezing, and pleuritic chest pain, Abdomen/GI: Negative for abdominal pain, nausea, vomiting, diarrhea, and constipation, Back: Negative for injury and pain, Skin: Negative for injury, rash, and discoloration, Neuro: Negative for headache, weakness, numbness, tingling, and seizure, 16:00 : Positive for urinary symptoms, urinary frequency, burning with urination, 16:00 All other systems are negative, Exam: 16:00 Constitutional: This is a well developed, well nourished patient who is awake, alert, jh7 and in no acute distress. Head/Face: Normocephalic, atraumatic. Eyes: Pupils equal round and reactive to light, extra-ocular motions intact. Lids and lashes normal. Conjunctiva and sclera are non-icteric and not injected. Cornea within normal limits. Periorbital areas with no swelling, redness, or edema. Neck: Trachea midline, no thyromegaly or masses palpated, and no cervical lymphadenopathy. Supple, full range of motion without nuchal rigidity, or vertebral point tenderness. No Meningismus. Cardiovascular: Regular rate and rhythm with a normal S1 and S2. No gallops, murmurs, or rubs. Normal PMI, no JVD. No pulse deficits. Respiratory: Lungs have equal breath sounds bilaterally, clear to auscultation and percussion. No rales, rhonchi or wheezes noted. No increased work of breathing, no retractions or nasal flaring. Abdomen/GI: Soft, non-tender, with normal bowel sounds. No distension or tympany. No guarding or rebound. No evidence of tenderness throughout. Back: No spinal tenderness. No costovertebral tenderness. Full range of motion. Skin: Warm, dry with normal turgor. Normal color with no rashes, no lesions, and no evidence of cellulitis. Neuro: Awake and alert, GCS 15, oriented to person, place, time, and situation. Motor strength 5/5 in all extremities. Sensory grossly intact. 16:00 Musculoskeletal/extremity: Extremities: noted in the dorsum of the R foot: tenderness, ROM: intact in all extremities, Circulation is intact in all extremities. Sensation intact. Severe pain noted. Tingling of extremity. Vital Signs: 16:00 BP 125 / 70; Pulse 62; Resp 16; Temp 98; Pulse Ox 97% ; bp 18:30 Weight 78.02 kg; ld1 18:53 BP 158 / 76; Pulse 62; Resp 18; Pulse Ox 100% on R/A; Pain 8/10; ld1 19:20 BP 162 / 80; Pulse 56; Resp 17 S; Pulse Ox 98% on R/A; ha1 20:26 BP 154 / 76; Pulse 55; Resp 17 S; Pulse Ox 98% on R/A; ha1 21:16 BP 164 / 64; Pulse 55; Resp 16; Pulse Ox 100% on R/A; km8 18:53 Pain Scale: Adult ld1 MDM: 15:30 Patient medically screened. [facility] 20:09 Data reviewed: vital signs, nurses notes. kb 20:28 Differential diagnosis: closed fracture, tendonitis, gout, neuropathy. Historians other kb than the Patient: Daughter/Son: daughter. Counseling: I had a detailed discussion with the patient and/or guardian regarding the historical points, exam findings, and any diagnostic results supporting the discharge/admit diagnosis, lab results, radiology results, the need for outpatient follow up, a family practitioner, to return to the emergency department if symptoms worsen or persist or if there are any questions or concerns that arise at home. 07/07 16:14 Order name: CBC with Diff; Complete Time: 18:56 [facility] 07/07 16:14 Order name: BMP; Complete Time: 19:03 [facility] 07/07 16:14 Order name: Urinalysis W/Microscopic; Complete Time: 19:54 [facility] 07/07 16:14 Order name: XRAY Foot RIGHT 3 View; Complete Time: 17:28 [facility] 07/07 19:17 Order name: Straight Cath - Urine; Complete Time: 19:23 [facility] Administered Medications: 18:37 Not Given (Physician Discretion): ns 0.9% 1000 ml IV at 1 bolus Per protocol; 1000 mL [facility] bolus 18:53 Drug: [place] PO 10 mg-325 mg 1 tabs PO once Route: PO; ld1 20:00 Follow up: Response: No adverse reaction; Pain is unchanged, physician notified km8 20:47 Drug: fentaNYL (PF) IVP 25 mcg IVP once Route: IVP; Site: right antecubital; km8 21:16 Follow up: Response: No adverse reaction; Pain is decreased; RASS: Alert and Calm (0) km8 Disposition: 07/08 06:59 Co-signature as Attending Physician, Mark Dove MD I reviewed the patient's care rn provided by the Advanced Practice Provider and agree with the diagnosis and treatment plan. Disposition Summary: 07/07/23 20:29 Discharge Ordered Notes: Location: Home kb Condition: Stable kb Diagnosis - Pain in right foot kb Followup: kb - With: Emergency Department - When: As needed - Reason: Worsening of condition Followup: kb - With: Private Physician - When: 2 - 3 days - Reason: Recheck today's complaints, Continuance of care, Re-evaluation by your physician Discharge Instructions: - Discharge Summary Sheet kb - Neuropathic Pain kb - Peripheral Neuropathy kb Forms: - Medication Reconciliation Form kb - Thank You Letter kb - Antibiotic Education kb - Prescription Opioid Use kb - Patient Portal Instructions kb - Leadership Thank You Letter kb Signatures: Dispatcher [employer] EDMS Julia Joseph, PARTY PLAN SALESPERSON-C PARTY PLAN SALESPERSON-Ckb Mark Dove MD MD rn Mike Rodriguez, RN RN bp Bethany Hinds RN RN 1 Sushma Aviles FNP [place] [address] Syeda Shaikh, RN RN km8 Corrections: (The following items were deleted from the chart) 07/07 18:22 16:00 The complaints affect the dorsum of left foot, 7 jh7 18:22 16:00 MS/extremity: Positive for pain, 7 jh7 18:37 18:21 The complaints affect the right foot, jh7 jh7 19:20 16:00 Musculoskeletal/extremity: ROM: intact in all extremities, Circulation is intact jh7 in all extremities. Sensation intact. Severe pain noted. Tingling of extremity. jh7
--- NOTE | 2023-07-07 20:30 | ER ---
Nurse's Notes [facility] Name: Mariposa Palacios Age: 83 yrs Sex: Female : 1940 Arrival Date: 07/07/2023 Time: 15:17 Bed 7 Private MD: Diagnosis: Pain in right foot Presentation: 07/07 16:00 Chief complaint: Patient states: R FOOT PAIN SINCE LAST PM. Coronavirus screen: At this bp time, the client does not indicate any symptoms associated with coronavirus-19. Ebola Screen: No symptoms or risks identified at this time. Initial Sepsis Screen: Does the patient meet any 2 criteria? No. Patient's initial sepsis screen is negative. Does the patient have a suspected source of infection? No. Patient's initial sepsis screen is negative. Risk Assessment: Do you want to hurt yourself or someone else? Patient reports no desire to harm self or others. Onset of symptoms was July 06, 2023 at 22:00. 16:00 Method Of Arrival: Wheelchair bp 16:00 Acuity: DOMINIQUE 4 bp Triage Assessment: 16:02 General: Appears uncomfortable, Behavior is cooperative, appropriate for age, anxious. bp Pain: Complains of pain in right foot. Historical: - Allergies: 16:02 Benadryl; bp 16:02 Codeine; bp 16:02 injectable dye; bp 16:02 metformin; bp 16:02 Phenergan; bp - PMHx: 16:02 CHF; CVA; Diabetes - IDDM; kidney disease; Gout; NEUROPATHY; bp - Immunization history:: Adult Immunizations up to date. - Social history:: Smoking status: Patient denies any tobacco usage or history of. Screenin:53 [facility] ED Fall Risk Assessment (Adult) History of falling in the last 3 months, ld1 including since admission No falls in past 3 months (0 pts). Abuse screen: Denies threats or abuse. Denies injuries from another. Nutritional screening: No deficits noted. Tuberculosis screening: No symptoms or risk factors identified. Assessment: 18:53 General: Appears in no apparent distress. uncomfortable, Behavior is calm, cooperative, ld1 appropriate for age. Pain: Complains of pain in right foot Pain does not radiate. Pain currently is 8 out of 10 on a pain scale. Quality of pain is described as throbbing, Pain began suddenly, Is continuous. Neuro: Level of Consciousness is awake, alert, obeys commands, Oriented to person, place, time, situation. Cardiovascular: Capillary refill < 3 seconds Patient's skin is warm and dry. Respiratory: Airway is patent Respiratory effort is even, unlabored. GI: Abdomen is flat, non-distended. : No signs and/or symptoms were reported regarding the genitourinary system. EENT: No signs and/or symptoms were reported regarding the EENT system. Derm: No signs and/or symptoms reported regarding the dermatologic system. Musculoskeletal: Reports pain in right foot. 19:23 Reassessment: Patient appears in no apparent distress at this time. No changes from km8 previously documented assessment. Patient and/or family updated on plan of care and expected duration. Pain level reassessed. Patient is alert, oriented x 3, equal unlabored respirations, skin warm/dry/pink. Pain: Pain: Complains of pain in right foot Pain currently is 8 out of 10 on a pain scale. Neuro: Level of Consciousness is awake, alert, obeys commands, Oriented to person, place, time, situation. Cardiovascular: Capillary refill < 3 seconds Patient's skin is warm and dry. Respiratory: Airway is patent Respiratory effort is even, unlabored, Respiratory pattern is regular, symmetrical. 20:26 Reassessment: Patient and/or family updated on plan of care and expected duration. Pain ha1 level reassessed. Patient is alert, oriented x 3, equal unlabored respirations, skin warm/dry/pink. care provider in the room. 21:17 Reassessment: Patient appears in no apparent distress at this time. Patient and/or km8 family updated on plan of care and expected duration. Pain level reassessed. Patient is alert, oriented x 3, equal unlabored respirations, skin warm/dry/pink. Patient states symptoms have improved. Neuro: Level of Consciousness is awake, alert, obeys commands, Oriented to person, place, time, situation. Vital Signs: 16:00 BP 125 / 70; Pulse 62; Resp 16; Temp 98; Pulse Ox 97% ; bp 18:30 Weight 78.02 kg; ld1 18:53 BP 158 / 76; Pulse 62; Resp 18; Pulse Ox 100% on R/A; Pain 8/10; ld1 19:20 BP 162 / 80; Pulse 56; Resp 17 S; Pulse Ox 98% on R/A; ha1 20:26 BP 154 / 76; Pulse 55; Resp 17 S; Pulse Ox 98% on R/A; ha1 21:16 BP 164 / 64; Pulse 55; Resp 16; Pulse Ox 100% on R/A; km8 18:53 Pain Scale: Adult ld1 ED Course: 15:22 Patient arrived in ED. ts1 15:30 Sushma Aviles FNP is PHCP. jh7 15:30 Mark Dove MD is Attending Physician. jh7 16:02 Triage completed. bp 16:02 Arm band placed on. bp 17:13 XRAY Foot RIGHT 3 View In Process Unspecified. EDMS 18:08 Shaina Aponte, GO is Primary Nurse. hb 18:36 Inserted saline lock: 22 gauge in right antecubital area, using aseptic technique. ds4 Blood collected. 18:53 Patient has correct armband on for positive identification. Placed in gown. Bed in low ld1 position. Call light in reach. Side rails up X2. Pulse ox on. NIBP on. Door closed. Noise minimized. Warm blanket given. 18:53 BMP Sent. ld1 18:53 No provider procedures requiring assistance completed. ld1 19:19 PHCP role handed off by Sushma Aviles FNP kb 19:19 Julia Joseph FNP-C is PHCP. kb 19:23 Urinalysis W/Microscopic Sent. km8 19:23 Straight cath inserted, using sterile technique, 14 Fr. Specimen obtained. Returned km8 ai urine. Patient tolerated well. 21:17 Provided Education on: d/c teaching. km8 21:17 IV discontinued, intact, bleeding controlled, No redness/swelling at site. Pressure km8 dressing applied. Administered Medications: 18:37 Not Given (Physician Discretion): ns 0.9% 1000 ml IV at 1 bolus Per protocol; 1000 mL [facility] bolus 18:53 Drug: Mcfarland PO 10 mg-325 mg 1 tabs PO once Route: PO; ld1 20:00 Follow up: Response: No adverse reaction; Pain is unchanged, physician notified km8 20:47 Drug: fentaNYL (PF) IVP 25 mcg IVP once Route: IVP; Site: right antecubital; km8 21:16 Follow up: Response: No adverse reaction; Pain is decreased; RASS: Alert and Calm (0) km8 Medication: 18:53 VIS not applicable for this client. ld1 Output: 19:23 Urine: 200ml (Straight Cath); Total: 200ml. km8 Outcome: 20:29 Discharge ordered by MD. cochran 21:18 Discharged to home via wheelchair, with family, km8 21:18 Condition: good 21:18 Discharge instructions given to patient, family, Instructed on discharge instructions, follow up and referral plans. Demonstrated understanding of instructions, follow-up care, 21:18 Patient left the ED. km8 Signatures: Dispatcher [employer] EDMS Julia Joseph, INSURANCE REPRESENTATIVE-C INSURANCE REPRESENTATIVE-Abdelrahman Knight ds4 Shaina Aponte, RN RN Mike Henry RN RN bp Bethany Hinds RN RN ld1 Sushma Aviles FNP FNP jh7 Alondra Iqbal RN RN ha1 Dahlia Steven, PAS PAS ts1 Syeda Shaikh RN RN km8 Corrections: (The following items were deleted from the chart) 19:25 19:23 Pain: km8 km8
[2023-07-07 22:20] VITALS: TEMP 98
[2023-07-07 22:38] VITALS: BP 164/64; O2SAT 100
== END ==
LOC: ER 15:17
DX: M79.671 Pain in right foot (principal); E11.22 Type 2 diabetes mellitus with diabetic chronic kidney disease; N18.9 Chronic kidney disease, unspecified; Z86.73 Personal history of transient ischemic attack (TIA), and cerebral infarction without residual deficits; Z88.5 Allergy status to narcotic agent; Z88.8 Allergy status to other drugs, medicaments and biological substances; Z91.048 Other nonmedicinal substance allergy status
CPT/HCPCS: 85025; 81001; 80048; 36415; 73630; 51702; 96374; 99285; J3010; J7030

== ENCOUNTER 2023-09-19 19:16 | Observation (INO) | payer OTHER ==
--- OUTSIDE RECORDS SUMMARY | 2023-09-19 19:19 | XMS REPORT | Continuity of Care Document ---
Author Name Unknown Address [address] [place] [address]. [address] [place] [address] [facility] thconnect Address [address] [facility]. [address] [place] [address] Care Team Providers Care Cyber Crime Investigator Name Role Phone [phone] Attending Clinician Unavailable Jamal Gomes Anavella Attending Cli nician Unavailable [phone] Admitting Clinician Unavailable Roberto Gomes Anav Admitting Clinician U navailable Payers Payer Name Policy Type Policy Number Effective Date Expirati on Date Source [facility] [id number] Encounters Start Date/Time End Date/Time Encounter Type Admission Type Attending Clinicians Care Facility Care Department Encounter ID Source 2022-10-26 09:38:52 Outpatient 3 [id number] [facility] K[facility]STOFER [id number] [facility] 2022-10-18 08:34:08 Outpatient 3 [id number] [facility] REF [id number] [facility] 2021-08-04 09:58:11 [place] 3 [id number] [id number] [facility] 2021-08-04 09:54:11 Outpatient 3 [id number] [facility] REF [id number] [facility] 2021-08-04 09:53:43 Outpatient 3 [id number] [facility] REF [id number] [facility] 2022-10-27 13:03:00 2022-11-18 13:30:00 Inpatient 3 Jamal Serna [facility] [place]A [id number] [facility] [place]
[2023-09-19 20:25] LABS: Absolute Eosinophils 0.3 K/uL (0-0.5); Absolute Lymphocytes (CBC) 2.7 K/uL (0.7-4.9); Absolute Monocytes 0.5 K/uL (0.1-1.3); Absolute Neutrophil 4.7 K/uL (1.8-8.0); Basophils % 0.6 % (0-1.3); Eosinophils % 3.1 % (0-4.4); Hematocrit 34.7 % (36.0-45.0); Hemoglobin 11.2 g/dL (12.0-15.0); Lymphocytes % 32.8 % (15.3-44.8); MCH 29.7 pg (27.0-35.0); MCHC 32.4 g/dL (32.0-36.0); MCV 91.8 fL (80-100); MPV 8.3 fL (7.6-11.3); Monocytes % 5.7 % (3.3-12.3); Neutrophils % 57.8 % (41.7-73.7); Nucleated Red Blood Cells % 0.1 % (0-0); Platelets 245 thou/uL (152-406); RBC Red Blood Cell Count 3.78 M/uL (3.86-4.86); Red Cell Distribution Width 15.3 % (12.1-15.2)
[2023-09-19 20:34] LABS: PT Prothrombin Time 11.2 SECONDS (9.5-12.5); Protime INR 1.02
[2023-09-19 20:50] LABS: ALT/SGPT 16 U/L (13-56); AST/SGOT 10 U/L (15-37); Albumin/Globulin Ratio 0.7 (1.1-1.8); Alkaline Phosphatase 93 U/L (45-117); Anion Gap 5.4 mEq/L (5.0-15.0); BUN Blood Urea Nitrogen 37 mg/dL (7-18); Bicarbonate 32 mEq/L (21-32); Bilirubin Total 0.3 mg/dL (0.2-1.0); Globulin 4.1 g/dL (2.3-3.5); Glomerular Filtration Rate 39 ml/min (=/>90); Glucose Level 171 mg/dL (74-106); Lipase 23 U/L (13-75); NT PRO-BNP 446 pg/mL (<450); Potassium 4.4 mEq/L (3.5-5.1); Protein, Total 7.1 g/dL (6.4-8.2); Sodium Level 137 mEq/L (136-145)
[2023-09-19 20:55] LABS: C-Reactive Protein < 2.90 mg/L (<3.00)
[2023-09-19 21:06] LABS: SARS-CoV-2 Antigen Rapid Res Negative (Negative)
[2023-09-19] MEDS ORDERED: NA CHLORIDE 0.9% 500 ML ONE (21:08)
[2023-09-19] MEDS ORDERED: ONDANSETRON 4 MG/2 ML VIAL ONE (21:08)
[2023-09-19] MEDS ORDERED: ACETAMINOPHEN 500 MG TAB ONE (21:08)
[2023-09-19] MEDS ORDERED: NA CHLORIDE 0.9% 1,000 ML ONE (21:08)
[2023-09-19 21:54] LABS: Renal Epithelial <5 /HPF (None Seen); Specific Gravity 1.009 (1.005-1.030); Urine Bacteria >50 /HPF (<20); Urine Bilirubin NEGATIVE (Negative); Urine Blood Negative (Negative); Urine Clarity Extremely Turbid (Clear); Urine Color Colorless (Yellow); Urine Glucose NEGATIVE (Negative); Urine Mucus Slight /HPF (None Seen); Urine Protein 1+ (Negative); Urine RBC None Seen /HPF (None Seen); Urine Urobilinogen Normal (Normal); Urine pH 6.5 (5.0-7.0)
--- NOTE | 2023-09-19 22:15 | RAD REPORT ---
EXAM DESCRIPTION: CT - Abdomen Pelvis Wo Contrast - 09/19/2023 9:41 pm CLINICAL HISTORY: ABD PAIN COMPARISON: Abdomen Pelvis Wo Contrast dated 06/13/2019; [facility] Protocol dated 01/31/2018; CT ABDOMEN PELVIS WO CONTRAST dated 02/26/2009; CTABD PELVIS W CONTRAST dated 08/07/2000 TECHNIQUE: Thin cut axial CT imaging of the abdomen and pelvis was performed without IV contrast. Mu ltiplanar reformats were generated and reviewed. All CT scans are performed using dose optimization technique as appropriate and may include automated exposure control or mA/KV adjustment according to patient size. FINDINGS: No suspicious findings in the lung bases. The liver, spleen, adrenal glands, and pancreas show no suspicious findings, with tiny focus of calci fication along the right adrenal gland, may relate to sequelae of resolved hemorrhage or tiny nodular calcification. Gallbladder is not visualized, possibly surgically removed. Symmetric renal contour, without suspicious parenchymal findings within limits of noncontrast techniq ue. No evidence of radiopaque calculi or hydroureteronephrosis. No dilated bowel loops or bowel wall thickening. Colonic diverticulosis. No free air, free fluid or i nflammatory stranding. No hernia, mass or bulky lymphadenopathy. The urinary bladder is decompressed with Mcginnis catheter in place. No suspicious bony findings. IMPRESSION: No acute intra-abdominal process. Incidental findings as above.
--- NOTE | 2023-09-19 23:50 | ER ---
Nurse's Notes [facility] Name: Mariposa Palacios Age: 83 yrs Sex: Female : 1940 Arrival Date: 09/19/2023 Time: 19:16 Bed 17 Private MD: Diagnosis: Muscle weakness (generalized);Generalized weakness, angina equivalent, congestive heart failure with exacerbation Presentation: 09/18 19:30 Chief complaint: EMS states: patient having excessive fatigue and weakness, with tm6 nausea. Coronavirus screen: Vaccine status: Patient reports receiving the 2nd dose of the covid vaccine. Client denies travel out of the [place] in the last 14 days. Ebola Screen: Patient negative for fever greater than or equal to 101.5 degrees Fahrenheit, and additional compatible Ebola Virus Disease symptoms Patient denies exposure to infectious person. Patient denies travel to an Ebola-affected area in the 21 days before illness onset. No symptoms or risks identified at this time. Initial Sepsis Screen: Does the patient meet any 2 criteria? No. Patient's initial sepsis screen is negative. Does the patient have a suspected source of infection? No. Patient's initial sepsis screen is negative. Risk Assessment: Do you want to hurt yourself or someone else? Patient reports no desire to harm self or others. Onset of symptoms was September 19, 2023. Care prior to arrival: Medication(s) given: zofran 4 mg. 19:30 Method Of Arrival: EMS: [facility] tm6 19:30 Acuity: DOMINIQUE 3 tm6 Triage Assessment: 19:58 General: Appears in no apparent distress. Behavior is calm, cooperative. Pain: tm6 Complains of pain in forehead and left alevism Pain does not radiate. Pain currently is 6 out of 10 on a pain scale. Quality of pain is described as aching. EENT: No signs and/or symptoms were reported regarding the EENT system. Neuro: Level of Consciousness is awake, alert, obeys commands, Oriented to person, place, time, situation, Reports headache in left. Cardiovascular: Capillary refill < 3 seconds Patient's skin is warm and dry. Respiratory: Airway is patent Respiratory effort is even, unlabored, Respiratory pattern is regular, symmetrical. GI: Abdomen is flat, non-distended, Abd is soft and non tender Reports nausea. : No signs and/or symptoms were reported regarding the genitourinary system. Derm: No signs and/or symptoms reported regarding the dermatologic system. Musculoskeletal: Reports weakness in general body. Historical: - Allergies: 19:58 Benadryl; tm6 19:58 Codeine; tm6 19:58 injectable dye; tm6 19:58 metformin; tm6 19:58 Phenergan; tm6 - PMHx: 19:58 CHF; CVA; Diabetes - IDDM; Gout; kidney disease; neuropathy; tm6 - Immunization history:: Adult Immunizations up to date, Client reports receiving the 2nd dose of the Covid vaccine, Flu vaccine is up to date. - Social history:: Smoking status: Patient denies any tobacco usage or history of. Patient/guardian denies using alcohol. Screenin:04 [facility] ED Fall Risk Assessment (Adult) History of falling in the last 3 months, tm6 including since admission No falls in past 3 months (0 pts) Confusion or Disorientation No (0 pts) Intoxicated or Sedated No (0 pts) Impaired Gait No (0 pts) Mobility Assist Device Used No (0 pt) Altered Elimination No (0 pt) Score/Fall Risk Level 0 - 2 = Low Risk. Abuse screen: Denies threats or abuse. Denies injuries from another. Nutritional screening: No deficits noted. Tuberculosis screening: No symptoms or risk factors identified. Assessment: 20:04 Reassessment: see triage assessment. tm6 22:57 Reassessment: Patient and/or family updated on plan of care and expected duration. Pain tm6 level reassessed. Patient is alert, oriented x 3, equal unlabored respirations, skin warm/dry/pink. 23:51 Reassessment: Patient and/or family updated on plan of care and expected duration. Pain tm6 level reassessed. Patient is alert, oriented x 3, equal unlabored respirations, skin warm/dry/pink. 09/19 01:07 Reassessment: Patient and/or family updated on plan of care and expected duration. Pain tm6 level reassessed. Patient is alert, oriented x 3, equal unlabored respirations, skin warm/dry/pink. Daughter Ca Palacios [phone]. Vital Signs: 09/18 19:30 BP 180 / 69; Pulse 60; Resp 16; Temp 98.4(TE); Pulse Ox 97% on R/A; Weight 81.65 kg; tm6 Height 5 ft. 9 in. ; Pain 5/10; 21:36 BP 148 / 63; Pulse 65; Resp 19; Pulse Ox 97% on R/A; Pain 4/10; tm6 22:54 BP 140 / 49; Pulse 61; Resp 13; Pulse Ox 98% on R/A; Pain 2/10; tm6 23:48 BP 152 / 59; Pulse 59; Resp 16; Pulse Ox 100% on R/A; Pain 3/10; tm6 19:30 Body Mass Index 26.58 (81.65 kg, 175.26 cm) tm6 19:30 Pain Scale: Adult tm6 21:36 Pain Scale: Adult tm6 22:54 Pain Scale: Adult tm6 23:48 Pain Scale: Adult tm6 Vitals: 21:36 Cardiac Rhythm Assessment Regular Sinus rhythm. tm6 ED Course: 19:18 Patient arrived in ED. bc6 19:54 Ronan Underwood, RN is Primary Nurse. tm6 19:58 Triage completed. tm6 19:58 Arm band placed on right wrist. tm6 20:03 Hector Gonzalez MD is Attending Physician. sp4 20:04 Patient has correct armband on for positive identification. Placed in gown. Bed in low tm6 position. Call light in reach. Side rails up X2. Provided Education on: plan of care. Client placed on continuous cardiac and pulse oximetry monitoring. NIBP monitoring applied. teletypesetter monitor on. Pulse ox on. NIBP on. Door closed. Noise minimized. Warm blanket given. 20:04 Maintain EMS IV. Dressing intact. Good blood return noted. Site clean \T\ dry. Gauge \T\ tm 6 site: 20g RAC. 20:15 Initial lab(s) drawn, by me, sent to lab. First set of blood cultures drawn Second set kmf of blood cultures drawn by me, COVID swab sent to lab. Flu and/or RSV swab sent to lab. 20:52 Procalcitonin Sent. tm6 20:52 CRP Sent. tm6 20:52 Lactate w/ 2H reflex if indic. Sent. tm6 20:52 Blood Culture Adult (2) Sent. tm6 20:52 CMP Sent. tm6 20:52 Lipase Sent. tm6 21:35 Warm blanket given. One-on-one care X 30 minutes. tm6 21:35 Urinalysis w/ reflexes Sent. tm6 21:35 Lipase Sent. tm6 21:35 CMP Sent. tm6 21:35 Urine collected: Mcginnis catheter specimen, cloudy, EKG done, by ED staff, reviewed by itzel6 Hector Gonzalez MD. Mcginnis cath inserted, using sterile technique, 16 Fr., returned cloudy urine. Patient tolerated well. 21:43 CT Abd/Pelvis - Without Contrast In Process Unspecified. EDMS 23:48 CT Head Brain wo Cont In Process Unspecified. EDMS 23:49 Pop Rios MD is Hospitalizing Provider. sp4 03 02:35 No provider procedures requiring assistance completed. Patient admitted, IV remains in tm6 place. 08:14 Primary Nurse role handed off by Ronan Underwood RN ko1 08:14 Divina Rizzo, RN is Primary Nurse. ko1 09:23 BS check: 145. aw1 Administered Medications: 09/18 21:11 Drug: Acetaminophen PO 1000 mg PO once Route: PO; tm6 21:34 Drug: Ondansetron IVP 4 mg IVP once; over 2 minutes Route: IVP; Site: right antecubital;tm6 21:34 Drug: NS 0.9% IV 500 ml IV at bolus once Route: IV; Rate: bolus; Site: right tm6 antecubital; 09/19 00:18 Follow up: Response: No adverse reaction; IV Intake: 500ml tm6 09/18 23:48 Drug: NS 0.9% IV 1000 ml IV at 125 ml/hr continuous Route: IV; Rate: 125 ml/hr; Site: tm6 right antecubital; Medication: 20:04 VIS not applicable for this client. tm6 Intake: 09/19 00:18 IV: 500ml; Total: 500ml. tm6 Outcome: 09/18 23:50 Decision to Hospitalize by Provider. sp4 09/19 02:35 Admitted to ER Hold. Please see [facility] for further documentation. tm6 Condition: stable Instructed on the need for admit, 11:43 Patient left the ED. ko1 Signatures: Dispatcher [employer] EDMS Divina Rizzo, RN RN ko1 Wendy Pedersen Hector Tao MD MD sp4 Ameena Chino aw1 Cindi Servin [facility] Ronan Underwood RN RN tm6 Corrections: (The following items were deleted from the chart) 09/18 21:25 20:52 THYROID STIMULAT HORMONE+C.LAB.BRZ drawn and sent. tm6 EDMS 21:25 20:52 T4 FREE+C.LAB.BRZ drawn and sent. tm6 EDMS
--- NOTE | 2023-09-19 23:50 | EDPHYS ---
Physician Documentation [facility] Name: Mariposa Palacios Age: 83 yrs Sex: Female : 1940 Arrival Date: 09/19/2023 Time: 19:16 Bed 17 Private MD: ED Physician Hector Gonzalez HPI: 09/18 20:04 This 83 yrs old Female presents to ER via EMS with complaints of Gen sp4 complaint. 20:13 83-year-old female presents with EMS for generalized weakness worsening symptoms of UTI sp4 and somnolence with associated loss of appetite . . 20:14 Patient reports that for the past 2 weeks she has not had symptoms of UTI, there was sp4 Macrobid prescribed which patient finished at home. This did not help symptoms patient is getting weaker and is feeling unwell. Denied vomiting or diarrhea. . Historical: - Allergies: 19:58 Benadryl; tm6 19:58 Codeine; tm6 19:58 injectable dye; tm6 19:58 metformin; tm6 19:58 Phenergan; tm6 - PMHx: 19:58 CHF; CVA; Diabetes - IDDM; Gout; kidney disease; neuropathy; tm6 - Immunization history:: Adult Immunizations up to date, Client reports receiving the 2nd dose of the Covid vaccine, Flu vaccine is up to date. - Social history:: Smoking status: Patient denies any tobacco usage or history of. Patient/guardian denies using alcohol. ROS: 20:15 Constitutional: Positive generalized weakness, positive somnolence, positive loss of sp4 appetite, positive nausea 20:15 All other systems are negative, Exam: 20:15 Constitutional: This is a well developed, well nourished patient who is awake, patient sp4 is elderly frail female Head/Face: Normocephalic, atraumatic. Eyes: Pupils equal round and reactive to light, extra-ocular motions intact. Lids and lashes normal. Conjunctiva and sclera are not injected. Cornea within normal limits. Periorbital areas with no swelling, redness, or edema. ENT: Nares patent. No nasal discharge, no septal abnormalities noted. Tympanic membranes are normal and external auditory canals are clear. Oropharynx with no redness, swelling, or masses, exudates, or evidence of obstruction, uvula midline. Mucous membranes moist. Neck: Trachea midline, no thyromegaly or masses palpated, and no cervical lymphadenopathy. Supple, full range of motion without nuchal rigidity, or vertebral point tenderness. Chest/axilla: Normal chest wall appearance and motion. Nontender with no deformity. No lesions are appreciated. Cardiovascular: Regular rate and rhythm with a normal S1 and S2. No gallops, murmurs, or rubs. Normal PMI, no JVD. No pulse deficits. Respiratory: Lungs have equal breath sounds bilaterally, clear to auscultation and percussion. No rales, rhonchi or wheezes noted. No increased work of breathing, no retractions or nasal flaring. Abdomen/GI: Soft, with normal bowel sounds. No distension or tympany. No guarding or rebound. No evidence of tenderness throughout. Back: No spinal tenderness. No costovertebral tenderness. Skin: Warm, dry with normal turgor. Normal color with no rashes, no lesions, and no evidence of cellulitis. MS/ Extremity: Pulses equal, no cyanosis. Neurovascular intact. Full, normal range of motion. Neuro: Awake and alert, GCS 15, oriented to person, place, time, and situation. Cranial nerves II-XII grossly intact. Motor strength 5/5 in all extremities. Sensory grossly intact. Psych: Awake, alert, with orientation to person, place and time. Behavior, mood, and affect are within normal limits 21:27 ECG was reviewed by the Attending Physician. EKG 195 sinus bradycardia with rate of sp4 59 otherwise normal Vital Signs: 19:30 BP 180 / 69; Pulse 60; Resp 16; Temp 98.4(TE); Pulse Ox 97% on R/A; Weight 81.65 kg; tm6 Height 5 ft. 9 in. ; Pain 5/10; 21:36 BP 148 / 63; Pulse 65; Resp 19; Pulse Ox 97% on R/A; Pain 4/10; tm6 22:54 BP 140 / 49; Pulse 61; Resp 13; Pulse Ox 98% on R/A; Pain 2/10; tm6 23:48 BP 152 / 59; Pulse 59; Resp 16; Pulse Ox 100% on R/A; Pain 3/10; tm6 19:30 Body Mass Index 26.58 (81.65 kg, 175.26 cm) tm6 19:30 Pain Scale: Adult tm6 21:36 Pain Scale: Adult tm6 22:54 Pain Scale: Adult tm6 23:48 Pain Scale: Adult tm6 MDM: 20:16 Patient medically screened. sp4 23:50 Differential Diagnosis altered mental status, sepsis, flu, CHF . Data reviewed: vital sp4 signs, nurses notes, EMS record, old medical records, lab test result(s), cardiac enzymes, CBC, electrolytes, Flu: negative hepatic panel, urinalysis, EKG, radiologic studies, CT scan, plain films. Consideration of Admission/Observation Patient was admitted/placed on observation. Escalation of care including admission/observation considered. Management of patient was discussed with the following: Hospitalist: Gabriel MORRISSEY . Guest Service Representative: Jeet MORRISSEY . ED course: Patient warrants admission for generalized weakness worsening fatigue for additional workup in the hospital. Hospitalist has accepted. . 09/18 20:10 Order name: CBC with Diff; Complete Time: 23:05 [facility] 09/18 20:10 Order name: CMP; Complete Time: 23:05 [facility] 09/18 20:10 Order name: Lipase; Complete Time: 23:05 [facility] 09/18 20:10 Order name: Urinalysis w/ reflexes; Complete Time: 23:05 [facility] 09/18 20:11 Order name: Influenza Screen (a \T\ B); Complete Time: 23:05 [facility] 09/18 20:11 Order name: SARS RAPID; Complete Time: 23:05 [facility] 09/18 20:11 Order name: Blood Culture Adult (2) [facility] 09/18 20:11 Order name: Lactate w/ 2H reflex if indic.; Complete Time: 23:05 [facility] 09/18 20:11 Order name: PT-INR; Complete Time: 23:05 [facility] 09/18 20:12 Order name: BNP; Complete Time: 23:05 [facility] 09/18 20:12 Order name: Troponin High Sensitivity; Complete Time: 23:05 [facility] 09/18 20:12 Order name: Procalcitonin; Complete Time: 23:05 [facility] 09/18 20:12 Order name: CRP; Complete Time: 23:05 [facility] 09/18 21:25 Order name: T4 Free; Complete Time: 23:05 [facility] 09/18 21:25 Order name: Thyroid Stimulating Hormone; Complete Time: 23:05 [facility] 09/19 00:20 Order name: Urinalysis w/ reflexes [facility] 09/19 00:20 Order name: CBC with Automated Diff [facility]MS 09/19 00:20 Order name: CBC with Automated Diff [facility] 09/19 00:20 Order name: Comprehensive Metabolic Panel [facility] 09/19 00:20 Order name: Comprehensive Metabolic Panel [facility] 09/19 09:34 Order name: Glucose, Ancillary Testing [facility] 09/18 20:10 Order name: CT Abd/Pelvis - Without Contrast; Complete Time: 23:05 sp4 09/18 23:11 Order name: CT Head Brain wo Cont sp4 09/19 11:02 Order name: MRI [facility] 09/18 20:12 Order name: EKG; Complete Time: 20:12 4 09/18 20:10 Order name: IV Saline Lock; Complete Time: 20:52 sp4 09/18 20:10 Order name: Labs collected and sent; Complete Time: 20:52 4 09/18 20:12 Order name: EKG - Nurse/Tech; Complete Time: 21:34 4 09/18 20:16 Order name: Mcginnis; Complete Time: 21:35 sp4 EC:27 Rate is 59 beats/min. Rhythm is regular, Sinus bradycardia. Left axis deviation noted. sp4 CO interval is normal. QRS interval is normal. QT interval is normal. No Q waves. T waves are Normal. No ST changes noted. Clinical impression: No evidence of ischemia. Interpreted by me. Reviewed by me. Administered Medications: 21:11 Drug: Acetaminophen PO 1000 mg PO once Route: PO; tm6 21:34 Drug: Ondansetron IVP 4 mg IVP once; over 2 minutes Route: IVP; Site: right antecubital;tm6 21:34 Drug: NS 0.9% IV 500 ml IV at bolus once Route: IV; Rate: bolus; Site: right tm6 antecubital; 09/19 00:18 Follow up: Response: No adverse reaction; IV Intake: 500ml 6 09/18 23:48 Drug: NS 0.9% IV 1000 ml IV at 125 ml/hr continuous Route: IV; Rate: 125 ml/hr; Site: tm6 right antecubital; Disposition Summary: 09/19/23 23:50 Hospitalization Ordered Notes: Hospitalization Status: Inpatient Admission sp4 Provider: Pop Rios sp4 Condition: Stable sp4 Problem: new sp4 Symptoms: are unchanged sp4 Bed/Room Type: Standard sp4 Location: Telemetry/MedSurg (Inpatient)(09/20/23 10:03) bc6 Room Assignment: 229(09/20/23 10:03) bc6 Diagnosis - Muscle weakness (generalized) sp4 - Generalized weakness, angina equivalent, congestive heart failure with exacerbation sp4 Forms: - Medication Reconciliation Form sp4 - SBAR form sp4 - Leadership Thank You Letter sp4 Signatures: Dispatcher [employer] EDMS Christiane Lr, RN RN kb3 Wendy Pedersen 6 Hector Gonzalez MD MD sp4 Ronan Underwood RN RN tm6 Corrections: (The following items were deleted from the chart) 21:25 20:13 THYROID STIMULAT HORMONE+C.LAB.BRZ ordered. EDMS EDMS 21:25 20:13 T4 FREE+C.LAB.BRZ ordered. EDOR EDOR 09/19 02:10 09/18 23:50 Telemetry/MedSurg (Inpatient) sp4 kb3 09/19 02:10 09/18 23:50 sp4 kb3 09/19 10:03 02:10 [facility] ER HOLD kb3 bc6 10:03 02:10 ERHOLD- kb3 bc6
[2023-09-20] MEDS ORDERED: ONDANSETRON 4 MG/2 ML VIAL IV PRN (00:15)
[2023-09-20] MEDS ORDERED: ALBUTEROL 2.5 MG/3 ML NEB SOL NEB PRN (00:15)
--- NOTE | 2023-09-20 00:30 | P.HP ---
Certification for Inpatient Patient admitted to: Inpatient With expected LOS: >2 Midnights Practitioner: I am a practitioner with admitting privileges, knowledge of patient current condition, hospital course, and medical plan of care. Services: Services provided to patient in accordance with Admission requirements found in Title 42 Section 412.3 of the Code of Federal Regulations Patient History Date of Service: 09/20/23 Reason for admission: Generalized weakness History of Present Illness: 83-year-old female with past medical history of diabetes, hypertension, n europathy, CVA who was brought to ER with generalized weakness and increased sleepiness which has been going on for the last 1 week and has been progressively worsening and was brought to ER. Patient was recently been diagnosed with UTI and has been on Macrobid without much relief. Denies any chest pain or shortness of breath. No fevers or chills. No nausea vomiting or diarrhea. Patient is a poor historian hence most of the history is obtained from the chart review and also talking to the family member at the bedside. Patient was assessed in the ER and is admitted for further management of UTI for failed outpatient management Allergies iodine Allergy (Severe, Verified 01/31/18 22:48) resp arrest promethazine HCl [From Phenergan] Allergy (Mild, Verified 01/31/18 22:48) Rash codeine [Codeine] Adverse Reaction (Mild, Verified 01/31/18 22:48) vomitting diphenhydramine HCl [From Benadryl] Adverse Reaction (Mild, Verified 01/31/18 22:48) anxiety metformin HCl [From Glucophage] Adverse Reaction (Mild, Verified 01/31/18 22:48) vomitting injectable dye Allergy (Severe, Uncoded 11/03/18 15:49) Anaphylaxis Home medications list reviewed: Yes Home Medications: Gabapentin [Neurontin] 100 mg PO BEDTIME 05/12/12 Acai Reese Extract [Acai] 500 mg PO DAILY 05/13/12 Calcium Carbonate/Vitamin D3 [Os-Amador 500-Vit D3 600 Caplet] 1 each PO DAILY 05/13/12 Allopurinol 1 tab PO DAILY 01/31/18 Amlodipine Besylate [Norvasc] 1 tab PO BEDTIME 01/31/18 Clopidogrel Bisulfate [Plavix] 1 tab PO DAILY 01/31/18 Cranberry Fruit Extract [Ellura] 1 tab PO DAILY 01/31/18 Gemfibrozil 1 tab PO BID 01/31/18 Insulin Aspart Protam & Aspart [Novolog Mix 70-30 Vial] 20 units PO DAILY AT SUPPER 01/31/18 Insulin Aspart Protam & Aspart [Novolog Mix 70-30 Vial] 26 units SQ BREAKFAST 01/31/18 Latanoprost/Pf [Latanoprost 0.005% Eye Drop] 1 gtts OP SEECOM 01/31/18 Sertraline [Zoloft*] 1 tab PO BEDTIME 01/31/18 Solifenacin Succinate [Vesicare] 1 tab PO DAILY 01/31/18 ondansetron HCL [Zofran] 4 mg PO TID PRN #15 tablet 02/03/18 Docusate [Colace Cap*] 1 cap PO BEDTIME 03/30/18 Ezetimibe [Zetia*] 1 tab PO DAILY 03/30/18 Furosemide [Lasix] 1 tab PO DAILY 03/30/18 Garlic 1 tab PO DAILY 03/30/18 Vit D3/Folic Acid/B2/B6/B12 [Folgard Tablet] 1 tab PO DAILY 03/30/18 Polyethyl Gly 3350 [Glycolax*] 17 gm PO DAILY PRN #30 udbot 11/08/18 - Past Medical/Surgical History Diabetic: Yes Past Medical History: Reviewed- Non-Contributory -: DM-IDDM -: HTN -: CVA -: Diabetic Neuropathy -: Diabetic Retinopathy Past Surgical History: Reviewed- Non-Contributory -: Hysterectomy -: Marian - Family History Family History: Reviewed- Non-Contributory - Family History Father -: Heart disease, Diabetes Mother -: Heart disease, Hypertension, Diabetes - Social History Smoking Status: Never smoker Alcohol use: No CD- Drugs: No Caffeine use: Yes Review of Systems 10-point ROS is otherwise unremarkable Physical Examination - Vital Signs Temperature: 98.4 F Blood Pressure: 128/68 Pulse: 78 Respirations: 18 Pulse Ox (%): 96 - Physical Exam General: Alert, In no apparent distress, Cooperative HEENT: Atraumatic, Normocephalic Neck: Supple, JVD not distended, No Thyromegaly Respiratory: Clear to auscultation bilaterally, Normal air movement Cardiovascular: Normal pulses, Regular rate/rhythm, Normal S1 S2 Capillary refill: <2 Seconds Gastrointestinal: Soft and benign, W/out hepatosplenomegaly, No ascites, No rebound, No guarding Musculoskeletal: No clubbing, No swelling Integumentary: No rashes Neurological: Normal speech, Other (Alert, awake , moves all the limbs ) Lymphatics: No axilla or inguinal lymphadenopathy - Studies Laboratory Data (last 24 hrs) 09/19/23 09/19/23 09/19/23 20:09 20:09 20:09 WBC 8.20 Hgb 11.2 L Hct 34.7 L Plt Count 245 PT 11.2 INR 1.02 Sodium 137 Potassium 4.4 BUN 37 H Creatinine 1.33 H Glucose 171 H Total Bilirubin 0.3 AST 10 L ALT 16 Alkaline Phosphatase 93 Lipase 23 Microbiology Data (last 24 hrs): 09/19/23 20:00 Nasopharnyx Influenza Type A Antigen Screen - Final 09/19/23 20:00 Nasopharnyx Influenza Type B Antigen Screen - Final Assessment and Plan - Problems (Diagnosis) (1) UTI (urinary tract infection) Onset Date: 02/05/18 Current Visit: No Status: Acute Plan: UTI Has been going on for 1 week Failed outpatient management with Macrobid Will start on Zosyn Monitor closely under telemetry Will get cultures Will change antibiotic as per sensitivity Qualifiers: Urinary tract infection type: acute cystitis Hematuria presence: without hematuria Qualified Code(s): N30.00 - Acute cystitis without hematuria (2) Diabetes mellitus Onset Date: 02/05/18 Current Visit: No Status: Chronic Plan: Insulin sliding scale Accu-Chek before every meal and at bedtime Will get an A1c in a.m. Qualifiers: Diabetes mellitus type: type 2 Diabetes mellitus correction insulin use: with correction use Diabetes mellitus complication status: with hyperglycemia Qualified Code(s): E11.65 - Type 2 diabetes mellitus with hyperglycemia; Z79.4 - manager terminal (current) use of insulin (3) History of CVA (cerebrovascular accident) Current Visit: No Status: Chronic Plan: Continue home medications including Plavix Continue statin Monitor closely We will get an echocardiogram as well (4) Hyperlipidemia Current Visit: No Status: Chronic Plan: Continue statin Will get a lipid panel Qualifiers: Hyperlipidemia type: unspecified (5) Hypertension Onset Date: 04/01/18 Current Visit: No Status: Chronic Plan: Antihypertensives titrated Continue home medications and titrate as needed Hydralazine as needed Qualifiers: Hypertension type: essential hypertension Qualified Code(s): I10 - Essential (primary) hypertension Discharge Plan: Home Plan to discharge in: 48 Hours - Advance Directives Does patient have a Living Will: Yes Does patient have a Durable POA for Healthcare: Yes - Code Status/Comfort Care Code Status: Full Code Time Spent Managing Pts Care (In Minutes): 54
[2023-09-20] MEDS: PIPER TAZO 3.375 GM in NA CHLORIDE 0.9% 100 ML IV SCH (01:05)
[2023-09-20] MEDS ORDERED: CODEINE 30MG/APAP 300MG TAB PO PRN (01:05)
[2023-09-20] MEDS ORDERED: D50W 25 GM/50 ML SYRINGE IV PRN (01:06)
[2023-09-20] MEDS ORDERED: GLUCAGON 1 MG/VIAL IM PRN (01:06)
[2023-09-20] MEDS ORDERED: D10W 125 ML IV PRN (01:14)
[2023-09-20] MEDS ORDERED: CODEINE 30MG/APAP 300MG TAB ONE (01:35)
[2023-09-20] MEDS ORDERED: NA CHLORIDE 0.9% 100 ML ONE ×2 (01:36→09:30)
[2023-09-20] MEDS ORDERED: PIPERACIL/TAZO 3.375 GM VIAL IV ONE ×2 (01:36→09:23)
[2023-09-20] MEDS ORDERED: ACETAMINOPHEN 325 MG TABLET ONE (01:43)
[2023-09-20] MEDS: ACETAMINOPHEN 325 MG TABLET PO PRN (01:51)
[2023-09-20 02:30] VITALS: BMI 26.6
[2023-09-20] MEDS: INSULIN REGULAR (HUMAN) 100 UNIT/ML SQ SCH (07:30)
[2023-09-20] MEDS: CALCIUM CARB 500MG/VIT D 200 IU TAB PO SCH (09:00)
[2023-09-20] MEDS: gemfibroziL 600 MG TAB PO SCH (09:00)
[2023-09-20] MEDS: EZETIMIBE 10 MG TAB PO SCH (09:00)
[2023-09-20] MEDS: allopurinoL 300 MG TAB PO SCH (09:00)
[2023-09-20] MEDS: CLOPIDOGREL 75 MG TABLET PO SCH (09:00)
[2023-09-20] MEDS: ENOXAPARIN 40 MG/0.4 ML SQ SCH (09:00)
[2023-09-20] MEDS ORDERED: ENOXAPARIN 40 MG/0.4 ML SQ ONE (09:23)
[2023-09-20] MEDS ORDERED: CLOPIDOGREL 75 MG TABLET ONE (09:23)
--- NOTE | 2023-09-20 11:01 | RAD REPORT ---
EXAM DESCRIPTION: MRI - Brain Wo Cont - 09/20/2023 10:34 am CLINICAL HISTORY: TIA/CVA COMPARISON: Noncontrast head CT of the previous day. Prior MRI brain 01/31/2018 TECHNIQUE: Multiplanar multisequence MRI of the brain performed without IV contrast. FINDINGS: No evidence of acute infarct or other diffusion signal abnormality. Large region of encephalomalacia involving the right parietotemporal low cortex extending into the hi gh right frontoparietal deep white matter, stable in extent compared to the prior MRI, and compatible with sequelae of remote ischemia. No evidence of acute intracranial hemorrhage or abnormal extra-axi al fluid collections. Mild diffuse parenchymal volume loss. Ventricular caliber otherwise within normal for age. Midline st ructures are unremarkable. Other patchy subcortical and deep white matter T2/FLAIR hyperintensities, nonspecific, but suggestive of chronic small vessel ischemic changes. No mass effect or midline shift. Major vascular flow voids are preserved. Mastoid air cells and paranasal sinuses are clear. IMPRESSION: No acute intracranial process. No evidence of ventriculomegaly or mass effect. Stable chronic findings including sequelae of remote ischemia in the right hemisphere and other nonsp ecific deep white matter T2 signal abnormalities, suggestive of chronic small vessel ischemic changes .
--- NOTE | 2023-09-20 11:24 | RAD REPORT ---
EXAM DESCRIPTION: CT - Head Brain Wo Cont - 09/20/2023 5:58 am CLINICAL HISTORY: 83 years Female Gen weakness , history of CVA TECHNIQUE: Contiguous axial CT images obtained through the brain without IV contrast. Coronal and sa gittal reformatted images also provided. This CT exam was performed according to our departmental dose-optimization program, which includes on e or more of the following dose reduction techniques: automated exposure control, adjustment of the m A and/or kV according to patient size, and/or use of iterative reconstruction technique. COMPARISON: 09/28/2022 FINDINGS: There is no intracranial hemorrhage, extraaxial collection, or evidence of acute transcort ical infarction. Stable right posterior temporal and frontal parietal encephalomalacia. Stable patchy areas of low att enuation within the periventricular and subcortical white matter, compatible with chronic microvascul ar disease. Stable mild diffuse volume loss without mass effect or midline shift. Vascular calcifications are noted. Trace fluid in the right maxillary and bilateral sphenoid sinuses again seen. The remainder of the paranasal sinuses and mastoid air cells are clear. IMPRESSION: No acute intracranial abnormality. Stable chronic ischemic changes and volume loss. Trace fluid in the right maxillary and bilateral sphenoid sinuses again seen. Electronically signed by: Nina Ley MD 09/20/2023 12:19 AM CDT Due to temporary technical issues with the PACS/Fluency reporting system, reports are being signed by the in house radiologist without review as a courtesy to ensure prompt reporting. The interpreting r adiologist is fully responsible for the content of the report.
[2023-09-20 12:12] VITALS: BP 175/75; TEMP 97.5; O2SAT 100
[2023-09-20] MEDS ORDERED: ATORVASTATIN 20 MG TAB PO SCH (21:00)
[2023-09-20] MEDS ORDERED: DOCUSATE NA 100 MG CAP PO SCH (21:00)
[2023-09-20] MEDS ORDERED: GABAPENTIN 100 MG CAP PO SCH (21:00)
[2023-09-20] MEDS ORDERED: AMLODIPINE 5 MG TAB PO SCH (21:00)
--- NOTE | 2023-09-21 00:49 | P.DS ---
Discharge Date: 09/20/23 Disposition: ROUTINE DISCHARGE Discharge Condition: GOOD Reason for Admission: Generalized weakness Brief History of Present Illness: Patient is an 83-year-old female with past medical history of diabetes, hypertension, neuropathy, CVA who was brought to ER with generalized weakness and increased sleepiness which has been going on for the last 1 week and has been progressively worsening and was brought to ER. Patient was recently been diagnosed with UTI and has been on Macrobid without much relief. Denies any chest pain or shortness of breath. No fevers or chills. No nausea vomiting or diarrhea. Patient is a poor historian hence most of the history is obtained from the chart review and also talking to the family member at the bedside. Patient was assessed in the ER and is admitted for further management of UTI for failed outpatient management Hospital Course: Patient has done well clinically. Patient will continue with anti-platelet and statin therapy. Patient will continue with blood pressure control. Patient appeared to be dehydrated after fluid is the symptoms were improved. Her daughter states she has been a little anorexic. I did examine her and she does have a mass on her left breast. After talking to the daughter about this she states that her PCP had arranged for outpatient follow-up with a breast physician /oncologist but she was not able to make the appointment. They are not really sure how aggressive they want to be with her care, as her age is advanced and she is pretty much bedbound. They will consider getting further treatment option after discussion once again with her PCP, Dr. Medina. Patient's neurologic status is improved and patient is stable for discharge with continued outpatient follow-up with home health and PCP. Vital Signs/Physical Exam: Temp Pulse Resp BP Pulse Ox 97.5 F 57 16 175/75 H 97 09/20/23 12:00 09/20/23 12:00 09/20/23 12:00 09/20/23 12:00 09/20/23 12:00 General: Alert, In no apparent distress, Oriented x3 Laboratory Data at Discharge: WBC 8.20 thou/uL (4.3-10.9) 09/19/23 20:09 Hgb 11.2 g/dL (12.0-15.0) L 09/19/23 20:09 Hct 34.7 % (36.0-45.0) L 09/19/23 20:09 Plt Count 245 thou/uL (152-406) 09/19/23 20:09 PT 11.2 SECONDS (9.5-12.5) 09/19/23 20:09 INR 1.02 09/19/23 20:09 Sodium 137 mEq/L (136-145) 09/19/23 20:09 Potassium 4.4 mEq/L (3.5-5.1) 09/19/23 20:09 BUN 37 mg/dL (7-18) H 09/19/23 20:09 Creatinine 1.33 mg/dL (0.55-1.02) H 09/19/23 20:09 Glucose 171 mg/dL (74-106) H 09/19/23 20:09 Total Bilirubin 0.3 mg/dL (0.2-1.0) 09/19/23 20:09 AST 10 U/L (15-37) L 09/19/23 20:09 ALT 16 U/L (13-56) 09/19/23 20:09 Alkaline Phosphatase 93 U/L (45-117) 09/19/23 20:09 Triglycerides 335 mg/dL (<150) H 09/20/23 14:03 Cholesterol 249 mg/dL (<200) H 09/20/23 14:03 HDL Cholesterol 30 mg/dL (40-60) L 09/20/23 14:03 Cholesterol/HDL Ratio 8.30 09/20/23 14:03 Lipase 23 U/L (13-75) 09/19/23 20:09 Home Medications: Gabapentin [Neurontin] 100 mg PO BEDTIME 05/12/12 Acai Reese Extract [Acai] 500 mg PO DAILY 05/13/12 Calcium Carbonate/Vitamin D3 [Os-[place]ador 500-Vit D3 600 Caplet] 1 each PO DAILY 11/17 Allopurinol 1 tab PO DAILY 01/31/18 Amlodipine Besylate [Norvasc] 1 tab PO BEDTIME 01/31/18 Clopidogrel Bisulfate [Plavix] 1 tab PO DAILY 01/31/18 Cranberry Fruit Extract [Ellura] 1 tab PO DAILY 01/31/18 Gemfibrozil 1 tab PO BID 01/31/18 Insulin Aspart Protam & Aspart [Novolog Mix 70-30 Vial] 20 units PO DAILY AT SUPPER 01/31/18 Insulin Aspart Protam & Aspart [Novolog Mix 70-30 Vial] 26 units SQ BREAKFAST 01/31/18 Latanoprost/Pf [Latanoprost 0.005% Eye Drop] 1 gtts OP SEECOM 01/31/18 Sertraline [Zoloft*] 1 tab PO BEDTIME 01/31/18 Solifenacin Succinate [Vesicare] 1 tab PO DAILY 01/31/18 ondansetron HCL [Zofran] 4 mg PO TID PRN #15 tablet 02/03/18 Docusate [Colace Cap*] 1 cap PO BEDTIME 03/30/18 Ezetimibe [Zetia*] 1 tab PO DAILY 03/30/18 Furosemide [Lasix] 1 tab PO DAILY 03/30/18 Garlic 1 tab PO DAILY 03/30/18 Vit D3/Folic Acid/B2/B6/B12 [Folgard Tablet] 1 tab PO DAILY 03/30/18 Polyethyl Gly 3350 [Glycolax*] 17 gm PO DAILY PRN #30 udbot 11/08/18 Atorvastatin Calcium [Lipitor*] 20 mg PO BEDTIME #30 tab 09/20/23 Cefdinir [Cefdinir*] 300 mg PO BID #10 cap 09/20/23 New Medications: Cefdinir [Cefdinir*] 300 mg PO BID #10 cap Atorvastatin Calcium [Lipitor*] 20 mg PO BEDTIME #30 tab Physician Discharge Instructions: -DC IV and DC home -Follow-up with PCP in 1 to 2 weeks -Follow-up with Neurology and Endocrinology in 2 to 4 weeks -Please call Dr. Vázquez at [phone] if any questions regarding hospital stay -Please call nursing station at [phone] if any nursing or medication questions -Return to the emergency room if symptoms worsen Diet: Renal Activity: Fall precautions Followup: Renzo Gautam MD [ASSOCIATE-ACTIVE - CAN ADMIT] - 1-2 Weeks ANITA MEDINA [Primary Care Provider] - Time spent managing pt's care (in minutes): 35
--- NOTE | 2023-09-21 17:27 | EKG ---
Test Date: 2023-09-19 Test Time: 19:59:02 Marketing Support Assistant: TOM MEASUREMENT RESULTS: Intervals: Rate: 59 FL: 176 QRSD: 106 QT: 458 QTc: 453 [place]: P: 12 FL: 176 QRS: -39 T: 57 INTERPRETIVE STATEMENTS: Sinus bradycardia Left axis deviation Abnormal ECG Compared to ECG 09/28/2022 13:28:34 Left-axis deviation now present Sinus rhythm no longer present Electronically Signed On 09-21-23 17:21:33 CDT by Perez Marcano
== END 2023-09-20 19:45 | disposition home or self-care (01) ==
LOC: ER 19:16 → ERHOLD 09-20 00:15 → 2ND 09-20 11:00
PROVIDERS: ADMIT Family Medicine; ATTEND Hospitalist
DX: N39.0 Urinary tract infection, site not specified (principal); R53.1 Weakness; I10 Essential (primary) hypertension; E11.9 Type 2 diabetes mellitus without complications; E11.40 Type 2 diabetes mellitus with diabetic neuropathy, unspecified; Z86.73 Personal history of transient ischemic attack (TIA), and cerebral infarction without residual deficits; E78.5 Hyperlipidemia, unspecified; Z11.52 Encounter for screening for COVID-19
CPT/HCPCS: 36415; 70450; 70551; 74176; 80053; 80061; 81001; 82947; 83605; 83690; 83880; 84145; 84439; 84443; 84484; 85025; 85610; 86140; 87040; 87804; 87811; 92610; 93005; 97163; 97530; 97542; J1650; J1815; J2405; J2543; J7030; J7040

== ENCOUNTER 2024-01-05 13:27 | Inpatient (IN) | payer OTHER ==
--- OUTSIDE RECORDS SUMMARY | 2024-01-05 13:29 | XMS REPORT | Continuity of Care Document ---
Author Name Unknown Address [address] [facility] [place] [address] [facility] thconnect Address [address] [place] [address] Care Team Providers Care Non Categorical Preschool Teacher Name Role Phone [phone] Attending Clinician Unavailable Jamal Gomes Anavella Attending Cli nician Unavailable [phone] Admitting Clinician Unavailable Roberto Gomes Anav Admitting Clinician U navailable Payers Payer Name Policy Type Policy Number Effective Date Expirati on Date Source [facility] [id number] Encounters Start Date/Time End Date/Time Encounter Type Admission Type Attending Clinicians Care Facility Care Department Encounter ID Source 2022-10-26 09:38:52 Outpatient 3 [id number] [facility] KRISTOFER [id number] [facility] 2022-10-18 08:34:08 Outpatient 3 [id number] [facility] REF [id number] [facility] 2021-08-04 09:58:11 Outpatient 3 [id number] [id number] [facility] 2021-08-04 09:54:11 Outpatient 3 [id number] [facility] REF [id number] [facility] 2021-08-04 09:53:43 Outpatient 3 [id number] [facility] REF [id number] [facility] 2022-10-27 13:03:00 2022-11-18 13:30:00 Inpatient 3 Jamal Serna [facility] CVA [id number] [facility] [place]
[2024-01-05 14:07] LABS: Absolute Basophils 0.1 K/uL (0-0.5); Absolute Eosinophils 0.2 K/uL (0-0.5); Absolute Lymphocytes (CBC) 2.3 K/uL (0.7-4.9); Absolute Monocytes 0.4 K/uL (0.1-1.3); Absolute Neutrophil 4.2 K/uL (1.8-8.0); Basophils % 0.8 % (0-1.3); Eosinophils % 2.8 % (0-4.4); Hematocrit 32.7 % (36.0-45.0); Hemoglobin 10.6 g/dL (12.0-15.0); Lymphocytes % 32.2 % (15.3-44.8); MCH 29.3 pg (27.0-35.0); MCHC 32.3 g/dL (32.0-36.0); MCV 90.8 fL (80-100); Neutrophils % 59.2 % (41.7-73.7); Nucleated Red Blood Cells % 0.1 % (0-0); Platelets 249 thou/uL (152-406); Red Cell Distribution Width 15.4 % (12.1-15.2)
[2024-01-05 14:17] LABS: PT Prothrombin Time 11.2 SECONDS (9.4-12.5); PTT, Activated Partial Thromb 30.8 SECONDS (24.3-36.9); Protime INR 1.02
[2024-01-05 14:28] LABS: Albumin 3.2 g/dL (3.4-5.0); Albumin/Globulin Ratio 0.9 (1.1-1.8); Alkaline Phosphatase 82 U/L (45-117); BUN Blood Urea Nitrogen 39 mg/dL (7-18); Bicarbonate 29 mEq/L (21-32); Bilirubin Total 0.3 mg/dL (0.2-1.0); Globulin 3.6 g/dL (2.3-3.5); Glomerular Filtration Rate 39 ml/min (=/>90); Glucose Level 170 mg/dL (74-106); Protein, Total 6.8 g/dL (6.4-8.2); Sodium Level 139 mEq/L (136-145)
[2024-01-05 14:29] LABS: ALT/SGPT < 14 U/L (13-56); AST/SGOT < 10 U/L (15-37)
[2024-01-05 14:43] LABS: Specific Gravity 1.012 (1.005-1.030); Sqamous Epithelial None Seen /HPF (None Seen); Urine Bacteria 20-50 /HPF (<20); Urine Bilirubin NEGATIVE (Negative); Urine Blood Negative (Negative); Urine Clarity Extremely Turbid (Clear); Urine Color Light-Yellow (Yellow); Urine Culture Reflex Order REFLEXED; Urine Glucose NEGATIVE (Negative); Urine Ketones NEGATIVE (Negative); Urine Microscopic Reflex YN ORDER UMIC; Urine Mucus Slight /HPF (None Seen); Urine Nitrite NEGATIVE (Negative); Urine Protein 1+ (Negative); Urine RBC <5 /HPF (None Seen); Urine Urobilinogen Normal (Normal); Urine pH 5.5 (5.0-7.0)
[2024-01-05] MEDS ORDERED: NA CHLORIDE 0.9% 500 ML ONE (15:23)
--- NOTE | 2024-01-05 17:04 | EDPHYS ---
Physician Documentation [facility] Name: Mariposa Palacios Age: 83 yrs Sex: Female : 1940 Arrival Date: 01/05/2024 Time: 13:27 Bed 8 Private MD: ED Physician Mark Dove HPI: 01/04 14:03 This 83 yrs old Female presents to ER via EMS with complaints of Pain With Urination. rn 14:03 The patient presents with urinary symptoms. Onset: The symptoms/episode began/occurred rn 3 day(s) ago. Modifying factors: The symptoms are alleviated by nothing, the symptoms are aggravated by urinating. Associated signs and symptoms: Pertinent positives: dysuria, Pertinent negatives: fever, hematuria. Severity of symptoms: At their worst the symptoms were mild, in the emergency department the symptoms are unchanged. The patient has experienced similar episodes in the past. Patient reports dysuria for few days. Reports frequent UTIs, was on Cipro recently but ran out. Denies fever. Reports generalized weakness and dysuria. No hematuria. No vomiting or chills. No abdominal pain.. Historical: - Allergies: 13:33 Benadryl; ko1 13:33 Codeine; ko1 13:33 injectable dye; ko1 13:33 metformin; ko1 13:33 Phenergan; ko1 - PMHx: 13:33 CHF; CVA; Diabetes - IDDM; Gout; kidney disease; neuropathy; ko1 - Immunization history:: Adult Immunizations unknown. - Infectious Disease History:: Denies. - Social history:: Smoking status: Patient denies any tobacco usage or history of. - Family history:: not pertinent. - Hospitalizations: : No recent hospitalization is reported. ROS: 14:03 Constitutional: Negative for fever, chills, and weight loss, Cardiovascular: Negative rn for chest pain, palpitations, and edema, Respiratory: Negative for shortness of breath, cough, wheezing, and pleuritic chest pain, Abdomen/GI: Negative for abdominal pain, nausea, vomiting, diarrhea, and constipation, Back: Negative for injury and pain, : Positive for dysuria MS/Extremity: Negative for injury and deformity, Skin: Negative for injury, rash, and discoloration, Neuro: Positive for generalized weakness Exam: 14:03 Constitutional: This is a well developed, well nourished patient who is awake, alert, rn and in no acute distress. Cardiovascular: Bradycardic, regular. No pulse deficits. Respiratory: No increased work of breathing, no retractions or nasal flaring. Abdomen/GI: Soft, non-tender MS/ Extremity: Pulses equal, no cyanosis. Neuro: Awake and alert, GCS 15 17:57 ECG was reviewed by the Attending Physician. rn Vital Signs: 13:31 BP 159 / 74; Pulse 57; Resp 16; Temp 98; Pulse Ox 95% on R/A; ko1 14:05 BP 183 / 80; Pulse 64; Resp 16; Pulse Ox 98% ; ko1 16:50 BP 176 / 72; Pulse 60; Resp 16; Pulse Ox 98% on R/A; ko1 MDM: 13:33 Patient medically screened. rn 17:02 Differential diagnosis: urinary tract infection, Weakness, dehydration. Data reviewed: rn vital signs, nurses notes, lab test result(s), and as a result, I will admit patient. Consideration of Admission/Observation Patient was admitted/placed on observation. Escalation of care including admission/observation considered. Care significantly affected by the following chronic conditions: Diabetes, Congestive Heart Failure. Counseling: I had a detailed discussion with the patient and/or guardian regarding the historical points, exam findings, and any diagnostic results supporting the discharge/admit diagnosis, lab results, radiology results, the need for further work-up and treatment in the hospital. Response to treatment: the patient's symptoms have mildly improved after treatment, and as a result, I will admit patient. ED course: Patient with UTI, generalized weakness, daughter states much weaker than normal. Daughter does not seem comfortable with patient going home and after joint discussion decision made for observation in the hospital. Patient also with history of congestive heart failure with minimal mobility and did not want to give too much fluid at once.. 01/04 13:33 Order name: Blood Culture Adult (2) rn 01/04 13:33 Order name: CBC with Diff; Complete Time: 15:17 rn 01/04 13:33 Order name: CMP; Complete Time: 15:17 rn 01/04 13:33 Order name: Lactate w/ 2H reflex if indic.; Complete Time: 15:17 rn 01/04 13:33 Order name: Protime (+inr); Complete Time: 15:17 rn 01/04 13:33 Order name: Ptt, Activated; Complete Time: 15:17 rn 01/04 13:33 Order name: Urinalysis w/ reflexes; Complete Time: 15:17 rn 01/04 14:46 Order name: Urine Culture [facility] 01/04 13:33 Order name: EKG; Complete Time: 13:34 rn 01/04 13:33 Order name: Accucheck; Complete Time: 14:04 rn 01/04 13:33 Order name: Cardiac monitoring; Complete Time: 13:37 rn 01/04 13:33 Order name: EKG - Nurse/Tech; Complete Time: 13:45 rn 01/04 13:33 Order name: IV Saline Lock - Large Bore; Complete Time: 14:04 rn 01/04 13:33 Order name: Labs collected and sent; Complete Time: 14:04 rn 01/04 13:33 Order name: O2 Per Protocol; Complete Time: 13:37 rn 01/04 13:33 Order name: O2 Sat Monitoring; Complete Time: 13:37 rn 01/04 13:33 Order name: Vital Signs; Complete Time: 13:37 rn EC:57 Rate is 57 beats/min. Rhythm is regular. QRS [place] is Normal. MO interval is normal. QRS rn interval is normal. No Q waves. T waves are Normal. No ST changes noted. Clinical impression: Sinus bradycardia. Interpreted by me. Reviewed by me. Administered Medications: 15:26 Drug: NS 0.9% IV 500 ml IV at bolus once Route: IV; Rate: bolus; Site: right ko1 antecubital; 16:48 Follow up: Response: No adverse reaction; IV Status: Completed infusion; IV Intake: ko1 500ml Disposition Summary: 01/05/24 17:03 Hospitalization Ordered Notes: Hospitalization Status: Observation rn Provider: Michael Bowman rn Location: Telemetry/MedSurg (observation) rn Condition: Stable rn Problem: new rn Symptoms: are unchanged rn Bed/Room Type: Standard rn Room Assignment: 410(01/05/24 17:15) eb Diagnosis - UTI/ Urinary tract infection, site not specified rn - Muscle weakness (generalized) rn Forms: - Medication Reconciliation Form rn - SBAR form rn - Leadership Thank You Letter rn Signatures: [facility] Mark Dove MD MD rn Botello, Elizabeth eb Oliver, Kathy GO STILES ko1 Corrections: (The following items were deleted from the chart) 17:15 17:03 go campbell
--- NOTE | 2024-01-05 17:04 | ER ---
Nurse's Notes [facility] Name: Mariposa Palacios Age: 83 yrs Sex: Female : 1940 Arrival Date: 01/05/2024 Time: 13:27 Bed 8 Private MD: Diagnosis: UTI/ Urinary tract infection, site not specified;Muscle weakness (generalized) Presentation: 01/04 13:31 Chief complaint: Patient states: burning with urination and a strong smell. Also ko1 complains of slight nausea, abd pain and a headache. Coronavirus screen: At this time, the client does not indicate any symptoms associated with coronavirus-19. Ebola Screen: No symptoms or risks identified at this time. Initial Sepsis Screen: Does the patient meet any 2 criteria? No. Patient's initial sepsis screen is negative. Does the patient have a suspected source of infection? No. Patient's initial sepsis screen is negative. Risk Assessment: Do you want to hurt yourself or someone else? Patient reports no desire to harm self or others. Onset of symptoms was January 05, 2024. 13:31 Method Of Arrival: EMS: [facility] ko1 13:31 Acuity: DOMINIQUE 3 ko1 Triage Assessment: 13:33 General: Appears in no apparent distress. uncomfortable, Behavior is calm, cooperative, ko1 appropriate for age. Pain: Complains of pain in forehead and abdomen. EENT: No deficits noted. Neuro: No deficits noted. Cardiovascular: No deficits noted. Respiratory: No deficits noted. GI: Reports nausea. : Reports burning with urination. Derm: No deficits noted. Musculoskeletal: Reports weakness in generalized. Historical: - Allergies: 13:33 Benadryl; ko1 13:33 Codeine; ko1 13:33 injectable dye; ko1 13:33 metformin; ko1 13:33 Phenergan; ko1 - PMHx: 13:33 CHF; CVA; Diabetes - IDDM; Gout; kidney disease; neuropathy; ko1 - Immunization history:: Adult Immunizations unknown. - Infectious Disease History:: Denies. - Social history:: Smoking status: Patient denies any tobacco usage or history of. - Family history:: not pertinent. - Hospitalizations: : No recent hospitalization is reported. Screenin:35 [facility] ED Fall Risk Assessment (Adult) History of falling in the last 3 months, ko1 including since admission No falls in past 3 months (0 pts) Confusion or Disorientation No (0 pts) Intoxicated or Sedated No (0 pts) Impaired Gait Yes (1 pt) Mobility Assist Device Used Yes (1 pt) Altered Elimination No (0 pt) Score/Fall Risk Level 0 - 2 = Low Risk Oriented to surroundings, Maintained a safe environment, Educated pt \T\ family on fall prevention, incl call for assistance when getting out of bed, Assessed \T\ reinforced patient's understanding of fall precautions, Provided non-skid footwear, Hourly rounding (assess needs \T\ fall precautionary measures) done, Used ambulatory aids as needed (educated on \T\ assisted with), Used gait belt as appropriate. Abuse screen: Denies threats or abuse. Denies injuries from another. Nutritional screening: No deficits noted. Tuberculosis screening: No symptoms or risk factors identified. Assessment: 13:35 Reassessment: see triage note. ko1 Vital Signs: 13:31 BP 159 / 74; Pulse 57; Resp 16; Temp 98; Pulse Ox 95% on R/A; ko1 14:05 BP 183 / 80; Pulse 64; Resp 16; Pulse Ox 98% ; ko1 16:50 BP 176 / 72; Pulse 60; Resp 16; Pulse Ox 98% on R/A; ko1 ED Course: 13:31 Patient arrived in ED. ko1 13:31 Divina Rizzo, RN is Primary Nurse. ko1 13:33 Mark Dove MD is Attending Physician. rn 13:33 Triage completed. ko1 13:33 Arm band placed on left wrist. Patient placed in an exam room, on a stretcher, on pulse ko1 oximetry, Patient notified of wait time. 13:35 Patient has correct armband on for positive identification. Allergy band placed. Fall ko1 risk band placed. Bed in low position. Call light in reach. Side rails up X2. Provided Education on: call light, labs. Client placed on continuous cardiac and pulse oximetry monitoring. NIBP monitoring applied. environmental monitoring specialist on. Door closed. Noise minimized. Lights dimmed. Warm blanket given. Pillow given. 13:46 EKG done, by ED staff, reviewed by Mark Dove MD. jr12 13:50 Initial lab(s) drawn, by me, sent to lab. First set of blood cultures drawn by me. ko1 Inserted saline lock: 22 gauge in right antecubital area, using aseptic technique. Blood collected. 14:04 Blood Culture Adult (2) Sent. ko1 14:04 CBC with Diff Sent. ko1 14:04 CMP Sent. ko1 14:04 Lactate w/ 2H reflex if indic. Sent. ko1 14:04 Protime (+inr) Sent. ko1 14:04 Ptt, Activated Sent. ko1 14:05 Second set of blood cultures drawn by me. ko1 14:30 Urinalysis w/ reflexes Sent. ko1 14:30 Urine collected: straight cath specimen, clear, Amount Returned: 425mL. ko1 16:50 No provider procedures requiring assistance completed. ko1 17:03 Michael Bowman is Hospitalizing Provider. rn 18:19 Patient admitted, IV remains in place. ld1 Administered Medications: 15:26 Drug: NS 0.9% IV 500 ml IV at bolus once Route: IV; Rate: bolus; Site: right ko1 antecubital; 16:48 Follow up: Response: No adverse reaction; IV Status: Completed infusion; IV Intake: ko1 500ml Medication: 13:35 VIS not applicable for this client. ko1 Intake: 16:48 IV: 500ml; Total: 500ml. ko1 Outcome: 17:03 Decision to Hospitalize by Provider. rn 18:19 Admitted to Med/surg accompanied by karlo, via stretcherdebora 18:19 Condition: stable 18:19 Instructed on the need for admit, 18:19 Patient left the ED. ld1 Signatures: Mark Dove MD MD rn Sims, Lauren RN RN ld1 Divina Rizzo RN RN ko1 Nedra Nguyen jr12
--- NOTE | 2024-01-05 17:13 | P.HP ---
Certification for Inpatient Patient admitted to: Observation With expected LOS: <2 Midnights Patient will require the following post-hospital care: None Practitioner: I am a practitioner with admitting privileges, knowledge of patient current condition, hospital course, and medical plan of care. Services: Services provided to patient in accordance with Admission requirements found in Title 42 Section 412.3 of the Code of Federal Regulations Patient History Date of Service: 01/05/24 Reason for admission: UTI, weakness History of Present Illness: 83-year-old female with history of insulin-dependent diabetes, hypertension, previous CVA, CHF, hyperlipidemia presents emergency department chief complaint of generalized weakness, UTI symptoms. She has history of multiple urinary tract infections and was recently on a chronic dose of Cipro 250 mg daily prescribed by her PCP. She ran out about 10 days ago and 1 week ago she started having UTI symptoms including dysuria, foul-smelling urine and weakness/fogginess. She was evaluated in the emergency department UA is consistent with urinary tract infection, she lives at home alone having a caregiver about 4 hours a day and her daughter living next-door, she primarily gets around with a scooter and does transfers with assistance but is not very ambulatory, able to take about 2- 3 steps to get into her bathroom. She reports significant functional decline in the past 1 week with difficulty with her normal ADLs and transfers. ED prior wishes to admit patient for further evaluation management of UTI, weakness. Allergies iodine Allergy (Severe, Verified 01/31/18 22:48) resp arrest promethazine HCl [From Phenergan] Allergy (Mild, Verified 01/31/18 22:48) Rash codeine [Codeine] Adverse Reaction (Mild, Verified 01/31/18 22:48) vomitting diphenhydramine HCl [From Benadryl] Adverse Reaction (Mild, Verified 01/31/18 22:48) anxiety metformin HCl [From Glucophage] Adverse Reaction (Mild, Verified 01/31/18 22:48) vomitting injectable dye Allergy (Severe, Uncoded 11/03/18 15:49) Anaphylaxis Home Medications: Gabapentin [Neurontin] 100 mg PO BEDTIME 05/12/12 Acai Reese Extract [Acai] 500 mg PO DAILY 05/13/12 Calcium Carbonate/Vitamin D3 [[place] 500-Vit D3 600 Caplet] 1 each PO DAILY 05/13/12 Allopurinol 1 tab PO DAILY 01/31/18 Amlodipine Besylate [Norvasc] 1 tab PO BEDTIME 01/31/18 Clopidogrel Bisulfate [Plavix] 1 tab PO DAILY 01/31/18 Cranberry Fruit Extract [Ellura] 1 tab PO DAILY 01/31/18 Gemfibrozil 1 tab PO BID 01/31/18 Insulin Aspart Protam & Aspart [Novolog Mix 70-30 Vial] 20 units PO DAILY AT SUPPER 01/31/18 Insulin Aspart Protam & Aspart [Novolog Mix 70-30 Vial] 26 units SQ BREAKFAST 01/31/18 Latanoprost/Pf [Latanoprost 0.005% Eye Drop] 1 gtts OP SEECOM 01/31/18 Sertraline [Zoloft*] 1 tab PO BEDTIME 01/31/18 Solifenacin Succinate [Vesicare] 1 tab PO DAILY 01/31/18 ondansetron HCL [Zofran] 4 mg PO TID PRN #15 tablet 02/03/18 Docusate [Colace Cap*] 1 cap PO BEDTIME 03/30/18 Ezetimibe [Zetia*] 1 tab PO DAILY 03/30/18 Furosemide [Lasix] 1 tab PO DAILY 03/30/18 Garlic 1 tab PO DAILY 03/30/18 Vit D3/Folic Acid/B2/B6/B12 [Folgard Tablet] 1 tab PO DAILY 03/30/18 Polyethyl Gly 3350 [Glycolax*] 17 gm PO DAILY PRN #30 udbot 11/08/18 Atorvastatin Calcium [Lipitor*] 20 mg PO BEDTIME #30 tab 09/20/23 Cefdinir [Cefdinir*] 300 mg PO BID #10 cap 09/20/23 - Past Medical/Surgical History Diabetic: Yes -: DM-IDDM -: HTN -: CVA -: Diabetic Neuropathy -: CHF -: Hyperlipidemia -: Hysterectomy -: [place] Psychosocial/ Personal History: Lives at home alone, has caregiver 4 hours a day and daughter lives next door - Family History Father -: Heart disease, Diabetes Mother -: Heart disease, Hypertension, Diabetes - Social History Alcohol use: No CD- Drugs: No Caffeine use: Yes Place of Residence: Home Review of Systems 10-point ROS is otherwise unremarkable General: Weakness, Malaise Gastrointestinal: Nausea Genitourinary: Dysuria, Urgency Physical Examination - Physical Exam General: Alert, In no apparent distress, Oriented x3 HEENT: Atraumatic, PERRLA, Mucous membr. moist/pink, EOMI Neck: Supple, 2+ carotid pulse no bruit, No LAD Respiratory: Clear to auscultation bilaterally, Normal air movement Cardiovascular: Regular rate/rhythm, Normal S1 S2 Gastrointestinal: Normal bowel sounds, No tenderness Musculoskeletal: No tenderness Integumentary: No rashes Neurological: Normal gait, Normal speech, Normal strength at 5/5 x4 extr, Normal tone - Studies Laboratory Data (last 24 hrs) 01/05/24 01/05/24 01/05/24 13:55 13:55 13:55 WBC 7.00 Hgb 10.6 L Hct 32.7 L Plt Count 249 PT 11.2 INR 1.02 APTT 30.8 Sodium 139 Potassium 4.0 BUN 39 H Creatinine 1.34 H Glucose 170 H Total Bilirubin 0.3 AST < 10 L ALT < 14 Alkaline Phosphatase 82 Assessment and Plan - Plan Assessment: UTI-history of chronic UTIs on long-term antibiotic therapy Debility/weakness Diabetes mellitus type 2insulin-dependent Hypertension Hyperlipidemia Chronic diastolic congestive heart failure History of CVA with resulting left-sided weakness Plan: UTI-history of chronic UTIs on long-term antibiotic therapy Debility/weakness Previous urine culture reviewed, if she has E. coli has been sensitive to Rocephin Urine culture ordered and pending Continue gentle IV fluids overnight, PT consult ordered At home typically gets around in scooter, can transfer with assistance Can usually walk 2-3 steps at home to get into her bathroom Lives alone, has supervisor spring up about 4 hours a day and daughter live next-door Much weaker the past 1 week difficulty getting around like she usually does Diabetes mellitus type 2insulin-dependent ACHS Accu-Chek, sliding scale insulin Hypertension Hyperlipidemia Chronic diastolic congestive heart failure History of CVA with resulting left-sided weakness Continue home medications once verified DVT PPX: Heparin subcu Code status: Full Discharge Plan: Home Plan to discharge in: 24 Hours - Advance Directives Does patient have a Living Will: No Does patient have a Durable POA for Healthcare: No Critical Care: No
[2024-01-05 18:29] VITALS: BMI 25.8
[2024-01-05 18:43] VITALS: O2SAT 98
[2024-01-05] MEDS: HYDRALAZINE HCL 20 MG/ML VIAL ONE (18:51)
[2024-01-05] MEDS: HYDRALAZINE HCL 20 MG/ML VIAL IV ONE (19:08)
[2024-01-05] MEDS: NA CHLORIDE 0.9% 1,000 ML IV SCH (19:32)
[2024-01-05] MEDS: HEPARIN 5000 UNIT/ML 1 ML VIAL SQ SCH (19:32)
[2024-01-05] MEDS: HYDRALAZINE HCL 25 MG TABLET PO SCH (19:33)
[2024-01-05] MEDS: ATORVASTATIN 20 MG TAB PO SCH (19:33)
[2024-01-05] MEDS: AMLODIPINE 5 MG TAB PO SCH (19:34)
[2024-01-05] MEDS: ACETAMINOPHEN 325 MG TABLET PO PRN (20:05)
[2024-01-05] MEDS: INSULIN REGULAR (HUMAN) 100 UNIT/ML SQ SCH (20:24)
[2024-01-05] MEDS: CEFTRIAXONE 1000 MG/VIAL ONE (21:00)
[2024-01-05] MEDS: NA CHLORIDE 0.9% 50 ML ONE (21:00)
[2024-01-05] MEDS: CEFTRIAXONE 1,000 MG in NA CHLORIDE 0.9% 50 ML IVPB SCH (21:03)
[2024-01-05] MEDS: TRAMADOL HCL 50 MG TAB PO PRN (21:48)
[2024-01-06 07:00] LABS: Absolute Basophils 0.1 K/uL (0-0.5); Absolute Eosinophils 0.3 K/uL (0-0.5); Absolute Lymphocytes (CBC) 2.8 K/uL (0.7-4.9); Absolute Monocytes 0.4 K/uL (0.1-1.3); Absolute Neutrophil 3.5 K/uL (1.8-8.0); Basophils % 0.9 % (0-1.3); Eosinophils % 3.8 % (0-4.4); Hematocrit 29.6 % (36.0-45.0); Hemoglobin 9.6 g/dL (12.0-15.0); Lymphocytes % 40.2 % (15.3-44.8); MCH 29.4 pg (27.0-35.0); MCHC 32.5 g/dL (32.0-36.0); MCV 90.5 fL (80-100); MPV 8.4 fL (7.6-11.3); Monocytes % 5.3 % (3.3-12.3); Neutrophils % 49.8 % (41.7-73.7); Nucleated Red Blood Cells % 0.1 % (0-0); Platelets 231 thou/uL (152-406); RBC Red Blood Cell Count 3.27 M/uL (3.86-4.86); Red Cell Distribution Width 15.5 % (12.1-15.2)
[2024-01-06 07:13] LABS: Anion Gap 5.9 mEq/L (5.0-15.0); Potassium 3.9 mEq/L (3.5-5.1)
--- NOTE | 2024-01-06 10:19 | P.PN ---
Date of Service: 01/06/24 Subjective: Still with malaise, weakness feeling unwell Some lower abdominal pain/burning with urination ROS: 10 point ROS as noted above, otherwise negative Physical exam GEN: Alert, oriented, NAD HEENT: Normal conjunctiva, sclera anicteric CV: Regular rate and rhythm, no edema Pulm: Nonlabored respirations on room air ABD: Soft, nontender, nondistended MSK: No joint tenderness Integumentary: No rashes Neuro: Normal speech, normal affect Vitals reviewed Assessment: UTI-history of chronic UTIs on long-term antibiotic therapy Debility/weakness Diabetes mellitus type 2insulin-dependent Hypertension Hyperlipidemia Chronic diastolic congestive heart failure History of CVA with resulting left-sided weakness Plan: UTI-history of chronic UTIs on long-term antibiotic therapy Debility/weakness Previous urine culture reviewed, if she has E. coli has been sensitive to Rocephin Urine culture ordered and pending Continue gentle IV fluids overnight, PT consult ordered At home typically gets around in scooter, can transfer with assistance Can usually walk 2-3 steps at home to get into her bathroom Lives alone, has dragline operator helper about 4 hours a day and daughter live next-door Much weaker the past 1 week difficulty getting around like she usually does Still feeling poorly today, will need to await urine culture/PT eval for DC Diabetes mellitus type 2insulin-dependent ACHS Accu-Chek, sliding scale insulin Hypertension Hyperlipidemia Chronic diastolic congestive heart failure History of CVA with resulting left-sided weakness Continue home medications once verified DVT PPX: Heparin subcu Code status: Full Discharge Plan: Home Plan to discharge in: 24-48 hours Hours Time Spent Managing Pts Care (In Minutes): 35
[2024-01-06] MEDS: CLOPIDOGREL 75 MG TABLET PO SCH (10:48)
[2024-01-06] MEDS ORDERED: HYDRALAZINE HCL 20 MG/ML VIAL IV PRN (20:29)
[2024-01-06] MEDS: NIFEDIPINE XL 30 MG TABLET PO SCH (21:55)
[2024-01-06] MEDS: carvediloL 6.25 MG TAB PO SCH (21:55)
[2024-01-07 08:29] LABS: Absolute Basophils 0.1 K/uL (0-0.5); Absolute Eosinophils 0.3 K/uL (0-0.5); Absolute Lymphocytes (CBC) 2.7 K/uL (0.7-4.9); Absolute Monocytes 0.5 K/uL (0.1-1.3); Absolute Neutrophil 4.1 K/uL (1.8-8.0); Basophils % 0.7 % (0-1.3); Eosinophils % 3.6 % (0-4.4); Hematocrit 30.3 % (36.0-45.0); Hemoglobin 9.9 g/dL (12.0-15.0); MCH 29.7 pg (27.0-35.0); MCHC 32.8 g/dL (32.0-36.0); MCV 90.6 fL (80-100); MPV 8.3 fL (7.6-11.3); Monocytes % 6.3 % (3.3-12.3); Neutrophils % 54.4 % (41.7-73.7); Nucleated Red Blood Cells % 0.1 % (0-0); Platelets 231 thou/uL (152-406); RBC Red Blood Cell Count 3.34 M/uL (3.86-4.86); Red Cell Distribution Width 15.9 % (12.1-15.2)
[2024-01-07 08:58] LABS: Anion Gap 4.1 mEq/L (5.0-15.0); Potassium 4.1 mEq/L (3.5-5.1)
--- NOTE | 2024-01-07 10:30 | P.PN ---
Date of Service: 01/07/24 Subjective: Feeling a little better today awaiting PT eval ROS: 10 point ROS as noted above, otherwise negative Physical exam GEN: Alert, oriented, NAD HEENT: Normal conjunctiva, sclera anicteric CV: Regular rate and rhythm, no edema Pulm: Nonlabored respirations on room air ABD: Soft, nontender, nondistended MSK: No joint tenderness Integumentary: No rashes Neuro: Normal speech, normal affect Vitals reviewed Assessment: UTI-history of chronic UTIs on long-term antibiotic therapy Debility/weakness Diabetes mellitus type 2insulin-dependent Hypertension Hyperlipidemia Chronic diastolic congestive heart failure History of CVA with resulting left-sided weakness Plan: UTI-history of chronic UTIs on long-term antibiotic therapy Debility/weakness Previous urine culture reviewed, if she has E. coli has been sensitive to Rocephin Urine culture ordered and pending Continue gentle IV fluids overnight, PT consult ordered At home typically gets around in scooter, can transfer with assistance Can usually walk 2-3 steps at home to get into her bathroom Lives alone, has email marketing executive about 4 hours a day and daughter live next-door Much weaker the past 1 week difficulty getting around like she usually does Still feeling poorly today, will need to await urine culture/PT eval for DC PT eval today, urine culture will result tomorrow Likely DC tomorrow AM Diabetes mellitus type 2insulin-dependent ACHS Accu-Chek, sliding scale insulin Hypertension Hyperlipidemia Chronic diastolic congestive heart failure History of CVA with resulting left-sided weakness Continue home medications once verified DVT PPX: Heparin subcu Code status: Full Discharge Plan: Home Plan to discharge in: 24-48 hours Hours Time Spent Managing Pts Care (In Minutes): 35 <Michael Turpin - Last Filed: 01/07/24 10:29> Patient seen and examined with Michael Turpin. Patient denies any new complaint. She has been afebrile. She has been tolerating her diet. Urine culture: GNR Plan: Continue IV Rocephin Follow urine culture. PT evaluation to guide disposition. Diet as tolerated. <jorge espitia - Last Filed: 01/07/24 15:43>
--- NOTE | 2024-01-07 14:19 | EKG ---
Test Date: 2024-01-05 Test Time: 13:43:44 Ornamental Metal Worker Helper: MEASUREMENT RESULTS: Intervals: Rate: 57 NH: 180 QRSD: 104 QT: 484 QTc: 471 [place]: P: 70 NH: 180 QRS: -26 T: 79 INTERPRETIVE STATEMENTS: Sinus bradycardia Prolonged QT Abnormal ECG Compared to ECG 09/19/2023 19:59:02 Prolonged QT interval now present Left-axis deviation no longer present Electronically Signed On 01-07-24 14:15:10 CDT by Perez Marcano
[2024-01-07] MEDS ORDERED: HYDRALAZINE HCL 20 MG/ML VIAL IV PRN (21:21)
[2024-01-07] MEDS: MELATONIN 5 MG TABLET PO PRN (22:16)
[2024-01-07] MEDS ORDERED: MELATONIN 5 MG TABLET PO PRN (23:17)
[2024-01-08 09:24] LABS: Absolute Basophils 0.1 K/uL (0-0.5); Absolute Eosinophils 0.3 K/uL (0-0.5); Absolute Lymphocytes (CBC) 2.8 K/uL (0.7-4.9); Absolute Monocytes 0.5 K/uL (0.1-1.3); Absolute Neutrophil 4.5 K/uL (1.8-8.0); Basophils % 0.9 % (0-1.3); Hematocrit 32.3 % (36.0-45.0); Hemoglobin 10.1 g/dL (12.0-15.0); Lymphocytes % 34.7 % (15.3-44.8); MCH 28.3 pg (27.0-35.0); MCHC 31.1 g/dL (32.0-36.0); MCV 91.2 fL (80-100); MPV 8.2 fL (7.6-11.3); Monocytes % 5.8 % (3.3-12.3); Neutrophils % 54.6 % (41.7-73.7); Nucleated Red Blood Cells % 0.1 % (0-0); Platelets 191 thou/uL (152-406); RBC Red Blood Cell Count 3.55 M/uL (3.86-4.86); Red Cell Distribution Width 15.8 % (12.1-15.2)
[2024-01-08] MEDS: Meropenem 1,000 MG in NA CHLORIDE 0.9% 100 ML IV SCH (09:47)
[2024-01-08] MEDS: ONDANSETRON 4 MG/2 ML VIAL IV PRN (09:48)
[2024-01-08 09:53] LABS: Blood Morphology Comment NOT SEEN (NOT SEEN); Platelet Estimate ADEQ; White Blood Cell Scan OK (OK)
[2024-01-08] MEDS: BISACODYL 10 MG RECTAL SUPP PR ONE (11:08)
--- NOTE | 2024-01-08 13:13 | P.PN ---
Date of Service: 01/08/24 Subjective: Feeling better today Still very weak ROS: 10 point ROS as noted above, otherwise negative Physical exam GEN: Alert, oriented, NAD HEENT: Normal conjunctiva, sclera anicteric CV: Regular rate and rhythm, no edema Pulm: Nonlabored respirations on room air ABD: Soft, nontender, nondistended MSK: No joint tenderness Integumentary: No rashes Neuro: Normal speech, normal affect Vitals reviewed Assessment: UTI-history of chronic UTIs on long-term antibiotic therapy E.Coli ESBL UTI Debility/weakness Diabetes mellitus type 2insulin-dependent Hypertension Hyperlipidemia Chronic diastolic congestive heart failure History of CVA with resulting left-sided weakness Plan: UTI-history of chronic UTIs on long-term antibiotic therapy E.Coli ESBL UTI Debility/weakness Culture + for E.Coli ESBL Started Merrem 1gm BID AM 01/07, continue through 01/14 for one week Midline placed 01/07 At home typically gets around in scooter, can transfer with assistance Can usually walk 2-3 steps at home to get into her bathroom Lives alone, has pitch gatherer 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 4 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 and daughter live next-door Much weaker the past 1 week difficulty getting around like she usually does Limited mobility with PT, appropriate for SNF at this time SNF consult placed with social media project manager Diabetes mellitus type 2insulin-dependent ACHS Accu-Chek, sliding scale insulin Hypertension Hyperlipidemia Chronic diastolic congestive heart failure History of CVA with resulting left-sided weakness Continue home medications once verified DVT PPX: Heparin subcu Code status: Full Discharge Plan: Home Plan to discharge in: 24-48 hours Hours Time Spent Managing Pts Care (In Minutes): 35
[2024-01-08] MEDS: POLYETHYL GLY 3350 17 GM/DOSE PO ONE (15:17)
[2024-01-08] MEDS: allopurinoL 300 MG TAB PO SCH (15:17)
[2024-01-08] MEDS: ASPART SQ SCH (17:00)
[2024-01-08] MEDS: [UNRECOGNIZED DRUG - OTHER] SQ SCH (17:00)
[2024-01-08] MEDS: INSULIN ASPART PROTAM SQ SCH (17:00)
[2024-01-08] MEDS ORDERED: D50W 25 GM/50 ML SYRINGE IV PRN (17:01)
[2024-01-08] MEDS ORDERED: GLUCAGON 1 MG/VIAL IM PRN (17:01)
[2024-01-08] MEDS ORDERED: D10W 125 ML IV PRN (17:13)
[2024-01-08] MEDS: INSULIN 70/30 100 UNITS/ML SQ SCH (17:27)
[2024-01-08] MEDS: SERTRALINE HCL 100 MG TAB PO SCH (21:45)
[2024-01-09 07:11] LABS: Hematocrit 28.6 % (36.0-45.0); Hemoglobin 9.4 g/dL (12.0-15.0); MCH 29.9 pg (27.0-35.0); MCHC 32.9 g/dL (32.0-36.0); MCV 90.7 fL (80-100); MPV 8.2 fL (7.6-11.3); Platelets 206 thou/uL (152-406); RBC Red Blood Cell Count 3.15 M/uL (3.86-4.86)
[2024-01-09 07:15] LABS: Anion Gap 6.5 mEq/L (5.0-15.0); Potassium 4.5 mEq/L (3.5-5.1)
[2024-01-09] MEDS: EZETIMIBE 10 MG TAB PO SCH (08:39)
[2024-01-09] MEDS: FAMOTIDINE 20 MG TAB PO SCH (08:39)
[2024-01-09] MEDS: SOLIFENACIN SUCCIN 5 MG TAB PO SCH (08:39)
--- NOTE | 2024-01-09 10:41 | P.PN ---
Date of Service: 01/09/24 Subjective: Eating and feeling well c/o of not having a BM and has constipation in her history Will try a glycerin suppository ROS: 10 point ROS as noted above, otherwise negative Physical exam GEN: Alert and oriented x3, NAD, comfortable HEENT: Normal conjunctiva, sclera anicteric CV: RRR, S1-S2 present, no edema Pulm: Nonlabored respirations on room air ABD: Soft, nontender, nondistended MSK: No joint tenderness Integumentary: No rashes Neuro: Normal speech, normal affect Vitals reviewed Assessment: UTI-history of chronic UTIs on long-term antibiotic therapy E.Coli ESBL UTI Debility/weakness Diabetes mellitus type 2insulin-dependent Hypertension Hyperlipidemia Chronic diastolic congestive heart failure History of CVA with resulting left-sided weakness Plan: UTI-history of chronic UTIs on long-term antibiotic therapy E.Coli ESBL UTI Debility/weakness Culture + for E.Coli ESBL Started Merrem 1gm BID AM 01/07, continue through 01/14 for one week Midline placed 01/07 At home typically gets around in scooter, can transfer with assistance Can usually walk 2-3 steps at home to get into her bathroom Lives alone, has industrial ecologist 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 4 hours a day and daughter live next-door Much weaker the past 1 week difficulty getting around like she usually does Limited mobility with PT, appropriate for SNF at this time SNF consult placed with social worker clinical Diabetes mellitus type 2insulin-dependent ACHS Accu-Chek, sliding scale insulin Hypertension Hyperlipidemia Chronic diastolic congestive heart failure History of CVA with resulting left-sided weakness Continue home medications once verified History of constipation glycerine suppository x1 dulcolax daily DVT PPX: Heparin subcu Code status: Full Dispo: [facility] sibmitting for Auth
[2024-01-09] MEDS: GLYCERIN ADULT SUPP PR SCH (12:51)
[2024-01-10 07:23] LABS: Hemoglobin 9.1 g/dL (12.0-15.0); MCH 29.5 pg (27.0-35.0); MCHC 32.5 g/dL (32.0-36.0); MCV 90.7 fL (80-100); Platelets 203 thou/uL (152-406); RBC Red Blood Cell Count 3.08 M/uL (3.86-4.86)
[2024-01-10 07:43] LABS: Anion Gap 6.6 mEq/L (5.0-15.0); Potassium 4.6 mEq/L (3.5-5.1)
[2024-01-10] MEDS ORDERED: CARBOXYMETHYLCELLULOSE SODIUM 0.5% 15 ML OPTH SCH (09:00)
--- NOTE | 2024-01-10 10:14 | P.DS ---
Admission Date: 01/06/24 Discharge Date: 01/14/24 Disposition: TRANSFER TO SNF - REHAB Discharge Condition: FAIR Reason for Admission: UTI, weakness Brief History of Present Illness: Diagnosis UTI-history of chronic UTIs on long-term antibiotic therapy E.Coli ESBL UTI Debility/weakness Diabetes mellitus type 2insulin-dependent Hypertension Hyperlipidemia Chronic diastolic congestive heart failure History of CVA with resulting left-sided weakness HPI 01/05/24 Mariposa Palacios is a 83-year-old female with history of insulin-dependent diabetes, hypertension, previous CVA, CHF, hyperlipidemia presents emergency department chief complaint of generalized weakness, UTI symptoms. She has history of multiple urinary tract infections and was recently on a chronic dose of Cipro 250 mg daily prescribed by her PCP. She ran out about 10 days ago and 1 week ago she started having UTI symptoms including dysuria, foul-smelling urine and weakness/fogginess. She was evaluated in the emergency department UA is consistent with urinary tract infection, she lives at home alone having a caregiver about 4 hours a day and her daughter living next-door, she primarily gets around with a scooter and does transfers with assistance but is not very ambulatory, able to take about 2- 3 steps to get into her bathroom. She reports significant functional decline in the past 1 week with difficulty with her normal ADLs and transfers. ED prior wishes to admit patient for further evaluation management of UTI, weakness. Hospital Course: Mariposa Palacios is an 83 year old female with Pmhx insulin-dependent diabetes, hypertension, previous CVA, CHF, hyperlipidemia who presents to the ED with chief complaint of generalized weakness, UTI symptoms. Her urine culture grew ESBL, blood culture was negative. She has tolerated Merrem. She has a history of constipation and was able to have a BM with the help of an Enema the same day as discharge. She has worked with physical therapy and will discharge to SNF for continued rehab and IV merrem which will complete 01/15/24. She is afebrile, hemodynamically stable, and tolerating PO diet. Her urinary symptoms have resolved and she is ready for discharge. Follow up with PCP for further medication management. Physical exam GEN: Awake, Alert, and oriented x3, NAD, comfortable HEENT: Normal conjunctiva, sclera anicteric CV: regular rate and rhythm, S1-S2 present, no edema Pulm: Nonlabored respirations on room air ABD: Soft on palpation, ND/NT MSK: No joint tenderness Integumentary: No rashes Neuro: Normal speech, normal affect Vital Signs/Physical Exam: Temp Pulse Resp BP Pulse Ox 97.1 F 80 18 136/63 96 01/10/24 04:00 01/10/24 04:00 01/10/24 04:00 01/10/24 04:00 01/10/24 04:00 Laboratory Data at Discharge: WBC 5.40 thou/uL (4.3-10.9) 01/10/24 06:30 Hgb 9.1 g/dL (12.0-15.0) L 01/10/24 06:30 Hct 28.0 % (36.0-45.0) L 01/10/24 06:30 Plt Count 203 thou/uL (152-406) 01/10/24 06:30 PT 11.2 SECONDS (9.4-12.5) 01/05/24 13:55 INR 1.02 01/05/24 13:55 APTT 30.8 SECONDS (24.3-36.9) 01/05/24 13:55 Sodium 140 mEq/L (136-145) 01/10/24 06:30 Potassium 4.6 mEq/L (3.5-5.1) 01/10/24 06:30 BUN 26 mg/dL (7-18) H 01/10/24 06:30 Creatinine 1.54 mg/dL (0.55-1.02) H 01/10/24 06:30 Glucose 110 mg/dL (74-106) H 01/10/24 06:30 Total Bilirubin 0.3 mg/dL (0.2-1.0) 01/05/24 13:55 AST < 10 U/L (15-37) L 01/05/24 13:55 ALT < 14 U/L (13-56) 01/05/24 13:55 Alkaline Phosphatase 82 U/L (45-117) 01/05/24 13:55 Home Medications: Allopurinol 1 tab PO DAILY 01/31/18 Clopidogrel Bisulfate [Plavix] 1 tab PO DAILY 01/31/18 Sertraline [Zoloft*] 150 mg PO BEDTIME 01/31/18 Solifenacin Succinate [Vesicare] 1 tab PO DAILY 01/31/18 Ezetimibe [Zetia*] 1 tab PO DAILY 03/30/18 Furosemide [Lasix] 1 tab PO DAILY 03/30/18 Famotidine 20 mg PO DAILY 01/05/24 Nifedipine Xl [Procardia Xl*] 30 mg PO DAILY 01/05/24 carvediloL [Carvedilol] 6.25 mg PO BID 01/05/24 Insulin Aspart Protam & Aspart [Novolog Mix 70-30 Vial] 17 units SQ DAILY AT SUPPER 01/06/24 Amlodipine [Norvasc*] 5 mg PO BEDTIME tab 01/10/24 Atorvastatin Calcium [Lipitor*] 20 mg PO BEDTIME tab 01/10/24 Carboxymethylcellulose Sodium [Refresh Tears] 2 drops OPTH DAILY bottle 01/10/24 Hydralazine [Apresoline*] 50 mg PO TID tab 01/10/24 Insulin 70/30 NPH/Reg Human [Novolin 70/30*] 10 unit SQ DAILY AT SUPPER ml 01/10/24 Melatonin 10 mg PO BEDTIME PRN PRN 01/10/24 Physician Discharge Instructions: Mariposa Palacios was being treated for ESBL in her urine, she has tolerated the IV Merrem and has worked with physical therapy. She will need to continue physical therapy. 1. Please call and schedule a follow-up appointment with your PCP in 3-5 days - Please follow-up with your PCP for medication refills/adjustments 2. Please continue Physical therapy during her stay 3. Continue regular diet 4. activity restrictions fall precautions 5. Return to the ED if symptoms worsen New medications Merrem 1 gram IV BID End date 01/15/24- please use Midline in place, flush midline with 10 ml before and after administration. Please discontinue the midline when Merrem has completed after her doses on 01/15/24. Dulcolax BID Diet: Regular Activity: Fall precautions Followup: Kolton Mcclellan MD [Primary Care Provider] -
[2024-01-10] MEDS: FLEET ENEMA ADULT PR ONE (11:12)
[2024-01-10 16:38] VITALS: BP 130/59; TEMP 97.7
== END 2024-01-10 17:00 | DRG 690 ==
LOC: ER 13:27 → ERHOLD 17:05 → 4TH 17:30 → OBSVTOIN 01-06 16:17
PROVIDERS: ADMIT Internal Medicine; ATTEND Hospitalist
DX: N39.0 Urinary tract infection, site not specified (principal); I50.32 Chronic diastolic (congestive) heart failure; I69.354 Hemiplegia and hemiparesis following cerebral infarction affecting left non-dominant side; Z16.12 Extended spectrum beta lactamase (ESBL) resistance; I11.0 Hypertensive heart disease with heart failure; M10.9 Gout, unspecified; E78.5 Hyperlipidemia, unspecified; K59.00 Constipation, unspecified; E11.40 Type 2 diabetes mellitus with diabetic neuropathy, unspecified; B96.20 Unspecified Escherichia coli [E. coli] as the cause of diseases classified elsewhere; Z88.5 Allergy status to narcotic agent; Z79.4 Long term (current) use of insulin; Z60.2 Problems related to living alone; Z88.8 Allergy status to other drugs, medicaments and biological substances; Z90.49 Acquired absence of other specified parts of digestive tract; Z90.710 Acquired absence of both cervix and uterus
CPT/HCPCS: 36415; 80048; 80053; 81001; 82947; 83605; 85025; 85027; 85610; 85730; 87040; 87077; 87086; 87088; 87186; 93005; 96360; 97110; 97161; 97530; 99285; J0360; J0696; J1644; J1815; J2185; J2405; J7030; J7040

== ENCOUNTER 2024-05-28 08:22 | Emergency (ER) | payer OTHER ==
--- OUTSIDE RECORDS SUMMARY | 2024-05-28 08:25 | XMS REPORT | Continuity of Care Document ---
Author Name Unknown Address [address] [place] [address] [address] [facility] Address [address] [place] [address]. 1 [address] [place] [address] Care Team Providers Care Security Incident Response Specialist Name Role Phone [phone] Attending Clinician Unavailable Jamal Gomes Anavella Attending Cli nician Unavailable [phone] Admitting Clinician Unavailable Roberto Gomes Anav Admitting Clinician U navailable Payers Payer Name Policy Type Policy Number Effective Date Expirati on Date Source [facility] [id number] Encounters Start Date/Time End Date/Time Encounter Type Admission Type Attending Clinicians Care Facility Care Department Encounter ID Source 2022-10-26 09:38:52 Outpatient 3 [id number] [facility]STOFER [id number] [facility] 2022-10-18 08:34:08 Outpatient 3 [id number] [facility] REF [id number] [facility] 2021-08-04 09:58:11 Outpatient 3 [id number] [id number] [facility] 2021-08-04 09:54:11 Outpatient 3 [id number] [facility] REF [id number] [facility] 2021-08-04 09:53:43 Outpatient 3 [id number] [facility] REF [id number] [facility] 2022-10-27 13:03:00 2022-11-18 13:30:00 Inpatient 3 Jamal Serna [facility] [place] [id number] [facility]
[2024-05-28] MEDS ORDERED: NA CHLORIDE 0.9% 500 ML ONE (08:40)
[2024-05-28] MEDS ORDERED: ONDANSETRON 4 MG/2 ML VIAL ONE (08:40)
[2024-05-28 08:53] LABS: Absolute Basophils 0.1 K/uL (0-0.5); Absolute Eosinophils 0.2 K/uL (0-0.5); Absolute Lymphocytes (CBC) 2.2 K/uL (0.7-4.9); Absolute Monocytes 0.4 K/uL (0.1-1.3); Basophils % 0.7 % (0-1.3); Eosinophils % 3.2 % (0-4.4); Hematocrit 33.2 % (36.0-45.0); Hemoglobin 10.6 g/dL (12.0-15.0); Lymphocytes % 31.9 % (15.3-44.8); MCH 29.2 pg (27.0-35.0); MCV 91.1 fL (80-100); MPV 7.5 fL (7.6-11.3); Monocytes % 6.2 % (3.3-12.3); Platelets 244 thou/uL (152-406); RBC Red Blood Cell Count 3.64 M/uL (3.86-4.86); Red Cell Distribution Width 16.3 % (12.1-15.2)
[2024-05-28 08:54] LABS: Protime INR 0.98
[2024-05-28 09:07] LABS: AST/SGOT 13 U/L (15-37); Albumin 3.2 g/dL (3.4-5.0); Albumin/Globulin Ratio 0.8 (1.1-1.8); Alkaline Phosphatase 87 U/L (45-117); Anion Gap 6.7 mEq/L (5.0-15.0); BUN Blood Urea Nitrogen 40 mg/dL (7-18); Bicarbonate 28 mEq/L (21-32); Bilirubin Total 0.2 mg/dL (0.2-1.0); Globulin 4.1 g/dL (2.3-3.5); Glomerular Filtration Rate 26 ml/min (=/>90); Glucose Level 189 mg/dL (74-106); Lipase 27 U/L (13-75); Magnesium 2.4 mg/dL (1.6-2.4); NT PRO-BNP 413 pg/mL (<450); Potassium 4.7 mEq/L (3.5-5.1); Protein, Total 7.3 g/dL (6.4-8.2); Sodium Level 137 mEq/L (136-145); Troponin High Sensitivity 11.6 pg/mL (<58.9)
[2024-05-28 09:09] LABS: ALT/SGPT < 14 U/L (13-56); Bilirubin Direct < 0.2 mg/dL (0-0.2)
--- NOTE | 2024-05-28 09:29 | RAD REPORT ---
EXAMINATION: ONE VIEW CHEST XR CLINICAL INDICATION: COUGH TECHNIQUE: Frontal chest projection is submitted. Examination is limited by patient positioning and t echnique. COMPARISON: 03/26/2022 FINDINGS: Mild pulmonary opacities are present bilaterally which may indicate pulmonary edema or infection. The heart is mildly to moderately enlarged. Chronically deformity left shoulder. IMPRESSION: Mild CHF versus volume overload pattern is suspected.
[2024-05-28 09:45] LABS: Specific Gravity 1.009 (1.005-1.030); Sqamous Epithelial <5 /HPF (None Seen); Urine Bacteria <20 /HPF (<20); Urine Bilirubin NEGATIVE (Negative); Urine Blood Negative (Negative); Urine Clarity Clear (Clear); Urine Color Colorless (Yellow); Urine Culture Reflex Order NOT NEEDED; Urine Glucose NEGATIVE (Negative); Urine Ketones NEGATIVE (Negative); Urine Microscopic Reflex YN ORDER UMIC; Urine Nitrite NEGATIVE (Negative); Urine Protein 1+ (Negative); Urine RBC <5 /HPF (None Seen); Urine Urobilinogen Normal (Normal); Urine WBC <5 /HPF (<5); Urine pH 5.5 (5.0-7.0)
[2024-05-28] MEDS ORDERED: MORPHINE 2 MG/ML SYR ONE (10:59)
[2024-05-28] MEDS ORDERED: ACETAMINOPHEN 500 MG TAB ONE (11:01)
--- NOTE | 2024-05-28 11:41 | RAD REPORT ---
EXAM: CT CHEST, ABDOMEN AND PELVIS WITHOUT CONTRAST CLINICAL INDICATION: PAIN TECHNIQUE: CT chest, abdomen and pelvis was performed without contrast, as per department protocol. A xial, sagittal and coronal reconstructions were obtained. One or more of the following dose reduction techniques were used: Automated exposure control, adjustment of the mA and/or kV according to patient size, and/or iterative reconstruction. Unless otherwise specified, incidental findings do not require dedicated imaging follow-up. Examination is limited by the lack of intravenous contrast material. COMPARISON: No prior exam. FINDINGS: LUNGS: No evidence of airspace or interstitial process. No nodules. Minimal scarring suspected in the lingula medially. PLEURA: No pleural effusion. No pneumothorax. MEDIASTINUM AND LYMPH NODES: No mediastinal mass or fluid collection. Normal size mediastinal, hilar, and right axillary lymph nodes. OSSEOUS STRUCTURES AND CHEST WALL: There is an irregular 4 cm mass in the lower lateral aspect of the left breast contacting the skin. There is a very large 11 cm oblong mass with internal necrosis present in the left axillary region. 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 LIVER: Normal in size and contour. No focal lesion or biliary dilatation. Grossly unremarkable gallbl adder. PANCREAS: No mass, ductal dilation, or dilcia-pancreatic fluid. SPLEEN: Normal size. No focal lesion. ADRENALS: Normal; no mass. KIDNEYS: Normal size and contour. No hydronephrosis. URINARY BLADDER: Normal contour. GASTROINTESTINAL TRACT: No bowel obstruction, free air, significant free fluid or abscess. Sigmoid diverticulosis noted. APPENDIX: Normal appendix. LYMPH NODES: No lymphadenopathy. MUSCULOSKELETAL: No acute or suspicious osseous abnormality. 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 Advise clinical inspection.
--- NOTE | 2024-05-28 13:17 | RAD REPORT ---
EXAMINATION: CT HEAD WITHOUT CONTRAST CT CERVICAL SPINE WITHOUT CONTRAST CLINICAL INDICATION: Head and neck pain TECHNIQUE: Axial CT images from the skull base to the vertex without intravenous contrast. Axial CT i mages through the cervical spine were obtained without intravenous contrast. Sagittal and coronal reformatted images were created from the data set. Coronal and sagittal reformatted images were creat ed from the data set. One or more of the following dose reduction techniques were used: Automated exposure control, adjustment of the mA and/or kV according to patient size, and/or iterative reconstr uction. Unless otherwise specified, incidental findings do not require dedicated imaging follow-up. [id number]. Comparison: 2022 FINDINGS: An intracranial bleed is not seen. Ventricles are normal in caliber. Moderate area of cystic encephalomalacia right cerebrum No extra-axial fluid collection. No fluid within the sinuses/mastoids No fracture or dislocation is seen involving the cervical spine. Mild chronic anterior subluxation C5 on C6. Spondylosis C5-C6 consisting of disc space narrowing and osteophytes and disc bulge. Moderate narrowing of neural foramina bilaterally. IMPRESSION: No acute intracranial abnormality noted A cervical fracture is not seen. 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 If the patient continues to have symptoms to suggest acute [facility] [employer]/spinal pathology then MRI would be rec ommended
--- NOTE | 2024-05-28 13:26 | ER ---
Nurse's Notes [facility] Name: Mariposa Palacios Age: 84 yrs Sex: Female : 1940 Arrival Date: 05/28/2024 Time: 08:22 Bed 5 Private MD: Diagnosis: Dysuria;Essential (primary) hypertension;Unspecified kidney failure-chronic;Headache;Impacted cerumen, left ear Presentation: 05/28 08:26 Chief complaint: EMS states: called for high blood pressure and nausea. Coronavirus ko1 screen: At this time, the client does not indicate any symptoms associated with coronavirus-19. Ebola Screen: No symptoms or risks identified at this time. Initial Sepsis Screen: Does the patient meet any 2 criteria? No. Patient's initial sepsis screen is negative. Does the patient have a suspected source of infection? No. Patient's initial sepsis screen is negative. Risk Assessment: Do you want to hurt yourself or someone else? Patient reports no desire to harm self or others. Onset of symptoms was May 28, 2024. 08:26 Method Of Arrival: EMS: [facility] ko1 08:26 Acuity: DOMINIQUE 3 ko1 Triage Assessment: 08:27 General: Appears in no apparent distress. Behavior is calm, cooperative, appropriate ko1 for age. Pain: Complains of pain in abdomen. EENT: No deficits noted. Neuro: No deficits noted. Cardiovascular: No deficits noted. Respiratory: No deficits noted. GI: Reports nausea. : No deficits noted. Derm: No deficits noted. Musculoskeletal: No deficits noted. Historical: - Allergies: 08:27 Benadryl; ko1 08:27 Codeine; ko1 08:27 injectable dye; ko1 08:27 metformin; ko1 08:27 Phenergan; ko1 - PMHx: 08:27 CHF; CVA; Diabetes - IDDM; Gout; kidney disease; neuropathy; Hypertensive disorder; ko1 - PSHx: 08:27 hysterectomy; left shoulder repair; ko1 - Immunization history:: Adult Immunizations up to date. - Infectious Disease History:: Denies. - Social history:: Smoking status: Patient/guardian denies using tobacco, but has a distant history of tobacco abuse. Screenin:[address] [facility] ED Fall Risk Assessment (Adult) History of falling in the last 3 months, ko1 including since admission No falls in past 3 months (0 pts) Confusion or Disorientation No (0 pts) Intoxicated or Sedated No (0 pts) Impaired Gait No (0 pts) Mobility Assist Device Used No (0 pt) Altered Elimination No (0 pt) Score/Fall Risk Level 0 - 2 = Low Risk Oriented to surroundings, Maintained a safe environment, Educated pt \T\ family on fall prevention, incl call for assistance when getting out of bed, Assessed \T\ reinforced patient's understanding of fall precautions, Hourly rounding (assess needs \T\ fall precautionary measures) done. Abuse screen: Denies threats or abuse. Denies injuries from another. Nutritional screening: No deficits noted. Tuberculosis screening: No symptoms or risk factors identified. Assessment: 08:30 General: Appears ill, Behavior is calm, cooperative, appropriate for age. Pain: ko1 Complains of pain in abdomen. Neuro: No deficits noted. Cardiovascular: Reports high blood pressure. Respiratory: No deficits noted. GI: Abdomen is flat, non-distended, Reports nausea. : No deficits noted. EENT: No deficits noted. Derm: No deficits noted. Musculoskeletal: No deficits noted. Vital Signs: 08:26 BP 172 / 64; Pulse 50; Resp 16; Temp 97.5; Pulse Ox 98% ; ko1 08:37 BP 172 / 64; Pulse 78; Resp 14; Pulse Ox 96% on R/A; rs6 09:00 BP 137 / 60; Pulse 62; Resp 15; Pulse Ox 99% ; ko1 09:30 BP 149 / 67; Pulse 61; Resp 16; Pulse Ox 99% ; ko1 10:00 BP 134 / 49; Pulse 57; Resp 17; Pulse Ox 100% ; ko1 11:00 BP 131 / 54; Pulse 58; Resp 16; Pulse Ox 99% ; ko1 13:14 BP 115 / 78; Pulse 62; Resp 18; Pulse Ox 99% ; ko1 Yoav Coma Score: 13:23 Eye Response: spontaneous(4). Motor Response: obeys commands(6). Verbal Response: nisha oriented(5). Total: 15. ED Course: 08:26 Patient arrived in ED. ko1 08:26 Divina Rizzo, RN is Primary Nurse. ko1 08:27 Triage completed. ko1 08:27 Arm band placed on right wrist. Patient placed in an exam room, on a stretcher, on ko1 nuclear monitoring technician, on pulse oximetry, Patient notified of wait time. 08:30 Ab Jaeger MD is Attending Physician. [facility] 08:30 Patient has correct armband on for positive identification. Allergy band placed. Placed ko1 in gown. Bed in low position. Call light in reach. Side rails up X2. Provided Education on: labs. Client placed on continuous cardiac and pulse oximetry monitoring. NIBP monitoring applied. monitoring engineer on. Door closed. Noise minimized. Lights dimmed. Warm blanket given. Pillow given. 08:30 No provider procedures requiring assistance completed. Initial lab(s) drawn, by ED ko1 staff, sent to lab. EKG done, by ED staff, reviewed by Ab Jaeger MD. Straight cath inserted, using sterile technique, 14 Fr. Specimen obtained. Patient tolerated well. 08:38 Inserted saline lock: 20 gauge in right forearm, using aseptic technique. Blood rs6 collected. Flushed with 10 mL NS. 08:38 Basic Metabolic Panel Sent. ko1 08:38 CBC with Diff Sent. ko1 08:39 LFT's Sent. ko1 08:39 Magnesium Sent. ko1 08:39 NT PRO-BNP Sent. ko1 08:39 PT-INR Sent. ko1 08:39 Troponin HS Sent. ko1 08:39 Lipase Sent. ko1 09:20 XRAY Chest (1 view) In Process Unspecified. EDMS 11:29 CT Chest Abdomen Pelvis W/O Contrast In Process Unspecified. EDMS 12:58 CT Head C Spine In Process Unspecified. EDMS 13:31 Renzo Gautam MD is Referral Physician. [facility] 14:27 Awaiting transportation. ko1 14:33 Yuko Gomez MD is Referral Physician. nisha Administered Medications: 08:47 Drug: NS 0.9% IV 500 ml IV at bolus once; to be given as a bolus over 30 minutes Route: ko1 IV; Rate: bolus; Site: left forearm; 10:00 Follow up: Response: No adverse reaction; IV Status: Completed infusion; IV Intake: ko1 500ml 10:04 Follow up: Response: No adverse reaction; IV Status: Completed infusion; IV Intake: ko1 500ml 08:47 Drug: Ondansetron IVP 4 mg IVP once; over 2 minutes Route: IVP; Site: left forearm; ko1 09:02 Follow up: Response: No adverse reaction ko1 11:01 Not Given (Patient Refused): morphineor iv 2 mg IVP once over 4 mins ko1 11:01 Not Given (Patient Refused): morphineor iv 2 mg IVP once over 4 mins ko1 11:15 Drug: Acetaminophen PO 1000 mg PO once Route: PO; rs5 11:45 Follow up: Response: No adverse reaction ko1 13:43 Drug: Rocephin IV 1 grams IV at per protocol once; Given slow IV push per pharmacy rs5 instructions Route: IV; Rate: per protocol; Site: left forearm; 14:00 Follow up: Response: No adverse reaction; IV Status: Completed infusion; IV Intake: [id number] Medication: 08:30 VIS not applicable for this client. ko1 Intake: 10:00 IV: 500ml; Total: 500ml. ko1 10:04 IV: 500ml; Total: 1000ml. ko1 14:00 IV: 50ml; Total: 1050ml. ko1 Outcome: 13:26 Discharge ordered by . nisha 16:33 Patient left the ED. rs5 Signatures: Dispatcher [employer] EDAb Salvador MD MD cha Oliver, Kathy RN RN ko1 Orville Godrfey RN RN rs5 John Ferreira rs6
--- NOTE | 2024-05-28 13:26 | EDPHYS ---
Physician Documentation [facility] Name: Mariposa Palacios Age: 84 yrs Sex: Female : 1940 Arrival Date: 05/28/2024 Time: 08:22 Bed 5 Private MD: ED Physician Ab Jaeger HPI: 05/28 13:19 This 84 yrs old Female presents to ER via EMS with complaints of High Blood nisha Pressure, Nausea. 13:19 The patient has elevated blood pressure and discovered this at home. Onset: The nisha symptoms/episode began/occurred just prior to arrival, this morning. Modifying factors: The symptoms are aggravated by activity, The symptoms are alleviated by remaining still. Associated signs and symptoms: The patient has no apparent associated signs or symptoms. The patient has experienced similar episodes in the past, a few times. Historical: - Allergies: 08:27 Benadryl; ko1 08:27 Codeine; ko1 08:27 injectable dye; ko1 08:27 metformin; ko1 08:27 Phenergan; ko1 - PMHx: 08:27 CHF; CVA; Diabetes - IDDM; Gout; kidney disease; neuropathy; Hypertensive disorder; ko1 - PSHx: 08:27 hysterectomy; left shoulder repair; ko1 - Immunization history:: Adult Immunizations up to date. - Infectious Disease History:: Denies. - Social history:: Smoking status: Patient/guardian denies using tobacco, but has a distant history of tobacco abuse. ROS: 13:20 Constitutional: Negative for fever, chills, and weight loss, Eyes: Negative for injury, nisha pain, redness, and discharge, ENT: Negative for injury, pain, and discharge, Neck: Negative for injury, pain, and swelling, Cardiovascular: Negative for chest pain, palpitations, and edema, Respiratory: Negative for shortness of breath, cough, wheezing, and pleuritic chest pain, Abdomen/GI: Negative for abdominal pain, nausea, vomiting, diarrhea, and constipation, Back: Negative for injury and pain, MS/Extremity: Negative for injury and deformity, Skin: Negative for injury, rash, and discoloration, Psych: Negative for depression, anxiety, suicide ideation, homicidal ideation, and hallucinations, Allergy/Immunology: Negative for hives, rash, and allergies, Endocrine: Negative for neck swelling, polydipsia, polyuria, polyphagia, and marked weight changes, Hematologic/Lymphatic: Negative for swollen nodes, abnormal bleeding, and unusual bruising, 13:20 : Positive for urinary symptoms, burning with urination, 13:20 Neuro: Positive for headache, Exam: 13:20 Constitutional: This is a well developed, well nourished patient who is awake, alert, nisha and in no acute distress. Head/Face: Normocephalic, atraumatic. Eyes: Pupils equal round and reactive to light, extra-ocular motions intact. Lids and lashes normal. Conjunctiva and sclera are non-icteric and not injected. Cornea within normal limits. Periorbital areas with no swelling, redness, or edema. ENT: Nares patent. No nasal discharge, no septal abnormalities noted. Tympanic membranes are normal and external auditory canals are clear. Oropharynx with no redness, swelling, or masses, exudates, or evidence of obstruction, uvula midline. Mucous membranes moist. Neck: Trachea midline, no thyromegaly or masses palpated, and no cervical lymphadenopathy. Supple, full range of motion without nuchal rigidity, or vertebral point tenderness. No Meningismus. Chest/axilla: Normal chest wall appearance and motion. Nontender with no deformity. No lesions are appreciated. Cardiovascular: Regular rate and rhythm with a normal S1 and S2. No gallops, murmurs, or rubs. Normal PMI, no JVD. No pulse deficits. Respiratory: Lungs have equal breath sounds bilaterally, clear to auscultation and percussion. No rales, rhonchi or wheezes noted. No increased work of breathing, no retractions or nasal flaring. Abdomen/GI: Soft, non-tender, with normal bowel sounds. No distension or tympany. No guarding or rebound. No evidence of tenderness throughout. Back: No spinal tenderness. No costovertebral tenderness. Full range of motion. Female : Normal external genitalia. Skin: Warm, dry with normal turgor. Normal color with no rashes, no lesions, and no evidence of cellulitis. MS/ Extremity: Pulses equal, no cyanosis. Neurovascular intact. Full, normal range of motion. Neuro: Awake and alert, GCS 15, oriented to person, place, time, and situation. Cranial nerves II-XII grossly intact. Motor strength 5/5 in all extremities. Sensory grossly intact. Cerebellar exam normal. Normal gait. Psych: Awake, alert, with orientation to person, place and time. Behavior, mood, and affect are within normal limits. 13:20 Neck: ROM/movement: is normal, no acute changes, pain, is not appreciated, limited range of motion, is not appreciated, Meningeal signs: are not present, Kernig's sign is negative, Brudzinski's sign is negative, nuchal rigidity, is not appreciated, 13:20 ECG was reviewed by the Attending Physician. Vital Signs: 08:26 BP 172 / 64; Pulse 50; Resp 16; Temp 97.5; Pulse Ox 98% ; ko1 08:37 BP 172 / 64; Pulse 78; Resp 14; Pulse Ox 96% on R/A; rs6 09:00 BP 137 / 60; Pulse 62; Resp 15; Pulse Ox 99% ; ko1 09:30 BP 149 / 67; Pulse 61; Resp 16; Pulse Ox 99% ; ko1 10:00 BP 134 / 49; Pulse 57; Resp 17; Pulse Ox 100% ; ko1 11:00 BP 131 / 54; Pulse 58; Resp 16; Pulse Ox 99% ; ko1 13:14 BP 115 / 78; Pulse 62; Resp 18; Pulse Ox 99% ; ko1 Yoav Coma Score: 13:23 Eye Response: spontaneous(4). Motor Response: obeys commands(6). Verbal Response: nisha oriented(5). Total: 15. MDM: 08:30 Medical Screening Exam initiated nisha 13:23 Differential diagnosis: kidney stone, malignancy, Neoplasm hypertensive crisis, nisha Malignant HTN, CVA, urinary tract infection. Data reviewed: vital signs, nurses notes. Consideration of Admission/Observation Escalation of care including admission/observation considered. I considered the following discharge prescriptions or medication management in the emergency department Medications were administered in the Emergency Department. See MAR. Test considered but Not performed: MRI: no mri brain. Care significantly affected by the following chronic conditions: Diabetes, Hypertension, Congestive Heart Failure, Obesity, Chronic Kidney Disease. Counseling: I had a detailed discussion with the patient and/or guardian regarding the historical points, exam findings, and any diagnostic results supporting the discharge/admit diagnosis, the presence of at least one elevated blood pressure reading (>120/80) during this emergency department visit, radiology results, the need for outpatient follow up, for definitive care, a family practitioner. 05/28 08:32 Order name: Basic Metabolic Panel; Complete Time: 10:55 [facility] 05/28 08:32 Order name: CBC with Diff; Complete Time: 10:55 [facility] 05/28 08:32 Order name: LFT's; Complete Time: 10:55 [facility] 05/28 08:32 Order name: Magnesium; Complete Time: 10:55 [facility] 05/28 08:32 Order name: NT PRO-BNP; Complete Time: 10:55 [facility] 05/28 08:32 Order name: PT-INR; Complete Time: 10:55 [facility] 05/28 08:32 Order name: Troponin HS; Complete Time: 10:55 [facility] 05/28 08:32 Order name: Lipase; Complete Time: 10:55 [facility] 05/28 08:32 Order name: Urinalysis w/ reflexes; Complete Time: 10:55 [facility] 05/28 08:32 Order name: Urine Culture [facility] 05/28 08:32 Order name: XRAY Chest (1 view); Complete Time: 10:55 [facility] 05/28 10:57 Order name: CT Chest Abdomen Pelvis W/O Contrast; Complete Time: 11:46 [facility] 05/28 11:47 Order name: CT Head C Spine; Complete Time: 13:18 [facility] 05/28 08:32 Order name: EKG; Complete Time: 08:32 [facility] 05/28 08:32 Order name: Cardiac monitoring; Complete Time: 08:38 [facility] 05/28 08:32 Order name: EKG - Nurse/Tech; Complete Time: 08:38 [facility] 05/28 08:32 Order name: IV Saline Lock; Complete Time: 08:38 [facility] 05/28 08:32 Order name: Labs collected and sent; Complete Time: 08:38 [facility] 05/28 08:32 Order name: O2 Per Protocol; Complete Time: 08:38 [facility] 05/28 08:32 Order name: O2 Sat Monitoring; Complete Time: 08:38 [facility] 05/28 14:33 Order name: Misc. Order: IRRIGATE LEFT EAR, H202, WARM WATER; Complete Time: 14:37 [facility] EC:20 Rate is 60 beats/min. Rhythm is regular. QRS [place] is Normal. MT interval is normal. QRS nisha interval is normal. QT interval is normal. No Q waves. T waves are Normal. No ST changes noted. Clinical impression: NSR w/ Non-specific ST/T Changes and No evidence of ischemia. Interpreted by me. Reviewed by me. Administered Medications: 08:47 Drug: NS 0.9% IV 500 ml IV at bolus once; to be given as a bolus over 30 minutes Route: ko1 IV; Rate: bolus; Site: left forearm; 10:00 Follow up: Response: No adverse reaction; IV Status: Completed infusion; IV Intake: ko1 500ml 10:04 Follow up: Response: No adverse reaction; IV Status: Completed infusion; IV Intake: ko1 500ml 08:47 Drug: Ondansetron IVP 4 mg IVP once; over 2 minutes Route: IVP; Site: left forearm; ko1 09:02 Follow up: Response: No adverse reaction ko1 11:01 Not Given (Patient Refused): morphineor iv 2 mg IVP once over 4 mins ko1 11:01 Not Given (Patient Refused): morphineor iv 2 mg IVP once over 4 mins ko1 11:15 Drug: Acetaminophen PO 1000 mg PO once Route: PO; rs5 11:45 Follow up: Response: No adverse reaction ko1 13:43 Drug: Rocephin IV 1 grams IV at per protocol once; Given slow IV push per pharmacy rs5 instructions Route: IV; Rate: per protocol; Site: left forearm; 14:00 Follow up: Response: No adverse reaction; IV Status: Completed infusion; IV Intake: [id number] Disposition Summary: 05/28/24 13:26 Discharge Ordered Notes: Location: Home nisha Problem: new nisha Symptoms: have improved nisha Condition: Stable nisha Diagnosis - Dysuria nisha - Essential (primary) hypertension nisha - Unspecified kidney failure - chronic nisha - Headache nisha - Impacted cerumen, left ear nisha Followup: nisha - With: Private Physician - When: 2 - 3 days - Reason: Recheck today's complaints, Continuance of care, Re-evaluation by your physician Followup: nisha - With: Renzo Gautam MD - When: 2 - 3 days - Reason: Recheck today's complaints, Re-evaluation by your physician Followup: nisha - With: Yuko Gomez MD - When: 2 - 3 days - Reason: Recheck today's complaints, Re-evaluation by your physician Discharge Instructions: - Discharge Summary Sheet nisha - Earwax Buildup, Adult nisha - Dysuria nisha - General Headache Without Cause nisha - Hypertension, Adult nisha - Hypertension, Adult, Rapu-os-Mnlb nisha - Chronic Kidney Disease, Adult, Mbul-vf-Mnmp nisha - General Headache Without Cause, [place]-Epwa nisha - Managing Your Hypertension nisha Forms: - Medication Reconciliation Form nisha - Antibiotic Education nisha - Prescription Opioid Use nisha - Patient Portal Instructions nisha - Leadership Thank You Letter [facility] Prescriptions: - ondansetron 4 mg Oral Tablet,disintegrating - take 1 tablet ORAL route every 8 hours for 5 days prn nausea/ vomiting; 20 nisha tablet; Refills: 0, Product Selection Permitted - Debrox 6.5 % Otic drops - instill 4 drop OTIC route daily for 4 days; 7.5 milliliter; Refills: 0, Product nisha Selection Permitted - Cipro 250 mg Oral tablet - take 1 tablet ORAL route every 12 hours; 10 tablet; Refills: 0, Product nisha Selection Permitted Signatures: Dispatcher [employer] Ab Johnson MD MD cha Oliver, Kathy, RN RN ko1 Orville Godfrey RN RN rs5
[2024-05-28] MEDS ORDERED: CEFTRIAXONE 1000 MG/VIAL ONE (13:32)
[2024-05-28 16:43] VITALS: TEMP 97.5
[2024-05-28 16:48] VITALS: O2SAT 99
[2024-05-28 16:49] VITALS: BP 115/78
--- NOTE | 2024-06-02 12:13 | EKG ---
Test Date: 2024-05-28 Test Time: 08:36:27 Kiln Transfer Operator: NEEL MEASUREMENT RESULTS: Intervals: Rate: 60 AK: 180 QRSD: 104 QT: 460 QTc: 460 [place]: P: 25 AK: 180 QRS: -30 T: 53 INTERPRETIVE STATEMENTS: Sinus rhythm with premature atrial complexes Left axis deviation Abnormal ECG Compared to ECG 01/05/2024 13:43:44 Atrial premature complex(es) now present Left-axis deviation now present Sinus bradycardia no longer present Prolonged QT interval no longer present Electronically Signed On 06-02-24 12:05:58 POLICE DETECTIVE by Abdifatah Kurtz
== END 2024-05-28 16:33 | disposition home or self-care (01) ==
LOC: ER 08:22
DX: R30.0 Dysuria (principal); I10 Essential (primary) hypertension; H61.22 Impacted cerumen, left ear; R51.9 Headache, unspecified; E11.22 Type 2 diabetes mellitus with diabetic chronic kidney disease; N18.9 Chronic kidney disease, unspecified
CPT/HCPCS: 87088; 85025; 81001; 87086; 80048; 36415; 83735; 85610; 80076; 84484; 83690; 83880; 70450; 71250; 72125; 74176; 71045; Q9967; J2405; J7040; J0696; 93005; J2270

== ENCOUNTER 2024-06-17 14:51 | Inpatient (IN) | payer OTHER ==
--- OUTSIDE RECORDS SUMMARY | 2024-06-17 14:55 | XMS REPORT | Continuity of Care Document ---
Author Name Unknown Address [address] [place] [address] [address] [employer] Address [address] [place] [address]. [address] [place] [address] Care Team Providers Care Filler Block Inserter Remover Name Role Phone [phone] Attending Clinician Unavailable aJmal Gomes Anavella Attending Cli nician Unavailable [phone] Admitting Clinician Unavailable Roberto Gomes Anav Admitting Clinician U navailable Payers Payer Name Policy Type Policy Number Effective Date Expirati on Date Source [facility] [id number] Encounters Start Date/Time End Date/Time Encounter Type Admission Type Attending Clinicians Care Facility Care Department Encounter ID Source 2022-10-26 09:38:52 Outpatient 3 [id number] [facility] KRISTOFER [id number] [facility] 2022-10-18 08:34:08 Outpatient 3 [id number] [facility] REF [id number] [facility] 2021-08-04 09:58:11 Outpatient 3 [id number] [facility] 2021-08-04 09:54:11 Outpatient 3 [id number] [facility] REF [id number] [facility] 2021-08-04 09:53:43 Outpatient 3 [id number] [facility] REF [id number] [facility] 2022-10-27 13:03:00 2022-11-18 13:30:00 Inpatient 3 Jamal Serna [facility] CVA [id number] [facility]
[2024-06-17] MEDS ORDERED: NA CHLORIDE 0.9% 250 ML ONE (15:20)
[2024-06-17] MEDS ORDERED: FLEET ENEMA ADULT PR ONE (15:20)
--- NOTE | 2024-06-17 15:32 | RAD REPORT ---
EXAMINATION: CT ABDOMEN AND PELVIS WITHOUT CONTRAST CLINICAL INDICATION: ABD PAIN TECHNIQUE: CT abdomen and pelvis was performed, without IV contrast, as per department protocol. Axia l, sagittal and coronal reconstructions were obtained. One or more of the following dose reduction techniques were used: Automated exposure control, adjustment of the mA and kV according to the patien t size, and iterative reconstruction. Unless otherwise specified, incidental findings do not require dedicated imaging follow-up. COMPARISON: 05/28/2024 FINDINGS: The lack of intravenous contrast limits the sensitivity of this exam for evaluation of solid visceral organs, vascular structures, and retroperitoneum. LOWER CHEST: Left axillary large mass and left breast mass incompletely visualized. Please reference CT report from 05/28/2024. Small hiatal hernia. LIVER:Normal in size and contour. No focal lesion. SPLEEN: Normal size. No focal lesion. PANCREAS: No mass, ductal dilation, or dilcia-pancreatic fluid. ADRENALS: Normal; no mass. KIDNEYS AND URETERS: Normal size and contour. No hydronephrosis. URINARY BLADDER: Normal contour. Small air bubbles noted. GASTROINTESTINAL TRACT: There is moderate thickening of the rectosigmoid colon with multiple divertic cash present. Significant upstream stool retention noted in the colon. APPENDIX: Normal appendix. LYMPH NODES: No lymphadenopathy. MUSCULOSKELETAL: No acute or suspicious osseous abnormality. ADDITIONAL FINDINGS: None. IMPRESSION: Significant wall thickening and several diverticula are present involving the rectosigmoid colon. The re is upstream stool retention present throughout the colon. Tiny air bubbles in the bladder could be infectious or related to prior instrumentation. Lower chest findings as detailed above.
[2024-06-17 15:45] LABS: Absolute Eosinophils 0.1 K/uL (0-0.5); Absolute Lymphocytes (CBC) 1.5 K/uL (0.7-4.9); Absolute Monocytes 0.4 K/uL (0.1-1.3); Absolute Neutrophil 7.2 K/uL (1.8-8.0); Basophils % 0.4 % (0-1.3); Eosinophils % 1.1 % (0-4.4); Hematocrit 34.5 % (36.0-45.0); Hemoglobin 11.1 g/dL (12.0-15.0); Lymphocytes % 16.5 % (15.3-44.8); MCH 29.2 pg (27.0-35.0); MCHC 32.2 g/dL (32.0-36.0); MCV 90.7 fL (80-100); MPV 7.9 fL (7.6-11.3); Monocytes % 4.2 % (3.3-12.3); Neutrophils % 77.8 % (41.7-73.7); Platelets 226 thou/uL (152-406); Red Cell Distribution Width 15.6 % (12.1-15.2)
[2024-06-17 16:02] LABS: Albumin 3.2 g/dL (3.4-5.0); Albumin/Globulin Ratio 0.8 (1.1-1.8); Anion Gap 8.4 mEq/L (5.0-15.0); Bilirubin Total 0.3 mg/dL (0.2-1.0); Globulin 3.9 g/dL (2.3-3.5); Potassium 4.4 mEq/L (3.5-5.1); Protein, Total 7.1 g/dL (6.4-8.2)
[2024-06-17 18:26] LABS: Specific Gravity 1.012 (1.005-1.030); Sqamous Epithelial <5 /HPF (None Seen); Urine Bacteria >50 /HPF (<20); Urine Bilirubin NEGATIVE (Negative); Urine Blood Negative (Negative); Urine Clarity Extremely Turbid (Clear); Urine Color Light-Yellow (Yellow); Urine Culture Reflex Order NOT NEEDED; Urine Glucose NEGATIVE (Negative); Urine Ketones NEGATIVE (Negative); Urine Microscopic Reflex YN ORDER UMIC; Urine Mucus Slight /HPF (None Seen); Urine Nitrite NEGATIVE (Negative); Urine Protein NEGATIVE (Negative); Urine RBC <5 /HPF (None Seen); Urine Urobilinogen Normal (Normal)
[2024-06-17] MEDS ORDERED: BISACODYL 10 MG RECTAL SUPP ONE ×2 (18:29→18:32)
--- NOTE | 2024-06-17 19:04 | EDPHYS ---
Physician Documentation [facility] Name: Mariposa Palacios Age: 84 yrs Sex: Female : 1940 Arrival Date: 06/17/2024 Time: 14:51 Bed 25 Private MD: ED Physician Pola Hinds HPI: 06/17 14:53 This 84 yrs old Female presents to ER via Unassigned with complaints of abdominal pain. sb4 14:53 The patient presents with abdominal pain in the lower abdomen. Onset: The sb4 symptoms/episode began/occurred this morning. The symptoms do not radiate. Associated signs and symptoms: Pertinent positives: constipation, Pertinent negatives: fever, vomiting. The symptoms are described as crampy. The patient has not experienced similar symptoms in the past. The patient has not recently seen a physician. 14:53 abdominal pain since this morning, no BM in 3-4 days, took a laxative yesterday without sb4 relief. Historical: - Allergies: 14:56 Benadryl; jl7 14:56 Codeine; jl7 14:56 injectable dye; jl7 14:56 metformin; jl7 14:56 Phenergan; jl7 - PMHx: 14:56 CHF; CVA; Diabetes - IDDM; Gout; Hypertensive disorder; kidney disease; neuropathy; jl7 - PSHx: 14:56 hysterectomy; Left shoulder repair; jl7 - Immunization history:: Adult Immunizations unknown. - Infectious Disease History:: Denies. - Social history:: Smoking status: unknown. ROS: 14:53 Constitutional: Negative for fever, chills, and weight loss, sb4 14:53 Abdomen/GI: Positive for abdominal pain, nausea, constipation, 14:53 All other systems are negative, Exam: 14:53 Head/Face: Normocephalic, atraumatic. Eyes: Extra-ocular motions intact. Periorbital sb4 areas with no swelling, redness, or edema. ENT: Mucous membranes moist. Cardiovascular: Regular rate and rhythm with a normal S1 and S2. Respiratory: No increased work of breathing, no retractions or nasal flaring. Abdomen/GI: Soft, non-tender, no distension. Skin: Warm, dry with normal turgor. Normal color with no rashes, no lesions, and no evidence of cellulitis. 14:53 Constitutional: The patient appears in no acute distress, alert, awake, smells of urine, Vital Signs: 15:38 BP 149 / 61; Pulse 61; Resp 15; Temp 97.9; Pulse Ox 98% ; Weight 72.57 kg; Height 5 ft. jl7 9 in. ; 16:33 BP 144 / 59; Pulse 56; Resp 16; Pulse Ox 99% ; jb4 15:38 Body Mass Index 23.63 (72.57 kg, 175.26 cm) jl7 MDM: 14:52 Medical Screening Exam initiated sb4 19:02 Data reviewed: vital signs, nurses notes, lab test result(s), radiologic studies, and sb4 as a result, I will admit patient. Consideration of Admission/Observation Patient was admitted/placed on observation. Counseling: I had a detailed discussion with the patient and/or guardian regarding the historical points, exam findings, and any diagnostic results supporting the discharge/admit diagnosis, the presence of at least one elevated blood pressure reading (>120/80) during this emergency department visit, lab results, radiology results, the need for further work-up and treatment in the hospital. 06/17 14:53 Order name: CBC with Diff; Complete Time: 15:48 sb4 06/17 14:53 Order name: CMP; Complete Time: 16:02 sb4 06/17 14:53 Order name: Lipase; Complete Time: 16:02 sb4 06/17 14:53 Order name: Urinalysis w/ reflexes; Complete Time: 18:29 sb4 06/17 22:33 Order name: T4 Free EDMS 06/17 22:33 Order name: Thyroid Stimulating Hormone EDMS 06/17 22:33 Order name: Urinalysis w/ reflexes; Complete Time: 14:30 EDMS 06/17 22:33 Order name: CBC with Automated Diff EDMS 06/17 22:33 Order name: CBC with Automated Diff; Complete Time: 09:15 EDMS 06/17 22:33 Order name: Comprehensive Metabolic Panel EDMS 06/17 22:33 Order name: Comprehensive Metabolic Panel; Complete Time: 09:15 EDMS 06/17 22:33 Order name: Magnesium EDMS 06/17 22:33 Order name: Magnesium; Complete Time: 09:15 EDMS 06/17 22:33 Order name: Phosphorus EDMS 06/17 22:33 Order name: Phosphorus; Complete Time: 09:15 EDMS 06/18 06:08 Order name: T4 Free; Complete Time: 09:15 EDMS 06/18 06:08 Order name: Thyroid Stimulating Hormone; Complete Time: 09:15 EDMS 06/18 07:52 Order name: Glucose, Ancillary Testing; Complete Time: 09:15 EDMS 06/18 11:55 Order name: Glucose, Ancillary Testing; Complete Time: 14:30 EDMS 06/18 16:37 Order name: Glucose, Ancillary Testing EDMS 06/17 14:53 Order name: CT Abd/Pelvis - Without Contrast; Complete Time: 15:34 sb4 06/17 14:53 Order name: IV Saline Lock; Complete Time: 15:37 sb4 06/17 14:53 Order name: Labs collected and sent; Complete Time: 15:37 sb4 06/17 17:07 Order name: Straight Cath - Urine; Complete Time: 18:11 sb4 Administered Medications: 15:37 Drug: NS 0.9% IV 250 ml IV at bolus once; to be given as a bolus over 30 minutes Route: jl7 IV; Rate: bolus; Site: right forearm; 16:54 Follow up: Response: No adverse reaction; IV Status: Completed infusion; IV Intake: jb4 250ml 16:54 Drug: Fleet Enema VA 133 ml VA once; may repeat once Route: VA; jb4 18:33 Drug: Bisacodyl VA Suppository 10 mg VA once Route: VA; jb4 20:16 Drug: Rocephin IV 1 grams IV at calculated rate once; Given slow IV push per pharmacy jb4 instructions Route: IV; Rate: calculated rate; Site: right forearm; 20:17 Drug: Acetaminophen PO 1000 mg PO once Route: PO; jb4 Disposition: 16:17 I was immediately available on-site in the Emergency Department for consultation in the ms3 care of the patient. Disposition Summary: 06/17/24 19:03 Hospitalization Ordered Notes: Hospitalization Status: Inpatient Admission sb4 Provider: Kolton Kerr Condition: Fair sb4 Problem: new sb4 Symptoms: are unchanged sb4 Bed/Room Type: Standard sb4 Location: Telemetry/MedSurg (Inpatient)(06/18/24 17:17) bd Room Assignment: 210(06/18/24 17:17) bd Diagnosis - UTI/ Urinary tract infection, site not specified sb4 - Dehydration sb4 - Altered mental status, unspecified sb4 Forms: - Medication Reconciliation Form sb4 - SBAR form sb4 - Leadership Thank You Letter sb4 Signatures: Dispatcher [employer] EDMS Natalee Alas bd Yash Colunga, RN RN jb4 Aydee Sun RN RN jl7 Zakiya Flores RN RN lg3 Pola Hinds, DO ms3 Dina Jacobo PA-C PA-C sb4 Cindi Servin kmf Corrections: (The following items were deleted from the chart) 14:53 14:53 Abdomen Pelvis Wo Con+CT.RAD.BRZ ordered. EDND EDMS 20:47 19:03 Telemetry/MedSurg (Inpatient) sb4 lg3 20:47 19:03 sb4 lg3 20:50 20:47 ERHOLD- lg3 kmf 20:53 20:50 HLD6 kmf lg3 06/18 17:17 1210 20:47 [facility] ER HOLD lg3 bd 06/18 17:17 1210 20:53 ERHOLD- lg3 bd
--- NOTE | 2024-06-17 19:04 | ER ---
Nurse's Notes [facility] Name: Mariposa Palacios Age: 84 yrs Sex: Female : 1940 Arrival Date: 06/17/2024 Time: 14:51 Bed 25 Private MD: Diagnosis: UTI/ Urinary tract infection, site not specified;Dehydration;Altered mental status, unspecified Presentation: 06/17 14:54 Chief complaint: EMS states: Toned out for abdominal pain, n/v. Coronavirus screen: At jl this time, the client does not indicate any symptoms associated with coronavirus-19. Ebola Screen: No symptoms or risks identified at this time. Risk Assessment: Do you want to hurt yourself or someone else? Patient reports no desire to harm self or others. Onset of symptoms is unknown. 14:54 Method Of Arrival: EMS: [facility] 14:54 Acuity: DOMINIQUE 3 jl7 16:04 Initial Sepsis Screen: Does the patient meet any 2 criteria? No. Patient's initial [facility] sepsis screen is negative. Does the patient have a suspected source of infection? No. Patient's initial sepsis screen is negative. Triage Assessment: 15:10 General: Appears in no apparent distress. uncomfortable, Behavior is calm, cooperative, jl7 appropriate for age. Pain: Complains of pain in abdomen. Neuro: Level of Consciousness is awake, alert, obeys commands, Oriented to person, place, time, situation. Cardiovascular: Patient's skin is warm and dry. Respiratory: Airway is patent Respiratory effort is even, unlabored, Respiratory pattern is regular, symmetrical. GI: Reports constipation, nausea, vomiting. Derm: Skin is pink, warm \T\ dry. Historical: - Allergies: 14:56 Benadryl; jl7 14:56 Codeine; jl7 14:56 injectable dye; jl7 14:56 metformin; jl7 14:56 Phenergan; jl7 - PMHx: 14:56 CHF; CVA; Diabetes - IDDM; Gout; Hypertensive disorder; kidney disease; neuropathy; jl7 - PSHx: 14:56 hysterectomy; Left shoulder repair; jl7 - Immunization history:: Adult Immunizations unknown. - Infectious Disease History:: Denies. - Social history:: Smoking status: unknown. Screenin:39 Abuse screen: Denies threats or abuse. Denies injuries from another. Nutritional jl7 screening: No deficits noted. Tuberculosis screening: No symptoms or risk factors identified. 16:04 [facility] ED Fall Risk Assessment (Adult) History of falling in the last 3 months, jl7 including since admission No falls in past 3 months (0 pts) Confusion or Disorientation No (0 pts) Intoxicated or Sedated No (0 pts) Impaired Gait Yes (1 pt) Mobility Assist Device Used Yes (1 pt) Altered Elimination Yes (1 pt) Score/Fall Risk Level 3 or more points = High Risk Oriented to surroundings, Maintained a safe environment, Hourly rounding (assess needs \T\ fall precautionary measures) done, Utilized family, sitter, or virtual commercial census taker as indicated. Assessment: 15:10 General: See triage. jl7 16:33 Reassessment: Patient appears in no apparent distress at this time. Patient and/or jb4 family updated on plan of care and expected duration. Pain level reassessed. Patient is alert, oriented x 3, equal unlabored respirations, skin warm/dry/pink. Vital Signs: 15:38 BP 149 / 61; Pulse 61; Resp 15; Temp 97.9; Pulse Ox 98% ; Weight 72.57 kg; Height 5 ft. jl7 9 in. ; 16:33 BP 144 / 59; Pulse 56; Resp 16; Pulse Ox 99% ; jb4 15:38 Body Mass Index 23.63 (72.57 kg, 175.26 cm) jl7 ED Course: 14:52 Patient arrived in ED. sb4 14:52 Dina Jacobo PA-C is PHCP. sb4 14:52 Pola Hinds DO is Attending Physician. sb4 14:55 Triage completed. jl7 15:05 CT Abd/Pelvis - Without Contrast In Process Unspecified. EDMS 15:08 Aydee Sun, GO is Primary Nurse. jl7 15:38 Arm band placed on right wrist. jl7 15:39 Patient has correct armband on for positive identification. Bed in low position. Call jl7 light in reach. Side rails up X2. Provided Education on: use of call mackey. Pulse ox on. NIBP on. Warm blanket given. 15:39 Initial lab(s) drawn, by me, sent to lab. Inserted saline lock: 20 gauge in right jl7 forearm, using aseptic technique. Blood collected. Flushed with 10 mL NS. 17:09 Primary Nurse role handed off by Aydee Sun RN jl7 18:14 Urine collected: straight cath specimen, cloudy. tm3 19:03 Eveline Cornejo, RN is Primary Nurse. ss 19:03 Kolton Kerr MD is Hospitalizing Provider. sb4 23:39 No provider procedures requiring assistance completed. Patient admitted, IV remains in jb4 place. 06/18 10:50 Primary Nurse role handed off by Eveline Cornejo RN bd Administered Medications: 06/17 15:37 Drug: NS 0.9% IV 250 ml IV at bolus once; to be given as a bolus over 30 minutes Route: jl7 IV; Rate: bolus; Site: right forearm; 16:54 Follow up: Response: No adverse reaction; IV Status: Completed infusion; IV Intake: jb4 250ml 16:54 Drug: Fleet Enema LA 133 ml LA once; may repeat once Route: LA; jb4 18:33 Drug: Bisacodyl LA Suppository 10 mg LA once Route: LA; jb4 20:16 Drug: Rocephin IV 1 grams IV at calculated rate once; Given slow IV push per pharmacy jb4 instructions Route: IV; Rate: calculated rate; Site: right forearm; 20:17 Drug: Acetaminophen PO 1000 mg PO once Route: PO; jb4 Medication: 15:39 VIS not applicable for this client. jl7 Intake: 16:54 IV: 250ml; Total: 250ml. jb4 Outcome: 19:03 Decision to Hospitalize by Provider. sb4 23:39 Admitted to ER Hold. Please see [facility] for further documentation. jb4 23:39 Condition: stable 23:39 Discharge instructions given to patient, Instructed on the need for admit, Demonstrated understanding of instructions, 06/18 18:38 Patient left the ED. ll1 Signatures: Dispatcher [employer] EDMS Natalee Alas Juan DanielGualberto tm3 Eveline Cornejo, GO STILES Yash Colunga RN RN jb4 Aydee Sun RN RN jl7 Debra Heard RN RN ll1 Dina Jacobo PA-C PANorberto sb4
[2024-06-17] MEDS ORDERED: CEFTRIAXONE 1000 MG/VIAL ONE (19:53)
[2024-06-17] MEDS ORDERED: ACETAMINOPHEN 500 MG TAB ONE (19:53)
--- NOTE | 2024-06-17 22:17 | P.HP ---
Certification for Inpatient Patient admitted to: Inpatient With expected LOS: >2 Midnights Practitioner: I am a practitioner with admitting privileges, knowledge of patient current condition, hospital course, and medical plan of care. Services: Services provided to patient in accordance with Admission requirements found in Title 42 Section 412.3 of the Code of Federal Regulations Patient History Date of Service: 06/17/24 Reason for admission: Abdominal pain History of Present Illness: 84-year-old female presented to ER with complaints of abdominal pain. Symptoms onset 3 days ago. Denies any fevers. Does report having some nausea and vomiting. Also reports increased lethargy. Daughter at bedside reports that patient has been somewhat confused she is answering questions appropriately. There is also concern for constipation. In the ER a CT of the abdomen pelvis done concern for stool retention. She is also noted to have possible UTI. Her other medical history conditions include history of stroke, diabetes, gout, hypertension, CKD. Allergies iodine Allergy (Severe, Verified 01/31/18 22:48) resp arrest promethazine HCl [From Phenergan] Allergy (Mild, Verified 01/31/18 22:48) Rash codeine [Codeine] Adverse Reaction (Mild, Verified 01/31/18 22:48) vomitting diphenhydramine HCl [From Benadryl] Adverse Reaction (Mild, Verified 01/31/18 22:48) anxiety metformin HCl [From Glucophage] Adverse Reaction (Mild, Verified 01/31/18 22:48) vomitting injectable dye Allergy (Severe, Uncoded 11/03/18 15:49) Anaphylaxis Home Medications: Allopurinol 1 tab PO DAILY 01/31/18 Clopidogrel Bisulfate [Plavix] 1 tab PO DAILY 01/31/18 Sertraline [Zoloft*] 150 mg PO BEDTIME 01/31/18 Solifenacin Succinate [Vesicare] 1 tab PO DAILY 01/31/18 Ezetimibe [Zetia*] 1 tab PO DAILY 03/30/18 Furosemide [Lasix] 1 tab PO DAILY 03/30/18 Famotidine 20 mg PO DAILY 01/05/24 Nifedipine Xl [Procardia Xl*] 30 mg PO DAILY 01/05/24 carvediloL [Carvedilol] 6.25 mg PO BID 01/05/24 Insulin Aspart Protam & Aspart [Novolog Mix 70-30 Vial] 17 units SQ DAILY AT SUPPER 01/06/24 Amlodipine [Norvasc*] 5 mg PO BEDTIME tab 01/10/24 Atorvastatin Calcium [Lipitor*] 20 mg PO BEDTIME tab 01/10/24 Carboxymethylcellulose Sodium [Refresh Tears] 2 drops OPTH DAILY bottle 01/10/24 Hydralazine [Apresoline*] 50 mg PO TID tab 01/10/24 Insulin 70/30 NPH/Reg Human [Novolin 70/30*] 10 unit SQ DAILY AT SUPPER ml 01/10/24 Melatonin 10 mg PO BEDTIME PRN PRN 01/10/24 - Past Medical/Surgical History Diabetic: Yes -: DM-IDDM -: HTN -: CVA -: Diabetic Neuropathy -: CHF -: Hyperlipidemia -: Hysterectomy -: Marian Psychosocial/ Personal History: Lives at home alone, has caregiver 4 hours a day and daughter lives next door - Family History Father -: Heart disease, Diabetes Mother -: Heart disease, Hypertension, Diabetes - Social History Alcohol use: No CD- Drugs: No Caffeine use: Yes Review of Systems 10-point ROS is otherwise unremarkable Gastrointestinal: Nausea, Vomiting, Abdominal Pain Physical Examination - Physical Exam General: Alert HEENT: Atraumatic, Normocephalic Respiratory: Clear to auscultation bilaterally, Normal air movement Cardiovascular: No edema, Regular rate/rhythm, Normal S1 S2 Gastrointestinal: Soft and benign, Tenderness Musculoskeletal: No tenderness Integumentary: No rashes - Studies Laboratory Data (last 24 hrs) 06/17/24 06/17/24 15:35 15:35 WBC 9.30 Hgb 11.1 L Hct 34.5 L Plt Count 226 Sodium 137 Potassium 4.4 BUN 52 H Creatinine 2.30 H Glucose 185 H Total Bilirubin 0.3 AST 20 ALT 18 Alkaline Phosphatase 86 Lipase 25 Assessment and Plan - Problems (Diagnosis) (1) UTI (urinary tract infection) Current Visit: Yes Status: Acute (2) Constipation Current Visit: Yes Status: Acute (3) CKD (chronic kidney disease) Onset Date: 02/05/18 Current Visit: No Status: Acute Qualifiers: Chronic kidney disease stage: stage 3 (moderate) (4) Dehydration Current Visit: No Status: Acute (5) General weakness Current Visit: No Status: Acute (6) Nausea and vomiting Current Visit: No Status: Acute Qualifiers: Vomiting type: unspecified Qualified Code(s): R11.2 - Nausea with vomiting, unspecified - Plan 84-year-old female presents with complaints of generalized abdominal pain mainly in the lower abdomen. Lower quadrant abdominal pain Constipation UTI Nausea vomiting Acute on chronic kidney disease Reported confusion Diabetes hypertension Osteoarthritis Plan: Admit to [facility] Gentle hydration Continue IV Rocephin Dose medications Fingerstick blood sugars, sliding scale insulin Will continue scheduled Colace, laxative, as needed enema Await home medication reconciliation - Advance Directives Does patient have a Living Will: Yes Does patient have a Durable POA for Healthcare: No
[2024-06-17] MEDS ORDERED: GLUCAGON 1 MG/VIAL IM PRN (22:30)
[2024-06-17] MEDS ORDERED: D10W 125 ML IV PRN (22:30)
[2024-06-17] MEDS: POLYETHYL GLY 3350 17 GM/DOSE PO ONE (22:30)
[2024-06-17 23:00] VITALS: BMI 23.3
[2024-06-17] MEDS: NA CHLORIDE 0.9% 1,000 ML IV SCH (23:00)
[2024-06-18] MEDS ORDERED: POLYETHYL GLY 3350 17 GM/DOSE ONE (00:23)
[2024-06-18] MEDS ORDERED: NA CHLORIDE 0.9% 1,000 ML ONE (00:24)
[2024-06-18 05:48] LABS: Absolute Eosinophils 0.1 K/uL (0-0.5); Absolute Lymphocytes (CBC) 2.8 K/uL (0.7-4.9); Absolute Monocytes 0.5 K/uL (0.1-1.3); Absolute Neutrophil 7.1 K/uL (1.8-8.0); Basophils % 0.4 % (0-1.3); Hematocrit 30.6 % (36.0-45.0); Hemoglobin 9.7 g/dL (12.0-15.0); Lymphocytes % 26.4 % (15.3-44.8); MCH 29.2 pg (27.0-35.0); MCHC 31.8 g/dL (32.0-36.0); MCV 91.9 fL (80-100); MPV 8.7 fL (7.6-11.3); Monocytes % 4.9 % (3.3-12.3); Neutrophils % 67.3 % (41.7-73.7); Platelets 203 thou/uL (152-406); RBC Red Blood Cell Count 3.33 M/uL (3.86-4.86); Red Cell Distribution Width 15.9 % (12.1-15.2)
[2024-06-18 06:07] LABS: Albumin 2.9 g/dL (3.4-5.0); Albumin/Globulin Ratio 0.8 (1.1-1.8); Anion Gap 7.9 mEq/L (5.0-15.0); Bilirubin Total 0.3 mg/dL (0.2-1.0); Globulin 3.6 g/dL (2.3-3.5); Magnesium 2.2 mg/dL (1.6-2.4); Phosphorus 3.8 mg/dL (2.5-4.9); Potassium 3.9 mEq/L (3.5-5.1); Protein, Total 6.5 g/dL (6.4-8.2); Thyroid Stimulating Hormone 1.05 uIU/mL (0.358-3.740)
[2024-06-18] MEDS: INSULIN REGULAR (HUMAN) 100 UNIT/ML SQ SCH (07:30)
[2024-06-18] MEDS ORDERED: ENOXAPARIN 30 MG/0.3 ML SQ ONE (08:19)
[2024-06-18] MEDS ORDERED: CEFTRIAXONE 1000 MG/VIAL ONE (08:19)
[2024-06-18] MEDS ORDERED: NA CHLORIDE 0.9% 50 ML ONE (08:20)
[2024-06-18] MEDS: CEFTRIAXONE 1,000 MG in NA CHLORIDE 0.9% 50 ML IVPB SCH (08:56)
[2024-06-18] MEDS: ENOXAPARIN 30 MG/0.3 ML SQ SCH (08:56)
[2024-06-18] MEDS ORDERED: ENOXAPARIN 40 MG/0.4 ML SQ SCH (09:00)
[2024-06-18] MEDS ORDERED: ACETAMINOPHEN 325 MG TABLET ONE (09:26)
[2024-06-18] MEDS: ACETAMINOPHEN 325 MG TABLET PO PRN (09:45)
[2024-06-18] MEDS ORDERED: INSULIN REGULAR (HUMAN) 100 UNIT/ML ONE (12:11)
[2024-06-18 12:37] LABS: Specific Gravity 1.016 (1.005-1.030); Sqamous Epithelial <5 /HPF (None Seen); Urine Bacteria <20 /HPF (<20); Urine Bilirubin NEGATIVE (Negative); Urine Blood Negative (Negative); Urine Clarity Turbid (Clear); Urine Color Light-Yellow (Yellow); Urine Culture Reflex Order NOT NEEDED; Urine Glucose NEGATIVE (Negative); Urine Ketones NEGATIVE (Negative); Urine Microscopic Reflex YN ORDER UMIC; Urine Mucus 4+ /HPF (None Seen); Urine Nitrite NEGATIVE (Negative); Urine Protein TRACE (Negative); Urine RBC None Seen /HPF (None Seen); Urine Urobilinogen Normal (Normal); Urine pH 5.5 (5.0-7.0)
[2024-06-18] MEDS: LACTULOSE 20 GM/30 ML UCUP PO ONE ×2 (17:22→20:31)
[2024-06-18] MEDS: DOCUSATE NA/SENNA CONC 1 TAB PO PRN (20:31)
--- NOTE | 2024-06-18 21:29 | P.CNS ---
Date of Consult: 06/18/24 Reason for Consult: ANURAG/ CKD Requesting Physician: Ping Vázquez Chief Complaint: Abdominal pain History of Present Illness: 84-year-old female presented to ER with complaints of abdominal pain. Symptoms onset 3 days ago. Denies any fevers. Does report having some nausea and vomiting. Also reports increased lethargy. Daughter at bedside reports that patient has been somewhat confused she is answering questions appropriately. There is also concern for constipation. In the ER a CT of the abdomen pelvis done concern for stool retention. She is also noted to have possible UTI. Her other medical history conditions include history of stroke, diabetes, gout, hypertension, CKD. [id number] 14:53 This 84 yrs old Female presents to ER via Unassigned with complaints of abdominal pain. sb4 14:53 The patient presents with abdominal pain in the lower abdomen. Onset: The sb4 symptoms/episode began/occurred this morning. The symptoms do not radiate. Associated signs and symptoms: Pertinent positives: constipation, Pertinent negatives: fever, vomiting. The symptoms are described as crampy. The patient has not experienced similar symptoms in the past. The patient has not recently seen a physician. 14:53 abdominal pain since this morning, no BM in 3-4 days, took a laxative yesterday without sb4 relief. Allergies iodine Allergy (Severe, Verified 01/31/18 22:48) resp arrest promethazine HCl [From Phenergan] Allergy (Mild, Verified 01/31/18 22:48) Rash codeine [Codeine] Adverse Reaction (Mild, Verified 01/31/18 22:48) vomitting diphenhydramine HCl [From Benadryl] Adverse Reaction (Mild, Verified 01/31/18 22:48) anxiety metformin HCl [From Glucophage] Adverse Reaction (Mild, Verified 01/31/18 22:48) vomitting injectable dye Allergy (Severe, Uncoded 11/03/18 15:49) Anaphylaxis Home medications list reviewed: Yes Home Medications: Allopurinol 1 tab PO BEDTIME 01/31/18 Clopidogrel Bisulfate [Plavix] 1 tab PO DAILY 01/31/18 Sertraline [Zoloft*] 150 mg PO BEDTIME 01/31/18 Solifenacin Succinate [Vesicare] 1 tab PO BEDTIME 01/31/18 Ezetimibe [Zetia*] 1 tab PO DAILY 03/30/18 Furosemide [Lasix] 1 tab PO DAILY 03/30/18 Nifedipine Xl [Procardia Xl*] 30 mg PO DAILY 01/05/24 carvediloL [Carvedilol] 6.25 mg PO BID 01/05/24 Insulin Lispro MIX 75/25 [Humalog Mix 75/25] 10 units SQ BID 06/18/24 Ondansetron HCl 4 mg PO Q6HP PRN 06/18/24 Pantoprazole [Protonix Tab] 40 mg PO DAILY 06/18/24 - Past Medical/Surgical History Diabetic: Yes -: DM II with Polyneuropathy -: HTN -: CVA -: CKD (Dr. Mcclellan/ Tim) -: CHF -: HLD -: Hysterectomy -: Marian Psychosocial/ Personal History: Lives at home alone, has caregiver 4 hours a day and daughter lives next door - Family History Father Medical History: Heart disease, Diabetes Mother Medical History: Heart disease, Hypertension, Diabetes - Social History Smoking Status: Unknown if ever smoked Alcohol use: No CD- Drugs: No Caffeine use: Yes Place of Residence: Home Review of Systems 10-point ROS is otherwise unremarkable General: Weakness Physical Examination Temp Pulse Resp BP Pulse Ox 98.2 F 52 16 166/59 H 100 06/18/24 16:00 06/18/24 16:00 06/18/24 16:00 06/18/24 16:00 06/18/24 16:00 General: In no apparent distress, Oriented x3, Cooperative HEENT: Atraumatic Neck: Supple Respiratory: Clear to auscultation bilaterally, Normal air movement Cardiovascular: No edema, Regular rate/rhythm Gastrointestinal: Soft and benign, Non-distended Musculoskeletal: No clubbing, No warmth Integumentary: No rashes, No cyanosis Neurological: Normal speech Blood work reviewed in the chart. Imagings Data: [id number] EXAMINATION: CT ABDOMEN AND PELVIS WITHOUT CONTRAST CLINICAL INDICATION: ABD PAIN TECHNIQUE: CT abdomen and pelvis was performed, without IV contrast, as per department protocol. Axial, sagittal and coronal reconstructions were obtained. One or more of the following dose reduction techniques were used: Automated exposure control, adjustment of the mA and kV according to the patient size, and iterative reconstruction. Unless otherwise specified, incidental findings do not require dedicated imaging follow-up. COMPARISON: 05/28/2024 FINDINGS: The lack of intravenous contrast limits the sensitivity of this exam for evaluation of solid visceral organs, vascular structures, and retroperitoneum. LOWER CHEST: Left axillary large mass and left breast mass incompletely visualized. Please reference CT report from 05/28/2024. Small hiatal hernia. LIVER:Normal in size and contour. No focal lesion. SPLEEN: Normal size. No focal lesion. PANCREAS: No mass, ductal dilation, or dilcia-pancreatic fluid. ADRENALS: Normal; no mass. KIDNEYS AND URETERS: Normal size and contour. No hydronephrosis. URINARY BLADDER: Normal contour. Small air bubbles noted. GASTROINTESTINAL TRACT: There is moderate thickening of the rectosigmoid colon with multiple diverticula present. Significant upstream stool retention noted in the colon. APPENDIX: Normal appendix. LYMPH NODES: No lymphadenopathy. MUSCULOSKELETAL: No acute or suspicious osseous abnormality. ADDITIONAL FINDINGS: None. IMPRESSION: Significant wall thickening and several diverticula are present involving the rectosigmoid colon. There is upstream stool retention present throughout the colon. Tiny air bubbles in the bladder could be infectious or related to prior instrumentation. Lower chest findings as detailed above. Conclusions/Impression: Stage II ANURAG likely due to hypovolemia CKD III -No NSAIDs -Change IVF to 1/2NS HTN with CKD/ CHF -Restart home antihypertensives as indicated Diastolic CHF, chronic -Daily weight DM II with CKD & Polyneuropathy -RISS Anemia in chronic illness -Monitor H&H Acute infective cystitis -Continue Scott Case reviewed with Dr. Vázquez Thank you kindly for the consultation
[2024-06-18] MEDS: NACHLORIDE 0.45% 1,000 ML IV SCH (23:28)
[2024-06-19] MEDS: POLYETHYL GLY 3350 17 GM/DOSE PO SCH (08:52)
[2024-06-19 12:13] LABS: Absolute Basophils 0.1 K/uL (0-0.5); Absolute Eosinophils 0.2 K/uL (0-0.5); Absolute Lymphocytes (CBC) 2.3 K/uL (0.7-4.9); Absolute Monocytes 0.5 K/uL (0.1-1.3); Absolute Neutrophil 6.8 K/uL (1.8-8.0); Basophils % 0.5 % (0-1.3); Eosinophils % 2.3 % (0-4.4); Hematocrit 29.8 % (36.0-45.0); Hemoglobin 9.3 g/dL (12.0-15.0); Lymphocytes % 23.7 % (15.3-44.8); MCH 29.1 pg (27.0-35.0); MCHC 31.3 g/dL (32.0-36.0); MCV 92.7 fL (80-100); MPV 8.5 fL (7.6-11.3); Monocytes % 4.8 % (3.3-12.3); Neutrophils % 68.7 % (41.7-73.7); Platelets 185 thou/uL (152-406); RBC Red Blood Cell Count 3.21 M/uL (3.86-4.86); Red Cell Distribution Width 15.7 % (12.1-15.2)
[2024-06-19 12:27] LABS: Anion Gap 5.8 mEq/L (5.0-15.0); Potassium 3.8 mEq/L (3.5-5.1)
[2024-06-19] MEDS: cloNIDine HCL 0.1 MG TAB PO ONE (13:05)
[2024-06-19] MEDS: ONDANSETRON 4 MG/2 ML VIAL IV PRN (13:11)
--- NOTE | 2024-06-19 15:22 | P.DS ---
Admission Date: 06/17/24 Discharge Date: 06/20/24 Reason for Admission: Abdominal pain Brief History of Present Illness: 84-year-old female presented to ER with complaints of abdominal pain. Symptoms onset 3 days ago. Denies any fevers. Does report having some nausea and vomiting. Also reports increased lethargy. Daughter at bedside reports that patient has been somewhat confused she is answering questions appropriately. There is also concern for constipation. In the ER a CT of the abdomen pelvis done concern for stool retention. She is also noted to have possible UTI. Her other medical history conditions include history of stroke, diabetes, gout, hypertension, CKD. - Physical Exam General: Alert HEENT: Atraumatic, Normocephalic Respiratory: Clear to auscultation bilaterally, Normal air movement Cardiovascular: No edema, Regular rate/rhythm, Normal S1 S2 Gastrointestinal: Soft and benign, Tenderness Musculoskeletal: No tenderness Integumentary: No rashes Hospital Course: 84-year-old female presented to ER with complaints of abdominal pain. Symptoms onset 3 days ago. Denies any fevers. Does report having some nausea and vomiting. Also reports increased lethargy. Daughter at bedside reports that patient has been somewhat confused she is answering questions appropriately. There is also concern for constipation. In the ER a CT of the abdomen pelvis done concern for stool retention. She is also noted to have possible UTI. Her other medical history conditions include history of stroke, diabetes, gout, hypertension, CKD. She was admitted for UTI, constipation, was noted to have dehydration, CKD, generalized weakness, nausea vomiting, symptoms improved with IV fluids, IV antibiotics, UA was negative for UTI, she was treated antiemetics, stool softeners, condition improved, tolerating diet, plan to discharge home, follow-up with PCP in 1 week Discharge medications Zofran for nausea vomiting P.o. cefdinir Stool softeners after discharge [id number] as needed Assessment UTI, discharged home on p.o. antibiotics, follow-up with PCP in 1 week Constipation, treated with stool softeners, improved with stool softeners, CKD, trend kidney function after discharge follow-up with PCP Dehydration improved with IV fluids Nausea and vomiting improved with IV fluids, as needed antiemetics discharged home on as needed antiemetics Continue home medicines as previously prescribed GOAL: Clear understanding of disease process INSTRUCTIONS: Physician Discharge Instructions: -Follow-up with PCP in 1 to 2 weeks -Please call Dr. Vázquez at [phone] if any questions regarding hospital stay -Please call nursing station at [phone] if any nursing or medication questions -Return to the emergency room if symptoms worsen Diet: ADA, low sodium Activity: Fall precautions <Cristina Fofana - Last Filed: 06/20/24 20:15> Admission Date: 06/17/24 Discharge Date: 06/20/24 Hospital Course: Patient was seen and examined. Events of the last 24 hours have been noted. Spoke with with [facility]I regarding patient's clinical picture after evaluating and examining the patient independently. I performed a substantial part of the MDM during this patient's care today. I personally made or approved the documented management plan and acknowledge its risk of complications. I agree with the findings and documentation provided in the NATI's notes. <Ping Vázquez - Last Filed: 06/23/24 16:46> Disposition: ROUTINE DISCHARGE Discharge Condition: GOOD Vital Signs/Physical Exam: Temp Pulse Resp BP Pulse Ox 97.9 F 55 16 179/79 H 98 06/19/24 12:00 06/19/24 13:05 06/19/24 12:00 06/19/24 13:05 06/19/24 12:00 Laboratory Data at Discharge: WBC 9.90 thou/uL (4.3-10.9) 06/19/24 11:55 Hgb 9.3 g/dL (12.0-15.0) L 06/19/24 11:55 Hct 29.8 % (36.0-45.0) L 06/19/24 11:55 Plt Count 185 thou/uL (152-406) 06/19/24 11:55 Sodium 140 mEq/L (136-145) 06/19/24 11:55 Potassium 3.8 mEq/L (3.5-5.1) 06/19/24 11:55 BUN 31 mg/dL (7-18) H 06/19/24 11:55 Creatinine 1.26 mg/dL (0.55-1.02) H 06/19/24 11:55 Glucose 174 mg/dL (74-106) H 06/19/24 11:55 Phosphorus 3.8 mg/dL (2.5-4.9) 06/18/24 05:17 Magnesium 2.2 mg/dL (1.6-2.4) 06/18/24 05:17 Total Bilirubin 0.3 mg/dL (0.2-1.0) 06/18/24 05:17 AST 16 U/L (15-37) 06/18/24 05:17 ALT 15 U/L (13-56) 06/18/24 05:17 Alkaline Phosphatase 77 U/L (45-117) 06/18/24 05:17 Lipase 25 U/L (13-75) 06/17/24 15:35 <Cristina Fofana - Last Filed: 06/20/24 20:15> Vital Signs/Physical Exam: Temp Pulse Resp BP Pulse Ox 98 F 50 17 176/79 H 96 06/20/24 20:16 06/20/24 20:16 06/20/24 20:16 06/20/24 20:16 06/20/24 20:16 Laboratory Data at Discharge: WBC 8.90 thou/uL (4.3-10.9) 06/20/24 04:53 Hgb 9.5 g/dL (12.0-15.0) L 06/20/24 04:53 Hct 29.2 % (36.0-45.0) L 06/20/24 04:53 Plt Count 211 thou/uL (152-406) 06/20/24 04:53 Sodium 140 mEq/L (136-145) 06/20/24 04:53 Potassium 4.0 mEq/L (3.5-5.1) 06/20/24 04:53 BUN 29 mg/dL (7-18) H 06/20/24 04:53 Creatinine 1.31 mg/dL (0.55-1.02) H 06/20/24 04:53 Glucose 136 mg/dL (74-106) H 06/20/24 04:53 Phosphorus 2.8 mg/dL (2.5-4.9) 06/20/24 04:53 Magnesium 2.2 mg/dL (1.6-2.4) 06/18/24 05:17 Total Bilirubin 0.3 mg/dL (0.2-1.0) 06/18/24 05:17 AST 16 U/L (15-37) 06/18/24 05:17 ALT 15 U/L (13-56) 06/18/24 05:17 Alkaline Phosphatase 77 U/L (45-117) 06/18/24 05:17 Lipase 25 U/L (13-75) 06/17/24 15:35 <Ping Vázquez - Last Filed: 06/23/24 16:46> Time spent managing pt's care (in minutes): 45 <Cristina Fofana - Last Filed: 06/20/24 20:15> <Ping Vázquez - Last Filed: 06/23/24 16:46> Home Medications: Allopurinol 1 tab PO BEDTIME 01/31/18 Clopidogrel Bisulfate [Plavix] 1 tab PO DAILY 01/31/18 Sertraline [Zoloft*] 150 mg PO BEDTIME 01/31/18 Solifenacin Succinate [Vesicare] 1 tab PO BEDTIME 01/31/18 Ezetimibe [Zetia*] 1 tab PO DAILY 03/30/18 Furosemide [Lasix] 1 tab PO DAILY 03/30/18 Nifedipine Xl [Procardia Xl*] 30 mg PO DAILY 01/05/24 Insulin Lispro MIX 75/25 [Humalog Mix 75/25*] 10 units SQ BID 06/18/24 Ondansetron HCl 4 mg PO Q6HP PRN 06/18/24 Pantoprazole [Protonix Tab*] 40 mg PO DAILY 06/18/24 Cefdinir [Cefdinir*] 300 mg PO BID #14 cap 06/19/24 Docusate/Senna [Senokot-S*] 1 tab PO BEDTIME PRN #60 tab 06/19/24 Hydralazine HCl 25 mg PO TID #90 tab 06/19/24 New Medications: Cefdinir [Cefdinir*] 300 mg PO BID #14 cap Hydralazine HCl 25 mg PO TID #90 tab Docusate/Senna [Senokot-S*] 1 tab PO BEDTIME PRN #60 tab PRN Reason: Constipation Physician Discharge Instructions: 84-year-old female presented to ER with complaints of abdominal pain. Symptoms onset 3 days ago. Denies any fevers. Does report having some nausea and vomiting. Also reports increased lethargy. Daughter at bedside reports that patient has been somewhat confused she is answering questions appropriately. There is also concern for constipation. In the ER a CT of the abdomen pelvis done concern for stool retention. She is also noted to have possible UTI. Her other medical history conditions include history of stroke, diabetes, gout, hypertension, CKD. She was admitted for UTI, constipation, was noted to have dehydration, CKD, generalized weakness, nausea vomiting, symptoms improved with IV fluids, IV antibiotics, UA was negative for UTI, she was treated antiemetics, stool softeners, condition improved, tolerating diet, plan to discharge home, follow-up with PCP in 1 week, Discharge medications Zofran for nausea vomiting P.o. cefdinir Stool softeners after discharge [id number] as needed Assessment UTI, discharged home on p.o. antibiotics, follow-up with PCP in 1 week Constipation, treated with stool softeners, improved with stool softeners, CKD, trend kidney function after discharge follow-up with PCP Dehydration improved with IV fluids Nausea and vomiting improved with IV fluids, as needed antiemetics discharged home on as needed antiemetics Continue home medicines as previously prescribed GOAL: Clear understanding of disease process INSTRUCTIONS: Physician Discharge Instructions: -DC IV and DC home -Follow-up with PCP in 1 to 2 weeks -Please call Dr. Vázquez at [phone] if any questions regarding hospital stay -Please call nursing station at [phone] if any nursing or medication questions -Return to the emergency room if symptoms worsen Diet: ADA, low sodium Activity: Fall precautions Followup: Kolton Mcclellan MD [Primary Care Provider] - 1-2 Weeks
[2024-06-19] MEDS: HYDRALAZINE HCL 25 MG TABLET PO ONE (16:22)
[2024-06-19] MEDS: HYDRALAZINE HCL 20 MG/ML VIAL IV ONE (16:45)
--- NOTE | 2024-06-19 16:56 | P.PN ---
Subjective Date of Service: 06/20/24 Chief Complaint: Abdominal pain reports mild nausea, no vomiting, reports several BM today <Cristina Fofana - Last Filed: 06/20/24 20:15> Date of Service: 06/19/24 <Ping Vázquez - Last Filed: 06/23/24 16:43> Review of Systems 10-point ROS is otherwise unremarkable General: As per HPI <Cristina Fofana - Last Filed: 06/20/24 20:15> Physical Examination - Vital Signs Temperature: 98 F Blood Pressure: 176/79 Pulse: 50 Respirations: 17 Pulse Ox (%): 96 - Physical Exam General: Alert, In no apparent distress, Oriented x2 HEENT: Atraumatic, Normocephalic Neck: Supple, 2+ carotid pulse no bruit Cardiovascular: Normal pulses, Regular rate/rhythm Capillary refill: <2 Seconds Gastrointestinal: Normal bowel sounds, Soft and benign Musculoskeletal: No clubbing, No swelling, Other (generalized weakness ) Integumentary: Other (B) LE ankle ulcers, dry dressing with terence wrap) Neurological: Normal speech, Other (mild confusion), Abnormal tone <Cristina Fofana - Last Filed: 06/20/24 20:15> Assessment And Plan - Current Problems (Diagnosis) (1) Metabolic encephalopathy Status: Acute (2) Acute cystitis without hematuria Status: Acute (3) Acute kidney injury superimposed on CKD Status: Acute (4) Heart failure Status: Acute Qualifiers: Heart failure type: diastolic (5) Diabetes type 2 Status: Acute Qualifiers: Diabetes mellitus exterminator termite insulin use: with exterminator termite use Diabetes mellitus complication status: without complication Qualified Code(s): E11.9 - Type 2 diabetes mellitus without complications; Z79.4 - intermodal dispatcher (current) use of insulin (6) Constipation Status: Acute Qualifiers: Constipation type: unspecified constipation type Qualified Code(s): K59.00 - Constipation, unspecified - Plan Assessment And Plan - Current Problems (Diagnosis) Admit to MedSurg, Nephrology consult, for ANURAG IV antibiotics for UTI, IV fluids, Fall precautions, Trend cultures, Resume home meds, Plavix, clonidine antihypertensive Stool softeners for constipation, antiemetics for nausea Full code Diet cardiac Disposition Home with home health with daughter Discharge Plan: Home - Code Status/Comfort Care Code Status: Full Code Critical Care: No Time Spent Managing PTS Care (In Minutes): 35 <Cristina Fofana - Last Filed: 06/20/24 20:15> Date of Service: 06/19/24 Patient was seen and examined. Events of the last 24 hours have been noted. Spoke with with NATI regarding patient's clinical picture after evaluating and examining the patient independently. I performed a substantial part of the MDM during this patient's care today. I personally made or approved the documented management plan and acknowledge its risk of complications. I agree with the findings and documentation provided in the NATI's notes. <Ping Vázquez - Last Filed: 06/23/24 16:43>
[2024-06-19] MEDS ORDERED: SOLIFENACIN SUCCINATE PO SCH (21:00)
[2024-06-19] MEDS ORDERED: carvediloL 6.25 MG TAB PO SCH (21:00)
[2024-06-19] MEDS: TROSPIUM CHLORIDE 20 MG TABLET PO SCH (21:09)
[2024-06-19] MEDS: HYDRALAZINE HCL 25 MG TABLET PO SCH (21:10)
[2024-06-19] MEDS: SERTRALINE HCL 100 MG TAB PO SCH (21:10)
--- NOTE | 2024-06-19 21:44 | P.PN ---
Date of Service: 06/19/24 Vital Signs Temp Pulse Resp BP Pulse Ox 98.5 F 56 16 156/71 H 98 06/19/24 20:00 06/19/24 20:00 06/19/24 20:00 06/19/24 20:00 06/19/24 20:00 Medications Acetaminophen (Acetaminophen 325 Mg Tablet) 650 mg PO Q4HP PRN PRN Reason: Pain scale 2-4 (Mild) Last Admin: 06/18/24 23:33 Dose: 650 mg Clopidogrel Bisulfate (Clopidogrel 75 Mg Tablet) 75 mg PO DAILY [facility] Ezetimibe (Ezetimibe 10 Mg Tab) 10 mg PO DAILY [facility] Enoxaparin Sodium (Enoxaparin 30 Mg/0.3 Ml) 30 mg SQ DAILY [facility] Last Admin: 06/19/24 08:52 Dose: 30 mg Furosemide (Furosemide 40 Mg Tablet) 40 mg PO DAILY [facility] Glucagon (Glucagon 1 Mg/Vial) 1 mg IM 1X PRN PRN Reason: HYPOGLYCEMIA Hydralazine HCl (Hydralazine Hcl 25 Mg Tablet) 25 mg PO TID [facility] Last Admin: 06/19/24 21:10 Dose: 25 mg Ceftriaxone Sodium 1,000 mg/ (Sodium Chloride) 50 mls @ 100 mls/hr IVPB DAILY [facility]; Protocol Last Admin: 06/19/24 08:52 Dose: 50 mls Dextrose (Dextrose 10% Water Iv Soln.) 125 mls @ 0 mls/hr IV PRN PRN; Protocol PRN Reason: HYPOGLYCEMIA Sodium Chloride (Sodium Chloride 0.45%) 1,000 mls @ 75 mls/hr IV .[id number] [facility] Last Admin: 06/19/24 12:48 Dose: 1,000 mls Insulin Human Regular (Insulin Regular (Human) 100 Unit/Ml) 0 unit SQ ACHS [facility]; Protocol Last Admin: 06/19/24 21:00 Dose: Not Given Insulin Lispro Protam/Lispro Human (Humalog Mix 75/25 100 Units/Ml) 10 units SQ BIDAC [facility] Ondansetron HCl (Ondansetron 4 Mg/2 Ml Vial) 4 mg IV Q6HP PRN PRN Reason: NAUSEA / VOMITING Last Admin: 06/19/24 13:11 Dose: 4 mg Pantoprazole Sodium (Pantoprazole 40mg Tablet) 40 mg PO DAILY [facility]; Protocol Polyethylene Glycol (Polyethyl Gly 3350 17 Gm/Dose) 17 gm PO BID [facility] Last Admin: 06/19/24 21:00 Dose: Not Given Senna/Docusate Sodium (Docusate Na/Senna Conc 1 Tab) 2 tab PO BEDTIME PRN PRN Reason: CONSTIPATION Last Admin: 06/18/24 20:31 Dose: 2 tab Sertraline HCl (Sertraline Hcl 100 Mg Tab) 150 mg PO BEDTIME [facility] Last Admin: 06/19/24 21:10 Dose: 150 mg Assessment/ Plan: Nephrology No dyspnea No chest pain No acute events overnight Vitals, medications, blood work and imaging reviewed in the chart General: In no apparent distress, Oriented x3, Cooperative HEENT: Atraumatic Neck: Supple Respiratory: Clear to auscultation bilaterally, Normal air movement Cardiovascular: No edema, Regular rate/rhythm Gastrointestinal: Soft and benign, Non-distended Musculoskeletal: No clubbing, No warmth Integumentary: No rashes, No cyanosis Neurological: Normal speech Blood work reviewed in the chart. Imagings Data: [id number] EXAMINATION: CT ABDOMEN AND PELVIS WITHOUT CONTRAST CLINICAL INDICATION: ABD PAIN TECHNIQUE: CT abdomen and pelvis was performed, without IV contrast, as per department protocol. Axial, sagittal and coronal reconstructions were obtained. One or more of the following dose reduction techniques were used: Automated exposure control, adjustment of the mA and kV according to the patient size, and iterative reconstruction. Unless otherwise specified, incidental findings do not require dedicated imaging follow-up. COMPARISON: 05/28/2024 FINDINGS: The lack of intravenous contrast limits the sensitivity of this exam for evaluation of solid visceral organs, vascular structures, and retroperitoneum. LOWER CHEST: Left axillary large mass and left breast mass incompletely visualized. Please reference CT report from 05/28/2024. Small hiatal hernia. LIVER:Normal in size and contour. No focal lesion. SPLEEN: Normal size. No focal lesion. PANCREAS: No mass, ductal dilation, or dilcia-pancreatic fluid. ADRENALS: Normal; no mass. KIDNEYS AND URETERS: Normal size and contour. No hydronephrosis. URINARY BLADDER: Normal contour. Small air bubbles noted. GASTROINTESTINAL TRACT: There is moderate thickening of the rectosigmoid colon with multiple diverticula present. Significant upstream stool retention noted in the colon. APPENDIX: Normal appendix. LYMPH NODES: No lymphadenopathy. MUSCULOSKELETAL: No acute or suspicious osseous abnormality. ADDITIONAL FINDINGS: None. IMPRESSION: Significant wall thickening and several diverticula are present involving the rectosigmoid colon. There is upstream stool retention present throughout the colon. Tiny air bubbles in the bladder could be infectious or related to prior instrumentation. Lower chest findings as detailed above. Conclusions/Impression: Stage II ANURAG likely due to hypovolemia CKD III -No NSAIDs -Continue IVF to 1/2NS HTN with CKD/ CHF -Continue Hydralazine -Start Nifedipine ER Diastolic CHF, chronic -Daily weight DM II with CKD & Polyneuropathy -RISS Anemia in chronic illness -Monitor H&H Acute infective cystitis -Continue Rocephin Case reviewed with Dr. Vázquez
[2024-06-19 22:11] VITALS: O2SAT 98
[2024-06-19] MEDS: NIFEDIPINE XL 30 MG TABLET PO SCH (22:40)
[2024-06-20 05:12] LABS: Hematocrit 29.2 % (36.0-45.0); Hemoglobin 9.5 g/dL (12.0-15.0); MCH 29.6 pg (27.0-35.0); MCHC 32.5 g/dL (32.0-36.0); MCV 91.1 fL (80-100); MPV 8.3 fL (7.6-11.3); Platelets 211 thou/uL (152-406); Red Cell Distribution Width 15.4 % (12.1-15.2)
[2024-06-20 05:23] LABS: Albumin 2.6 g/dL (3.4-5.0); Phosphorus 2.8 mg/dL (2.5-4.9)
[2024-06-20] MEDS: HUMALOG MIX 75/25 100 UNITS/ML SQ SCH (07:30)
[2024-06-20] MEDS: ENOXAPARIN 40 MG/0.4 ML SQ SCH (09:00)
[2024-06-20] MEDS ORDERED: NIFEDIPINE XL 30 MG TABLET PO SCH (09:00)
[2024-06-20] MEDS: EZETIMIBE 10 MG TAB PO SCH (09:00)
[2024-06-20] MEDS: CLOPIDOGREL 75 MG TABLET PO SCH (09:52)
[2024-06-20] MEDS: FUROSEMIDE 40 MG TABLET PO SCH (09:52)
[2024-06-20] MEDS: PANTOPRAZOLE 40MG TABLET PO SCH (09:52)
[2024-06-20 20:17] VITALS: BP 176/79; TEMP 98
--- NOTE | 2024-06-23 16:42 | P.PN ---
Date of Service: 06/18/24 Subjective Patient continues to do well. Patient denies any new complaints. Continue with IV antibiotics. Clinical symptoms are much better. Physical Examination - Vitals reviewed - Physical Exam General: Alert Respiratory: Clear to auscultation bilaterally, Normal air movement Cardiovascular: No edema, Regular rate/rhythm, Normal S1 S2 Gastrointestinal: Soft and benign, Tenderness Musculoskeletal: No tenderness Integumentary: No rashes Assessment and Plan - Problems (Diagnosis) (1) UTI (urinary tract infection) Current Visit: Yes Status: Acute (2) Constipation Current Visit: Yes Status: Acute (3) CKD (chronic kidney disease) Onset Date: 02/05/18 Current Visit: No Status: Acute Qualifiers: Chronic kidney disease stage: stage 3 (moderate) (4) Dehydration Current Visit: No Status: Acute (5) General weakness Current Visit: No Status: Acute (6) Nausea and vomiting Current Visit: No Status: Acute Qualifiers: Vomiting type: unspecified Qualified Code(s): R11.2 - Nausea with vomiting, unspecified - Plan 1. UTI; continue with IV fluids IV antibiotics 2. chronic kidney disease; continue with IV fluids and hydration 3. intractable nausea vomiting; continue with antiemetics as needed 4. constipation; continue with laxative as needed - Advance Directives Does patient have a Living Will: Yes Does patient have a Durable POA for Healthcare: No
== END 2024-06-20 10:01 | disposition home or self-care (01) | DRG 689 ==
LOC: ER 14:51 → ERHOLD 22:27 → 2ND 06-18 17:22
PROVIDERS: ADMIT Internal Medicine; ATTEND Hospitalist
DX: N39.0 Urinary tract infection, site not specified (principal); G93.41 Metabolic encephalopathy; I13.0 Hypertensive heart and chronic kidney disease with heart failure and stage 1 through stage 4 chronic kidney disease, or unspecified chronic kidney disease; I50.32 Chronic diastolic (congestive) heart failure; N17.9 Acute kidney failure, unspecified; E86.0 Dehydration; E11.22 Type 2 diabetes mellitus with diabetic chronic kidney disease; N18.30 Chronic kidney disease, stage 3 unspecified; Z79.4 Long term (current) use of insulin; Z86.73 Personal history of transient ischemic attack (TIA), and cerebral infarction without residual deficits; Z90.49 Acquired absence of other specified parts of digestive tract; E78.5 Hyperlipidemia, unspecified; K59.00 Constipation, unspecified
CPT/HCPCS: 36415; 74176; 80048; 80053; 80069; 81001; 82947; 83690; 83735; 84100; 84439; 84443; 85025; 85027; 96361; 96374; 99285; J0360; J0696; J1650; J2405; J7030; J7050

== ENCOUNTER 2024-08-07 17:56 | Inpatient (IN) | payer OTHER ==
--- OUTSIDE RECORDS SUMMARY | 2024-08-07 17:59 | XMS REPORT | Continuity of Care Document ---
Author Name Unknown Address [address] [place] [address] [address] [facility] Address [address] [place] [address]. [address] [place] [address] Care Team Providers Care Budget And Policy Analyst Name Role Phone [phone] Attending Clinician Unavailable Jamal Gomes Anavella Attending Cli nician Unavailable [phone] Admitting Clinician Unavailable Roberto Gomes Anav Admitting Clinician U navailable Payers Payer Name Policy Type Policy Number Effective Date Expirati on Date Source [facility] [id number] Encounters Start Date/Time End Date/Time Encounter Type Admission Type Attending Clinicians Care Facility Care Department Encounter ID Source 2022-10-26 09:38:52 Outpatient 3 [id number] [facility] [id number] [facility] 2022-10-18 08:34:08 Outpatient 3 [id number] [facility] REF [id number] [facility] 2021-08-04 09:58:11 [place] 3 [id number] [facility] 2021-08-04 09:54:11 Outpatient 3 [id number] [facility] REF [id number] [facility] 2021-08-04 09:53:43 Outpatient 3 [id number] [facility] REF [id number] [facility] 2022-10-27 13:03:00 2022-11-18 13:30:00 Inpatient 3 Jamal Serna [facility] [id number] [facility] [place]
--- NOTE | 2024-08-07 18:45 | RAD REPORT ---
Procedure: Chest Single View HISTORY: Hypertension COMPARISON: 2023 FINDINGS: The lungs appear clear of acute infiltrate. No significant pleural effusion noted. The heart is normal size. IMPRESSION: No acute abnormality is displayed.
--- NOTE | 2024-08-07 18:47 | RAD REPORT ---
EXAM: CT brain without contrast HISTORY: Headache COMPARISON: 2023 TECHNIQUE: Multiple contiguous axial images were obtained and a CT of the brain without contrast.. Sagittal and coronal reconstruction performed. Automated exposure control, adjustment of the mA and/or kV according to patient size, and/or iterative reconstruction. 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 No fluid wi thin the visualized sinuses or mastoids noted. IMPRESSION: No acute intracranial abnormality noted. If the patient continues to have symptoms to suggest an acute intracranial abnormality then MRI of th e brain would be recommended.
[2024-08-07 19:00] LABS: Absolute Basophils 0.1 K/uL (0-0.5); Absolute Eosinophils 0.2 K/uL (0-0.5); Absolute Lymphocytes (CBC) 2.6 K/uL (0.7-4.9); Absolute Monocytes 0.5 K/uL (0.1-1.3); Absolute Neutrophil 5.1 K/uL (1.8-8.0); Eosinophils % 2.2 % (0-4.4); Hematocrit 32.3 % (36.0-45.0); Hemoglobin 10.3 g/dL (12.0-15.0); Lymphocytes % 30.3 % (15.3-44.8); MCH 28.4 pg (27.0-35.0); MCHC 31.9 g/dL (32.0-36.0); MCV 89.1 fL (80-100); MPV 7.4 fL (7.6-11.3); Monocytes % 6.2 % (3.3-12.3); Neutrophils % 60.3 % (41.7-73.7); Nucleated Red Blood Cells % 0.1 % (0-0); Platelets 256 thou/uL (152-406); RBC Red Blood Cell Count 3.63 M/uL (3.86-4.86); Red Cell Distribution Width 16.3 % (12.1-15.2)
[2024-08-07 19:19] LABS: ALT/SGPT 15 U/L (13-56); AST/SGOT 16 U/L (15-37); Albumin 2.9 g/dL (3.4-5.0); Albumin/Globulin Ratio 0.7 (1.1-1.8); Alkaline Phosphatase 82 U/L (45-117); Anion Gap 10.1 mEq/L (5.0-15.0); BUN Blood Urea Nitrogen 32 mg/dL (7-18); Bicarbonate 28 mEq/L (21-32); Bilirubin Total 0.3 mg/dL (0.2-1.0); Glomerular Filtration Rate 37 ml/min (=/>90); Glucose Level 132 mg/dL (74-106); NT PRO-BNP 726 pg/mL (<450); Potassium 4.1 mEq/L (3.5-5.1); Protein, Total 6.9 g/dL (6.4-8.2); Sodium Level 138 mEq/L (136-145); Troponin High Sensitivity 10.7 pg/mL (<58.9)
[2024-08-07] MEDS ORDERED: ACETAMINOPHEN 500 MG TAB ONE (19:31)
[2024-08-07 19:37] LABS: Bilirubin Direct < 0.2 mg/dL (0-0.2); Bilirubin Indirect, Calculated 0.1 mg/dL (0.2-0.8)
[2024-08-07] MEDS ORDERED: NA CHLORIDE 0.9% 1,000 ML ONE ×2 (19:49→20:44)
[2024-08-07] MEDS ORDERED: CEFTRIAXONE 1000 MG/VIAL ONE (20:48)
[2024-08-07 21:51] LABS: Specific Gravity 1.008 (1.005-1.030); Sqamous Epithelial None Seen /HPF (None Seen); Urine Bacteria <20 /HPF (<20); Urine Bilirubin NEGATIVE (Negative); Urine Blood Negative (Negative); Urine Clarity Turbid (Clear); Urine Color Colorless (Yellow); Urine Crystals Unidentified Few /HPF (None Seen); Urine Culture Reflex Order NOT NEEDED; Urine Glucose NEGATIVE (Negative); Urine Ketones NEGATIVE (Negative); Urine Micro Reflex YN NO BILL MICROSCOPIC; Urine Mucus Slight /HPF (None Seen); Urine Nitrite NEGATIVE (Negative); Urine Protein 1+ (Negative); Urine RBC <5 /HPF (None Seen); Urine Urobilinogen Normal (Normal); Urine WBC <5 /HPF (<5); Urine Yeast (Budding) Trace /HPF (None Seen)
--- NOTE | 2024-08-07 22:20 | RAD REPORT ---
EXAMINATION: Stone Protocol CLINICAL INDICATION: Abdominal pain. Flank pain TECHNIQUE: CT abdomen and pelvis was performed, without IV contrast, as per department protocol. Oral contrast not given. Axial, sagittal and coronal reconstructions were obtained. One or more of the following dose reduction techniques were used: Automated exposure control, adjustment of the mA and k V according to the patient size, and iterative reconstruction. Unless otherwise specified, incidental findings do not require dedicated imaging follow-up. COMPARISON: No prior exam. FINDINGS: The lack of intravenous and oral contrast limits the sensitivity of this exam for evaluation of solid visceral organs, vascular structures, and bowel A renal calculus not seen. No ureteral calculus. A bladder calculus not noted. No hydronephrosis Liver, spleen, pancreas and adrenals grossly normal No evidence of diverticulitis. Hysterectomy. No adnexal mass. Air within the bladder. Patient's known breast masses are again demonstrated. IMPRESSION: Negative for a genitourinary calculus Air within the bladder could be secondary to infection or instrumentation.
--- NOTE | 2024-08-07 22:40 | EDPHYS ---
Physician Documentation [facility] Name: Mariposa Palacios Age: 84 yrs Sex: Female : 1940 Arrival Date: 08/07/2024 Time: 17:56 Bed 3 Private MD: ED Physician Ab Jaeger HPI: 08/07 18:53 This 84 yrs old Female presents to ER via EMS with complaints of Urinary Problem, High rt Blood Pressure. 18:53 Patient with previous history of hemorrhagic stroke presents to the ED with reported rt hypertension, headache. The patient states that her blood pressure was 240/140, reportedly did not take her carvedilol due to her heart rate being low. Also reports dysuria. She was given nitro by EMS which did improve her blood pressure. Denies other acute complaints at this time, symptoms are moderate in severity, no other aggravating or elevating factors.. Historical: - Allergies: 18:03 Benadryl; ko1 18:03 Codeine; ko1 18:03 injectable dye; ko1 18:03 metformin; ko1 18:03 Phenergan; ko1 - PMHx: 18:03 CHF; CVA; Gout; Diabetes - IDDM; Hypertensive disorder; kidney disease; neuropathy; ko1 - PSHx: 18:03 hysterectomy; Left shoulder repair; ko1 - Immunization history:: Adult Immunizations unknown. - Infectious Disease History:: Denies. - Social history:: Smoking status: Patient denies any tobacco usage or history of. - Family history:: not pertinent. ROS: 18:53 Constitutional: Negative for fever, chills, and weight loss, Cardiovascular: Negative rt for chest pain, palpitations, and edema, Respiratory: Negative for shortness of breath, cough, wheezing, and pleuritic chest pain, Abdomen/GI: Negative for abdominal pain, nausea, vomiting, diarrhea, and constipation, MS/Extremity: Negative for injury and deformity, Skin: Negative for injury, rash, and discoloration, 18:53 : Positive for urinary symptoms, burning with urination, 18:53 Neuro: Positive for headache, Negative for altered mental status, Exam: 18:53 Constitutional: This is a well developed, well nourished patient who is awake, alert, rt and in no acute distress. Head/Face: Normocephalic, atraumatic. Chest/axilla: Normal chest wall appearance and motion. Nontender with no deformity. No lesions are appreciated. Cardiovascular: Regular rate and rhythm with a normal S1 and S2. No gallops, murmurs, or rubs. Normal PMI, no JVD. No pulse deficits. Respiratory: Lungs have equal breath sounds bilaterally, clear to auscultation and percussion. No rales, rhonchi or wheezes noted. No increased work of breathing, no retractions or nasal flaring. Abdomen/GI: Soft, non-tender, with normal bowel sounds. No distension or tympany. No guarding or rebound. No evidence of tenderness throughout. Skin: Warm, dry with normal turgor. Normal color with no rashes, no lesions, and no evidence of cellulitis. MS/ Extremity: Pulses equal, no cyanosis. Neurovascular intact. Full, normal range of motion. Neuro: Awake and alert, GCS 15, oriented to person, place, time, and situation. Cranial nerves II-XII grossly intact. Motor strength 5/5 in all extremities. Sensory grossly intact. Cerebellar exam normal. Normal gait. 18:53 ECG was reviewed by the Attending Physician. Vital Signs: 18:00 BP 138 / 63; Pulse 63; Resp 15; Temp 97.7; Pulse Ox 98% ; ko1 18:50 BP 167 / 67; Pulse 65; Resp 15; Pulse Ox 98% on R/A; ko1 19:26 BP 164 / 64; Pulse 62; Resp 18; Temp 97.7; Pulse Ox 98% ; Pain 6/10; bm8 20:46 BP 156 / 66; Pulse 60; Resp 17; Temp 97.7; Pulse Ox 98% ; Pain 6/10; bm8 08/08 01:52 BP 177 / 69; Pulse 60; Resp 17; Temp 97.7; Pulse Ox 100% ; Pain 0/10; bm8 19:26 Pain Scale: Adult bm8 20:46 Pain Scale: Adult bm8 08/08 01:52 Pain Scale: Adult bm8 Yoav Coma Score: 08/07 19:26 Eye Response: spontaneous(4). Motor Response: obeys commands(6). Verbal Response: bm8 oriented(5). Total: 15. 20:46 Eye Response: spontaneous(4). Motor Response: obeys commands(6). Verbal Response: bm8 oriented(5). Total: 15. 08/08 01:52 Eye Response: spontaneous(4). Motor Response: obeys commands(6). Verbal Response: bm8 oriented(5). Total: 15. MDM: 08/07 18:03 Medical Screening Exam initiated rt 20:45 Differential diagnosis: hypertensive crisis, Malignant HTN, CVA, intracerebral nisha hemorrhage. Data reviewed: vital signs, nurses notes, lab test result(s), EKG, radiologic studies. Consideration of Admission/Observation Escalation of care including admission/observation considered. I considered the following discharge prescriptions or medication management in the emergency department Medications were administered in the Emergency Department. See MAR. Independent interpretation of the following test(s) in the Emergency Department EKG: See my EKG interpretation above. Test considered but Not performed: Ultrasound no abd usg. Historians other than the Patient: Daughter/Son: daughter. Care significantly affected by the following chronic conditions: Diabetes, Hypertension, Congestive Heart Failure, Chronic Kidney Disease, neuropathy. 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 08/07 18:08 Order name: Basic Metabolic Panel; Complete Time: 19:38 rt 08/07 18:08 Order name: CBC with Diff; Complete Time: 19:38 rt 08/07 18:08 Order name: LFT's; Complete Time: 19:38 rt 08/07 18:08 Order name: NT PRO-BNP; Complete Time: 19:38 rt 08/07 18:08 Order name: Troponin HS; Complete Time: 19:38 rt 08/07 18:08 Order name: UAM; Complete Time: 21:57 rt 08/08 00:51 Order name: Lactate w/ 2H reflex if indic. EDMS 08/08 00:51 Order name: Magnesium EDMS 08/08 00:51 Order name: Phosphorus EDMS 08/08 00:51 Order name: Urinalysis w/ reflexes EDMS 08/08 00:51 Order name: Basic Metabolic Panel EDMS 08/08 00:51 Order name: Basic Metabolic Panel EDMS 08/08 00:52 Order name: CBC with Automated Diff EDMS 08/08 00:52 Order name: CBC with Automated Diff EDMS 08/08 00:52 Order name: Lipid Profile EDMS 08/08 00:52 Order name: Lipid Profile EDMS 08/07 18:08 Order name: XRAY Chest (1 view); Complete Time: 18:48 rt 08/07 18:08 Order name: CT Head Brain wo Cont; Complete Time: 18:48 rt 08/07 20:45 Order name: CT Stone Protocol; Complete Time: 22:39 nisha 08/07 18:08 Order name: EKG; Complete Time: 18:08 rt 08/08 00:51 Order name: Physical Therapy Consult EDAR 08/07 18:08 Order name: Cardiac monitoring; Complete Time: 18:08 rt 08/07 18:08 Order name: EKG - Nurse/Tech; Complete Time: 18:50 rt 08/07 18:08 Order name: IV Saline Lock; Complete Time: 18:08 rt 08/07 18:08 Order name: Labs collected and sent; Complete Time: 18:50 rt 08/07 18:08 Order name: O2 Per Protocol; Complete Time: 18:08 rt 08/07 18:08 Order name: O2 Sat Monitoring; Complete Time: 18:08 rt 08/07 20:05 Order name: Straight Cath - Urine; Complete Time: 22:25 bm8 EC:53 Rate is 61 beats/min. Rhythm is regular, Normal Sinus Rhythm with No ectopy. QRS [place] rt is Normal. NE interval is normal. QRS interval is normal. QT interval is normal. No Q waves. T waves are Normal. No ST changes noted. Interpreted by me. Administered Medications: 19:54 Drug: Acetaminophen PO 1000 mg PO once Route: PO; bm8 20:46 Follow up: Response: No adverse reaction bm8 19:54 Drug: NS 0.9% IV 1000 ml IV at 1 bolus Per protocol; to be given as a bolus over 60 bm8 minutes Route: IV; Rate: 1 bolus; Site: right antecubital; 20:53 Follow up: Response: No adverse reaction; IV Status: Completed infusion; IV Intake: bm8 1000ml 20:53 Drug: NS 0.9% IV 1000 ml IV at 1 bolus Per protocol; to be given as a bolus over 60 bm8 minutes Route: IV; Rate: 1 bolus; Site: right antecubital; 21:26 Follow up: Response: No adverse reaction; IV Status: Completed infusion; IV Intake: bm8 1000ml 20:53 Drug: Rocephin IV 1 grams IV at per protocol once; Given slow IV push per pharmacy bm8 instructions Route: IV; Rate: per protocol; Site: right antecubital; 21:26 Follow up: Response: No adverse reaction; IV Status: Completed infusion; IV Intake: [id number] 23:34 Drug: fentaNYL (PF) IVP 25 mcg IVP once Route: IVP; Site: right antecubital; bm8 08/08 01:52 Follow up: Response: No adverse reaction bm8 Disposition Summary: 08/08/24 00:05 Hospitalization Ordered Notes: Hospitalization Status: Observation nisha Provider: Prince nisha Jenkins Condition: Fair(08/08/24 00:05) nisha Problem: new(08/08/24 00:05) nisha Symptoms: have improved(08/08/24 00:05) nisha Bed/Room Type: Standard nisha Location: Telemetry/MedSurg (Inpatient)(08/08/24 01:30) rv1 Room Assignment: 220(08/08/24 01:30) rv1 Diagnosis - UTI/ Urinary tract infection, site not specified(08/08/24 00:05) nisha - Weakness nisha - Essential (primary) hypertension(08/08/24 00:05) nisha - Type 1 diabetes mellitus with hyperglycemia nisha Forms: - Medication Reconciliation Form nisha - SBAR form nisha - Leadership Thank You Letter nisha Signatures: Dispatcher [employer] Ab Johnson MD MD cha Able, Lacie, RN RN lg3 Divina Rizzo, RN RN ko1 John Price MD MD rt Villegas, Rebecca rv1 Tony Hanley, RN RN bm8 Corrections: (The following items were deleted from the chart) 08/07 18:08 18:08 BASIC METABOLIC PANEL+C.LAB.BRZ ordered. EDMS EDMS 18:08 18:08 CBC+H.LAB.BRZ ordered. EDMS EDMS 18:08 18:08 HEPATIC FUNCTION+C.LAB.BRZ ordered. EDMS EDMS 18:08 18:08 PROBNP+C.LAB.BRZ ordered. EDMS EDMS 18:08 18:08 Troponin High Sensitivity+C.LAB.BRZ ordered. EDMS EDMS 18:08 18:08 Urinalysis W/Microscopic+U.LAB.BRZ ordered. EDMS EDMS 23:55 22:39 Home nisha rv1 23:55 22:39 new nisha rv1 23:55 22:39 have improved nisha rv1 23:55 22:39 Stable nisha rv1 23:55 22:39 Dysuria nisha rv1 23:55 22:39 Chronic kidney disease, unspecified nisha rv1 23:55 22:39 Essential (primary) hypertension nisha rv1 23:55 22:39 UTI/ Urinary tract infection, site not specified nisha rv1 08/08 01:03 00:05 Telemetry/MedSurg (observation) nisha lg3 01:03 00:05 nisha lg3 01:30 01:03 [facility] ER HOLD lg3 rv1 01:30 01:03 ERHOLD- lg3 rv1
--- NOTE | 2024-08-07 22:40 | ER ---
Nurse's Notes [facility] Name: Mariposa Palacios Age: 84 yrs Sex: Female : 1940 Arrival Date: 08/07/2024 Time: 17:56 Bed 3 Private MD: Diagnosis: UTI/ Urinary tract infection, site not specified;Weakness;Essential (primary) hypertension;Type 1 diabetes mellitus with hyperglycemia Presentation: 08/07 18:00 Chief complaint: EMS states: called for high blood pressure at home 246/100, burning ko1 with urination and some generalized weakness. Coronavirus screen: At this time, the client does not indicate any symptoms associated with coronavirus-19. Ebola Screen: No symptoms or risks identified at this time. Initial Sepsis Screen: Does the patient meet any 2 criteria? No. Patient's initial sepsis screen is negative. Does the patient have a suspected source of infection? No. Patient's initial sepsis screen is negative. Risk Assessment: Do you want to hurt yourself or someone else? Patient reports no desire to harm self or others. Onset of symptoms was August 07, 2024. Care prior to arrival: Medication(s) given: Nitroglycerin, 0.4 mg SL x 1, IV initiated. 20 GA, in the right antecubital area, Glucose check: 147. 18:00 Method Of Arrival: EMS: [facility] ko1 18:00 Acuity: DOMINIQUE 3 ko1 Triage Assessment: 18:03 General: Appears in no apparent distress. Behavior is calm, cooperative, appropriate ko1 for age. Pain: Denies pain. EENT: No deficits noted. No signs and/or symptoms were reported regarding the EENT system. Neuro: Reports dizziness. Cardiovascular: No deficits noted. Respiratory: No deficits noted. GI: No deficits noted. No signs and/or symptoms were reported involving the gastrointestinal system. : Reports burning with urination. Derm: No deficits noted. No signs and/or symptoms reported regarding the dermatologic system. Musculoskeletal: No deficits noted. No signs and/or symptoms reported regarding the musculoskeletal system. Historical: - Allergies: 18:03 Benadryl; ko1 18:03 Codeine; ko1 18:03 injectable dye; ko1 18:03 metformin; ko1 18:03 Phenergan; ko1 - PMHx: 18:03 CHF; CVA; Gout; Diabetes - IDDM; Hypertensive disorder; kidney disease; neuropathy; ko1 - PSHx: 18:03 hysterectomy; Left shoulder repair; ko1 - Immunization history:: Adult Immunizations unknown. - Infectious Disease History:: Denies. - Social history:: Smoking status: Patient denies any tobacco usage or history of. - Family history:: not pertinent. Screenin:04 [facility] ED Fall Risk Assessment (Adult) History of falling in the last 3 months, ko1 including since admission No falls in past 3 months (0 pts) Confusion or Disorientation No (0 pts) Intoxicated or Sedated No (0 pts) Impaired Gait No (0 pts) Mobility Assist Device Used No (0 pt) Altered Elimination No (0 pt) Score/Fall Risk Level 0 - 2 = Low Risk Oriented to surroundings, Maintained a safe environment, Educated pt \T\ family on fall prevention, incl call for assistance when getting out of bed, Assessed \T\ reinforced patient's understanding of fall precautions, Hourly rounding (assess needs \T\ fall precautionary measures) done. Abuse screen: Denies threats or abuse. Denies injuries from another. Nutritional screening: No deficits noted. Tuberculosis screening: No symptoms or risk factors identified. Assessment: 18:04 Reassessment: see triage note. ko1 19:26 Reassessment: Patient appears in no apparent distress at this time. Patient and/or bm8 family updated on plan of care and expected duration. Pain level reassessed. Patient is alert, oriented x 3, equal unlabored respirations, skin warm/dry/pink. General: Appears in no apparent distress. uncomfortable, Behavior is calm, cooperative, appropriate for age. Pain: Complains of pain in head and neck Pain currently is 6 out of 10 on a pain scale. Neuro: Reports headache and neck pain. Cardiovascular: Denies chest pain, Capillary refill < 3 seconds in bilateral fingers Patient's skin is warm and dry. Respiratory: Airway is patent Trachea midline Respiratory effort is even, unlabored, Respiratory pattern is regular, symmetrical. GI: No signs and/or symptoms were reported involving the gastrointestinal system. : No signs and/or symptoms were reported regarding the genitourinary system. EENT: No deficits noted. No signs and/or symptoms were reported regarding the EENT system. Derm: No signs and/or symptoms reported regarding the dermatologic system. 20:06 Reassessment: Two attempts at straight cat for urine unsuccessful, pt had no urine. bm8 provider notified and order for NS given and carried out. 20:46 Reassessment: Patient appears in no apparent distress at this time. Patient and/or bm8 family updated on plan of care and expected duration. Pain level reassessed. Patient is alert, oriented x 3, equal unlabored respirations, skin warm/dry/pink. Pain: Pain currently is 6 out of 10 on a pain scale. 21:28 Reassessment: pt to CT. bm8 08/08 01:52 Reassessment: Patient appears in no apparent distress at this time. Patient and/or bm8 family updated on plan of care and expected duration. Pain level reassessed. Patient is alert, oriented x 3, equal unlabored respirations, skin warm/dry/pink. Patient denies pain at this time. Patient states feeling better. Vital Signs: 08/07 18:00 BP 138 / 63; Pulse 63; Resp 15; Temp 97.7; Pulse Ox 98% ; ko1 18:50 BP 167 / 67; Pulse 65; Resp 15; Pulse Ox 98% on R/A; ko1 19:26 BP 164 / 64; Pulse 62; Resp 18; Temp 97.7; Pulse Ox 98% ; Pain 6/10; bm8 20:46 BP 156 / 66; Pulse 60; Resp 17; Temp 97.7; Pulse Ox 98% ; Pain 6/10; bm8 08/08 01:52 BP 177 / 69; Pulse 60; Resp 17; Temp 97.7; Pulse Ox 100% ; Pain 0/10; bm8 19:26 Pain Scale: Adult bm8 20:46 Pain Scale: Adult bm8 08/08 01:52 Pain Scale: Adult bm8 [place] Coma Score: 08/07 19:26 Eye Response: spontaneous(4). Motor Response: obeys commands(6). Verbal Response: bm8 oriented(5). Total: 15. 20:46 Eye Response: spontaneous(4). Motor Response: obeys commands(6). Verbal Response: bm8 oriented(5). Total: 15. 08/08 01:52 Eye Response: spontaneous(4). Motor Response: obeys commands(6). Verbal Response: bm8 oriented(5). Total: 15. ED Course: 08/07 17:59 Patient arrived in ED. ko1 18:00 Divina Rizzo, RN is Primary Nurse. ko1 18:00 John Price MD is Attending Physician. rt 18:03 Triage completed. ko1 18:03 Arm band placed on right wrist. Patient placed in an exam room, on a stretcher, on ko1 monitor tech, on pulse oximetry, Patient notified of wait time. 18:04 Patient has correct armband on for positive identification. Allergy band placed. Bed in ko1 low position. Call light in reach. Side rails up X2. Provided Education on: labs. Client placed on continuous cardiac and pulse oximetry monitoring. NIBP monitoring applied. engine monitor on. Door closed. Noise minimized. Lights dimmed. Warm blanket given. Pillow given. 18:04 Maintain EMS IV. Dressing intact. Good blood return noted. Site clean \T\ dry. Gauge \T\ ko 1 site: 20g right AC. Flushed with 10 mL NS. 18:19 XRAY Chest (1 view) In Process Unspecified. EDMS 18:22 CT Head Brain wo Cont In Process Unspecified. EDMS 18:50 Basic Metabolic Panel Sent. ko1 18:50 CBC with Diff Sent. ko1 18:50 LFT's Sent. ko1 18:50 NT PRO-BNP Sent. ko1 18:50 Troponin HS Sent. ko1 18:50 Initial lab(s) drawn, by me, sent to lab. EKG done, by ED staff, reviewed by John Price MD. 19:26 No provider procedures requiring assistance completed. Patient maintains SpO2 bm8 saturation greater than 95% on room air. 20:08 Primary Nurse role handed off by Divina Rizzo, RN bm8 20:08 Tony Hanley, RN is Primary Nurse. bm8 20:30 Attending Physician role handed off by John Price MD nisha 20:30 Ab aJeger MD is Attending Physician. nisha 20:31 Attending Physician role handed off by Ab Jaeger MD rt 20:31 John Price MD is Attending Physician. rt 20:32 Attending Physician role handed off by John Price MD nisha 20:32 Ab Jaeger MD is Attending Physician. nisha 21:29 CT Stone Protocol In Process Unspecified. EDMS 08/08 00:01 Prince Jenkins MD is Hospitalizing Provider. [facility] 01:52 Patient admitted, IV remains in place. bm8 Administered Medications: 08/07 19:54 Drug: Acetaminophen PO 1000 mg PO once Route: PO; bm8 20:46 Follow up: Response: No adverse reaction bm8 19:54 Drug: NS 0.9% IV 1000 ml IV at 1 bolus Per protocol; to be given as a bolus over 60 bm8 minutes Route: IV; Rate: 1 bolus; Site: right antecubital; 20:53 Follow up: Response: No adverse reaction; IV Status: Completed infusion; IV Intake: bm8 1000ml 20:53 Drug: NS 0.9% IV 1000 ml IV at 1 bolus Per protocol; to be given as a bolus over 60 bm8 minutes Route: IV; Rate: 1 bolus; Site: right antecubital; 21:26 Follow up: Response: No adverse reaction; IV Status: Completed infusion; IV Intake: bm8 1000ml 20:53 Drug: Rocephin IV 1 grams IV at per protocol once; Given slow IV push per pharmacy bm8 instructions Route: IV; Rate: per protocol; Site: right antecubital; 21:26 Follow up: Response: No adverse reaction; IV Status: Completed infusion; IV Intake: [id number] 23:34 Drug: fentaNYL (PF) IVP 25 mcg IVP once Route: IVP; Site: right antecubital; bm8 08/08 01:52 Follow up: Response: No adverse reaction bm8 Medication: 08/07 19:26 VIS not applicable for this client. bm8 Intake: 20:53 IV: 1000ml; Total: 1000ml. bm8 21:26 IV: 50ml; Total: 1050ml. bm8 21:26 IV: 1000ml; Total: 2050ml. bm8 Outcome: 22:39 Discharge ordered by . [facility] 08/08 00:05 Decision to Hospitalize by Provider. [facility] 01:52 Admitted to Med/surg accompanied by tech, via stretcher, room 220, with chart, bm8 01:52 Condition: stable 01:52 Instructed on the need for admit, Demonstrated understanding of follow-up care, 02:19 Patient left the ED. bm8 Signatures: Dispatcher [employer] [facility] Ab Jaeger MD MD cha Oliver, Kathy, RN RN ko1 John Price MD MD rt Tony Hanley, RN RN bm8
[2024-08-07] MEDS ORDERED: FENTANYL CITR 100 MCG/2 ML ONE (23:31)
--- NOTE | 2024-08-08 00:57 | P.HP ---
Certification for Inpatient Patient admitted to: Inpatient With expected LOS: >2 Midnights Practitioner: I am a practitioner with admitting privileges, knowledge of patient current condition, hospital course, and medical plan of care. Services: Services provided to patient in accordance with Admission requirements found in Title 42 Section 412.3 of the Code of Federal Regulations Patient History Date of Service: 08/08/24 Reason for admission: Generalized weakness History of Present Illness: Patient is a 84-year-old female with a past medical history of CVA with left-sided residual deficits. She was brought in by EMS for evaluation of hypertensive crisis. Her SBP was more than 217 at home. Patient states she has been struggling with generalized weakness. She is fallen multiple times in the past and suffered fractures in multiple places in her body but not recently. No syncope reported. Patient states that she is currently struggling UTI symptoms. She has had UTIs several times. She is having dysuria at this time. Patient received ceftriaxone in the ER. She states that her urine culture was collected after receiving antibiotics. Allergies iodine Allergy (Severe, Verified 01/31/18 22:48) resp arrest promethazine HCl [From Phenergan] Allergy (Mild, Verified 01/31/18 22:48) Rash codeine [Codeine] Adverse Reaction (Mild, Verified 01/31/18 22:48) vomitting diphenhydramine HCl [From Benadryl] Adverse Reaction (Mild, Verified 01/31/18 22:48) anxiety metformin HCl [From Glucophage] Adverse Reaction (Mild, Verified 01/31/18 22:48) vomitting injectable dye Allergy (Severe, Uncoded 11/03/18 15:49) Anaphylaxis Home Medications: Allopurinol 1 tab PO BEDTIME 01/31/18 Clopidogrel Bisulfate [Plavix] 1 tab PO DAILY 01/31/18 Sertraline [Zoloft*] 150 mg PO BEDTIME 01/31/18 Solifenacin Succinate [Vesicare] 1 tab PO BEDTIME 01/31/18 Ezetimibe [Zetia*] 1 tab PO DAILY 03/30/18 Furosemide [Lasix] 1 tab PO DAILY 03/30/18 Nifedipine Xl [Procardia Xl*] 30 mg PO DAILY 01/05/24 Insulin Lispro MIX 75/25 [Humalog Mix 75/25*] 10 units SQ BID 06/18/24 Ondansetron HCl 4 mg PO Q6HP PRN 06/18/24 Pantoprazole [Protonix Tab*] 40 mg PO DAILY 06/18/24 Cefdinir [Cefdinir*] 300 mg PO BID #14 cap 06/19/24 Docusate/Senna [Senokot-S*] 1 tab PO BEDTIME PRN #60 tab 06/19/24 Hydralazine HCl 25 mg PO TID #90 tab 06/19/24 - Past Medical/Surgical History Diabetic: Yes -: DM II with Polyneuropathy -: HTN -: CVA -: CKD (Dr. Mcclellan/ Tim) -: CHF -: HLD -: Hysterectomy -: [place] Psychosocial/ Personal History: Lives at home alone, has caregiver 4 hours a day and daughter lives next door - Family History Father -: Heart disease, Diabetes Mother -: Heart disease, Hypertension, Diabetes - Social History Alcohol use: No CD- Drugs: No Caffeine use: Yes Physical Examination - Physical Exam General: Alert, In no apparent distress HEENT: Atraumatic, Normocephalic Respiratory: Clear to auscultation bilaterally, Normal air movement Cardiovascular: No edema, Normal pulses, Regular rate/rhythm, Normal S1 S2 Musculoskeletal: No clubbing, No swelling, No contractures, No erythema, No tenderness Neurological: Normal speech, Other - Studies Laboratory Data (last 24 hrs) 08/07/24 08/07/24 18:45 18:45 WBC 8.40 Hgb 10.3 L Hct 32.3 L Plt Count 256 Sodium 138 Potassium 4.1 BUN 32 H Creatinine 1.40 H Glucose 132 H Total Bilirubin 0.3 AST 16 ALT 15 Alkaline Phosphatase 82 Assessment and Plan - Plan Assessment This is a 84-year-old female with a past medical history of CVA with left-sided residual deficit. She is brought into the ER by EMS after she noted her blood pressure was very elevated with SBP of 217. Patient is currently struggling with UTI symptoms. She has had UTIs several times in the past. She received a dose of ceftriaxone in the ER. She states her urine culture was collected after she received antibiotics. Hypertensive crisis Generalized weakness UTI CKD stage III CVA Plan: Admit to telemetry Blood pressure control Continue antibiotics for UTI- CEFTRIAXONE PT/OT before discharge Patient is full code - Advance Directives Does patient have a Living Will: No Does patient have a Durable POA for Healthcare: Yes
[2024-08-08] MEDS: NA CHLORIDE 0.9% 1,000 ML IV SCH (01:00)
[2024-08-08 03:31] VITALS: BMI 22.8
[2024-08-08] MEDS: HYDRALAZINE HCL 20 MG/ML VIAL IV PRN (05:44)
[2024-08-08 06:29] LABS: Magnesium 2.1 mg/dL (1.6-2.4); Phosphorus 2.9 mg/dL (2.5-4.9)
--- NOTE | 2024-08-08 07:17 | P.PN ---
Date of Service: 08/08/24 Subjective: feels weak, minimal improvement nothing worse feels discomfort at bladder - points suprapbuci region ROS: 10 point ROS as noted above, otherwise negative Physical Exam: GEN: Alert, oriented, NAD CV: Regular rate and rhythm, no edema Pulm: Nonlabored respirations on room air, clear bilaterally ABD: soft, mild discomfort with moderate palpation of lower abdomen, nondistended Integumentary: No rashes Neuro: Normal speech, normal affect Problem List: Hypertensive Urgency Dysuria; hx of recurrent UTIs on chronic antibiotics CKD3 Breast mass, chronic Chronic diastolic congestive heart failure Hypertension Hyperlipidemia 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 She also is reports dysuria. States she didnt take her coreg at the time d/t bradycardia. given 2L IVF and IV rocephin in ED continue home nifedipine Start losartan 50 mg daily hold coreg for now PRN IV hydralazine BP slightly improved s/p IVF Dysuria; hx of recurrent UTIs on chronic antibiotics Reports some dysuria on admission. Has history of recurrent UTIs. Currently on long-term suppressive antibiotic therapy prior to admission (Cipro) Initial UA unremarkable. Repeat UA suspicious for possible UTI obtain urine culture Check Bladder scan, eval PVR/retention. CKD3 continue to monitor renal function Nephrology consulted Daily labs. ~baseline Breast mass, chronic on review of past imaging; Per CT chest (05/28/24): irregular 4 cm mass in the lower lateral aspect of the left breast contacting the skin. There is a very large 11 cm oblong mass with internal necrosis present in the left axillary region. 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 No formal cancer diagnosis on review of records. 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
[2024-08-08] MEDS: CLOPIDOGREL 75 MG TABLET PO SCH (08:31)
[2024-08-08] MEDS: ENOXAPARIN 30 MG/0.3 ML SQ SCH (08:31)
[2024-08-08] MEDS: ACETAMINOPHEN 325 MG TABLET PO PRN (08:31)
[2024-08-08] MEDS: PANTOPRAZOLE 40MG TABLET PO SCH (08:32)
[2024-08-08] MEDS: NIFEDIPINE XL 30 MG TABLET PO SCH ×2 (08:32→20:47)
[2024-08-08 09:42] LABS: Specific Gravity 1.011 (1.005-1.030); Sqamous Epithelial None Seen /HPF (None Seen); Urine Bacteria >50 /HPF (<20); Urine Bilirubin NEGATIVE (Negative); Urine Blood Negative (Negative); Urine Clarity Extremely Turbid (Clear); Urine Color Light-Yellow (Yellow); Urine Culture Reflex Order NOT NEEDED; Urine Glucose NEGATIVE (Negative); Urine Ketones NEGATIVE (Negative); Urine Microscopic Reflex YN ORDER UMIC; Urine Mucus Slight /HPF (None Seen); Urine Nitrite NEGATIVE (Negative); Urine Protein 1+ (Negative); Urine RBC <5 /HPF (None Seen); Urine Urobilinogen Normal (Normal); Urine WBC <5 /HPF (<5)
--- NOTE | 2024-08-08 10:46 | P.CNS ---
Date of Consult: 08/08/24 Reason for Consult: Accelerated HTN, CKD Requesting Physician: Esteban Dove Chief Complaint: Generalized weakness History of Present Illness: Patient is a 84-year-old female with a past medical history of CVA unspecified, chronic HTN, possible CHF per reports, CKD Stage III under the care of Dr. Mcclellan, a hx of recurrent UTIs, who comes in with reports of elevated BP, weakness, some recurrent/ongoing dysuria, urgency. She has some chronic shortness of breath with mild to mod exertion, she denies CP Allergies iodine Allergy (Severe, Verified 01/31/18 22:48) resp arrest promethazine HCl [From Phenergan] Allergy (Mild, Verified 01/31/18 22:48) Rash codeine [Codeine] Adverse Reaction (Mild, Verified 01/31/18 22:48) vomitting diphenhydramine HCl [From Benadryl] Adverse Reaction (Mild, Verified 01/31/18 22:48) anxiety metformin HCl [From Glucophage] Adverse Reaction (Mild, Verified 01/31/18 22:48) vomitting injectable dye Allergy (Severe, Uncoded 11/03/18 15:49) Anaphylaxis Home Medications: Allopurinol 1 tab PO BEDTIME 01/31/18 Clopidogrel Bisulfate [Plavix] 1 tab PO DAILY 01/31/18 Sertraline [Zoloft*] 150 mg PO BEDTIME 01/31/18 Solifenacin Succinate [Vesicare] 1 tab PO BEDTIME 01/31/18 Ezetimibe [Zetia*] 1 tab PO DAILY 03/30/18 Furosemide [Lasix] 1 tab PO DAILY 03/30/18 Nifedipine Xl [Procardia Xl*] 30 mg PO DAILY 01/05/24 Insulin Lispro MIX 75/25 [Humalog Mix 75/25*] 10 units SQ BID 06/18/24 Ondansetron HCl 4 mg PO Q6HP PRN 06/18/24 Pantoprazole [Protonix Tab*] 40 mg PO DAILY 06/18/24 - Past Medical/Surgical History Diabetic: Yes -: DM II with Polyneuropathy -: HTN -: CVA -: CKD (Dr. Mcclellan/ Tim) -: CHF -: HLD -: Hysterectomy -: [place] Psychosocial/ Personal History: Lives at home alone, has caregiver 4 hours a day and daughter lives next door - Family History Father Medical History: Heart disease, Diabetes Mother Medical History: Heart disease, Hypertension, Diabetes - Social History Smoking Status: Unknown if ever smoked Alcohol use: No CD- Drugs: No Caffeine use: Yes Review of Systems General: Weakness, As per HPI Eyes: Unremarkable ENT: Unremarkable Respiratory: Shortness of Breath Cardiovascular: As per HPI Gastrointestinal: Unremarkable Genitourinary: Dysuria, As per HPI Musculoskeletal: Unremarkable Integumentary: Unremarkable Neurological: Weakness, As per HPI Physical Examination Temp Pulse Resp BP Pulse Ox 98.1 F 64 18 193/93 H 98 08/08/24 08:00 08/08/24 08:32 08/08/24 08:00 08/08/24 08:32 08/08/24 08:00 General: Alert, Cooperative HEENT: Atraumatic, Normocephalic, Other (not needing O2) Neck: Supple Respiratory: Clear to auscultation bilaterally, Normal air movement Cardiovascular: No edema, Regular rate/rhythm Gastrointestinal: Soft and benign, Non-distended, No tenderness, No guarding Musculoskeletal: No contractures, No tenderness Integumentary: No rashes, No tenderness/swelling Neurological: Normal speech, Normal tone, Normal affect Laboratory Data (last 24 hrs) 08/07/24 08/07/24 18:45 18:45 WBC 8.40 Hgb 10.3 L Hct 32.3 L Plt Count 256 Sodium 138 Potassium 4.1 BUN 32 H Creatinine 1.40 H Glucose 132 H Total Bilirubin 0.3 AST 16 ALT 15 Alkaline Phosphatase 82 Conclusions/Impression: A/P) 1. CKD Stage III unspecified 2nd to chronic conditions -renal function tests on admission within baseline range, cont to monitor closely. CT imaging did not show any obstructive uropathy 2. Hypertensive urgency, malignant HTN with CKD -home CCB med resumed on admission, will titrate to 30 mg q12h. Was taking lower dose Coreg at home, HR in the 50-60s, will replace with Losartan 50 mg qd. BNP elevated but < 1000, with her urinary symptoms diuretic therapy may exacerbate OAB, other so will hold off currently or may replace Lasix with thiazide diuretic later. 3. Target BP < 140/90 with prior hx of CVA 4. Dysuria, hx of recurrent UTIs, bacteriuria POA on UA without pyuria. On suppressive Abx therapy as OP but would d/c that Bactrim. Check bladder u/s to assess PVR, other.
[2024-08-08] MEDS: ONDANSETRON 4 MG/2 ML VIAL IV PRN (11:20)
--- NOTE | 2024-08-08 13:35 | RAD REPORT ---
EXAM: URINARY BLADDER ULTRASOUND COMPARISON: None CLINICAL INDICATION: Recurrent dysuria, bacteriuria, eval PVR TECHNIQUE: Multiplanar grayscale and color flow sonographic images were obtained through the pelvis for evaluation of the bladder.. FINDINGS: The prevoid volume of the bladder is 135 mL. The postvoid volume is 135 mL. The bladder wall shows no focal thickening or mass. No echogenic calculi. Mild circumferential bladde r wall thickening is suspected. IMPRESSION: The patient was unable to void and so the prevoid and postvoid bladder volume is similar. The bladder is diffusely thickened.
[2024-08-08] MEDS: LOSARTAN POTASSIUM 50 MG TABLET PO SCH (14:09)
[2024-08-08] MEDS: CEFTRIAXONE 1,000 MG in NA CHLORIDE 0.9% 50 ML IVPB SCH (20:46)
[2024-08-08] MEDS: SERTRALINE HCL 50 MG TAB PO SCH (20:47)
[2024-08-09 05:51] LABS: Absolute Eosinophils 0.3 K/uL (0-0.5); Absolute Monocytes 0.5 K/uL (0.1-1.3); Absolute Neutrophil 3.7 K/uL (1.8-8.0); Basophils % 0.5 % (0-1.3); Eosinophils % 3.7 % (0-4.4); Hematocrit 28.7 % (36.0-45.0); Hemoglobin 9.4 g/dL (12.0-15.0); Lymphocytes % 40.2 % (15.3-44.8); MCH 28.9 pg (27.0-35.0); MCHC 32.8 g/dL (32.0-36.0); MCV 88.2 fL (80-100); MPV 7.4 fL (7.6-11.3); Monocytes % 6.7 % (3.3-12.3); Neutrophils % 48.9 % (41.7-73.7); Nucleated Red Blood Cells % 0.1 % (0-0); Platelets 251 thou/uL (152-406); RBC Red Blood Cell Count 3.25 M/uL (3.86-4.86)
[2024-08-09 06:04] LABS: Anion Gap 8.6 mEq/L (5.0-15.0); Potassium 4.6 mEq/L (3.5-5.1)
--- NOTE | 2024-08-09 09:36 | P.PN ---
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 She also is reports dysuria. States she didnt take her coreg at the time d/t bradycardia. given 2L IVF and IV rocephin in ED continue home nifedipine; increased to 30mg BID continue losartan 50 mg daily hold coreg for now PRN IV hydralazine BP slightly improved s/p IVF Dysuria; hx of recurrent UTIs on chronic antibiotics Reports some dysuria on admission. Has history of recurrent UTIs. Currently on long-term suppressive antibiotic therapy prior to admission (Cipro) Initial UA unremarkable. Repeat UA suspicious for possible UTI urine cx (08/08): 4+ GNR continue empiric rocephin (08/08-) bladder u/s (08/08): Diffusely thickened bladder. Unable to void. Prevoid and postvoid volume: 135mL has purewick; ~3L UOP per I/Os (08/09) CKD3 continue to monitor renal function Nephrology consulted Daily labs. ~baseline Breast mass, chronic on review of past imaging; Per CT chest (05/28/24): irregular 4 cm mass in the lower lateral aspect of the left breast contacting the skin. There is a very large 11 cm oblong mass with internal necrosis present in the left axillary region. 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 No formal cancer diagnosis on review of records. 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
--- NOTE | 2024-08-09 15:11 | P.PN ---
(S) Doing fair, BP labile, higher at noon, received IV hydralazine, has not been OOB, no new urinary complaints (O) vitals reviewed in the EMR General: Alert, Cooperative HEENT: Atraumatic, Normocephalic, Other (not needing O2) Neck: Supple Respiratory: Clear to auscultation bilaterally, Normal air movement Cardiovascular: No edema, Regular rate/rhythm Gastrointestinal: Soft and benign, Non-distended, No tenderness, No guarding Musculoskeletal: No contractures, No tenderness Integumentary: No rashes, No tenderness/swelling Neurological: Normal speech, Normal tone, Normal affect Laboratory Data (last 24 hrs) Reviewed in the EMR Conclusions/Impression: A/P) 1. CKD Stage III unspecified 2nd to chronic conditions -renal function tests on admission within baseline range, cont to monitor closely. CT imaging did not show any obstructive uropathy 2. Hypertensive urgency, malignant HTN with CKD -home CCB med resumed on admission, did titrate to 30 mg q12h. Was taking lower dose Coreg at home, HR in the 50-60s, did replace with Losartan 50 mg qd. BNP elevated but < 1000, with her urinary symptoms diuretic therapy may exacerbate OAB, other so will hold off currently or may replace Lasix with thiazide diuretic later. 3. Target BP < 140/90 with prior hx of CVA 4. Dysuria, hx of recurrent UTIs, bacteriuria POA on UA without pyuria. On suppressive Abx therapy as OP with either Cipro or Bactrim. F/u final cultures here. Checked bladder u/s to assess PVR, but pt was not able to void, although pre void vol < 150 cc. Mild bladder wall thickening reported, no stones, diverticulum other reported.
[2024-08-10 06:11] LABS: Hematocrit 29.6 % (36.0-45.0); Hemoglobin 9.7 g/dL (12.0-15.0); MCH 28.8 pg (27.0-35.0); MCHC 32.8 g/dL (32.0-36.0); MCV 87.7 fL (80-100); MPV 7.8 fL (7.6-11.3); Platelets 242 thou/uL (152-406); RBC Red Blood Cell Count 3.38 M/uL (3.86-4.86)
[2024-08-10 06:28] LABS: Albumin 2.7 g/dL (3.4-5.0); Anion Gap 7.4 mEq/L (5.0-15.0); Magnesium 2.5 mg/dL (1.6-2.4); Phosphorus 3.2 mg/dL (2.5-4.9); Potassium 4.4 mEq/L (3.5-5.1)
--- NOTE | 2024-08-10 08:14 | P.PN ---
Date of Service: 08/10/24 Subjective: feeling better today dysuria improving no events overnight breathing okay on room air afebrile ROS: 10 point ROS as noted above, otherwise negative Physical Exam: GEN: Alert, oriented, NAD CV: Regular rate and rhythm, no edema ABD: soft, nontender, nondistended Neuro: Normal speech, normal affect Problem List: Hypertensive Urgency UTI - E. 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 She also reports dysuria. States she didnt take her coreg at the time d/t bradycardia. given 2L IVF and IV rocephin in ED continue home nifedipine; increased to 30mg BID continue losartan 50 mg daily PRN IV hydralazine BP slightly improved s/p IVF UTI - E. Coli Esbl hx of recurrent UTIs on chronic antibiotics Reports some dysuria on admission. Has history of recurrent UTIs. Currently on long-term suppressive antibiotic therapy prior to admission (Cipro) bladder u/s (08/08): Diffusely thickened bladder. Unable to void. Prevoid and postvoid volume: 135mL has purewick; ~3L UOP per I/Os (08/09) urine cx (08/08): E. coli ESBL; slightly more resistant compared to ESBL E. coli back in December 2023 Switch rocephin (08/08-08/09) to IV merrem (08/10-) given culture results Dysuria improving will need at least 1 week of IV abx CKD3 continue to monitor renal function Nephrology consulted Daily labs. ~baseline Breast mass, chronic on review of past imaging; Per CT chest (05/28/24): irregular 4 cm mass in the lower lateral aspect of the left breast contacting the skin. There is a very large 11 cm oblong mass with internal necrosis present in the left axillary region. 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 No formal cancer diagnosis on review of records. 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
[2024-08-10] MEDS: Meropenem 1,000 MG in NA CHLORIDE 0.9% 100 ML IV SCH (09:11)
--- NOTE | 2024-08-10 17:01 | P.PN ---
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 CKD Stage III unspecified 2nd to chronic conditions -renal function tests on admission within baseline range, cont to monitor closely. CT imaging did not show any obstructive uropathy 2. Hypertensive urgency, malignant HTN with CKD -home CCB med resumed on admission, did titrate to 30 mg q12h. Was taking lower dose Coreg at home, HR in the 50-60s, did replace with Losartan 50 mg qd. BNP elevated but < 1000, with her urinary symptoms diuretic therapy may exacerbate OAB, other so will hold off currently or may replace Lasix with thiazide diuretic later. 3. Target BP < 140/90 with prior hx of CVA 4. Dysuria, hx of recurrent UTIs, bacteriuria POA on UA without pyuria. On suppressive Abx therapy as OP with either Cipro or Bactrim. Ecoli on UCx here, ESBL Primary team has placed her on Meropenem, CrCl ~ 30 ml/min, will lower dose to 500 mg q12h Checked bladder u/s to assess PVR, but pt was not able to void, although pre void vol < 150 cc. Mild bladder wall thickening reported, no stones, diverticulum other reported. 5. Mod anemia, may be contributory to symptoms -OP w/u
[2024-08-10] MEDS: Meropenem 500 MG VIAL IV ONE (22:04)
[2024-08-10] MEDS: Meropenem 500 MG in NA CHLORIDE 0.9% 100 ML IV SCH (22:04)
[2024-08-11 07:22] LABS: Absolute Basophils 0.1 K/uL (0-0.5); Absolute Eosinophils 0.3 K/uL (0-0.5); Absolute Lymphocytes (CBC) 2.8 K/uL (0.7-4.9); Absolute Monocytes 0.6 K/uL (0.1-1.3); Absolute Neutrophil 4.6 K/uL (1.8-8.0); Basophils % 0.8 % (0-1.3); Eosinophils % 3.9 % (0-4.4); Hematocrit 28.4 % (36.0-45.0); Hemoglobin 9.3 g/dL (12.0-15.0); Lymphocytes % 33.2 % (15.3-44.8); MCH 28.9 pg (27.0-35.0); MCHC 32.7 g/dL (32.0-36.0); MCV 88.4 fL (80-100); MPV 7.5 fL (7.6-11.3); Monocytes % 7.3 % (3.3-12.3); Neutrophils % 54.8 % (41.7-73.7); Platelets 226 thou/uL (152-406); RBC Red Blood Cell Count 3.21 M/uL (3.86-4.86); Red Cell Distribution Width 16.8 % (12.1-15.2)
[2024-08-11 07:49] LABS: Albumin 2.5 g/dL (3.4-5.0); Anion Gap 6.1 mEq/L (5.0-15.0); Magnesium 2.6 mg/dL (1.6-2.4); Phosphorus 4.5 mg/dL (2.5-4.9); Potassium 5.1 mEq/L (3.5-5.1)
--- NOTE | 2024-08-11 09:40 | P.PN ---
Date of Service: 08/11/24 Subjective: no BM in several days dealing with some abdominal discomfort associated with some nausea/vomiting similar to what she deals with at home intermittently otherwise feeling better Dysuria improving, afebrile ROS: 10 point ROS as noted above, otherwise negative Physical Exam: GEN: Alert, oriented, NAD CV: Regular rate and rhythm, no edema ABD: soft, nontender, nondistended Neuro: Normal speech, normal affect Problem List: Hypertensive Urgency UTI - E. 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 She also reports dysuria. States she didnt take her coreg at the time d/t bradycardia. given 2L IVF and IV rocephin in ED continue home nifedipine; increased to 30mg BID continue losartan 50 mg daily PRN IV hydralazine BP slightly improved s/p IVF UTI - E. Coli Esbl hx of recurrent UTIs on chronic antibiotics Reports some dysuria on admission. Has history of recurrent UTIs. Currently on long-term suppressive antibiotic therapy prior to admission (Cipro) bladder u/s (08/08): Diffusely thickened bladder. Unable to void. Prevoid and postvoid volume: 135mL has purewick; ~3L UOP per I/Os (08/09) urine cx (08/08): E. coli ESBL; slightly more resistant compared to ESBL E. coli back in December 2023 Switch rocephin (08/08-08/09) to IV merrem (08/10-08/16) given culture results will need at least 1 week of IV abx (end date: 08/16/24) Dysuria improving CKD3 continue to monitor renal function Nephrology consulted Daily labs. ~baseline Breast mass, chronic on review of past imaging; Per CT chest (05/28/24): irregular 4 cm mass in the lower lateral aspect of the left breast contacting the skin. There is a very la rge 11 cm oblong mass with internal necrosis present in the left axillary region. 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 No formal cancer diagnosis on review of records. Breast masses can be seen as far back as 2021 Constipation Nausea/vomiting She reports some increased abdominal discomfort associated with nausea/vomiting that started overnight. No BM in several days per patient. States she typically deals with some intermittent constipation at home. Relieved with stimulant laxatives at home. 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
--- NOTE | 2024-08-11 10:51 | P.PN ---
Date of Service: 08/11/24 Vital Signs Temp Pulse Resp BP Pulse Ox 97.8 F 58 16 192/72 H 99 08/11/24 08:00 08/11/24 08:00 08/11/24 08:00 08/11/24 08:00 08/11/24 08:00 Medications Acetaminophen (Acetaminophen 325 Mg Tablet) 650 mg PO Q6H PRN PRN Reason: Pain scale 5-7 (Moderate) Last Admin: 08/10/24 18:31 Dose: 650 mg Clopidogrel Bisulfate (Clopidogrel 75 Mg Tablet) 75 mg PO DAILY [facility] Last Admin: 08/11/24 08:39 Dose: 75 mg Docusate Sodium (Docusate Na 100 Mg Cap) 100 mg PO BID [facility] Enoxaparin Sodium (Enoxaparin 30 Mg/0.3 Ml) 30 mg SQ DAILY [facility] Last Admin: 08/11/24 08:39 Dose: 30 mg Hydralazine HCl (Hydralazine Hcl 20 Mg/Ml Vial) 10 mg IV Q4HP PRN PRN Reason: FOR SBP>160 OR DBP>100 [facility] Last Admin: 08/11/24 08:41 Dose: 10 mg Meropenem 500 mg/ Sodium (Chloride) 100 mls @ 200 mls/hr IV Q12HR [facility] Last Admin: 08/11/24 08:44 Dose: 100 mls Losartan Potassium (Losartan Potassium 50 Mg Tablet) 50 mg PO DAILY [facility] Last Admin: 08/11/24 08:39 Dose: 50 mg Mupirocin (Mupirocin Nasal 2 Appl/1 Gm Tube) 1 appl [place] BID [facility] Stop: 08/16/24 09:01 Nifedipine (Nifedipine Xl 30 Mg Tablet) 30 mg PO Q12H [facility] Last Admin: 08/11/24 08:41 Dose: 30 mg Ondansetron HCl (Ondansetron 4 Mg/2 Ml Vial) 4 mg IV Q6HP PRN PRN Reason: NAUSEA / VOMITING Last Admin: 08/10/24 22:46 Dose: 4 mg Pantoprazole Sodium (Pantoprazole 40mg Tablet) 40 mg PO DAILY [facility]; Protocol Last Admin: 08/11/24 08:39 Dose: 40 mg Senna (Senosides 8.6 Mg Tab) 8.6 mg PO DAILY PRN PRN Reason: CONSTIPATION Sertraline HCl (Sertraline Hcl 50 Mg Tab) 150 mg PO BEDTIME [facility] Last Admin: 08/10/24 22:00 Dose: 150 mg Sodium Polystyrene Sulfonate (Sod Polystyren Sul 15 Gm/60 Ml Ucup) 15 gm PO 1X ONE Stop: 08/11/24 10:47 Assessment/ Plan: Nephrology Progress Note No Dyspnea No Chest Pain Weakness No Acute Events Overnight Vital Signs, Medications, Blood Work, and Imaging reviewed in the chart NAD. Obese. NCAT. MMM. Neck Supple. Normal Respiratory Effort. RRR. Abd ND. No C/C. LE Edema none. No Rash. AAO. Normal Speech. Assessment & Plan CKD III -No NSAIDs Hyperkalemia She reports a history of hyperkalemia -Kayexalate X1 HTN Urgency Malignant HTN with CKD -Continue Nifedipine XL -Continue Losartan Anemia in chronic illness -Monitor H&H Acute ESBL E.coli Cystitis -Continue Meropenem Slow transit Constipation -Continue Colace -Kayexalate X1 Case reviewed with Dr. Dove Thank you kindly for the consultation
[2024-08-11] MEDS: POLYETHYL GLY 3350 17 GM/DOSE ONE (11:18)
[2024-08-11] MEDS: SOD POLYSTYREN SUL 15 GM/60 ML UCUP PO ONE (11:38)
[2024-08-11] MEDS: POLYETHYL GLY 3350 17 GM/DOSE PO PRN (11:38)
[2024-08-11] MEDS: DOCUSATE NA 100 MG CAP PO SCH (20:07)
[2024-08-11] MEDS: Mupirocin NASAL 2 APPL/1 GM TUBE NAS SCH (20:09)
[2024-08-12 01:07] VITALS: O2SAT 96
[2024-08-12 04:48] LABS: Hematocrit 27.5 % (36.0-45.0); Hemoglobin 9.1 g/dL (12.0-15.0); MCH 28.8 pg (27.0-35.0); MCV 87.1 fL (80-100); MPV 7.7 fL (7.6-11.3); Platelets 225 thou/uL (152-406); RBC Red Blood Cell Count 3.15 M/uL (3.86-4.86); Red Cell Distribution Width 16.3 % (12.1-15.2)
[2024-08-12 05:06] LABS: Anion Gap 6.9 mEq/L (5.0-15.0); Potassium 4.9 mEq/L (3.5-5.1)
[2024-08-12] MEDS: PANTOPRAZOLE 40MG TABLET PO SCH (09:13)
--- NOTE | 2024-08-12 12:32 | EKG ---
Test Date: 2024-08-07 Test Time: 18:47:47 Care Trainer: NEEL MEASUREMENT RESULTS: Intervals: Rate: 61 ND: 170 QRSD: 106 QT: 468 QTc: 471 [place]: P: -5 ND: 170 QRS: -29 T: 79 INTERPRETIVE STATEMENTS: Normal sinus rhythm with sinus arrhythmia Normal ECG Compared to ECG 05/28/2024 08:36:27 Atrial premature complex(es) no longer present Left-axis deviation no longer present Electronically Signed On 08-12-24 12:21:32 FIELD MANAGER by Abdifatah Kurtz
[2024-08-12] MEDS: BISACODYL 10 MG RECTAL SUPP PR ONE (13:07)
--- NOTE | 2024-08-12 17:15 | P.PN ---
Subjective Date of Service: 08/12/24 Chief Complaint: Generalized weakness Patient denies any new complain. No recorded fever. No major changes from yesterday. Physical Examination - Vital Signs Temperature: 97.9 F Blood Pressure: 150/66 Pulse: 70 Respirations: 16 Pulse Ox (%): 98 Assessment And Plan - Plan Physical Exam: GEN: Alert, oriented, NAD CV: Regular rate and rhythm, no edema ABD: soft, nontender, nondistended, no organomegaly. Extremities: No tenderness, no swelling. Neuro: Normal speech, normal affect Problem List: Hypertensive Urgency UTI - E. 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 States she didnt take her coreg at the time d/t bradycardia. continue home nifedipine; increased to 30mg BID continue losartan 50 mg daily PRN IV hydralazine BP improved s/p IVF UTI - E. Coli Esbl hx of recurrent UTIs on chronic antibiotics Reports some dysuria on admission. Has history of recurrent UTIs. Currently on long-term suppressive antibiotic therapy prior to admission (Cipro) bladder u/s (08/08): Diffusely thickened bladder. urine cx (08/08): E. coli ESBL; slightly more resistant compared to ESBL E. coli back in December 2023 Status post IV rocephin, switched to IV merrem (08/10-08/16) given culture results will need at least 1 week of IV abx (end date: 08/16/24) CKD3 continue to monitor renal function Nephrology consulted Daily labs. ~baseline Breast mass, chronic on review of past imaging; Per CT chest (05/28/24): irregular 4 cm mass in the lower lateral aspect of the left breast contacting the skin. There is a very large 11 cm oblong mass with internal necrosis present in the left axillary region. 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 No formal cancer diagnosis on review of records. Breast masses can be seen as far back as 2021. Follow-up as outpatient. 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 VTE: Lovenox Code: Full Dispo: SNF. Time Spent Managing Pts Care (In Minutes): 37
--- NOTE | 2024-08-12 19:29 | P.PN ---
Date of Service: 08/12/24 Vital Signs Temp Pulse Resp BP Pulse Ox 97.9 F 70 16 150/66 H 98 08/12/24 17:15 08/12/24 17:15 08/12/24 17:15 08/12/24 17:15 08/12/24 17:15 Medications Acetaminophen (Acetaminophen 325 Mg Tablet) 650 mg PO Q6H PRN PRN Reason: Pain scale 5-7 (Moderate) Last Admin: 08/11/24 21:55 Dose: 325 mg Clopidogrel Bisulfate (Clopidogrel 75 Mg Tablet) 75 mg PO DAILY [facility] Last Admin: 08/12/24 09:14 Dose: 75 mg Docusate Sodium (Docusate Na 100 Mg Cap) 100 mg PO BID [facility] Last Admin: 08/12/24 09:00 Dose: 100 mg Enoxaparin Sodium (Enoxaparin 30 Mg/0.3 Ml) 30 mg SQ DAILY [facility] Last Admin: 08/12/24 09:14 Dose: 30 mg Hydralazine HCl (Hydralazine Hcl 20 Mg/Ml Vial) 10 mg IV Q4HP PRN PRN Reason: FOR SBP>160 OR DBP>100 [facility] Last Admin: 08/11/24 17:06 Dose: 10 mg Meropenem 500 mg/ Sodium (Chloride) 100 mls @ 200 mls/hr IV Q12HR [facility] Last Admin: 08/12/24 09:14 Dose: 100 mls Losartan Potassium (Losartan Potassium 50 Mg Tablet) 50 mg PO DAILY [facility] Last Admin: 08/12/24 09:13 Dose: 50 mg Mupirocin (Mupirocin Nasal 2 Appl/1 Gm Tube) 1 appl RENETTA BID [facility] Stop: 08/16/24 09:01 Last Admin: 08/12/24 09:14 Dose: 1 appl Nifedipine (Nifedipine Xl 30 Mg Tablet) 30 mg PO Q12H [facility] Last Admin: 08/12/24 09:15 Dose: 30 mg Ondansetron HCl (Ondansetron 4 Mg/2 Ml Vial) 4 mg IV Q6HP PRN PRN Reason: NAUSEA / VOMITING Last Admin: 08/11/24 21:02 Dose: 4 mg Pantoprazole Sodium (Pantoprazole 40mg Tablet) [facility]; [facility] Last Admin: 08/12/24 09:13 Dose: 40 mg Senna (Senosides 8.6 Mg Tab) 8.6 mg PO DAILY PRN PRN Reason: CONSTIPATION Sertraline HCl (Sertraline Hcl 50 Mg Tab) 150 mg PO BEDTIME [facility] Last Admin: 08/11/24 20:07 Dose: 150 mg Assessment/ Plan: Nephrology Progress Note No Dyspnea No Chest Pain Weakness Neck Pain and Headache No Acute Events Overnight Vital Signs, Medications, Blood Work, and Imaging reviewed in the chart NAD. Obese. NCAT. MMM. Neck Supple. Normal Respiratory Effort. RRR. Abd ND. No C/C. LE Edema none. No Rash. AAO. Normal Speech. Assessment & Plan CKD III -No NSAIDs Hyperkalemia She reports a history of hyperkalemia -Kayexalate X1 HTN Urgency Malignant HTN with CKD -Increase Nifedipine XL 60mg BID -Continue Losartan Anemia in chronic illness -Monitor H&H Acute ESBL E.coli Cystitis -Continue Meropenem Slow transit Constipation -Continue Colace Hospitalist note reviewed
[2024-08-12] MEDS: SOD POLYSTYREN SUL 15 GM/60 ML UCUP PO ONE (20:12)
[2024-08-12] MEDS: NIFEDIPINE XL 30 MG TABLET PO SCH (20:13)
[2024-08-13 05:23] LABS: Hematocrit 28.1 % (36.0-45.0); Hemoglobin 9.2 g/dL (12.0-15.0); MCH 28.9 pg (27.0-35.0); MCHC 32.6 g/dL (32.0-36.0); MCV 88.8 fL (80-100); MPV 7.6 fL (7.6-11.3); Platelets 221 thou/uL (152-406); RBC Red Blood Cell Count 3.17 M/uL (3.86-4.86); Red Cell Distribution Width 16.3 % (12.1-15.2)
[2024-08-13 05:57] LABS: Anion Gap 6.4 mEq/L (5.0-15.0); Potassium 4.4 mEq/L (3.5-5.1)
--- NOTE | 2024-08-13 15:43 | P.PN ---
Subjective Date of Service: 08/13/24 Chief Complaint: Generalized weakness Patient reports abdominal discomfort. She reports multiple BM last night after she was given a laxative. Physical Examination - Vital Signs Temperature: 98.1 F Blood Pressure: 187/67 Pulse: 64 Respirations: 16 Pulse Ox (%): 99 Assessment And Plan - Plan Physical Exam: GEN: Alert, oriented, NAD CV: Regular rate and rhythm, no edema ABD: soft, nontender, nondistended, no organomegaly. Extremities: No tenderness, no swelling. Neuro: Normal speech, normal affect Problem List: Hypertensive Urgency UTI - E. 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 States she didnt take her coreg at the time d/t bradycardia. Patient with systolic hypertension. continue home nifedipine at 30mg BID continue losartan 50 mg daily PRN IV hydralazine s/p IVF UTI - E. Coli Esbl hx of recurrent UTIs on chronic antibiotics Reports some dysuria on admission. Has history of recurrent UTIs. Currently on long-term suppressive antibiotic therapy prior to admission (Cipro) bladder u/s (08/08): Diffusely thickened bladder. urine cx (08/08): E. coli ESBL; slightly more resistant compared to ESBL E. coli back in December 2023 Status post IV rocephin, switched to IV merrem (08/10-08/16) given culture results will need at least 1 week of IV abx (end date: 08/16/24). CKD3 continue to monitor renal function Nephrology consulted Daily labs. ~baseline Breast mass, chronic on review of past imaging; Per CT chest (05/28/24): irregular 4 cm mass in the lower lateral aspect of the left breast contacting the skin. There is a very large 11 cm oblong mass with internal necrosis present in the left axillary region. 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 No formal cancer diagnosis on review of records. Breast masses can be seen as far back as 2021. Follow-up as outpatient. Patient is made aware Constipation Nausea/vomiting Patient had multiple bowel movements. KUB today is unremarkable. PRN zofran Discontinue Colace for now. 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 VTE: Lovenox Code: Full Dispo: SNF.
--- NOTE | 2024-08-13 17:22 | RAD REPORT ---
EXAM: XR Abdomen 1 View (KUB) HISTORY: [facility] MA[facility] Abdominal discomfort COMPARISON: CT abdomen pelvis 08/07/2024 FINDINGS: Single view of the abdomen shows a nonspecific, nonobstructive bowel gas pattern. Mild stoo l burden throughout the colon. No suspicious calcifications are seen. The bones are unremarkable. IMPRESSION: Nonobstructive bowel gas pattern.
--- NOTE | 2024-08-13 20:24 | P.PN ---
Date of Service: 08/13/24 Vital Signs Temp Pulse Resp BP Pulse Ox 98.0 F 78 16 150/52 H 97 08/13/24 16:00 08/13/24 16:00 08/13/24 16:00 08/13/24 16:00 08/13/24 16:00 Medications Acetaminophen (Acetaminophen 325 Mg Tablet) 650 mg PO Q6H PRN PRN Reason: Pain scale 5-7 (Moderate) Last Admin: 08/13/24 13:40 Dose: 650 mg Clopidogrel Bisulfate (Clopidogrel 75 Mg Tablet) 75 mg PO DAILY [facility] Last Admin: 08/13/24 08:45 Dose: 75 mg Enoxaparin Sodium (Enoxaparin 30 Mg/0.3 Ml) 30 mg SQ DAILY [facility] Last Admin: 08/13/24 08:45 Dose: 30 mg Hydralazine HCl (Hydralazine Hcl 20 Mg/Ml Vial) 10 mg IV Q4HP PRN PRN Reason: FOR SBP>160 OR DBP>100 [facility] Last Admin: 08/13/24 12:04 Dose: 10 mg Meropenem 500 mg/ Sodium (Chloride) 100 mls @ 200 mls/hr IV Q12HR [facility] Last Admin: 08/13/24 08:48 Dose: 100 mls Losartan Potassium (Losartan Potassium 50 Mg Tablet) 50 mg PO DAILY [facility] Last Admin: 08/13/24 08:45 Dose: 50 mg Mupirocin (Mupirocin Nasal 2 Appl/1 Gm Tube) 1 appl RENETTA BID [facility] Stop: 08/16/24 09:01 Last Admin: 08/13/24 08:44 Dose: 1 appl Nifedipine (Nifedipine Xl 30 Mg Tablet) 60 mg PO Q12H [facility] Last Admin: 08/13/24 08:44 Dose: 60 mg Ondansetron HCl (Ondansetron 4 Mg/2 Ml Vial) 4 mg IV Q6HP PRN PRN Reason: NAUSEA / VOMITING Last Admin: 08/11/24 21:02 Dose: 4 mg Pantoprazole Sodium (Pantoprazole 40mg Tablet) [facility]; Protocol Last Admin: 08/13/24 06:13 Dose: 40 mg Senna (Senosides 8.6 Mg Tab) 8.6 mg PO DAILY PRN PRN Reason: CONSTIPATION Sertraline HCl (Sertraline Hcl 50 Mg Tab) 150 mg PO BEDTIME [facility] Last Admin: 08/12/24 20:12 Dose: 150 mg Assessment/ Plan: Nephrology Progress Note No Dyspnea No Chest Pain Weakness Feeling better No Acute Events Overnight Vital Signs, Medications, Blood Work, and Imaging reviewed in the chart NAD. Obese. NCAT. MMM. Neck Supple. Normal Respiratory Effort. RRR. Abd ND. No C/C. LE Edema none. No Rash. AAO. Normal Speech. Assessment & Plan CKD III -No NSAIDs Hyperkalemia She reports a history of hyperkalemia -Kayexalate prn HTN Urgency Malignant HTN with CKD -Continue Nifedipine XL 60mg BID -Continue Losartan Anemia in chronic illness -Monitor H&H Acute ESBL E.coli Cystitis -Continue Meropenem Slow transit Constipation -Continue Colace Hospitalist note reviewed
[2024-08-14 06:56] LABS: Absolute Basophils 0.1 K/uL (0-0.5); Absolute Eosinophils 0.3 K/uL (0-0.5); Absolute Lymphocytes (CBC) 2.4 K/uL (0.7-4.9); Absolute Monocytes 0.5 K/uL (0.1-1.3); Absolute Neutrophil 2.8 K/uL (1.8-8.0); Basophils % 0.9 % (0-1.3); Eosinophils % 5.5 % (0-4.4); Hemoglobin 9.3 g/dL (12.0-15.0); Lymphocytes % 38.6 % (15.3-44.8); MCH 28.5 pg (27.0-35.0); MCHC 32.2 g/dL (32.0-36.0); MCV 88.7 fL (80-100); MPV 7.3 fL (7.6-11.3); Monocytes % 8.8 % (3.3-12.3); Neutrophils % 46.2 % (41.7-73.7); Nucleated Red Blood Cells % 0.1 % (0-0); Platelets 217 thou/uL (152-406); RBC Red Blood Cell Count 3.27 M/uL (3.86-4.86); Red Cell Distribution Width 16.6 % (12.1-15.2)
[2024-08-14 07:09] LABS: Anion Gap 5.8 mEq/L (5.0-15.0); Potassium 4.8 mEq/L (3.5-5.1)
--- NOTE | 2024-08-14 14:45 | P.PN ---
Subjective Date of Service: 08/14/24 Chief Complaint: Generalized weakness Patient reports feeling better today. She is eating well No issues overnight. Physical Examination - Vital Signs Temperature: 98.2 F Blood Pressure: 165/69 Pulse: 62 Respirations: 15 Pulse Ox (%): 98 Assessment And Plan - Plan Physical Exam: GEN: Alert, oriented, NAD CV: Regular rate and rhythm, no edema ABD: soft, nontender, nondistended, no organomegaly. Extremities: No tenderness, no swelling. Neuro: Normal speech, normal affect Problem List: Hypertensive Urgency UTI - E. 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 States she didnt take her coreg at the time d/t bradycardia. Patient with systolic hypertension. Nephrology is following and titrating nifedipine, currently receiving 60 mg twice daily continue losartan 50 mg daily PRN IV hydralazine s/p IVF UTI - E. Coli Esbl hx of recurrent UTIs on chronic antibiotics Reports some dysuria on admission. Has history of recurrent UTIs. Currently on long-term suppressive antibiotic therapy prior to admission (Cipro) bladder u/s (08/08): Diffusely thickened bladder. urine cx (08/08): E. coli ESBL. Status post IV rocephin, switched to IV merrem (08/10-08/16) given culture results will need at least 1 week of IV abx (end date: 08/16/24). CKD3 continue to monitor renal function Nephrology is following. Renal function is at baseline. Breast mass, chronic on review of past imaging; Per CT chest (05/28/24): irregular 4 cm mass in the lower lateral aspect of the left breast contacting the skin. There is a very large 11 cm oblong mass with internal necrosis present in the left axillary region. 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 No formal cancer diagnosis on review of records. Breast masses can be seen as far back as 2021. Follow-up as outpatient. Patient is made aware Constipation Nausea/vomiting Patient had multiple bowel movements. KUB today is unremarkable. 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 VTE: Lovenox Code: Full Dispo: SNF.
--- NOTE | 2024-08-14 22:40 | P.PN ---
Date of Service: 08/14/24 Vital Signs Temp Pulse Resp BP Pulse Ox 98.3 F 68 18 173/62 H 98 08/14/24 20:00 08/14/24 20:00 08/14/24 20:00 08/14/24 20:00 08/14/24 20:00 Medications Acetaminophen (Acetaminophen 325 Mg Tablet) 650 mg PO Q6H PRN PRN Reason: Pain scale 5-7 (Moderate) Last Admin: 08/13/24 13:40 Dose: 650 mg Clopidogrel Bisulfate (Clopidogrel 75 Mg Tablet) 75 mg PO DAILY [facility] Last Admin: 08/14/24 09:38 Dose: 75 mg Enoxaparin Sodium (Enoxaparin 30 Mg/0.3 Ml) 30 mg SQ DAILY [facility] Last Admin: 08/14/24 09:38 Dose: 30 mg Hydralazine HCl (Hydralazine Hcl 20 Mg/Ml Vial) 10 mg IV Q4HP PRN PRN Reason: FOR SBP>160 OR DBP>100 [facility] Last Admin: 08/13/24 12:04 Dose: 10 mg Meropenem 500 mg/ Sodium (Chloride) 100 mls @ 200 mls/hr IV Q12HR [facility] Last Admin: 08/14/24 09:39 Dose: 100 mls Losartan Potassium (Losartan Potassium 50 Mg Tablet) 50 mg PO DAILY [facility] Last Admin: 08/14/24 09:39 Dose: 50 mg Mupirocin (Mupirocin Nasal 2 Appl/1 Gm Tube) 1 appl RENETTA BID [facility] Stop: 08/16/24 09:01 Last Admin: 08/14/24 09:38 Dose: 1 appl Nifedipine (Nifedipine Xl 30 Mg Tablet) 60 mg PO Q12H [facility] Last Admin: 08/14/24 09:38 Dose: 60 mg Ondansetron HCl (Ondansetron 4 Mg/2 Ml Vial) 4 mg IV Q6HP PRN PRN Reason: NAUSEA / VOMITING Last Admin: 08/11/24 21:02 Dose: 4 mg Pantoprazole Sodium (Pantopraz[facility] 40mg Tablet) [facility] Last Admin: 08/14/24 06:28 Dose: 40 mg Senna (Senosides 8.6 Mg Tab) 8.6 mg PO DAILY PRN PRN Reason: CONSTIPATION Sertraline HCl (Sertraline Hcl 50 Mg Tab) 150 mg PO BEDTIME [facility] Last Admin: 08/13/24 21:08 Dose: 150 mg Assessment/ Plan: Nephrology Progress Note No Dyspnea No Chest Pain Weakness Feeling better No Acute Events Overnight Vital Signs, Medications, Blood Work, and Imaging reviewed in the chart NAD. Obese. NCAT. MMM. Neck Supple. Normal Respiratory Effort. RRR. Abd ND. No C/C. LE Edema none. No Rash. AAO. Normal Speech. Assessment & Plan CKD III -No NSAIDs Hyperkalemia She reports a history of hyperkalemia -Kayexalate prn HTN Urgency Malignant HTN with CKD -Continue Nifedipine XL 60mg BID -Continue Losartan Anemia in chronic illness -Monitor H&H Acute ESBL E.coli Cystitis -Continue Meropenem Slow transit Constipation -Continue Colace Hospitalist note reviewed Case reviewed with Dr. Bowman
[2024-08-14] MEDS: SENOSIDES 8.6 MG TAB PO PRN (22:56)
[2024-08-15 04:47] LABS: Absolute Eosinophils 0.3 K/uL (0-0.5); Absolute Lymphocytes (CBC) 2.7 K/uL (0.7-4.9); Absolute Monocytes 0.6 K/uL (0.1-1.3); Absolute Neutrophil 2.9 K/uL (1.8-8.0); Basophils % 0.6 % (0-1.3); Eosinophils % 3.9 % (0-4.4); Hematocrit 27.9 % (36.0-45.0); Hemoglobin 9.2 g/dL (12.0-15.0); Lymphocytes % 41.8 % (15.3-44.8); MCH 29.1 pg (27.0-35.0); MCHC 33.1 g/dL (32.0-36.0); MCV 87.9 fL (80-100); MPV 7.5 fL (7.6-11.3); Monocytes % 9.7 % (3.3-12.3); Platelets 203 thou/uL (152-406); RBC Red Blood Cell Count 3.18 M/uL (3.86-4.86); Red Cell Distribution Width 16.8 % (12.1-15.2)
--- NOTE | 2024-08-15 11:55 | P.PN ---
(S) Doing fair, BP remains mod elevated, remains weak, working with OT when seen (O) vitals reviewed in the EMR General: Alert, Cooperative HEENT: Atraumatic, Normocephalic, Other (not needing O2) Neck: Supple Respiratory: Clear to auscultation bilaterally, Normal air movement Cardiovascular: No edema, Regular rate/rhythm Gastrointestinal: Soft and benign, Non-distended, No tenderness, No guarding Musculoskeletal: No contractures, No tenderness Integumentary: No rashes, No tenderness/swelling Neurological: Normal speech, Normal tone, Normal affect Laboratory Data (last 24 hrs) Reviewed in the EMR Conclusions/Impression: A/P) 1. CKD Stage III unspecified 2nd to chronic conditions -renal function tests on admission and since within baseline range, cont to monitor closely. CT imaging did not show any obstructive uropathy 2. Hypertensive urgency, malignant HTN with CKD -home CCB med resumed on admission, dose has been raised since. Was taking lower dose Coreg at home, HR in the 50-60s, did replace with Losartan 50 mg qd. BNP elevated but < 1000, with her urinary symptoms diuretic therapy may exacerbate OAB, other so will hold off currently or may replace Lasix with thiazide diuretic later. 3. Target BP < 140/90 with prior hx of CVA. Will add PO scheduled Hydralazine to above regimen 4. Dysuria, hx of recurrent UTIs, bacteriuria POA on UA without pyuria. On suppressive Abx therapy as OP with either Cipro or Bactrim. Ecoli on UCx here, ESBL Primary team has placed her on Meropenem, CrCl ~ 30 ml/min, did lower dose to 500 mg q12h, complete course Checked bladder u/s to assess PVR, but pt was not able to void, although pre void vol < 150 cc. Mild bladder wall thickening reported, no stones, diverticulum other reported. 5. Mod anemia, may be contributory to symptoms -OP w/u
[2024-08-15] MEDS: HYDRALAZINE HCL 10 MG TABLET PO SCH (13:06)
--- NOTE | 2024-08-15 15:15 | P.DS ---
Admission Date: 08/08/24 Discharge Date: 08/15/24 Disposition: TRANSFER TO [facility] Discharge Condition: FAIR Reason for Admission: Generalized weakness Brief History of Present Illness: Patient is a 84-year-old female with a past medical history of CVA with left-sided residual deficits. She was brought in by EMS for evaluation of hypertensive crisis. Her SBP was more than 217 at home. Patient stated she has been struggling with generalized weakness and has fallen multiple times in the past. No syncope reported. Patient also reported history of recurrent UTI and experiencing dysuria. Patient received ceftriaxone in the ER. Patient was admitted for further management. Hospital Course: Problem List: Hypertensive Urgency UTI - E. 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 States she didnt take her coreg at the time d/t bradycardia. Patient with systolic hypertension. Patient placed on nifedipine which was titrated to 60 mg twice daily continued home the losartan 50 mg daily s/p IVF UTI - E. Coli Esbl hx of recurrent UTIs on chronic antibiotics Reports some dysuria on admission. Has history of recurrent UTIs. Currently on long-term suppressive antibiotic therapy prior to admission (Cipro) bladder u/s (08/08): Diffusely thickened bladder. urine cx (08/08): E. coli ESBL. Status post IV rocephin, switched to IV merrem (08/10-08/16) given culture results Patient to complete 2 weeks IV meropenem (end date: 08/21/24). CKD3 continue to monitor renal function Nephrology evaluated patient. Renal function is at baseline. Breast mass, chronic on review of past imaging; Per CT chest (05/28/24): irregular 4 cm mass in the lower lateral aspect of the left breast contacting the skin. There is a very large 11 cm oblong mass with internal necrosis present in the left axillary region. 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 No formal cancer diagnosis on review of records. Breast masses can be seen as far back as 2021. Follow-up as outpatient. Patient is stated she is aware and does not want to pursue any investigation or treatment. Constipation Nausea/vomiting Patient had multiple bowel movements. KUB today is unremarkable. PRN zofran. Patient placed on senna and Dulcolax for constipation prophylaxis. 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 Lasix resumed on discharge. Vital Signs/Physical Exam: Temp Pulse Resp BP Pulse Ox 98.1 F 70 12 190/95 H 99 08/15/24 12:00 08/15/24 12:00 08/15/24 12:00 08/15/24 12:00 08/15/24 12:00 General: Alert, In no apparent distress, Oriented x3 HEENT: Mucous membr. moist/pink Neck: JVD not distended Respiratory: Clear to auscultation bilaterally, Normal air movement Cardiovascular: Regular rate/rhythm, Normal S1 S2 Gastrointestinal: Normal bowel sounds, Soft and benign, Non-distended Musculoskeletal: No swelling Integumentary: No cyanosis Neurological: Normal strength at 5/5 x4 extr Laboratory Data at Discharge: WBC 6.50 thou/uL (4.3-10.9) 08/15/24 04:29 Hgb 9.2 g/dL (12.0-15.0) L 08/15/24 04:29 Hct 27.9 % (36.0-45.0) L 08/15/24 04:29 Plt Count 203 thou/uL (152-406) 08/15/24 04:29 Sodium 139 mEq/L (136-145) 08/15/24 04:29 Potassium 5.0 mEq/L (3.5-5.1) 08/15/24 04:29 BUN 33 mg/dL (7-18) H 08/15/24 04:29 Creatinine 1.41 mg/dL (0.55-1.02) H 08/15/24 04:29 Glucose 116 mg/dL (74-106) H 08/15/24 04:29 Phosphorus 4.5 mg/dL (2.5-4.9) 08/11/24 06:57 Magnesium 2.6 mg/dL (1.6-2.4) H 08/11/24 06:57 Total Bilirubin 0.3 mg/dL (0.2-1.0) 08/07/24 18:45 AST 16 U/L (15-37) 08/07/24 18:45 ALT 15 U/L (13-56) 08/07/24 18:45 Alkaline Phosphatase 82 U/L (45-117) 08/07/24 18:45 Triglycerides 189 mg/dL (<150) H 08/09/24 05:20 Cholesterol 203 mg/dL (<200) H 08/09/24 05:20 HDL Cholesterol 35 mg/dL (40-60) L 08/09/24 05:20 Cholesterol/HDL Ratio 5.80 08/09/24 05:20 Home Medications: Allopurinol 1 tab PO BEDTIME 01/31/18 Clopidogrel Bisulfate [Plavix] 1 tab PO DAILY 01/31/18 Sertraline [Zoloft*] 150 mg PO BEDTIME 01/31/18 Solifenacin Succinate [Vesicare] 1 tab PO BEDTIME 01/31/18 Ezetimibe [Zetia*] 1 tab PO DAILY 03/30/18 Furosemide [Lasix] 1 tab PO DAILY 03/30/18 Nifedipine Xl [Procardia Xl*] 30 mg PO DAILY 01/05/24 Insulin Lispro MIX 75/25 [Humalog Mix 75/25*] 10 units SQ BID 06/18/24 Ondansetron HCl 4 mg PO Q6HP PRN 06/18/24 Pantoprazole [Protonix Tab*] 40 mg PO DAILY 06/18/24 Hydralazine [Apresoline*] 25 mg PO QID #90 tab 08/15/24 Losartan Potassium [Cozaar*] 50 mg PO DAILY 08/15/24 Meropenem [Merrem 1 GM/100 ML NS IVPB] 1 gm IV Q12H #14 vial 08/15/24 Senosides [Senokot*] 8.6 mg PO BID #60 tab 08/15/24 bisacodyL [Dulcolax] 5 mg PO BEDTIME PRN PRN #30 tab 08/15/24 New Medications: Hydralazine [Apresoline*] 25 mg PO QID #90 tab bisacodyL [Dulcolax] 5 mg PO BEDTIME PRN PRN #30 tab PRN Reason: Constipation Meropenem [Merrem 1 GM/100 ML NS IVPB] 1 gm IV Q12H #14 vial Diet: ADA Activity: Fall precautions Followup: Kolton Mcclellan MD [Primary Care Provider] - 1-2 Weeks Time spent managing pt's care (in minutes): 34
[2024-08-15 16:59] VITALS: TEMP 97.5
[2024-08-15] MEDS: HYDRALAZINE HCL 25 MG TABLET PO SCH (17:13)
[2024-08-15 18:02] VITALS: BP 170/64
[2024-08-15] MEDS ORDERED: HYDRALAZINE HCL 25 MG TABLET PO SCH (21:00)
== END 2024-08-15 19:06 | DRG 305 ==
LOC: ER 17:56 → ERHOLD 08-08 00:43 → 2ND 08-08 01:56
PROVIDERS: ADMIT Internal Medicine; ATTEND Internal Medicine
PROC: 02HV33Z Insertion of Infusion Device into Superior Vena Cava, Percutaneous Approach (ICD-10-PCS; principal; 2024-08-11)
DX: I16.0 Hypertensive urgency (principal); I69.354 Hemiplegia and hemiparesis following cerebral infarction affecting left non-dominant side; I50.32 Chronic diastolic (congestive) heart failure; Z16.12 Extended spectrum beta lactamase (ESBL) resistance; N30.00 Acute cystitis without hematuria; I13.0 Hypertensive heart and chronic kidney disease with heart failure and stage 1 through stage 4 chronic kidney disease, or unspecified chronic kidney disease; N18.30 Chronic kidney disease, stage 3 unspecified; E11.22 Type 2 diabetes mellitus with diabetic chronic kidney disease; E11.65 Type 2 diabetes mellitus with hyperglycemia; E11.42 Type 2 diabetes mellitus with diabetic polyneuropathy; D63.1 Anemia in chronic kidney disease; M10.9 Gout, unspecified; N63.0 Unspecified lump in unspecified breast; K59.01 Slow transit constipation; E87.5 Hyperkalemia; E78.5 Hyperlipidemia, unspecified; B96.20 Unspecified Escherichia coli [E. coli] as the cause of diseases classified elsewhere; Z60.2 Problems related to living alone; Z88.5 Allergy status to narcotic agent; Z88.8 Allergy status to other drugs, medicaments and biological substances; Z90.710 Acquired absence of both cervix and uterus; Z91.148 Patient's other noncompliance with medication regimen for other reason; Z79.02 Long term (current) use of antithrombotics/antiplatelets; Z79.4 Long term (current) use of insulin; Z79.899 Other long term (current) drug therapy; Z90.49 Acquired absence of other specified parts of digestive tract
CPT/HCPCS: 36415; 70450; 71045; 74018; 74176; 76377; 76857; 80048; 80061; 80069; 80076; 81001; 82947; 83605; 83735; 83880; 84100; 84484; 85025; 85027; 87077; 87086; 87088; 87186; 93005; 96361; 96365; 96375; 97110; 97112; 97161; 97165; 97530; 99285; J0360; J0696; J1650; J2185; J2405; J3010; J7030

== ENCOUNTER 2024-10-01 14:04 | Emergency (ER) | payer OTHER ==
--- OUTSIDE RECORDS SUMMARY | 2024-10-01 14:06 | XMS REPORT | Continuity of Care Document ---
Author Name Unknown Address [address] [place] [address] [address] [place] [address] [facility] Address [address] [facility] [place] [address] Care Team Providers Care Secretary Of Police Name Role Phone [phone] Attending Clinician Unavailable Jamal Gomes Anavella Attending Cli nician Unavailable [id number] Admitting Clinician Unavailable Roberto Gomes Anav Admitting Clinician U navailable Payers Payer Name Policy Type Policy Number Effective Date Expirati on Date Source [facility] [id number] Encounters Start Date/Time End Date/Time Encounter Type Admission Type Attending Clinicians Care Facility Care Department Encounter ID Source 2022-10-26 09:38:52 Outpatient 3 [id number] [facility]ST[facility]ER [id number] [facility] 2022-10-18 08:34:08 Outpatient 3 [id number] [facility] REF [id number] [facility] 2021-08-04 09:58:11 [place] 3 [id number] [place] [id number] [facility] 2021-08-04 09:54:11 Outpatient 3 [id number] [facility] REF [id number] [facility] 2021-08-04 09:53:43 Outpatient 3 [id number] [facility] REF [id number] [facility] 2022-10-27 13:03:00 2022-11-18 13:30:00 Inpatient 3 Jamal Serna [facility] [id number] [facility]
[2024-10-01 15:02] LABS: Absolute Basophils 0.1 K/uL (0-0.5); Absolute Eosinophils 0.1 K/uL (0-0.5); Absolute Lymphocytes (CBC) 1.7 K/uL (0.7-4.9); Absolute Monocytes 0.4 K/uL (0.1-1.3); Absolute Neutrophil 6.1 K/uL (1.8-8.0); Basophils % 0.7 % (0-1.3); Eosinophils % 1.6 % (0-4.4); Hematocrit 27.8 % (36.0-45.0); Hemoglobin 8.9 g/dL (12.0-15.0); Lymphocytes % 20.4 % (15.3-44.8); MCH 28.3 pg (27.0-35.0); MCV 88.5 fL (80-100); MPV 8.3 fL (7.6-11.3); Monocytes % 5.2 % (3.3-12.3); Neutrophils % 72.1 % (41.7-73.7); Platelets 217 thou/uL (152-406); RBC Red Blood Cell Count 3.14 M/uL (3.86-4.86); Red Cell Distribution Width 17.3 % (12.1-15.2)
[2024-10-01 15:12] LABS: AST/SGOT 12 U/L (15-37); Albumin 2.9 g/dL (3.4-5.0); Albumin/Globulin Ratio 0.8 (1.1-1.8); Alkaline Phosphatase 101 U/L (45-117); Anion Gap 11.6 mEq/L (5.0-15.0); BUN Blood Urea Nitrogen 27 mg/dL (7-18); Bicarbonate 22 mEq/L (21-32); Bilirubin Total 0.2 mg/dL (0.2-1.0); Globulin 3.8 g/dL (2.3-3.5); Glomerular Filtration Rate 29 ml/min (=/>90); Glucose Level 243 mg/dL (74-106); Lipase 17 U/L (13-75); Potassium 4.6 mEq/L (3.5-5.1); Protein, Total 6.7 g/dL (6.4-8.2); Sodium Level 135 mEq/L (136-145)
[2024-10-01 15:13] LABS: ALT/SGPT < 14 U/L (13-56)
--- NOTE | 2024-10-01 15:59 | RAD REPORT ---
EXAMINATION: CT ABDOMEN AND PELVIS WITHOUT CONTRAST CLINICAL INDICATION: Abdominal pain TECHNIQUE: CT abdomen and pelvis was performed, as per department protocol. IV contrast not administe red.Axial, sagittal and coronal reconstructions were obtained. One or more of the following dose reduction techniques were used: Automated exposure control, adjustment of the mA and/or kV according to the patient size, and/or iterative reconstruction. Unless otherwise specified, incidental findings do not require dedicated imaging follow-up. [id number].. Oral contrast given. COMPARISON: July [address] chest May 2024 FINDINGS: Lack of IV contrast limits evaluation of vessels and solid organs. 10 cm mass along the left lateral chest wall contains fluid and solid portions. It is without signifi cant change. 5.1 cm mass lateral left breast is mildly enlarged from May 2024 exam. Small left pleural effusion The liver, spleen, pancreas, adrenals and kidneys appear grossly normal No evidence of diverticulitis. A moderate to large amount stool is present throughout colon. An air bubble is present within the bladder. IMPRESSION: Moderate to large amount stool within the colon. An obstruction is not seen. Enlargement of a 5.1 cm left breast mass presumably neoplasm. Stable 10 cm mass within the subcutaneous tissues left lateral chest. It is without significant luu e from the May 2024 exam. Air bubble within the bladder could be secondary to infection, fistula or recent instrumentation.
[2024-10-01 16:13] LABS: Specific Gravity 1.011 (1.005-1.030); Sqamous Epithelial <5 /HPF (None Seen); Urine Bacteria None Seen /HPF (<20); Urine Bilirubin NEGATIVE (Negative); Urine Blood Negative (Negative); Urine Clarity Turbid (Clear); Urine Color Light-Yellow (Yellow); Urine Culture Reflex Order NOT NEEDED; Urine Glucose NEGATIVE (Negative); Urine Ketones NEGATIVE (Negative); Urine Microscopic Reflex YN ORDER UMIC; Urine Nitrite NEGATIVE (Negative); Urine Protein 1+ (Negative); Urine RBC <5 /HPF (None Seen); Urine Urobilinogen Normal (Normal); Urine WBC <5 /HPF (<5)
[2024-10-01] MEDS ORDERED: MAGNESIUM CITRATE 300 ML BOT ONE (16:20)
[2024-10-01] MEDS ORDERED: LACTULOSE 20 GM/30 ML UCUP ONE (17:02)
[2024-10-01] MEDS ORDERED: FLEET ENEMA ADULT PR ONE (17:02)
--- NOTE | 2024-10-01 18:04 | ER ---
Nurse's Notes [facility] Name: Mariposa Malave Age: 84 yrs Sex: Female : 1940 Arrival Date: 10/01/2024 Time: 14:04 Bed 5 Private MD: Diagnosis: Constipation Presentation: 10/01 14:25 Chief complaint: EMS states: CONSTIPATION X 10 DAYS TRIED OTC MEDS AND PRUNES NOT db HELPING. CAREGIVER CALLED PCP AND WAS TOLD TO COME TO ED. Coronavirus screen: Client denies travel out of the [place] in the last 14 days. At this time, the client does not indicate any symptoms associated with coronavirus-19. Ebola Screen: Patient negative for fever greater than or equal to 101.5 degrees Fahrenheit, and additional compatible Ebola Virus Disease symptoms Patient denies exposure to infectious person. Patient denies travel to an Ebola-affected area in the 21 days before illness onset. No symptoms or risks identified at this time. Initial Sepsis Screen: Does the patient meet any 2 criteria? No. Patient's initial sepsis screen is negative. Does the patient have a suspected source of infection? No. Patient's initial sepsis screen is negative. Risk Assessment: Do you want to hurt yourself or someone else? Patient reports no desire to harm self or others. Onset of symptoms was September 21, 2024. 14:25 Method Of Arrival: EMS: [facility] db 14:25 Acuity: DOMINIQUE 3 db Triage Assessment: 14:25 General: Appears in no apparent distress. comfortable, Behavior is calm, cooperative. db Pain: Complains of pain in abdomen. Neuro: Level of Consciousness is awake, alert, obeys commands, Oriented to person, place, time, situation. Respiratory: Airway is patent Respiratory effort is even, unlabored, Respiratory pattern is regular, symmetrical. GI: Abdomen is non-distended, Reports lower abdominal pain, constipation. Historical: - Allergies: 14:25 Benadryl; db 14:25 injectable dye; db 14:25 metformin; db 14:25 Codeine; db 14:25 Phenergan; db - PMHx: 14:25 CVA; CHF; kidney disease; Gout; Diabetes - IDDM; Hypertensive disorder; neuropathy; db - PSHx: 14:25 Left shoulder repair; hysterectomy; db - Immunization history:: Adult Immunizations unknown. - Infectious Disease History:: Denies. - Social history:: Smoking status: Patient denies any tobacco usage or history of. Screenin:08 [facility] ED Fall Risk Assessment (Adult) History of falling in the last 3 months, db including since admission No falls in past 3 months (0 pts) Confusion or Disorientation No (0 pts) Intoxicated or Sedated No (0 pts) Impaired Gait No (0 pts) Mobility Assist Device Used No (0 pt) Altered Elimination No (0 pt) Score/Fall Risk Level 0 - 2 = Low Risk Oriented to surroundings, Maintained a safe environment. Abuse screen: Denies threats or abuse. Denies injuries from another. Nutritional screening: No deficits noted. Tuberculosis screening: No symptoms or risk factors identified. Assessment: 14:25 Reassessment: SEE TRIAGE FOR INITIAL ASSESSMENT. db 16:08 Reassessment: Patient appears in no apparent distress at this time. Patient and/or db family updated on plan of care and expected duration. Pain level reassessed. Patient is alert, oriented x 3, equal unlabored respirations, skin warm/dry/pink. General: Appears in no apparent distress. comfortable, Behavior is calm, cooperative. Neuro: Level of Consciousness is awake, alert, obeys commands, Oriented to person, place, time, situation. Respiratory: Airway is patent Respiratory effort is even, unlabored, Respiratory pattern is. 17:00 Reassessment: Patient appears in no apparent distress at this time. Patient and/or db family updated on plan of care and expected duration. Pain level reassessed. Patient is alert, oriented x 3, equal unlabored respirations, skin warm/dry/pink. 17:15 Reassessment: ENEMA GIVEN TO PATIENT. db 17:42 Reassessment: PATIENT PLACED ON A BEDPAN. STATES IS UNABLE TO STAND AND SIT ON BEDSIDE db COMMODE. 17:47 Reassessment: PATIENT REPORTS NO BM AT THIS TIME. db 18:20 Reassessment: NOTED PATIENT WITH SMALL AMOUNT OF DIME SIZED STOOL PELLETS. PATIENT db CLEANED AND BRIEF PLACED ON PATIENT. PATIENT NOW REQUESTING TO STAY. NOTIFIED PROVIDER SHAYLA JOSEPH. 18:40 Reassessment: PATIENT BRIEF CHANGED. NOTED SMALL AMOUNT OF STOOL. db 18:45 Reassessment: CALLED PATIENT DAUGHTER JOEL MALAVE. NO ANSWER. UNABLE TO GET A HOLD OF db DAUGHTER. UNABLE TO LEAVE VOICEMAIL DUE TO VOICEMAIL FULL. 19:31 Reassessment: Patient had bowel movement. Incontinent care provided. cp4 Vital Signs: 14:25 BP 151 / 61; Pulse 62; Resp 16; Temp 97.9; Pulse Ox 99% ; Weight 72.57 kg; Height 5 ft. db 9 in. ; 16:08 BP 132 / 51; Pulse 60; Resp 16; Pulse Ox 98% on R/A; db 17:30 BP 166 / 81; Pulse 58; Resp 16; Pulse Ox 99% on R/A; db 14:25 Body Mass Index 23.63 (72.57 kg, 175.26 cm) db ED Course: 14:06 Patient arrived in ED. bd 14:09 Julia Joseph FNP-C is PHCP. ec2 14:10 Ab Jaeger MD is Attending Physician. kb 14:25 Arm band placed on Patient placed in an exam room. db 14:33 Jo Quevedo, RN is Primary Nurse. db 14:36 Triage completed. db 14:40 Initial lab(s) drawn, by me, sent to lab. Inserted saline lock: 20 gauge in right db antecubital area, using aseptic technique. Blood collected. Flushed with 10 mL NS. 15:35 Abdomen In Process Unspecified. EDMS 16:02 Urine collected: straight cath specimen. Straight cath inserted, using sterile db technique, 14 Fr. Specimen obtained. Returned clear yellow urine. Patient tolerated well. 16:08 Patient has correct armband on for positive identification. Bed in low position. Call db light in reach. Side rails up X2. Pulse ox on. NIBP on. Warm blanket given. Pillow given. Head of bed. 19:32 Charley with [employer] gave 30 min ETA. rv1 20:41 Cleaned of incontinence. rv1 Administered Medications: 16:42 Not Given (Other Intervention Used): magnesium citrateliquid 300 ml PO once kb 17:07 Drug: Lactulose PO 30 grams 45 ml PO once Volume: 45 ml; Route: PO; db 19:11 Follow up: Response: No adverse reaction db 17:15 Drug: Fleet Enema AK 133 ml AK once Route: AK; db 19:11 Follow up: Response: No adverse reaction db Medication: 16:09 VIS not applicable for this client. db Outcome: 18:03 Discharge ordered by . kb 20:59 Patient left the ED. vc1 Signatures: Dispatcher [employer] EDJulia Doran, AMELIA ENGINEERING SCIENTIST-Natalee Mendez Vanessa, RN RN vc1 Jo Quevedo RN RN Yu Engel rv1 Rocky Lobato MD MD ec2 Vicki Franks [facility]
--- NOTE | 2024-10-01 18:05 | EDPHYS ---
Physician Documentation [facility] Name: Mariposa Palacios Age: 84 yrs Sex: Female : 1940 Arrival Date: 10/01/2024 Time: 14:04 Bed 5 Private MD: ED Physician Ab Jaeger HPI: 10/01 15:40 This 84 yrs old Female presents to ER via EMS with complaints of Constipation. kb 15:40 Patient is a 84-year-old female who presents for constipation. States her last bowel kb movement was over 10 days ago. States she ate some chicken spaghetti 12 or 13 days ago and she just was not able to digest it so she has not had a bowel movement. Denies pain, nausea, vomiting, fever. States she has tried multiple laxatives with no relief.. Historical: - Allergies: 14:25 Benadryl; db 14:25 injectable dye; db 14:25 metformin; db 14:25 Codeine; db 14:25 Phenergan; db - PMHx: 14:25 CVA; CHF; kidney disease; Gout; Diabetes - IDDM; Hypertensive disorder; neuropathy; db - PSHx: 14:25 Left shoulder repair; hysterectomy; db - Immunization history:: Adult Immunizations unknown. - Infectious Disease History:: Denies. - Social history:: Smoking status: Patient denies any tobacco usage or history of. ROS: 15:41 Constitutional: As per HPI kb Exam: 15:41 Constitutional: This is a well developed, well nourished patient who is awake, alert, kb and in no acute distress. Head/Face: Normocephalic, atraumatic. ENT: Moist Mucous membranes Cardiovascular: Regular rate Respiratory: Respirations even and unlabored. No increased work of breathing. Talking in full sentences Skin: Warm, dry with normal turgor. Normal color. MS/ Extremity: Pulses equal, no cyanosis. Neurovascular intact. Full, normal range of motion. Neuro: Awake and alert, GCS 15, oriented to person, place, time, and situation. 15:41 Abdomen/GI: Inspection: abdomen appears normal, Bowel sounds: normal, Palpation: soft, in all quadrants, moderate abdominal tenderness, in the left lower quadrant, Vital Signs: 14:25 BP 151 / 61; Pulse 62; Resp 16; Temp 97.9; Pulse Ox 99% ; Weight 72.57 kg; Height 5 ft. db 9 in. ; 16:08 BP 132 / 51; Pulse 60; Resp 16; Pulse Ox 98% on R/A; db 17:30 BP 166 / 81; Pulse 58; Resp 16; Pulse Ox 99% on R/A; db 14:25 Body Mass Index 23.63 (72.57 kg, 175.26 cm) db MDM: 14:10 Medical Screening Exam initiated kb 15:41 Data reviewed: vital signs, nurses notes. Historians other than the Patient: EMS: [facility]. 16:52 Differential diagnosis: bowel obstruction, constipation, diverticulitis, colitis. [facility] Counseling: I had a detailed discussion with the patient and/or guardian regarding the historical points, exam findings, and any diagnostic results supporting the discharge/admit diagnosis, lab results, radiology results, the need for outpatient follow up, a family practitioner, to return to the emergency department if symptoms worsen or persist or if there are any questions or concerns that arise at home. ED course: Discussed results with pt and daughter. Both aware of breast mass. States it popped up a few years ago and pt didn't want to do anything about it. It doesn't seem to bother her health so they haven't had it evaluated. 18:27 ED course: Rectal exam performed no fecal impaction, no stool. Patient states that this kb happened several times in the past due to chronic constipation and it takes days of lactulose to correct it. Discussed prescription for lactulose but patient states that her doctor wrote for one yesterday and it is at [facility] in [place] she was just was not able to pick it up.. 10/01 14:10 Order name: CBC with Diff; Complete Time: 15:03 kb 10/01 14:10 Order name: CMP; Complete Time: 15:14 kb 10/01 14:10 Order name: Lipase; Complete Time: 15:14 kb 10/01 14:10 Order name: Urinalysis w/ reflexes; Complete Time: 16:22 kb 10/01 15:26 Order name: Abdomen ; Complete Time: 16:11 EDMS 10/01 14:10 Order name: IV Saline Lock; Complete Time: 15:12 kb 10/01 14:10 Order name: Labs collected and sent; Complete Time: 15:12 kb Administered Medications: 16:42 Not Given (Other Intervention Used): magnesium citrateliquid 300 ml PO once kb 17:07 Drug: Lactulose PO 30 grams 45 ml PO once Volume: 45 ml; Route: PO; db 19:11 Follow up: Response: No adverse reaction db 17:15 Drug: Fleet Enema ID 133 ml ID once Route: ID; db 19:11 Follow up: Response: No adverse reaction db Disposition Summary: 10/01/24 18:03 Discharge Ordered Notes: Location: Home kb Condition: Stable kb Diagnosis - Constipation kb Followup: kb - With: Emergency Department - When: As needed - Reason: Worsening of condition Followup: kb - With: Private Physician - When: 2 - 3 days - Reason: Recheck today's complaints, Continuance of care, Re-evaluation by your physician Discharge Instructions: - Discharge Summary Sheet kb - Constipation, Adult, [id number] kb Forms: - Medication Reconciliation Form kb - Antibiotic Education kb - Prescription Opioid Use kb - Patient Portal Instructions kb - Leadership Thank You Letter kb Signatures: Dispatcher [employer] Julia Villarreal, JEEVAN-C COTTON BROKER-Jo Nunez, RN RN db Corrections: (The following items were deleted from the chart) 15:26 14:11 Abdomen Pelvis W [id number] ordered. JAZMINE LUCERO
[2024-10-01 22:22] VITALS: TEMP 97.9
[2024-10-01 22:25] VITALS: BP 166/81; O2SAT 99
== END 2024-10-01 20:59 | disposition home or self-care (01) ==
LOC: ER 14:04
DX: K59.00 Constipation, unspecified (principal)
CPT/HCPCS: 36415; 74176; 80053; 81001; 83690; 85025

== ENCOUNTER 2024-10-11 12:06 | Emergency (ER) | payer OTHER ==
--- OUTSIDE RECORDS SUMMARY | 2024-10-11 12:09 | XMS REPORT | Continuity of Care Document ---
Author Name Unknown Address [address] [place] [address] [address] [place] [address] [facility] Address [address] 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 Name Role Phone [phone] Attending Clinician Unavailable Jamal Gomes Anavella Attending Cli nician Unavailable [phone] Admitting Clinician Unavailable Roberto Gomes Anav Admitting Clinician U navailable Payers Payer Name Policy Type Policy Number Effective Date Expirati on Date Source [facility] [id number] Encounters Start Date/Time End Date/Time Encounter Type Admission Type Attending Clinicians Care Facility Care Department Encounter ID Source 2022-10-26 09:38:52 Outpatient 3 [id number] [facility] KRISTOFER [id number] [facility] 2022-10-18 08:34:08 Outpatient 3 [id number] [facility] REF [id number] [facility] 2021-08-04 09:58:11 [place] 3 [id number] [place] [id number] [facility] 2021-08-04 09:54:11 Outpatient 3 [id number] [facility] REF [id number] [facility] 2021-08-04 09:53:43 Outpatient 3 [id number] [facility] REF [id number] [facility] 2022-10-27 13:03:00 2022-11-18 13:30:00 Inpatient 3 Jamal Serna [facility]A [id number] [facility]
--- NOTE | 2024-10-11 12:51 | RAD REPORT ---
EXAMINATION: CT ABDOMEN AND PELVIS WITHOUT CONTRAST CLINICAL INDICATION: Abd pain;Constipation TECHNIQUE: CT abdomen and pelvis was performed, without IV contrast, as per department protocol. Axia l, sagittal and coronal reconstructions were obtained. One or more of the following dose reduction techniques were used: Automated exposure control, adjustment of the mA and kV according to the patien t size, and iterative reconstruction. Unless otherwise specified, incidental findings do not require dedicated imaging follow-up. COMPARISON: 10/01/2024 FINDINGS: The lack of intravenous contrast limits the sensitivity of this exam for evaluation of solid visceral organs, vascular structures, and retroperitoneum. LOWER CHEST: Linear atelectasis is present in both lung bases. Irregular left breast mass and left la teral chest wall mass partially visualized. These appear similar to comparison study and are likely related to malignancy. LIVER:Normal in size and contour. No focal lesion. Grossly unremarkable gallbladder. SPLEEN: Normal size. No focal lesion. PANCREAS: No mass, ductal dilation, or dilcia-pancreatic fluid. ADRENALS: Normal; no mass. KIDNEYS AND URETERS: Normal size and contour. No hydronephrosis. URINARY BLADDER: Normal contour. GASTROINTESTINAL TRACT: No evidence of bowel obstruction, significant free fluid, free air or abscess . Moderate stool is present throughout the colon. There is wall thickening with diverticulosis noted sigmoid colon. APPENDIX: Appendix not visualized, but no inflammatory changes in region of appendix. LYMPH NODES: No lymphadenopathy. MUSCULOSKELETAL: Mild multilevel spinal degenerative changes. ADDITIONAL FINDINGS: Aortoiliac atherosclerosis. IMPRESSION: Mild thickening of the sigmoid colon wall is seen with numerous diverticula are present. This may ind icate early or indolent diverticulitis. Follow-up colonoscopy may be considered. Prominent stool retention compatible with moderate constipation. Left-sided breast mass and left lateral chest wall mass partially visualized, grossly similar to prio r study.
[2024-10-11] MEDS ORDERED: FLEET ENEMA ADULT PR ONE (13:13)
[2024-10-11 13:28] LABS: Absolute Basophils 0.1 K/uL (0-0.5); Absolute Eosinophils 0.2 K/uL (0-0.5); Absolute Lymphocytes (CBC) 1.6 K/uL (0.7-4.9); Absolute Monocytes 0.3 K/uL (0.1-1.3); Hematocrit 27.7 % (36.0-45.0); Hemoglobin 9.1 g/dL (12.0-15.0); Lymphocytes % 31.5 % (15.3-44.8); MCV 87.9 fL (80-100); Monocytes % 6.3 % (3.3-12.3); Neutrophils % 58.2 % (41.7-73.7); Nucleated Red Blood Cells % 0.1 % (0-0); Platelets 234 thou/uL (152-406); RBC Red Blood Cell Count 3.15 M/uL (3.86-4.86)
[2024-10-11 13:45] LABS: AST/SGOT 11 U/L (15-37); Albumin 3.1 g/dL (3.4-5.0); Albumin/Globulin Ratio 0.8 (1.1-1.8); Alkaline Phosphatase 92 U/L (45-117); BUN Blood Urea Nitrogen 29 mg/dL (7-18); Bicarbonate 24 mEq/L (21-32); Bilirubin Total 0.3 mg/dL (0.2-1.0); Globulin 3.8 g/dL (2.3-3.5); Glomerular Filtration Rate 32 ml/min (=/>90); Glucose Level 144 mg/dL (74-106); Lipase 18 U/L (13-75); Protein, Total 6.9 g/dL (6.4-8.2); Sodium Level 140 mEq/L (136-145)
[2024-10-11 14:05] LABS: ALT/SGPT < 14 U/L (13-56)
--- NOTE | 2024-10-11 14:27 | ER ---
Nurse's Notes [facility] Name: Mariposa Palacios Age: 84 yrs Sex: Female : 1940 Arrival Date: 10/11/2024 Time: 12:06 Bed 14 Private MD: Diagnosis: Constipation, abdominal pain Presentation: 10/11 12:19 Chief complaint: EMS states: constipation, LBM 10 days ago. Coronavirus screen: At this kj2 time, the client does not indicate any symptoms associated with coronavirus-19. Ebola Screen: No symptoms or risks identified at this time. Initial Sepsis Screen: Does the patient meet any 2 criteria? No. Patient's initial sepsis screen is negative. Does the patient have a suspected source of infection? No. Patient's initial sepsis screen is negative. Risk Assessment: Do you want to hurt yourself or someone else? Patient reports no desire to harm self or others. Onset of symptoms was September 30, 2024. 12:19 Method Of Arrival: EMS: [facility] kj2 12:19 Acuity: DOMINIQUE 3 kj2 Triage Assessment: 12:24 General: Appears in no apparent distress. Behavior is cooperative. Pain: Complains of kj2 pain in abdomen. Neuro: Level of Consciousness is awake, alert, obeys commands, Oriented to person, place, time, situation. Cardiovascular: Patient's skin is warm and dry. Respiratory: Airway is patent Respiratory effort is even, unlabored. GI: Reports lower abdominal pain, upper abdominal pain, constipation. : No signs and/or symptoms were reported regarding the genitourinary system. Historical: - Allergies: 12:24 Benadryl; kj2 12:24 Codeine; kj2 12:24 injectable dye; kj2 12:24 metformin; kj2 12:24 Phenergan; kj2 - PMHx: 12:24 CHF; CVA; Diabetes - IDDM; Gout; Hypertensive disorder; kidney disease; neuropathy; kj2 - PSHx: 12:24 hysterectomy; Left shoulder repair; kj2 - Immunization history:: Adult Immunizations unknown. - Infectious Disease History:: Denies. - Social history:: Smoking status: unknown. Screenin:26 [facility] ED Fall Risk Assessment (Adult) History of falling in the last 3 months, kj2 including since admission No falls in past 3 months (0 pts) Confusion or Disorientation No (0 pts) Intoxicated or Sedated No (0 pts) Impaired Gait No (0 pts) Mobility Assist Device Used No (0 pt) Altered Elimination No (0 pt) Score/Fall Risk Level 0 - 2 = Low Risk Maintained a safe environment, Hourly rounding (assess needs \T\ fall precautionary measures) done. Abuse screen: Denies threats or abuse. Denies injuries from another. Nutritional screening: No deficits noted. Tuberculosis screening: No symptoms or risk factors identified. Assessment: 12:25 General: see triage assessment. kj2 12:30 GI: Bowel sounds present X 4 quads. Abd is non tender. kj2 13:35 Reassessment: Patient appears in no apparent distress at this time. Patient and/or kj2 family updated on plan of care and expected duration. Pain level reassessed. Patient is alert, oriented x 3, equal unlabored respirations, skin warm/dry/pink. 14:32 Reassessment: Patient appears in no apparent distress at this time. Patient and/or kj2 family updated on plan of care and expected duration. Pain level reassessed. Patient is alert, oriented x 3, equal unlabored respirations, skin warm/dry/pink. RN changed soiled diaper. 14:47 Reassessment: Patient is alert/active/playful, equal unlabored respirations, skin kj2 warm/dry/pink. patient waiting on EMS transportation. Vital Signs: 12:19 BP 147 / 61; Pulse 56; Resp 18; Temp 97.9; Pulse Ox 100% ; Weight 72.57 kg; Height 5 kj2 ft. 9 in. ; Pain 5/10; 14:42 BP 160 / 66; Pulse 63; Resp 20; Temp 97.9; Pulse Ox 99% ; kj2 12:19 Body Mass Index 23.63 (72.57 kg, 175.26 cm) kj2 12:19 Pain Scale: Adult kj2 ED Course: 12:14 Patient arrived in ED. sp3 12:14 Anish Blood MD is Attending Physician. sp3 12:18 Jinny Gould, GO is Primary Nurse. kj2 12:24 Triage completed. kj2 12:27 Patient has correct armband on for positive identification. Bed in low position. Call kj2 light in reach. Side rails up X 1. Provided Education on: call light. 12:30 Arm band placed on Patient placed in an exam room, on a stretcher. kj2 12:37 CT Abd/Pelvis - Without Contrast In Process Unspecified. EDMS 13:10 Inserted saline lock: 20 gauge in right antecubital area, using aseptic technique. kj2 Blood collected. Flushed with 10 mL NS. 14:33 No provider procedures requiring assistance completed. IV discontinued, intact, kj2 bleeding controlled, No redness/swelling at site. Pressure dressing applied. Administered Medications: 13:18 Drug: Fleet Enema SD 133 ml SD once Route: SD; kj2 14:34 Follow up: Response: No adverse reaction kj2 14:42 Follow up: Response: No adverse reaction kj2 Medication: 12:26 VIS not applicable for this client. kj2 Outcome: 14:26 Discharge ordered by . sp3 14:33 Discharged to home kj2 14:33 Condition: stable 14:33 Discharge instructions given to patient, Instructed on discharge instructions, follow up and referral plans. Demonstrated understanding of instructions, follow-up care, 15:09 Patient left the ED. kj2 Signatures: Dispatcher [employer] EDMS Anish Blood MD MD sp3 Jinny Gould, RN RN kj2
--- NOTE | 2024-10-11 14:27 | EDPHYS ---
Physician Documentation [facility] Name: Mariposa Palacois Age: 84 yrs Sex: Female : 1940 Arrival Date: 10/11/2024 Time: 12:06 Bed 14 Private MD: ED Physician Anish Blood HPI: 10/11 12:18 This 84 yrs old Female presents to ER via Unassigned with complaints of constipation. sp3 12:18 84-year-old female with a history of CHF, prior CVA, hypertension, hyperlipidemia, gout sp3 now presents to the ED with chief complaint no bowel movement for 10 days "since she left the hospital" from her prior admission. She states she is taking lactulose which has not helped. She states she is having mild abdominal pain now as well. She denies any other symptoms including vomiting, nausea, chest pain, shortness of breath, or any other signs or symptoms on ROS at this time.. Historical: - Allergies: 12:24 Benadryl; kj2 12:24 Codeine; kj2 12:24 injectable dye; kj2 12:24 metformin; kj2 12:24 Phenergan; kj2 - PMHx: 12:24 CHF; CVA; Diabetes - IDDM; Gout; Hypertensive disorder; kidney disease; neuropathy; kj2 - PSHx: 12:24 hysterectomy; Left shoulder repair; kj2 - Immunization history:: Adult Immunizations unknown. - Infectious Disease History:: Denies. - Social history:: Smoking status: unknown. ROS: 12:19 Constitutional: Negative for fever, chills, and weight loss, Eyes: Negative for injury, sp3 pain, redness, and discharge, ENT: Negative for injury, pain, and discharge, Neck: Negative for injury, pain, and swelling, Cardiovascular: Negative for chest pain, palpitations, and edema, Respiratory: Negative for shortness of breath, cough, wheezing, and pleuritic chest pain, Back: Negative for injury and pain, : Negative for injury, bleeding, discharge, and swelling, MS/Extremity: Negative for injury and deformity, Skin: Negative for injury, rash, and discoloration, Neuro: Negative for headache, weakness, numbness, tingling, and seizure, Psych: Negative for depression, anxiety, suicide ideation, homicidal ideation, and hallucinations, Allergy/Immunology: Negative for hives, rash, and allergies, Endocrine: Negative for neck swelling, polydipsia, polyuria, polyphagia, and marked weight changes, 12:19 All other systems are negative, Exam: 12:19 Constitutional: This is a well developed, well nourished patient who is awake, alert, sp3 and in no acute distress. Head/Face: Normocephalic, atraumatic. Eyes: Pupils equal round and reactive to light, extra-ocular motions intact. Lids and lashes normal. Conjunctiva and sclera are non-icteric and not injected. Cornea within normal limits. Periorbital areas with no swelling, redness, or edema. Neck: Trachea midline, no thyromegaly or masses palpated, and no cervical lymphadenopathy. Supple, full range of motion without nuchal rigidity, or vertebral point tenderness. No Meningismus. Chest/axilla: Normal chest wall appearance and motion. Nontender with no deformity. No lesions are appreciated. Cardiovascular: Regular rate and rhythm with a normal S1 and S2. No gallops, murmurs, or rubs. Normal PMI, no JVD. No pulse deficits. Respiratory: Lungs have equal breath sounds bilaterally, clear to auscultation and percussion. No rales, rhonchi or wheezes noted. No increased work of breathing, no retractions or nasal flaring. Back: No spinal tenderness. No costovertebral tenderness. Full range of motion. Skin: Warm, dry with normal turgor. Normal color with no rashes, no lesions, and no evidence of cellulitis. MS/ Extremity: Pulses equal, no cyanosis. Neurovascular intact. Full, normal range of motion. Neuro: Awake and alert, GCS 15, oriented to person, place, time, and situation. Cranial nerves II-XII grossly intact. Motor strength 5/5 in all extremities. Sensory grossly intact. Cerebellar exam normal. Normal gait. Psych: Awake, alert, with orientation to person, place and time. Behavior, mood, and affect are within normal limits. 12:19 Abdomen/GI: Abdomen soft nondistended with no peritoneal signs, rebound or guarding. Nonsurgical abdomen. Very mild crampiness reported by patient on deep palpation., Vital Signs: 12:19 BP 147 / 61; Pulse 56; Resp 18; Temp 97.9; Pulse Ox 100% ; Weight 72.57 kg; Height 5 kj2 ft. 9 in. ; Pain 5/10; 14:42 BP 160 / 66; Pulse 63; Resp 20; Temp 97.9; Pulse Ox 99% ; kj2 12:19 Body Mass Index 23.63 (72.57 kg, 175.26 cm) kj2 12:19 Pain Scale: Adult kj2 MDM: 12:14 Medical Screening Exam initiated sp3 12:20 Data reviewed: vital signs, nurses notes, old medical records, lab test result(s), sp3 radiologic studies. ED course: 84-year-old female with constipation and abdominal cramping. Differential diagnosis includes constipation, ileus, partial or full small bowel obstruction (clinically unlikely), or other abdominal pathology. Workup will include CT scan of the abdomen pelvis noncontrast, general labs and supportive care. Disposition pending workup and patient course.. 14:26 ED course: CT demonstrates moderate constipation. Fleet enema given and patient is now sp3 having bowel movement. Labs demonstrate no significant findings. We will safely discharge patient home at this time.. 10/11 12:15 Order name: CBC with Diff; Complete Time: 14:26 sp3 10/11 12:15 Order name: CMP; Complete Time: 14:26 sp3 10/11 12:15 Order name: Lipase; Complete Time: 14:26 sp3 10/11 12:15 Order name: CT Abd/Pelvis - Without Contrast; Complete Time: 12:59 sp3 10/11 12:15 Order name: IV Saline Lock; Complete Time: 13:18 sp3 10/11 12:15 Order name: Labs collected and sent; Complete Time: 13:18 sp3 Administered Medications: 13:18 Drug: Fleet Enema AZ 133 ml AZ once Route: AZ; kj2 14:34 Follow up: Response: No adverse reaction kj2 14:42 Follow up: Response: No adverse reaction kj2 Disposition Summary: 10/11/24 14:26 Discharge Ordered Notes: Location: Home sp3 Condition: Stable sp3 Diagnosis - Constipation, abdominal pain sp3 Followup: sp3 - With: Private Physician - When: Upon discharge from the Emergency Department - Reason: Continuance of care Discharge Instructions: - Discharge Summary Sheet sp3 - Constipation, Adult sp3 Forms: - Medication Reconciliation Form sp3 - Antibiotic Education sp3 - Prescription Opioid Use sp3 - Patient Portal Instructions sp3 - Leadership Thank You Letter sp3 Prescriptions: - Colace 100 mg Oral Tablet - take 1 tablet ORAL route every 12 hours; 14 tablet; Refills: 0, Product sp3 Selection Permitted Signatures: Dispatcher [employer] EDAnish Batista MD MD sp3 Jinny Gould, RN RN kj2 Corrections: (The following items were deleted from the chart) 12:16 12:16 Abdomen Pelvis Wo Con+CT.RAD.BRZ ordered. EDMS EDMS
[2024-10-11 15:18] VITALS: TEMP 97.9
[2024-10-11 15:20] VITALS: BP 160/66; O2SAT 99
== END 2024-10-11 15:09 | disposition home or self-care (01) ==
LOC: ER 12:06
DX: K59.00 Constipation, unspecified (principal); R10.9 Unspecified abdominal pain; E11.9 Type 2 diabetes mellitus without complications; I10 Essential (primary) hypertension; Z88.5 Allergy status to narcotic agent; Z88.8 Allergy status to other drugs, medicaments and biological substances
CPT/HCPCS: 36415; 74176; 80053; 83690; 85025; 99284

== ENCOUNTER 2025-02-23 13:58 | Emergency (ER) | payer OTHER ==
--- OUTSIDE RECORDS SUMMARY | 2025-02-23 14:01 | XMS REPORT | Continuity of Care Document ---
Author Name Unknown Address [address] [place] [address] [address] [place] [address] [facility] Address [address] [facility] [place] [address] Care Team Providers Care Sign Carpenter Name Role Phone [phone] Attending Clinician Unavailable Jamal Gomes Anavella Attending Cli nician Unavailable [phone] Admitting Clinician Unavailable Roberto Gomes Anav Admitting Clinician U navailable Payers Payer Name Policy Type Policy Number Effective Date Expirati on Date Source [facility] [id number] Encounters Start Date/Time End Date/Time Encounter Type Admission Type Attending Clinicians Care Facility Care Department Encounter ID Source 2022-10-26 09:38:52 Outpatient 3 [id number] [facility] KRISTOFER [id number] [facility] 2022-10-18 08:34:08 Outpatient 3 [id number] [facility] REF [id number] [facility] 2021-08-04 09:58:11 Outpatient 3 [id number] [place] [id number] [facility] 2021-08-04 09:54:11 Outpatient 3 [id number] [facility] REF [id number] [facility] 2021-08-04 09:53:43 Outpatient 3 [id number] [facility] REF [id number] [facility] 2022-10-27 13:03:00 2022-11-18 13:30:00 Inpatient 3 Jamal Serna [facility] CVA [id number] [facility]
[2025-02-23 14:23] LABS: Absolute Lymphocytes (CBC) 1.9 K/uL (0.7-4.9); Hematocrit 29.4 % (36.0-45.0); Hemoglobin 9.6 g/dL (12.0-15.0); MCH 29.0 pg (27.0-35.0); MCHC 32.5 g/dL (32.0-36.0); MCV 89.1 fL (80-100); MPV 7.1 fL (7.6-11.3); Nucleated RBC Absolute Count 0.0 (0-0); Nucleated Red Blood Cells % 0.1 % (0-0); RBC Red Blood Cell Count 3.30 M/uL (3.86-4.86); White Blood Count 5.60 thou/uL (4.3-10.9)
[2025-02-23 14:39] LABS: ALT/SGPT < 14 U/L (13-56); AST/SGOT 11 U/L (15-37); Albumin 2.9 g/dL (3.4-5.0); Albumin/Globulin Ratio 0.8 (1.1-1.8); Alkaline Phosphatase 79 U/L (45-117); Anion Gap 8.3 mEq/L (5.0-15.0); BUN Blood Urea Nitrogen 39 mg/dL (7-18); Globulin 3.8 g/dL (2.3-3.5); Glucose Level 142 mg/dL (74-106); Potassium 4.3 mEq/L (3.5-5.1)
[2025-02-23 14:52] LABS: Urine Crystals Unidentified Moderate /HPF (None Seen); Urine Culture Reflex Order REFLEXED; Urine Microscopic Reflex YN ORDER UMIC; Urine WBC Clump Many /HPF (None Seen); Urine Yeast (Budding) Moderate /HPF (None Seen)
[2025-02-23] MEDS ORDERED: CEFTRIAXONE 1000 MG/VIAL ONE (15:02)
[2025-02-23] MEDS ORDERED: NA CHLORIDE 0.9% 500 ML ONE (15:02)
--- NOTE | 2025-02-23 15:03 | RAD REPORT ---
EXAMINATION: Stone Protocol CLINICAL INDICATION: Abdominal pain. Flank pain TECHNIQUE: CT abdomen and pelvis was performed, without IV contrast, as per department protocol. Oral contrast not given. Axial, sagittal and coronal reconstructions were obtained. One or more of the following dose reduction techniques were used: Automated exposure control, adjustment of the mA and k V according to the patient size, and iterative reconstruction. Unless otherwise specified, incidental findings do not require dedicated imaging follow-up. COMPARISON: October 2024. FINDINGS: The lack of intravenous and oral contrast limits the sensitivity of this exam for evaluation of solid visceral organs, vascular structures, and bowel Known left breast mass partially included in the [id number]. There graph A renal calculus not seen. No ureteral calculus. A bladder calculus not noted. No hydronephrosis. Air within the bladder. Liver, spleen, pancreas and adrenals grossly normal No evidence of diverticulitis.. Hysterectomy. No adnexal mass. IMPRESSION: Negative for a genitourinary calculus Known left breast mass partially imaged Air within the bladder could be secondary to infection, fistula or recent instrumentation
[2025-02-23] MEDS ORDERED: HYDRALAZINE HCL 20 MG/ML VIAL ONE (15:42)
[2025-02-23] MEDS ORDERED: ACETAMINOPHEN 500 MG TAB ONE (15:50)
--- NOTE | 2025-02-23 16:04 | EDPHYS ---
Physician Documentation [facility] Name: Mariposa Palacios Age: 85 yrs Sex: Female : 1940 Arrival Date: 02/23/2025 Time: 13:58 Bed 5 Private MD: ED Physician Pola Hinds HPI: 02/23 14:09 This 85 yrs old Female presents to ER via EMS with complaints of Urinary Problem. kb 14:09 Pt is an 85 year old female who presents for dysuria for one week, weakness and high kb blood pressure. States this is normally the symptoms she has when she has a UTI. Denies fever, states "I hardly ever run a temperature." Had a televisit on Sunday and was prescribed levaquin, took one dose and developed itching so she didn't take any more of it. . Historical: - Allergies: 14:06 Benadryl; hb 14:06 Codeine; hb 14:06 injectable dye; hb 14:06 metformin; hb 14:06 Phenergan; hb - PMHx: 14:06 CHF; CVA; Diabetes - IDDM; Gout; Hypertensive disorder; kidney disease; neuropathy; hb - PSHx: 14:06 hysterectomy; Left shoulder repair; hb - Immunization history:: Adult Immunizations up to date. - Infectious Disease History:: Denies. - Social history:: Smoking status: Patient denies any tobacco usage or history of. ROS: 14:09 Constitutional: As per HPI kb Exam: 14:09 Constitutional: This is a well developed, well nourished patient who is awake, alert, kb and in no acute distress. Head/Face: Normocephalic, atraumatic. ENT: Moist Mucous membranes Cardiovascular: Regular rate Respiratory: Respirations even and unlabored. No increased work of breathing. Talking in full sentences Abdomen/GI: Soft, non-tender. No distention Skin: Warm, dry with normal turgor. Normal color. MS/ Extremity: Pulses equal, no cyanosis. Neurovascular intact. Full, normal range of motion. Neuro: Awake and alert, GCS 15, oriented to person, place, time, and situation. 14:09 Back: CVA tenderness, that is mild, is noted on the left, Vital Signs: 14:05 BP 202 / 73; Pulse 65; Resp 16; Temp 98.4(O); Pulse Ox 99% on R/A; Pain 5/10; hb 15:12 BP 210 / 84; Pulse 66; Resp 16; Pulse Ox 100% ; bp 17:09 BP 182 / 71; Pulse 82; Resp 17; Pulse Ox 100% on R/A; hb 14:05 Pain Scale: Adult hb MDM: 14:03 Medical Screening Exam initiated kb 16:01 Differential diagnosis: uti, kidney stone, pyelonephritis, abnormal electrolytes, kb dehydration. Data reviewed: vital signs, nurses notes. Consideration of Admission/Observation Escalation of care including admission/observation considered. admission considered but labs reassuring, pt nontoxic in appearance, tolerating po intake, states she gets UTIs all of the time. . Historians other than the Patient: EMS: [facility]. Counseling: I had a detailed discussion with the patient and/or guardian regarding the historical points, exam findings, and any diagnostic results supporting the discharge/admit diagnosis, lab results, radiology results, the need for outpatient follow up, a family practitioner, to return to the emergency department if symptoms worsen or persist or if there are any questions or concerns that arise at home. 02/23 14:04 Order name: CBC with Diff; Complete Time: 14:26 kb 02/23 14:04 Order name: CMP; Complete Time: 14:40 kb 02/23 14:04 Order name: UA Rfx Osman Cult if indicated; Complete Time: 14:57 kb 02/23 14:58 Order name: Urine Culture EDMS 02/23 14:39 Order name: CT Stone Protocol; Complete Time: 15:06 kb 02/23 14:04 Order name: IV Saline Lock; Complete Time: 14:20 kb 02/23 14:04 Order name: Labs collected and sent; Complete Time: 14:20 kb 02/23 14:51 Order name: Straight Cath - Urine; Complete Time: 14:51 hb 02/23 15:07 Order name: Vital Signs; Complete Time: 15:12 kb Administered Medications: 15:11 Drug: Rocephin IV 1 grams IV at calculated rate once; Given slow IV push per pharmacy bp instructions Route: IV; Rate: calculated rate; Site: right antecubital; 16:00 Follow up: Response: No adverse reaction hb 15:11 Drug: NS 0.9% IV 500 ml 500 ml IV at 1 bolus once; to be given as a bolus over 30 bp minutes Volume: 500 ml; Route: IV; Rate: 1 bolus; Site: right antecubital; 15:40 Follow up: IV Status: Completed infusion; IV Intake: 500ml hb 15:53 Drug: hydrALAZINE IVP 5 mg IVP once Route: IVP; Site: right antecubital; hb 16:45 Follow up: Response: No adverse reaction hb 15:53 Drug: Acetaminophen PO 1000 mg PO once Route: PO; hb 17:00 Follow up: Response: No adverse reaction hb 17:29 Drug: Famotidine IVP 20 mg IVP once; dilute with 10 mL 0.9% NaCl; give over 2 minutes hb Route: IVP; Site: right antecubital; 17:30 Follow up: Response: Medication administered at discharge. hb Disposition: 20:05 I was immediately available on-site in the Emergency Department for consultation in the ms3 care of the patient. Disposition Summary: 02/23/25 16:03 Discharge Ordered Notes: Location: Home kb Condition: Stable kb Diagnosis - UTI/ Urinary tract infection, site not specified kb - Essential (primary) hypertension kb Followup: kb - With: Emergency Department - When: As needed - Reason: Worsening of condition Followup: kb - With: Private Physician - When: 2 - 3 days - Reason: Recheck today's complaints, Continuance of care, Re-evaluation by your physician Discharge Instructions: - Discharge Summary Sheet kb - Urinary Tract Infection, Adult, [id number] kb - Hypertension, Adult, [id number] kb Forms: - Medication Reconciliation Form kb - Antibiotic Education kb - Prescription Opioid Use kb - Patient Portal Instructions kb - Leadership Thank You Letter kb Prescriptions: - cefpodoxime 100 mg Oral Tablet - take 1 tablet ORAL route every 12 hours for 10 days take with food; 20 tablet; kb Refills: 0, Product Selection Permitted Signatures: Dispatcher [employer] Julia Villarreal, AMELIA CHEW-Shaina Weinberg, RN RN Mike Henry, GO RN Pola Garcia DO DO ms3
--- NOTE | 2025-02-23 16:04 | ER ---
Nurse's Notes [facility] Name: Mariposa Palacios Age: 85 yrs Sex: Female : 1940 Arrival Date: 02/23/2025 Time: 13:58 Bed 5 Private MD: Diagnosis: UTI/ Urinary tract infection, site not specified;Essential (primary) hypertension Presentation: 02/23 14:05 Chief complaint: EMS states: Burning with urination and generalized weakness x 1 week. hb Coronavirus screen: At this time, the client does not indicate any symptoms associated with coronavirus-19. Ebola Screen: No symptoms or risks identified at this time. Initial Sepsis Screen: Does the patient meet any 2 criteria? No. Patient's initial sepsis screen is negative. Does the patient have a suspected source of infection? No. Patient's initial sepsis screen is negative. Risk Assessment: Do you want to hurt yourself or someone else? Patient reports no desire to harm self or others. Onset of symptoms was February 16, 2025. 14:05 Method Of Arrival: EMS: [facility] 14:05 Acuity: DOMINIQUE 3 hb Triage Assessment: 14:06 General: Appears in no apparent distress. Behavior is calm, cooperative. Pain: Pain hb currently is 5 out of 10 on a pain scale. EENT: No signs and/or symptoms were reported regarding the EENT system. Neuro: Level of Consciousness is awake, alert, obeys commands, Oriented to person, place, time, situation. Cardiovascular: Patient's skin is warm and dry. Respiratory: Respiratory effort is even, unlabored, Respiratory pattern is regular, symmetrical. GI: No signs and/or symptoms were reported involving the gastrointestinal system. : Reports pain with urination, left flank pain. Derm: Skin is pink, warm \T\ dry. Musculoskeletal: No signs and/or symptoms reported regarding the musculoskeletal system. Historical: - Allergies: 14:06 Benadryl; hb 14:06 Codeine; hb 14:06 injectable dye; hb 14:06 metformin; hb 14:06 Phenergan; hb - PMHx: 14:06 CHF; CVA; Diabetes - IDDM; Gout; Hypertensive disorder; kidney disease; neuropathy; hb - PSHx: 14:06 hysterectomy; Left shoulder repair; hb - Immunization history:: Adult Immunizations up to date. - Infectious Disease History:: Denies. - Social history:: Smoking status: Patient denies any tobacco usage or history of. Screenin:08 [facility] ED Fall Risk Assessment (Adult) History of falling in the last 3 months, hb including since admission No falls in past 3 months (0 pts) Confusion or Disorientation No (0 pts) Intoxicated or Sedated No (0 pts) Impaired Gait Yes (1 pt) Mobility Assist Device Used Yes (1 pt) Altered Elimination Yes (1 pt) Score/Fall Risk Level 3 or more points = High Risk Oriented to surroundings, Maintained a safe environment, Educated pt \T\ family on fall prevention, incl call for assistance when getting out of bed. Abuse screen: Denies threats or abuse. Denies injuries from another. Nutritional screening: No deficits noted. Tuberculosis screening: No symptoms or risk factors identified. Assessment: 14:08 General: See triage assessment. hb 15:54 Reassessment: Pt c/o headache, [employer] PROGRAM[employer] Julia notified, medicated as ordered. hb 16:22 Reassessment: Spoke to daughter Ca [phone], pt bedbound and unable to transfer, hb EMS transport requested. 16:40 Reassessment: Updated daughter Ca and patient [facility] in route to transport pt home. hb 17:20 Reassessment: Pt c/o bilateral forearm itching, started last Sunday after taking first hb dose of Levaquin. Medicated as ordered. Vital Signs: 14:05 BP 202 / 73; Pulse 65; Resp 16; Temp 98.4(O); Pulse Ox 99% on R/A; Pain 5/10; hb 15:12 BP 210 / 84; Pulse 66; Resp 16; Pulse Ox 100% ; bp 17:09 BP 182 / 71; Pulse 82; Resp 17; Pulse Ox 100% on R/A; hb 14:05 Pain Scale: Adult hb ED Course: 14:03 Patient arrived in ED. bd 14:03 [facility]C [facility] kb 14:03 Pola Hinds DO is Attending Physician. kb 14:06 Triage completed. hb 14:06 Arm band placed on. hb 14:08 Patient has correct armband on for positive identification. Bed in low position. Call hb light in reach. Provided Education on: call light . Client placed on continuous cardiac and pulse oximetry monitoring. NIBP monitoring applied. Pulse ox on. NIBP on. Warm blanket given. 14:20 Mike Rodriguez, RN is Primary Nurse. bp 14:21 CBC with Diff Sent. hb 14:21 Initial lab(s) drawn, by me, sent to lab. Inserted saline lock: 22 gauge in right hb antecubital area, using aseptic technique. Blood collected. Flushed with 10 mL NS. 14:35 Straight cath inserted, using sterile technique, 16 Fr. Specimen obtained. Returned hb cloudy urine. Patient tolerated well. 14:52 CT Stone Protocol In Process Unspecified. EDMS 17:32 No provider procedures requiring assistance completed. IV discontinued, intact, hb bleeding controlled, No redness/swelling at site. Pressure dressing applied. Administered Medications: 15:11 Drug: Rocephin IV 1 grams IV at calculated rate once; Given slow IV push per pharmacy bp instructions Route: IV; Rate: calculated rate; Site: right antecubital; 16:00 Follow up: Response: No adverse reaction hb 15:11 Drug: NS 0.9% IV 500 ml 500 ml IV at 1 bolus once; to be given as a bolus over 30 bp minutes Volume: 500 ml; Route: IV; Rate: 1 bolus; Site: right antecubital; 15:40 Follow up: IV Status: Completed infusion; IV Intake: 500ml hb 15:53 Drug: hydrALAZINE IVP 5 mg IVP once Route: IVP; Site: right antecubital; hb 16:45 Follow up: Response: No adverse reaction hb 15:53 Drug: Acetaminophen PO 1000 mg PO once Route: PO; hb 17:00 Follow up: Response: No adverse reaction hb 17:29 Drug: Famotidine IVP 20 mg IVP once; dilute with 10 mL 0.9% NaCl; give over 2 minutes hb Route: IVP; Site: right antecubital; 17:30 Follow up: Response: Medication administered at discharge. hb Medication: 14:08 VIS not applicable for this client. hb Intake: 15:40 IV: 500ml; Total: 500ml. hb Outcome: 16:03 Discharge ordered by MD. cochran 17:32 Discharged to home via ambulance, hb 17:32 Condition: stable 17:32 Discharge instructions given to patient, family, Instructed on discharge instructions, follow up and referral plans. medication usage, Demonstrated understanding of instructions, follow-up care, medications, Prescriptions given X 1, 17:38 Patient left the ED. hb Signatures: Dispatcher [employer] EDJulia Doran, JEEVAN-Nirmal CHEW-Natalee Mendez Heather, RN RN Mike Henry RN RN bp
[2025-02-23] MEDS ORDERED: FAMOTIDINE 20 MG/2 ML VIAL IV ONE (17:23)
[2025-02-23 23:01] VITALS: TEMP 98.4
[2025-02-23 23:02] VITALS: O2SAT 100
[2025-02-23 23:04] VITALS: BP 182/71
== END 2025-02-23 17:38 | disposition home or self-care (01) ==
LOC: ER 13:58
DX: N39.0 Urinary tract infection, site not specified (principal); I10 Essential (primary) hypertension
CPT/HCPCS: 87088; 85025; 81001; 87086; 36415; 80053; 76377; 74176; 51702; 96375; 96374; 99285; J0360; J7040; J0696